=== PATIENT | male | born 1955 | race Caucasian/White ===

== ENCOUNTER 2016-09-24 09:58 | Outpatient (RCR) | payer MEDICARE ==
[~2016-09-24 09:58] MED LIST: ACTOS/MET; ALLP300T; ALLP300T PO; ASPI-84 PO; BNZT1T PO; BNZT2T; BSP5T; BYETTA; CEFD300C3 PO; CHOL2000 PO; CHOL500044 PO; CITA20TA7 PO; CLPD75T PO; CPR500T PO; CYAN100021 PO; DOCU-143 PO; FOLI1TAB7; GABA-488 PO; HYDR-3812 PO; INDO50CA; INSASP10V; INSU100C4; INSU100I14 SQ; INSU100I16 SQ; INSU100I29 SQ; INSU100V6; INVEGA; LANTUS; LIRA0.6P SQ; LORA2TAB PO; METF-380 PO; METO25TA2 PO; MGX400T PO; MIRT15TA6 PO; MULT-35 PO; NOVOLOG; OLAN15TA19 PO; OMEP20TA2 PO; OMG1KC PO; PANT40TA PO; PHEN200T27 PO; PIOG1TAB; POLY1DRO OU; PROVIGIL; PSYL1CAP3; RIVA20TA PO; RPN.25T; SMV20T PO; TERA5CAP10 PO; TRIH2TAB2 PO; VITAMIN B12; VITAMIN C; VNL75CCR; ZPR80C PO
== END 2016-09-24 16:00 | disposition home or self-care (01) ==
LOC: WOUNDCARE 09:58
PROVIDERS: ATTEND Surgery
DX: L97.212 Non-pressure chronic ulcer of right calf with fat layer exposed (principal); L97.222 Non-pressure chronic ulcer of left calf with fat layer exposed; I87.333 Chronic venous hypertension (idiopathic) with ulcer and inflammation of bilateral lower extremity; E11.622 Type 2 diabetes mellitus with other skin ulcer; I70.242 Atherosclerosis of native arteries of left leg with ulceration of calf; I89.0 Lymphedema, not elsewhere classified
CPT/HCPCS: 11042; 97597; 99213; 99214

== ENCOUNTER → 2016-10-23 | Outpatient (CLI) | payer MEDICARE ==
[2016-10-23 12:30] LABS: CREATININE SERUM 1.8 MG/DL (0.60-1.30)
--- NOTE | 2016-10-23 15:57 | Diagnostic Imaging Report ---
PROCEDURE: CT abdomen and pelvis without contrast. TECHNIQUE: Multiple contiguous axial images were obtained through the abdomen and pelvis without the use of intravenous contrast. INDICATION: Abdominal pain. Rectal bleeding. FINDINGS: The lung bases appear clear. There is thickening of the distal esophagus and suggestion of a hiatal hernia with dilatation of the proximal stomach proximal to the band. This raises question of a possible narrow passage through the band resulting in the proximal dilatation and hiatal hernia with reflux esophagitis. There is an IVC filter in place. The legs of the filter appear to project slightly outside the IVC into the adjacent fat without eroding into any of the adjacent structures. The kidneys demonstrate no hydronephrosis. No urinary tract stones. The abdominal aorta is normal in caliber. No para-aortic significantly enlarged lymph node is seen. The liver demonstrates a mild degree of diffuse fatty infiltration. The spleen, the pancreas, and the adrenals appear unremarkable. There is diastasis of the recti with laxity of the abdominal wall above the umbilicus, and there is also a tiny umbilical hernia. There is a colostomy in the left lower quadrant with a parastomal hernia containing nonobstructed loop of the colon. This appears to be a loop colostomy. There is thinning of the pelvic floor with a suggestion of descent of the pelvic structures, particularly the prostate and the rectum distally inferiorly in the pelvis. There is no fluid collection or abscess in the abdomen or pelvis. The osseous structures demonstrate prominent degenerative changes with bridging syndesmophytes in the thoracolumbar spine and fusion of the SI joints. IMPRESSION: 1. There is a moderate-sized hiatal hernia involving the dilated proximal aspect of the stomach proximal to the gastric band. There is also thickening of the mid to distal esophagus suggestive of esophagitis. Consider possibility of a tight gastric band, or possibly functional abnormality. 2. Abdominal wall laxity and diastasis of the recti with a tiny umbilical fat-containing hernia. 3. There is pelvic floor laxity with descended position of the lower aspect of the rectum and the prostate projecting into the perineum. Findings were discussed with Dr. Ponce at time of dictation. Dictated by: Dictated on workstation # [id number]
== END ==
LOC: RAD 11:57
PROVIDERS: ATTEND Surgery
DX: K44.9 Diaphragmatic hernia without obstruction or gangrene (principal)
CPT/HCPCS: 36415; 74176; 82565; 84520

== ENCOUNTER → 2016-11-19 | Outpatient (CLI) | payer MEDICARE, BC ==
[2016-11-19 14:58] LABS: BASOPHILS % (AUTO) 0 % (0-10); EOSINOPHILS # (AUTO) 0.6 10^3/uL (0.0-0.3); EOSINOPHILS % (AUTO) 8 % (0-10); LYMPHOCYTES # (AUTO) 2.9 X 10^3 (1.0-4.0); LYMPHOCYTES % (AUTO) 37 % (12-44); MEAN CORPUSCULAR HEMOGLOBIN 30 PG (25-34); MEAN CORPUSCULAR HGB CONC 32 G/DL (32-36); MEAN CORPUSCULAR VOLUME 94 FL (80-99); MEAN PLATELET VOLUME 10.9 FL (7.4-10.4); MONOCYTES # (AUTO) 0.7 X 10^3 (0.0-1.0); MONOCYTES % (AUTO) 10 % (0-12); NEUTROPHILS # (AUTO) 3.5 X 10^3 (1.8-7.8); NEUTROPHILS % (AUTO) 45 % (42-75); PLATELET COUNT 178 10^3/uL (130-400); RED BLOOD COUNT 3.96 10^6/uL (4.35-5.85); RED CELL DISTRIBUTION WIDTH 14.4 % (10.0-14.5); WHITE BLOOD COUNT 7.7 10^3/uL (4.3-11.0)
[2016-11-19 15:17] LABS: ALBUMIN 3.2 G/DL (3.2-4.5); BILIRUBIN,TOTAL 0.2 MG/DL (0.1-1.0); CALCIUM 9.4 MG/DL (8.5-10.1); CREATININE SERUM 1.67 MG/DL (0.60-1.30); POTASSIUM 3.9 MMOL/L (3.6-5.0); TOTAL PROTEIN 6.9 G/DL (6.4-8.2)
== END ==
LOC: RAD 14:34
PROVIDERS: ATTEND Surgery
DX: E11.621 Type 2 diabetes mellitus with foot ulcer (principal); L98.492 Non-pressure chronic ulcer of skin of other sites with fat layer exposed; L97.512 Non-pressure chronic ulcer of other part of right foot with fat layer exposed; G82.22 Paraplegia, incomplete
CPT/HCPCS: 36415; 80053; 83036; 85025

== ENCOUNTER → 2016-11-28 | Outpatient (CLI) | payer MEDICARE | LOC: CARD 10:39 | PROVIDERS: ATTEND Nurse Practitioner Community Health | DX: Z51.81 Encounter for therapeutic drug level monitoring (principal); Z79.899 Other long term (current) drug therapy | CPT/HCPCS: 93005 ==

== ENCOUNTER → 2016-11-29 | Outpatient (CLI) | payer BC, MEDICARE ==
[~2016-11-29] MED LIST changes: +CATHETER FLUSH 10 ML SYR IV PRN; +REGADENOSON 0.4 MG/5 ML SYR (LEXISCAN) IV ONE
[2016-11-29 09:12] VITALS: BP 126/56
[2016-11-29 09:25] VITALS: BP 148/71
== END ==
LOC: CARD 07:54
PROVIDERS: ATTEND Internal Medicine Cardiovascular Disease
DX: I25.10 Atherosclerotic heart disease of native coronary artery without angina pectoris (principal); I34.0 Nonrheumatic mitral (valve) insufficiency; E66.9 Obesity, unspecified; R06.02 Shortness of breath; I07.1 Rheumatic tricuspid insufficiency
CPT/HCPCS: 78452; 93017

== ENCOUNTER → 2016-12-06 | Outpatient (CLI) | payer BC, MEDICARE ==
[~2016-12-06] MED LIST changes: -CATHETER FLUSH 10 ML SYR IV PRN; -REGADENOSON 0.4 MG/5 ML SYR (LEXISCAN) IV ONE
== END ==
LOC: CARD 10:03
PROVIDERS: ATTEND Internal Medicine Cardiovascular Disease
DX: R06.02 Shortness of breath (principal); I25.10 Atherosclerotic heart disease of native coronary artery without angina pectoris; I34.0 Nonrheumatic mitral (valve) insufficiency; E66.9 Obesity, unspecified; I07.1 Rheumatic tricuspid insufficiency
CPT/HCPCS: 93306

== ENCOUNTER 2016-12-19 13:08 | Outpatient (RCR) | payer MEDICARE ==
[2016-12-24] MEDS ORDERED: SERT50TA2 PO ×2 (10:38)
[2016-12-24] MEDS ORDERED: BENZ0.5T3 PO ×2 (10:38)
[2016-12-24] MEDS ORDERED: CLON0.5T3 PO ×2 (10:38)
[2016-12-24] MEDS ORDERED: MIRT30TA3 PO ×2 (10:38)
[2016-12-24] MEDS ORDERED: ASPI-586 PO ×2 (10:38)
[2016-12-24] MEDS ORDERED: PANT20TA3 PO ×2 (10:38)
[2016-12-24] MEDS ORDERED: ZPR80C PO ×2 (10:38)
[2016-12-24] MEDS ORDERED: DIVA500T PO ×2 (10:38)
[2016-12-27] MEDS ORDERED: HYDR-3816 PO ×2 (14:54)
== END 2016-12-19 16:00 | disposition home or self-care (01) ==
LOC: WOUNDCARE 13:08
PROVIDERS: ATTEND Surgery
DX: L98.492 Non-pressure chronic ulcer of skin of other sites with fat layer exposed (principal); E11.621 Type 2 diabetes mellitus with foot ulcer; L97.512 Non-pressure chronic ulcer of other part of right foot with fat layer exposed; G82.22 Paraplegia, incomplete; E11.622 Type 2 diabetes mellitus with other skin ulcer; L89.153 Pressure ulcer of sacral region, stage 3
CPT/HCPCS: 11042; 99213; 99214; 99215

== ENCOUNTER 2016-12-24 10:01 | Outpatient (CLI) | payer MEDICAID, MEDICARE ==
[~2016-12-24] VITALS: Ht 185.4 cm; Wt 126.7 kg
[2016-12-24] MEDS ORDERED: MIRT30TA3 PO (10:38)
[2016-12-24] MEDS ORDERED: ASPI-586 PO (10:38)
[2016-12-24] MEDS ORDERED: DIVA500T PO (10:38)
[2016-12-24] MEDS ORDERED: BENZ0.5T3 PO (10:38)
[2016-12-24] MEDS ORDERED: CLON0.5T3 PO (10:38)
[2016-12-24] MEDS ORDERED: ZPR80C PO (10:38)
[2016-12-24] MEDS ORDERED: PANT20TA3 PO (10:38)
[2016-12-24] MEDS ORDERED: SERT50TA2 PO (10:38)
== END 2016-12-24 10:58 | disposition home or self-care (01) ==
LOC: PREOP 10:01
PROVIDERS: ATTEND Surgery Pediatric Surgery
DX: Z01.818 Encounter for other preprocedural examination (principal); Z11.2 Encounter for screening for other bacterial diseases; K60.3 Anal fistula
CPT/HCPCS: 87081

== ENCOUNTER 2016-12-27 09:43 | Day surgery (SDC) | payer MEDICARE ==
[~2016-12-27] VITALS: Ht 185.4 cm; Wt 126.7 kg
[~2016-12-27 09:43] MED LIST changes: +ASPI-586 PO; +BENZ0.5T3 PO; +CLON0.5T3 PO; +DIVA500T PO; +MIRT30TA3 PO; +PANT20TA3 PO; +SERT50TA2 PO
[2016-12-27] MEDS: LACTATED RINGERS 1,000 ML IV PRN ×2 (10:13→14:00)
[2016-12-27] MEDS ORDERED: CATHETER FLUSH 10 ML SYR IV PRN (10:15)
[2016-12-27] MEDS ORDERED: ceFAZolin 1 GM/NS 50 ML IVPB IV ONE ×2 (10:15)
[2016-12-27] MEDS ORDERED: FAMOTIDINE 20MG/2ML IV (PEPCID) IV ONE (10:15)
[2016-12-27 10:38] VITALS: BP 131/65
--- NOTE | 2016-12-27 10:43 | Progress Note-Pre Operative ---
Pre-Operative Progress Note H&P Reviewed The H&P was reviewed, patient examined and no changes noted. Date Seen by Provider: Dec 27, 2016 Time Seen by Provider: 10:40 Date H&P Reviewed: Dec 27, 2016 Time H&P Reviewed: 10:40 Pre-Operative Diagnosis: anal fistula, drainage LUZ RAHMAN MD Dec 27, 2016 10:43 am
[2016-12-27] MEDS ORDERED: ONDANSETRON 4 MG/2 ML (SDV) Z0FRAN IVP PRN (10:45)
[2016-12-27] MEDS ORDERED: HYDROcodone/APAP 5 MG/325 MG (LORTAB) TAB PO ONE (10:45)
[2016-12-27] MEDS ORDERED: morphine INJ 10 MG/ML 1ML (SYR OR VIAL) IVP PRN (10:45)
[2016-12-27] MEDS ORDERED: ACETAMINOPHEN 325 MG TABLET/CAPLET (TYLENOL) PO PRN (10:45)
[2016-12-27] MEDS ORDERED: proPOfol 200 MG/20 ML (DIPRIVAN) VIAL IV ONE (13:04)
[2016-12-27] MEDS ORDERED: fentaNYL INJECTION 100 MCG/2 ML AMP ONE ×2 (13:04→14:33)
[2016-12-27] MEDS ORDERED: BUP/EPI 0.25% 1:200,000 (MARCAINE) 10 ML VIAL IJ ONE (14:14)
[2016-12-27] MEDS ORDERED: ONDANSETRON 4 MG/2 ML (SDV) Z0FRAN ONE (14:40)
[2016-12-27] MEDS ORDERED: LACTATED RINGERS 2,000 ML IV ONE (14:40)
[2016-12-27] MEDS ORDERED: NEOSTIGMINE (BLOXIVERZ ) 1 MG/1ML 10 ML VIAL ONE (14:40)
[2016-12-27] MEDS ORDERED: SEVOFLURANE (ULTANE) 15 ML INHAL SOLN ONE (14:40)
[2016-12-27] MEDS ORDERED: GLYCOPYRROLATE 0.2 MG/ML (ROBINUL) 2 ML VIAL ONE (14:40)
--- NOTE | 2016-12-27 14:53 | Progress Note-Post Operative ---
Post-Operative Progess Note Surgeon (s)/Mattress Spring Encaser (s) Surgeon LUZ RAHMAN MD Mattress Spring Encaser: nishant arthur HEALTH CARE ADMINISTRATOR Pre-Operative Diagnosis anal fistula, drainage Post-Operative Diagnosis superficial posterior anal fistula, no communication with anus or rectum. Procedure & Operative Findings Date of Procedure 12/27/16 Procedure Performed/Findings anal exam under anesthesia, stool disimpaction, fistulotomy. Anesthesia Type GET Estimated Blood Loss Estimated blood loss (mL): minimal Specimens/Packing Specimens Removed none LUZ RAHMAN MD Dec 27, 2016 2:53 pm
[2016-12-27] MEDS ORDERED: HYDR-3816 PO ×2 (14:54)
--- NOTE | 2016-12-27 14:56 | Discharge Inst-Surgical ---
D/C Lap Instructions-KIDO New, Converted, or Re-Newed RX: RX on Chart Follow Up Appt in 2 weeks Activity as tolerated Incentive Spirometry use every 2 hours while awake wound care: remove packing in one day, then dry gauze BID and PRN until closes on own. High Fiber Diet 25g or more per day Avoid Alcohol, Caffeine, Spicy Powder Horn and Acid foods. Drink 64 fluid oz or more of fluids per day. Symptoms to Report: Fever over 101 degree F, Nausea/Vomiting If any problems/questions: Contact your physician or go to Emergency Room LUZ RAHMAN MD Dec 27, 2016 2:56 pm
[2016-12-27 15:45] VITALS: BP 134/96
[2016-12-27 16:15] VITALS: BP 152/80
[2016-12-27 16:25] VITALS: BP 152/80
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
== END 2016-12-27 16:25 | disposition home or self-care (01) ==
LOC: SDC 09:43
PROVIDERS: ATTEND Surgery
DX: K60.3 Anal fistula (principal); K56.41 Fecal impaction; E11.9 Type 2 diabetes mellitus without complications; I10 Essential (primary) hypertension; I25.10 Atherosclerotic heart disease of native coronary artery without angina pectoris; E78.00 Pure hypercholesterolemia, unspecified; G47.33 Obstructive sleep apnea (adult) (pediatric); Z95.5 Presence of coronary angioplasty implant and graft; Z98.84 Bariatric surgery status; Z79.4 Long term (current) use of insulin; Z79.899 Other long term (current) drug therapy
CPT/HCPCS: 82962; 93005

== ENCOUNTER 2017-02-28 09:37 | Outpatient (CLI) | payer MEDICARE ==
[~2017-02-28] VITALS: Ht 185.4 cm; Wt 118.0 kg
[~2017-02-28 09:37] MED LIST changes: +HYDR-3816 PO
== END 2017-02-28 12:54 ==
LOC: PREOP 09:37
PROVIDERS: ATTEND Surgery
DX: Z01.818 Encounter for other preprocedural examination (principal); R11.2 Nausea with vomiting, unspecified; R10.84 Generalized abdominal pain

== ENCOUNTER 2017-03-07 07:48 | Day surgery (SDC) | payer MEDICARE ==
[~2017-03-07] VITALS: Ht 185.4 cm; Wt 118.0 kg
[2017-03-07] MEDS ORDERED: ceFAZolin 1 GM/NS 50 ML IVPB IV ONE ×2 (08:30)
[2017-03-07] MEDS ORDERED: CATHETER FLUSH 10 ML SYR IV PRN (08:30)
[2017-03-07] MEDS ORDERED: FAMOTIDINE 20MG/2ML IV (PEPCID) IV ONE (08:45)
[2017-03-07] MEDS ORDERED: LIDOCAINE 1% 10 MG/ML 0.2 ML SYR (FOR IV START) ONE (08:50)
--- NOTE | 2017-03-07 09:53 | Progress Note-Pre Operative ---
Pre-Operative Progress Note H&P Reviewed The H&P was reviewed, patient examined and no changes noted. Date Seen by Provider: Mar 07, 2017 Time Seen by Provider: 09:45 Date H&P Reviewed: Mar 07, 2017 Time H&P Reviewed: 09:45 Pre-Operative Diagnosis: left upper abdominal quadrant pain LUZ RAHMAN MD Mar 07, 2017 9:53 am
[2017-03-07] MEDS ORDERED: HYDROcodone/APAP 5 MG/325 MG (LORTAB) TAB PO ONE (10:00)
[2017-03-07] MEDS ORDERED: ONDANSETRON 4 MG/2 ML (SDV) Z0FRAN IVP PRN ×2 (10:00→14:45)
[2017-03-07] MEDS ORDERED: morphine INJ 10 MG/ML 1ML (SYR OR VIAL) IVP PRN (10:00)
[2017-03-07] MEDS ORDERED: ACETAMINOPHEN 325 MG TABLET/CAPLET (TYLENOL) PO PRN (10:00)
[2017-03-07] MEDS: LACTATED RINGERS 1,000 ML IV PRN ×2 (10:36→13:15)
[2017-03-07] MEDS ORDERED: FAMOTIDINE 20MG/2ML IV (PEPCID) IVP ONE (10:45)
[2017-03-07] MEDS ORDERED: BUP/EPI 0.5% 1:200,000 (MARCAINE) 10ML VIAL IJ ONE (11:25)
[2017-03-07] MEDS ORDERED: LIDOCAINE PF 2% 5 ML (XYLOCAINE) VIAL ONE (11:51)
[2017-03-07] MEDS ORDERED: proPOfol 200 MG/20 ML (DIPRIVAN) VIAL IV ONE (11:51)
[2017-03-07] MEDS ORDERED: SUCCINYLCHOLINE INJ 100 MG/5 ML SYR ONE (11:51)
[2017-03-07] MEDS ORDERED: fentaNYL INJECTION 100 MCG/2 ML AMP ONE ×2 (11:52→13:09)
[2017-03-07] MEDS ORDERED: MIDAZOLAM 2 MG/2 ML (VERSED) VIAL ONE (11:52)
[2017-03-07] MEDS ORDERED: LACTATED RINGERS 1,000 ML IV ONE ×2 (11:56→13:37)
[2017-03-07] MEDS ORDERED: SEVOFLURANE (ULTANE) 15 ML INHAL SOLN ONE ×5 (11:56→14:21)
[2017-03-07] MEDS ORDERED: ONDANSETRON 4 MG/2 ML (SDV) Z0FRAN ONE ×2 (11:56→14:53)
[2017-03-07] MEDS ORDERED: GLYCOPYRROLATE 0.2 MG/ML (ROBINUL) 2 ML VIAL ONE (13:37)
[2017-03-07] MEDS ORDERED: ROCURONIUM 50 MG/5 ML (ZEMURON) VIAL IV ONE (13:38)
[2017-03-07] MEDS ORDERED: NEOSTIGMINE (BLOXIVERZ ) 1 MG/1ML 10 ML VIAL ONE (13:59)
--- NOTE | 2017-03-07 14:23 | Progress Note-Post Operative ---
Post-Operative Progess Note Surgeon (s)/Chief Psychology (s) Surgeon LUZ RAHMAN MD Chief Psychology: nishant arthur COUNCILLOR [employer] Pre-Operative Diagnosis left upper abdominal quadrant pain Post-Operative Diagnosis extensive adhesions Procedure & Operative Findings Date of Procedure 03/07/17 Procedure Performed/Findings diagnostic laparoscopy, TAWNY, removal laparoscopic adjustable gastric band. Anesthesia Type GET Estimated Blood Loss Estimated blood loss (mL): minimal Specimens/Packing Specimens Removed none LUZ RAHMAN MD Mar 07, 2017 2:23 pm
[2017-03-07] MEDS ORDERED: HYDR-3816 PO (14:27)
--- NOTE | 2017-03-07 14:30 | Discharge Inst-Surgical ---
D/C Lap Instructions-LACEY New, Converted, or Re-Newed RX: RX on Chart Follow Up Appt in 2 weeks Activity as tolerated No driving for 24 hours No driving while on pain medications Incentive Spirometry use every 2 hours while awake Regular Diet Symptoms to Report: Fever over 101 degree F, Nausea/Vomiting Infection Signs and Symptoms to report: Increased redness, Foul odor of wound, Increased drainage Bathing instructions: May shower Operative Area Clean/Dry; Keep incision clean/dry If any problems/questions: Contact your physician or go to Emergency Room LUZ RAHMAN MD Mar 07, 2017 2:30 pm
[2017-03-07] MEDS: morphine INJ 10 MG/ML 1ML (SYR OR VIAL) IVP PRN ×3 (14:41→14:55)
[2017-03-07] MEDS ORDERED: MEPERIDINE (DEMEROL) INJ 50 MG/ML IVP PRN (14:45)
[2017-03-07 15:30] VITALS: BP 156/65
[2017-03-07 16:00] VITALS: BP 157/82
[2017-03-07 16:30] VITALS: BP 128/77
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
== END 2017-03-07 16:30 | disposition home or self-care (01) ==
LOC: SDC 07:48
PROVIDERS: ATTEND Surgery
DX: R10.12 Left upper quadrant pain (principal); K21.9 Gastro-esophageal reflux disease without esophagitis; K66.0 Peritoneal adhesions (postprocedural) (postinfection); E11.22 Type 2 diabetes mellitus with diabetic chronic kidney disease; I12.9 Hypertensive chronic kidney disease with stage 1 through stage 4 chronic kidney disease, or unspecified chronic kidney disease; N18.9 Chronic kidney disease, unspecified; I25.10 Atherosclerotic heart disease of native coronary artery without angina pectoris; E78.00 Pure hypercholesterolemia, unspecified; G47.33 Obstructive sleep apnea (adult) (pediatric); M10.9 Gout, unspecified; F20.9 Schizophrenia, unspecified; F31.9 Bipolar disorder, unspecified; Z93.3 Colostomy status; Z87.820 Personal history of traumatic brain injury; Z95.5 Presence of coronary angioplasty implant and graft; Z79.01 Long term (current) use of anticoagulants; Z79.4 Long term (current) use of insulin; Z79.899 Other long term (current) drug therapy
CPT/HCPCS: 82962; 87081; 94664

== ENCOUNTER 2017-08-03 16:31 | Emergency (ER) | payer MEDICARE ==
[~2017-08-03] VITALS: Ht 185.4 cm; Wt 129.4 kg
[~2017-08-03 16:31] MED LIST changes: +ACHD5005 PO; -HYDR-3812 PO
--- NOTE | 2017-08-03 17:11 | ED General ---
General Chief Complaint: Psych/Social Disorder Stated Complaint: SUICIDAL IDEATIONS Source of Information: Patient Exam Limitations: No Limitations History of Present Illness Date Seen by Provider: Aug 03, 2017 Time Seen by Provider: 17:09 Initial Comments To ER per EMS from [facility] with reports of suicidal thoughts since yesterday when he was told that his prison Bill had not been paid in a few months and he was going to be kicked out he states. Timing/Duration: 1-2 Days Severity: Moderate Allergies and Home Medications Allergies Coded Allergies: No Known Drug Allergies (Verified , 09/08/09) Home Medications Aspirin 81 Mg Tablet.dr, 81 MG PO DAILY, (Reported) Benztropine Mesylate 0.5 Mg Tablet, 0.5 MG PO BID, (Reported) Cefuroxime Axetil 250 Mg Tablet, 250 MG PO BID, #10 Prescribed by: LA HAZEL on 08/03/17 1826 Cholecalciferol (Vitamin D3) 5,000 Unit Tablet, 5,000 UNIT PO DAILY, (Reported) Clonazepam 0.5 Mg Tablet, 0.5 MG PO Q6H PRN for ANXIETY, (Reported) Divalproex Sodium 500 Mg Tablet.dr, 500 MG PO BID, (Reported) Docusate Sodium 100 Mg Capsule, 100 MG PO BID, (Reported) Gabapentin 300 Mg Capsule, 300 MG PO TID, (Reported) Hydrocodone Bit/Acetaminophen 1 Each Tablet, 1 TAB PO Q6H PRN for PAIN, ( Reported) Hydrocodone/Acetaminophen 1 Each Tablet, 1-2 EACH PO Q4H, #35 Prescribed by: LUZ RAHMAN on 03/07/17 1427 Insulin Aspart 300 Units/3 Ml Solution, 18 UNITS SQ TID, (Reported) HOLD FOR BLOOD SUGAR OF GREATER THAN 400 OR LESS THAN 60 AND NOTIFY NURSE. Insulin Detemir 100 Unit/1 Ml Insuln.pen, 20 UNIT SQ BID, (Reported) Magnesium Oxide 400 Mg Tab, 400 MG PO DAILY, (Reported) Mirtazapine 30 Mg Tab.rapdis, 30 MG PO HS, (Reported) Multivitamin 1 Each Tablet, 1 TAB PO DAILY, (Reported) Pantoprazole Sodium 20 Mg Tablet.dr, 20 MG PO DAILY, (Reported) Polyvinyl Alcohol/Povidone/Pf 1 Each Droperette, 1 DROP OU BID, (Reported) Rivaroxaban 20 Mg Tablet, 20 MG PO HS, (Reported) Sertraline HCl 50 Mg Tablet, 50 MG PO DAILY, (Reported) Ziprasidone 80 Mg Cap, 80 MG PO HS, (Reported) Constitutional: see HPI EENTM: see HPI Respiratory: no symptoms reported Cardiovascular: no symptoms reported Genitourinary: no symptoms reported Musculoskeletal: no symptoms reported Skin: no symptoms reported Psychiatric/Neurological: See HPI, Depressed Hematologic/Lymphatic: No Symptoms Reported Past Ybpvyry-Mqoqkh-Vabrag Hx Patient Social History Recent Hopitalizations: No Immunizations Up To Date Tetanus Booster (TDap): Unknown Date of Pneumonia Vaccine: Jul 09, 2011 Date of Influenza Vaccine: Apr 16, 2016 Seasonal Allergies Seasonal Allergies: No Surgeries Surgeries: Abdominal, Cardiac, Coronary Stent, Tonsillectomy Respiratory Respiratory Disorders: Sleep Apnea Currently Using CPAP: No Cardiovascular Cardiac Disorders: Atrial Fibrillation, Chronic Edema/Swelling, Coronary Artery Disease, High Cholesterol, Hypertension Neurological Neurological Disorders: Neuropathy, Spinal Cord Injury, Traumatic Brain Injury Reproductive System Hx Reproductive Disorders: No Sexually Transmitted Disease: No HIV/AIDS: No Genitourinary Genitourinary Disorders: Renal Failure Gastrointestinal Gastrointestinal Disorders: Chronic Constipation Endocrine Endocrine Disorders: Diabetes, Insulin dep Psychosocial Behavioral Health Disorders: Bipolar, Schizophrenia, Depression Blood Transfusions Adverse Reaction to a Blood Tr: No Family Medical History Family Medial History: Patient reports no known family medical history. Physical Exam Vital Signs Vital Sign - Last 12Hours 08/03/17 16:36 Temp 97.1 Pulse 66 Resp 18 B/P (MAP) 131/56 (81) Pulse Ox 97 Capillary Refill : General Appearance: No Apparent Distress, WD/WN Eyes: Bilateral Eye Normal Inspection, Bilateral Eye PERRL, Bilateral Eye EOMI HEENT: PERRL/EOMI, TMs Normal Neck: Full Range of Motion, Normal Inspection Respiratory: No Accessory Muscle Use, No Respiratory Distress Cardiovascular: Regular Rate, Rhythm, No Edema, Normal Peripheral Pulses Gastrointestinal: Normal Bowel Sounds, Non Tender, Soft Extremity: Normal Capillary Refill, Normal Inspection Neurologic/Psychiatric: Alert, Oriented x3, No Motor/Sensory Deficits Skin: Normal Color, Warm/Dry Progress/Results/Core Measures Suspected Sepsis SIRS Temperature: Pulse: Respiratory Rate: Laboratory Tests 08/03/17 17:27: White Blood Count 6.3 Blood Pressure / Mean: Laboratory Tests 08/03/17 17:27: Creatinine 1.83H, Platelet Count 194, Total Bilirubin 0.2 Results/Orders Lab Results Laboratory Tests Test 08/03/17 17:00 08/03/17 17:27 Range/Units Urine Color YELLOW Urine Clarity SLIGHTLY CLOUDY Urine pH 6.5 5-9 Urine Specific [place] 1.010 L 1.016-1.022 Urine Protein NEGATIVE NEGATIVE Urine Glucose (UA) NEGATIVE NEGATIVE Urine Ketones NEGATIVE NEGATIVE Urine Nitrite NEGATIVE NEGATIVE Urine Bilirubin NEGATIVE NEGATIVE Urine Urobilinogen NORMAL NORMAL MG/DL Urine Leukocyte Esterase 2+ H NEGATIVE Urine RBC (Auto) 1+ H NEGATIVE Urine RBC 2-5 H /HPF Urine WBC 5-10 H /HPF Urine Crystals NONE /LPF Urine Bacteria LARGE H /HPF Urine Casts NONE /LPF Urine Mucus NEGATIVE /LPF Urine Culture Indicated YES White Blood Count 6.3 4.3-11.0 10^3/uL Red Blood Count 3.51 L 4.35-5.85 10^6/uL Hemoglobin 9.6 L 13.3-17.7 G/DL Hematocrit 31 L 40-54 % Mean Corpuscular Volume 88 80-99 FL Mean Corpuscular Hemoglobin 27 25-34 PG Mean Corpuscular Hemoglobin Concent 31 L 32-36 G/DL Red Cell Distribution Width 16.9 H 10.0-14.5 % Platelet Count 194 130-400 10^3/uL Mean Platelet Volume 10.8 H 7.4-10.4 FL Neutrophils (%) (Auto) 56 42-75 % Lymphocytes (%) (Auto) 32 12-44 % Monocytes (%) (Auto) 8 0-12 % Eosinophils (%) (Auto) 4 0-10 % Basophils (%) (Auto) 1 0-10 % Neutrophils # (Auto) 3.6 1.8-7.8 X 10^3 Lymphocytes # (Auto) 2.0 1.0-4.0 X 10^3 Monocytes # (Auto) 0.5 0.0-1.0 X 10^3 Eosinophils # (Auto) 0.2 0.0-0.3 10^3/uL Basophils # (Auto) 0.0 0.0-0.1 10^3/uL Sodium Level 140 135-145 MMOL/L Potassium Level 4.4 3.6-5.0 MMOL/L Chloride Level 104 98-107 MMOL/L Carbon Dioxide Level 26 21-32 MMOL/L Anion Gap 10 5-14 MMOL/L Blood Urea Nitrogen 29 H 7-18 MG/DL Creatinine 1.83 H 0.60-1.30 MG/DL Estimat Glomerular Filtration Rate 38 BUN/Creatinine Ratio 16 Glucose Level 158 H 70-105 MG/DL Calcium Level 8.8 8.5-10.1 MG/DL Total Bilirubin 0.2 0.1-1.0 MG/DL Aspartate Amino Transf (AST/SGOT) 16 5-34 U/L Alanine Aminotransferase (ALT/SGPT) 12 0-55 U/L Alkaline Phosphatase 59 40-136 U/L Total Protein 7.3 6.4-8.2 GM/DL Albumin 3.1 L 3.2-4.5 GM/DL Thyroid Stimulating Hormone (TSH) 1.45 0.35-4.94 UIU/ML My Orders Orders - LA HAZEL APRN Cbc With Automated Diff (08/03/17 16:50) Comprehensive Metabolic Panel (08/03/17 16:50) Ua Culture If Indicated (08/03/17 16:50) Thyroid Stimulating Hormone (08/03/17 16:50) Ekg Tracing (08/03/17 16:50) Urine Culture (08/03/17 17:00) Cefdinir Capsule (Omnicef Capsule) (08/03/17 18:15) Medications Given in ED Current Medications Medications Dose Ordered Sig/Matt Route Start Time Stop Time Status Last Admin Dose Admin Cefdinir 300 mg ONCE ONCE PO 08/03/17 18:15 08/03/17 18:16 DC 08/03/17 18:43 300 MG Vital Signs/I&O Vital Sign - Last 12Hours 08/03/17 16:36 Temp 97.1 Pulse 66 Resp 18 B/P (MAP) 131/56 (81) Pulse Ox 97 Capillary Refill : Departure Communication (Admissions) Progress Notes 1821-patient states that he would feel much less suicidal or feet. Quit worrying about his place of residence. He believes he is going to be kicked out of [facility] and rehabilitation and has nowhere to go. He is paraplegic and unable to care for himself at home. Discussed with him that this could not be resolved on the weekend (today is Saturday) but psychosocial rehabilitation counselor could discuss options with him on Saturday. Impression Impression: Primary Impression: Chronic renal insufficiency Additional Impressions: Depression with suicidal ideation UTI (urinary tract infection) Disposition: 03 XFER SNF Condition: Stable Departure-Patient Inst. Decision time for Depature: 18:24 Referrals: MIGUEL ANGEL MCCORMICK MD (PCP/Family) Primary Care Physician Patient Instructions: Depression, Adult (DC) Add. Discharge Instructions: Antibiotics as directed for the bladder infection 2. Return to ER for any concerns 3. Call his doctor on Saturday 4. Call the senior behavioral health unit at [facility] for any worsening behaviors so they can come screen him. Scripts Cefuroxime Axetil (Cefuroxime) 250 Mg Tablet 250 MG PO BID, #10 TAB Prov: LA HAZEL SUPERVISOR WINTER 08/03/17 LA HAZEL APRN Aug 03, 2017 17:11
[2017-08-03 17:42] LABS: BILIRUBIN,URINE NEGATIVE (NEGATIVE); CLARITY,URINE SLIGHTLY CLOUDY; COLOR,URINE YELLOW; GLUCOSE, URINE (UA) NEGATIVE (NEGATIVE); KETONES,URINE NEGATIVE (NEGATIVE); LEUKOCYTE ESTERASE ,URINE 2+ (NEGATIVE); NITRITE,URINE NEGATIVE (NEGATIVE); PH,URINE 6.5 (5-9); PROTEIN,URINE NEGATIVE (NEGATIVE); UROBILINOGEN,URINE NORMAL (NORMAL)
[2017-08-03 17:49] LABS: BASOPHILS % (AUTO) 1 % (0-10); EOSINOPHILS # (AUTO) 0.2 10^3/uL (0.0-0.3); EOSINOPHILS % (AUTO) 4 % (0-10); HEMATOCRIT 31 % (40-54); HEMOGLOBIN 9.6 G/DL (13.3-17.7); LYMPHOCYTES % (AUTO) 32 % (12-44); MEAN CORPUSCULAR HEMOGLOBIN 27 PG (25-34); MEAN CORPUSCULAR HGB CONC 31 G/DL (32-36); MEAN CORPUSCULAR VOLUME 88 FL (80-99); MEAN PLATELET VOLUME 10.8 FL (7.4-10.4); MONOCYTES # (AUTO) 0.5 X 10^3 (0.0-1.0); MONOCYTES % (AUTO) 8 % (0-12); NEUTROPHILS # (AUTO) 3.6 X 10^3 (1.8-7.8); NEUTROPHILS % (AUTO) 56 % (42-75); PLATELET COUNT 194 10^3/uL (130-400); RED BLOOD COUNT 3.51 10^6/uL (4.35-5.85); RED CELL DISTRIBUTION WIDTH 16.9 % (10.0-14.5); WHITE BLOOD COUNT 6.3 10^3/uL (4.3-11.0)
[2017-08-03 17:52] LABS: BACTERIA,URINE LARGE /HPF
[2017-08-03 18:06] LABS: ALBUMIN 3.1 GM/DL (3.2-4.5); BILIRUBIN,TOTAL 0.2 MG/DL (0.1-1.0); CALCIUM 8.8 MG/DL (8.5-10.1); CREATININE SERUM 1.83 MG/DL (0.60-1.30); POTASSIUM 4.4 MMOL/L (3.6-5.0); TOTAL PROTEIN 7.3 GM/DL (6.4-8.2)
[2017-08-03] MEDS ORDERED: CEFDINIR 300 MG (OMNICEF) CAP PO ONE (18:15)
[2017-08-03] MEDS ORDERED: CEFU250T80 PO (18:26)
[2017-08-03 18:47] VITALS: BP 131/56
== END 2017-08-03 18:55 ==
LOC: EDUNIT# 16:31 → ER 16:32
DX: I12.9 Hypertensive chronic kidney disease with stage 1 through stage 4 chronic kidney disease, or unspecified chronic kidney disease (principal); E11.22 Type 2 diabetes mellitus with diabetic chronic kidney disease; N18.9 Chronic kidney disease, unspecified; N39.0 Urinary tract infection, site not specified; F32.9 Major depressive disorder, single episode, unspecified; G47.30 Sleep apnea, unspecified; I48.91 Unspecified atrial fibrillation; I25.10 Atherosclerotic heart disease of native coronary artery without angina pectoris; E78.00 Pure hypercholesterolemia, unspecified; F20.9 Schizophrenia, unspecified; Z87.820 Personal history of traumatic brain injury; Z87.19 Personal history of other diseases of the digestive system; Z79.82 Long term (current) use of aspirin; Z79.4 Long term (current) use of insulin; Z79.01 Long term (current) use of anticoagulants; Z90.89 Acquired absence of other organs; Z95.5 Presence of coronary angioplasty implant and graft
CPT/HCPCS: 36415; 80053; 81000; 84443; 85025; 87088; 87186; 93005

== ENCOUNTER 2017-11-29 03:43 | Inpatient (IN) | payer MEDICARE ==
[~2017-11-29] VITALS: Ht 185.4 cm; Wt 130.0 kg
[~2017-11-29 03:43] MED LIST changes: -BENZ0.5T3 PO; +BENZ0.5T42 PO; +CEFU250T80 PO; -CITA20TA7 PO; +CITA20TA9 PO; +HYDR-34 PO; -HYDR-3816 PO
[2017-11-29] MEDS ORDERED: NS IV 1000 ML 1,000 ML IV SCH ×2 (03:53→05:18)
--- NOTE | 2017-11-29 04:04 | ED Fall/Injury ---
General Stated Complaint: FALL Source: patient, EMS, detention records Exam Limitations: no limitations History of Present Illness Date Seen by Provider: November 29, 2017 Time Seen by Provider: 03:40 Initial Comments The patient presents to the ER by EMS from [facility] with chief complaint that at 2:30 this morning he was trying to get up into his wheelchair and his knees buckled he went to the ground landing on his left hip. He says he did not lose consciousness nor strike his head. He is on Xarelto. He has a known area of cellulitis being treated with Bactrim and doxycycline on his left hip. He has plans to have an abscess on his left hip drained by Dr. Aleman but he does not know when this to happen. He says he's having pain in both hips and does not want to straighten his legs. He has a colostomy bag. He denies any dysuria, fevers, chills. He is not having any nausea or vomiting. Allergies and Home Medications Allergies Coded Allergies: No Known Drug Allergies (Verified , 09/08/09) Home Medications Aspirin 81 Mg Tablet.dr, 81 MG PO DAILY, (Reported) Benztropine Mesylate 0.5 Mg Tablet, 0.5 MG PO BID, (Reported) Cefuroxime Axetil 250 Mg Tablet, 250 MG PO BID Prescribed by: LA HAZEL on 08/03/171825 Cholecalciferol (Vitamin D3) 5,000 Unit Tablet, 5,000 UNIT PO DAILY, (Reported) Clonazepam 0.5 Mg Tablet, 0.5 MG PO Q6H PRN for ANXIETY, (Reported) Divalproex Sodium 500 Mg Tablet.dr, 500 MG PO BID, (Reported) Docusate Sodium 100 Mg Capsule, 100 MG PO BID, (Reported) Gabapentin 300 Mg Capsule, 300 MG PO TID, (Reported) Hydrocodone Bit/Acetaminophen 1 Each Tablet, 1 TAB PO Q6H PRN for PAIN, ( Reported) Hydrocodone Bit/Acetaminophen 1 Each Tablet, 1-2 EACH PO Q4H Prescribed by: LUZ PEOPLES on 03/07/17 1427 Insulin Aspart 300 Units/3 Ml Solution, 18 UNITS SQ TID, (Reported) HOLD FOR BLOOD SUGAR OF GREATER THAN 400 OR LESS THAN 60 AND NOTIFY NURSE. Insulin Detemir 100 Unit/1 Ml Insuln.pen, 20 UNIT SQ BID, (Reported) Magnesium Oxide 400 Mg Tab, 400 MG PO DAILY, (Reported) Mirtazapine 30 Mg Tab.rapdis, 30 MG PO HS, (Reported) Multivitamin 1 Each Tablet, 1 TAB PO DAILY, (Reported) Pantoprazole Sodium 20 Mg Tablet.dr, 20 MG PO DAILY, (Reported) Polyvinyl Alcohol/Povidone/Pf 1 Each Droperette, 1 DROP OU BID, (Reported) Rivaroxaban 20 Mg Tablet, 20 MG PO HS, (Reported) Sertraline HCl 50 Mg Tablet, 50 MG PO DAILY, (Reported) Ziprasidone 80 Mg Cap, 80 MG PO HS, (Reported) Patient Home Medication List Home Medication List Reviewed: Yes Review of Systems Constitutional: No chills, No diaphoresis, No fever Eyes: Denies Blindness, Denies Blurred Vision Ears, Nose, Mouth, Throat: denies ear pain, denies ear discharge, denies nose discharge, denies epistaxis Respiratory: No cough, No short of breath Cardiovascular: No chest pain, No palpitations Gastrointestinal: No abdominal pain, No constipation, No diarrhea, No nausea Genitourinary: No discharge, No dysuria Musculoskeletal: back pain (mid thoracic), joint pain (bilateral hips) Skin: see HPI Past Czsbtzh-Ivjuiq-Ksfrpg Hx Patient Social History Alcohol Use: Denies Use Recreational Drug Use: No Recent Foreign Travel: No Contact w/Someone Who Travel: No Recent Hopitalizations: No Immunizations Up To Date Tetanus Booster (TDap): Unknown Date of Pneumonia Vaccine: Jul 09, 2011 Date of Influenza Vaccine: Apr 16, 2016 Seasonal Allergies Seasonal Allergies: No Past Medical History Surgeries: Yes (COLOSTOMY, LAP BAND, rectal fistulotomy) Abdominal, Cardiac, Coronary Stent, Tonsillectomy Respiratory: Yes (CHRONIC DYSPNEA) Sleep Apnea Currently Using CPAP: No Cardiac: Yes (PSVT) Atrial Fibrillation, Chronic Edema/Swelling, Coronary Artery Disease, High Cholesterol, Hypertension Neurological: Yes Neuropathy, Spinal Cord Injury, Traumatic Brain Injury Reproductive Disorders: No Sexually Transmitted Disease: No HIV/AIDS: No Renal Failure Gastrointestinal: No (COLOSTOMY ) Chronic Constipation Musculoskeletal: Yes (DYSKINESIA; NON-AMBULATORY, WHEELCHAIR-BOUND) Endocrine: Yes Diabetes, Insulin dep Cancer: No Psychosocial: Yes Schizophrenia, Depression Integumentary: No Blood Disorders: No Adverse Reaction/Blood Tranf: No Family Medical History Patient reports no known family medical history. Physical Exam Vital Signs Vital Signs - First Documented Capillary Refill : General Appearance: mild distress, obese HEENT: PERRL/EOMI, pharynx normal Neck: non-tender, normal inspection Cardiovascular: normal peripheral pulses, regular rate, rhythm Respiratory: chest non-tender, lungs clear, normal breath sounds, no respiratory distress, no accessory muscle use Peripheral Pulses: 2+ Dorsalis Pedis (R), 2+ Left Dors-Pedis (L), 2+ Radial Pulses (R), 2+ Radial Pulses (L) Gastrointestinal: normal bowel sounds, non tender, soft, other (left-sided colostomy) Back: normal inspection, vertebral tenderness (lumbar and mid thoracic tenderness palpation midline) Extremities: normal capillary refill, swelling, other (left hip) Neurologic/Psychiatric: alert, oriented x 3 Skin: other (erythematous, firm, tender area over the left hip with palpable fluctuance.) [place] Coma Score Best Eye Response: (4) Open Spontaneously Best Verbal Response: (5) Oriented Best Motor Response: (6) Obeys Commands Usman Total: 15 Progress/Results/Core Measures Results/Orders Lab Results Laboratory Tests Test 11/29/17 04:00 Range/Units White Blood Count 15.4 H 4.3-11.0 10^3/uL Red Blood Count 2.93 L 4.35-5.85 10^6/uL Hemoglobin 7.3 L 13.3-17.7 G/DL Hematocrit 24 L 40-54 % Mean Corpuscular Volume 81 80-99 FL Mean Corpuscular Hemoglobin 25 25-34 PG Mean Corpuscular Hemoglobin Concent 31 L 32-36 G/DL Red Cell Distribution Width 17.8 H 10.0-14.5 % Platelet Count 603 H 130-400 10^3/uL Mean Platelet Volume 9.1 7.4-10.4 FL Neutrophils (%) (Auto) 79 H 42-75 % Lymphocytes (%) (Auto) 10 L 12-44 % Monocytes (%) (Auto) 8 0-12 % Eosinophils (%) (Auto) 3 0-10 % Basophils (%) (Auto) 0 0-10 % Neutrophils # (Auto) 12.1 H 1.8-7.8 X 10^3 Lymphocytes # (Auto) 1.5 1.0-4.0 X 10^3 Monocytes # (Auto) 1.3 H 0.0-1.0 X 10^3 Eosinophils # (Auto) 0.5 H 0.0-0.3 10^3/uL Basophils # (Auto) 0.0 0.0-0.1 10^3/uL Neutrophils % (Manual) 78 % Lymphocytes % (Manual) 5 % Monocytes % (Manual) 13 % Eosinophils % (Manual) 2 % Basophils % (Manual) 0 % Band Neutrophils 2 % Clumped Platelets SLIGHT Polychromasia SLIGHT Hypochromasia MODERATE Anisocytosis MODERATE Tear Drop Cells SLIGHT Elliptocytes SLIGHT Sodium Level 136 135-145 MMOL/L Potassium Level 5.2 H 3.6-5.0 MMOL/L Chloride Level 105 98-107 MMOL/L Carbon Dioxide Level 20 L 21-32 MMOL/L Anion Gap 11 5-14 MMOL/L Blood Urea Nitrogen 32 H 7-18 MG/DL Creatinine 1.97 H 0.60-1.30 MG/DL Estimat Glomerular Filtration Rate 35 BUN/Creatinine Ratio 16 Glucose Level 132 H 70-105 MG/DL Lactic Acid Level 2.31 *H 0.50-2.00 MMOL/L Calcium Level 9.5 8.5-10.1 MG/DL Total Bilirubin 0.3 0.1-1.0 MG/DL Aspartate Amino Transf (AST/SGOT) 29 5-34 U/L Alanine Aminotransferase (ALT/SGPT) 11 0-55 U/L Alkaline Phosphatase 105 40-136 U/L C-Reactive Protein High Sensitivity 23.71 H 0.00-0.50 MG/DL Total Protein 6.6 6.4-8.2 GM/DL Albumin 2.5 L 3.2-4.5 GM/DL My Orders Orders - ANKIT MENDOSA Cbc With Automated Diff (11/29/17 03:53) Comprehensive Metabolic Panel (11/29/17 03:53) Hs C Reactive Protein (11/29/17 03:53) Ua Culture If Indicated (11/29/17 03:53) Hip, Left, 2 Views (11/29/17 03:53) Hip, Right, 2 Views (11/29/17 03:53) Saline Lock/Iv-Start (11/29/17 03:53) Ns Iv 1000 Ml (Sodium Chloride 0.9%) (11/29/17 03:53) Lactic Acid Analyzer (11/29/17 03:58) Blood Culture (11/29/17 03:58) Fentanyl Injection (Sublimaze Injection (11/29/17 04:31) Fentanyl Injection (Sublimaze Injection (11/29/17 04:45) Manual Differential (11/29/17 04:00) Ns Iv 1000 Ml (Sodium Chloride 0.9%) (11/29/17 05:18) Piperacillin Sodium/Tazobactam (Zosyn Vi (11/29/17 05:45) Medications Given in ED Current Medications Medications Dose Ordered Sig/Matt Route Start Time Stop Time Status Last Admin Dose Admin Fentanyl Citrate 50 mcg ONCE ONCE IVP 11/29/17 04:45 11/29/17 04:46 DC 11/29/17 04:41 50 MCG Vital Signs/I&O 11/29/17 11/29/17 11/29/17 03:43 03:43 04:41 Temp 97.6 97.6 97.6 Pulse 81 81 Resp 20 20 B/P (MAP) 113/60 (77) 113/60 (77) Pulse Ox 95 95 O2 Delivery Room Air Room Air Progress Progress Note #1: Time: 04:03 Progress Note Probable caused by this abscess over his left hip. Concern for possible fracture. He is not wanting anything for pain right now. We'll get labs and x- ray and if he is decompensating he may benefit from faster follow up inpatient with surgery. Concern for an abscess that is this large and this close to the left hip but there may be joint involvement. Progress Note #2: Time: 05:02 Progress Note Normocytic anemia with hemoglobin has dropped about 2 points since it was last checked here at the ER 4 months ago. With his elevated white count of 15,000 and his large abscess he will likely need this addressed today and this was going to be best treated probably under general anesthesia. We will consult with our general surgeon. Diagnostic Imaging Diagonstic Imaging: Xray Plain Films/CT/US/NM/MRI: hip (bilateral) Comments Bilateral hips without acute osseous abnormality. No free air. Reviewed: Reviewed by Me Departure Communication (Admissions) Time/Spoke to Admitting Phy: 05:31 Discussed case lab imaging findings with Dr. Whitman and she agrees to take the patient in the hospital. Time/Spoke to Consulting Phy: 05:32 Dr. Aleman discussed case lab imaging findings and he agrees to see the patient. Patient is known to Dr. Peoples. He is okay to consult for now. Impression Primary Impression: Fall Qualified Codes: W19.XXXA - Unspecified fall, initial encounter Additional Impressions: Abscess Anemia Qualified Codes: D64.9 - Anemia, unspecified Sepsis Qualified Codes: A41.9 - Sepsis, unspecified organism Disposition: ADMITTED INPATIENT Condition: Stable Admissions Decision to Admit Reason: Admit from ER (General) Decision to Admit/Date: November 29, 2017 Time/Decision to Admit Time: 05:04 Departure-Patient Inst. Referrals: MIGUEL ANGEL MCCORMICK MD (PCP/Family) Primary Care Physician Copy Copies To 1: GEORGE GARCIA DO; GIULIANA ALEMAN MD, TITUS J November 29, 2017 04:04
[2017-11-29] MEDS ORDERED: fentaNYL INJECTION 100 MCG/2 ML AMP ONE (04:31)
[2017-11-29] MEDS ORDERED: fentaNYL INJECTION 100 MCG/2 ML AMP IVP ONE (04:45)
[2017-11-29 04:49] LABS: BASOPHILS % (AUTO) 0 % (0-10); EOSINOPHILS # (AUTO) 0.5 10^3/uL (0.0-0.3); EOSINOPHILS % (AUTO) 3 % (0-10); HEMATOCRIT 24 % (40-54); HEMOGLOBIN 7.3 G/DL (13.3-17.7); LYMPHOCYTES # (AUTO) 1.5 X 10^3 (1.0-4.0); LYMPHOCYTES % (AUTO) 10 % (12-44); MEAN CORPUSCULAR HEMOGLOBIN 25 PG (25-34); MEAN CORPUSCULAR HGB CONC 31 G/DL (32-36); MEAN CORPUSCULAR VOLUME 81 FL (80-99); MEAN PLATELET VOLUME 9.1 FL (7.4-10.4); MONOCYTES # (AUTO) 1.3 X 10^3 (0.0-1.0); MONOCYTES % (AUTO) 8 % (0-12); NEUTROPHILS # (AUTO) 12.1 X 10^3 (1.8-7.8); NEUTROPHILS % (AUTO) 79 % (42-75); PLATELET COUNT 603 10^3/uL (130-400); RED BLOOD COUNT 2.93 10^6/uL (4.35-5.85); RED CELL DISTRIBUTION WIDTH 17.8 % (10.0-14.5); WHITE BLOOD COUNT 15.4 10^3/uL (4.3-11.0)
[2017-11-29 05:07] LABS: ANISOCYTOSIS MODERATE; BAND NEUTROPHILS 2 %; BASOPHILS % (MANUAL) 0 %; ELLIPT/OVALOCYTES SLIGHT; EOSINOPHILS % (MANUAL) 2 %; HYPOCHROMASIA MODERATE; LYMPHOCYTES % (MANUAL) 5 %; MONOCYTES % (MANUAL) 13 %; NEUTROPHILS % (MANUAL) 78 %; PLATELET CLUMPS SLIGHT; POLYCHROMASIA SLIGHT; TEAR DROP CELLS SLIGHT
[2017-11-29 05:10] LABS: ALBUMIN 2.5 GM/DL (3.2-4.5); BILIRUBIN,TOTAL 0.3 MG/DL (0.1-1.0); CALCIUM 9.5 MG/DL (8.5-10.1); CREATININE SERUM 1.97 MG/DL (0.60-1.30); POTASSIUM 5.2 MMOL/L (3.6-5.0); TOTAL PROTEIN 6.6 GM/DL (6.4-8.2)
[2017-11-29] MEDS ORDERED: PIPERACILLIN SODIUM/TAZOBACTAM 4.5 GM in D5W 100 ML IVPB 100 ML IV ONE (05:45)
--- NOTE | 2017-11-29 06:01 | Diagnostic Imaging Report ---
INDICATION: Fall. Hip pain. COMPARISON: None FINDINGS: 2 radiographic views of the left hip were obtained. There is no fracture, dislocation, bone destruction, or radiopaque foreign body. The visualized pelvic osseous structures and the SI joints demonstrate no acute fracture or dislocation. There is no bone destruction or radiopaque foreign body. The surrounding soft tissue structures are unremarkable. IMPRESSION: 1. No acute fracture or dislocation in the left hip hip joint. Dictated by: Dictated on workstation # [id number]
--- NOTE | 2017-11-29 06:02 | Diagnostic Imaging Report ---
INDICATION: Fall. Hip pain. COMPARISON: None. FINDINGS: 2 radiographic views of the right hip were obtained. There is no fracture, dislocation, bone destruction, or radiopaque foreign body. The visualized pelvic osseous structures and the SI joints demonstrate no acute fracture or dislocation. There is no bone destruction or radiopaque foreign body. The surrounding soft tissue structures are unremarkable. IMPRESSION: 1. No acute fracture or dislocation in the right hip joint. Dictated by: Dictated on workstation # [id number]
[2017-11-29] MEDS ORDERED: VANCOMYCIN INJECTION 2,250 MG in NS IV 500 ML 500 ML IV NR (07:13)
[2017-11-29] MEDS ORDERED: fentaNYL INJECTION 100 MCG/2 ML AMP IV PRN (07:15)
[2017-11-29] MEDS ORDERED: ONDANSETRON 4 MG/2 ML (SDV) Z0FRAN IV PRN (07:15)
[2017-11-29 07:50] VITALS: BP 144/65
[2017-11-29 07:51] VITALS: BP 116/56
[2017-11-29] MEDS: 1/2 NS IV SOLUTION 1,000 ML IV SCH ×4 (08:04→22:02)
[2017-11-29] MEDS: inSUlin DETERMIR 1 UNIT/0.01 ML (LEVEMIR) CHARGE PER UNIT SQ SCH ×2 (08:04→21:00)
[2017-11-29] MEDS ORDERED: LIDOCAINE UROJET 2% GEL 10 ML PKG ONE (08:09)
[2017-11-29] MEDS ORDERED: LIDOCAINE UROJET 2% GEL 10 ML PKG TOP ONE (08:15)
[2017-11-29] MEDS ORDERED: DOXY100C2 PO (08:53)
[2017-11-29] MEDS ORDERED: NYST1POW24 TOP (08:53)
[2017-11-29] MEDS ORDERED: SULF1TAB35 PO (08:53)
[2017-11-29] MEDS ORDERED: ZPR40C PO (08:53)
[2017-11-29] MEDS ORDERED: MAGN400T6 PO (08:53)
[2017-11-29] MEDS ORDERED: MUPI22OI2 TP (08:53)
[2017-11-29] MEDS ORDERED: GABA-488 PO (08:53)
[2017-11-29] MEDS ORDERED: POLY17PO6 PO (08:53)
[2017-11-29] MEDS ORDERED: INSU100I32 SQ (08:53)
[2017-11-29] MEDS ORDERED: CARB15DR OU (08:53)
[2017-11-29] MEDS ORDERED: ZIPR20CA23 PO (08:53)
[2017-11-29] MEDS ORDERED: ACET325T38 PO (08:53)
[2017-11-29] MEDS ORDERED: PANT20TA3 PO (08:53)
[2017-11-29] MEDS ORDERED: FENT1PAT9 TD (08:53)
[2017-11-29] MEDS ORDERED: MIRT15TA6 PO (08:53)
[2017-11-29] MEDS: fentaNYL PATCH 50 MCG (DURAGESIC) TD SCH (10:44)
[2017-11-29] MEDS: inSUlin ASPART (NovoLOG) 1 UNIT/0.01 ML (CHARGE PER UNIT) SC SCH ×3 (11:12→22:07)
--- NOTE | 2017-11-29 11:16 | History & Physical-Hospitalist ---
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 Garcia has started him on an antibiotic to treat a skin infection located on his left hip but patient began experiencing drainage and pain and presented to the ER found to have abscess in need of general surgery evaluation and empiric broad-spectrum antibiotics. He was a prior [facility] patient and he had changed to Dr. Garcia clinic as of July 2017 so his transfer back to the service after [facility] physician reconciled and restarted all home meds and essentially initiated medical management prior to transferring his care. The plan will be to recheck the wound may not require procedure. Xarelto will be stopped just in case.. Source: patient, RN/MD Exam Limitations: no limitations Date Seen 11/29/17 Time Seen by Provider: 11:00 Attending Physician Valencia Cheema DO PCP Juan Garcia DO Referring Physician Date of Admission November 29, 2017 at 05:30 Home Medications & Allergies Home Medications Reviewed patient Home Medication Reconciliation performed by pharmacy medication reconciliations retail service technician and/or nursing. Patients Allergies have been reviewed. Allergies Allergies Coded Allergies No Known Drug Allergies (Verified09/08/09) Past Amdxvmi-Zvpzjg-Pkrbzc Hx Past Med/Social Hx: Reviewed Nursing Past Med/Soc Hx, Reviewed and Corrections made Patient Social History Marrital Status: single Employed/Student: unemployed Alcohol Use: Denies Use Recreational Drug Use: No Smoking Status: Unknown if Ever Smoked 2nd Hand Smoke Exposure: No Recent Foreign Travel: No Contact w/other who traveled: No Recent Hopitalizations: No Recent Infectious Disease Expo: No Immunizations Up To Date Tetanus Booster (TDap): Unknown Date of Pneumonia Vaccine: Jul 09, 2011 Date of Influenza Vaccine: Apr 16, 2016 Seasonal Allergies Seasonal Allergies: No Past Medical History Surgeries: Abdominal, Cardiac, Coronary Stent, Tonsillectomy Currently Using CPAP: No Cardiac: Atrial Fibrillation, Chronic Edema/Swelling, Coronary Artery Disease, High Cholesterol, Hypertension Neurological: Neuropathy, Spinal Cord Injury, Traumatic Brain Injury Reproductive: No Sexually Transmitted Disease: No HIV/AIDS: No Genitourinary: Renal Failure Gastrointestinal: Chronic Constipation Endocrine: Diabetes, Insulin dep Psychosocial: Schizophrenia, Depression History of Blood Disorders: No Adverse Reaction to Blood Jiménez: No Family History Patient reports no known family medical history. Review of Systems Constitutional: no symptoms reported EENTM: no symptoms reported Respiratory: no symptoms reported Cardiovascular: no symptoms reported Gastrointestinal: no symptoms reported Musculoskeletal: no symptoms reported Skin: see HPI Psychiatric/Neurological: No Symptoms Reported All Other Systems Reviewed Negative Unless Noted: Yes Physical Exam Physical Exam Vital Signs Vital Signs - First Documented Capillary Refill : Less Than 3 Seconds General Appearance: No Apparent Distress, WD/WN, Chronically ill Eyes: Bilateral Eye Normal Inspection, Bilateral Eye PERRL HEENT: PERRL/EOMI, Normal ENT Inspection, Pharynx Normal Neck: Full Range of Motion, Normal Inspection, Non Tender, Supple, Carotid Bruit Respiratory: Chest Non Tender, Lungs Clear, Normal Breath Sounds, No Accessory Muscle Use, No Respiratory Distress Cardiovascular: Regular Rate, Rhythm, No Edema, No Gallop, No JVD, No Murmur, Normal Peripheral Pulses Gastrointestinal: Normal Bowel Sounds, No Organomegaly, No Pulsatile Mass, Non Tender, Soft Back: Normal Inspection, No CVA Tenderness, No Vertebral Tenderness Extremity: Normal Capillary Refill, Normal Inspection, Normal Range of Motion, Non Tender, No Calf Tenderness, No Pedal Edema Neurologic/Psychiatric: Alert, Oriented x3, No Motor/Sensory Deficits, Depressed Affect Skin: Normal Color, Warm/Dry, Rash (right hip dressing intact) Lymphatic: No Adenopathy Results Results/Procedures Labs Laboratory Tests 11/29/17 04:00 Patient resulted labs reviewed. Assessment/Plan Admission Diagnosis Assessment: Left hip skin abscess may need incision and drainage per Dr. Ponce Diabetes mellitus Neuropathy Chronic pain Severe depression Plan: Zosyn and vancomycin empiric treatment Appreciate general surgery evaluation since it may need incision and drainage Home meds restarted Admission Status: Inpatient Order (span 2 midnights) Reason for Inpatient Admission: Severe skin abscess Diagnosis/Problems Diagnosis/Problems (1) Abscess Status: Acute (2) Sepsis Status: Resolved Qualifiers: Sepsis type: sepsis due to unspecified organism Qualified Codes: A41.9 - Sepsis, unspecified organism (3) Paraplegia Status: Chronic (4) Colostomy in place Status: Chronic (5) Diabetes mellitus, type 2 Status: Chronic Qualifiers: Diabetes mellitus accounting generalist insulin use: with accounting generalist use Diabetes mellitus complication status: with neurologic complications Diabetes mellitus complication detail: with unspecified neuropathy Qualified Codes: E11.40 - Type 2 diabetes mellitus with diabetic neuropathy, unspecified; Z79.4 - retirement (current) use of insulin (6) Hypertension Status: Chronic (7) Chronic renal insufficiency Status: Chronic (8) Anemia Status: Chronic Qualifiers: Anemia type: unspecified type Qualified Codes: D64.9 - Anemia, unspecified VALENCIA CHEEMA DO November 29, 2017 11:16
--- NOTE | 2017-11-29 11:25 | Progress Note-Standard ---
Standard Progress Note Progress Notes/Assess & Plan Date Seen by Provider: November 29, 2017 Time Seen by Provider: 10:15 Progress/Assessment & Plan 11/29/17: This gentleman, resident under local rehabilitation center, with multiple comorbidities, has been admitted with an abscess over the lateral aspect of the left proximal thigh with inadequate drainage. He is on xarelto to manage atrial fibrillation. This should be held today in preparation for incision and drainage under general anesthetic tomorrow. I will request the on- call surgeon to manage this. Final Diagnosis Abscess of the left thigh Focused Exam Lactate Level 11/29/17 04:00: Lactic Acid Level 2.31*H 11/29/17 05:58: Lactic Acid Level 1.94 GIULIANA ALEMAN MD November 29, 2017 11:25
[2017-11-29 12:00] VITALS: BP 118/67
[2017-11-29] MEDS ORDERED: inSUlin ASPART (NovoLOG) 1 UNIT/0.01 ML (CHARGE PER UNIT) SC SCH (12:00)
[2017-11-29] MEDS: GABAPENTIN 300 MG (NEURONTIN) CAP PO SCH ×2 (12:36→22:02)
[2017-11-29] MEDS: PIPERACILLIN/TAZO 4.5 GM/D5W 100 ML IVPB IV SCH ×4 (12:37→20:33)
--- NOTE | 2017-11-29 15:28 | Progress Note-Standard ---
Standard Progress Note Progress Notes/Assess & Plan Time Seen by Provider: 15:22 Final Diagnosis Ignore this progress note, entered wrong note. Focused Exam Lactate Level 11/29/17 04:00: Lactic Acid Level 2.31*H 11/29/17 05:58: Lactic Acid Level 1.94 POLY VEGA DO November 29, 2017 15:28
--- NOTE | 2017-11-29 15:34 | Progress Note ---
Subjective Time Seen by Provider: 15:22 Subjective/Events-last exam Pt seen and examined. He was admitted with Left hip/thigh abscess vs cellulitis. Pt has minimal pain, he is wheelchair bound. States it has been going on "2 weeks" and nurse thinks it looks better compared to when he came in. Review of Systems General: Chills, Malaise Pulmonary: No Dyspnea, No Cough Cardiovascular: No: Chest Pain, Palpitations Gastrointestinal: No: Nausea, Vomiting Focused Exam Lactate Level 11/29/17 04:00: Lactic Acid Level 2.31*H 11/29/17 05:58: Lactic Acid Level 1.94 Objective Exam Vital Signs Date Time Temp Pulse Resp B/P (MAP) Pulse Ox O2 Delivery O2 Flow Rate FiO2 11/29/17 12:00 98.4 85 18 118/67 (84) 96 Room Air 11/29/17 08:00 Room Air 11/29/17 07:51 97.5 81 20 116/56 (76) 99 Room Air 11/29/17 07:50 97.5 81 20 144/65 (91) 99 Room Air 11/29/17 06:31 97.6 81 20 119/67 97 Room Air 11/29/17 06:31 97.6 80 20 119/67 (77) 97 Room Air 11/29/17 04:41 97.6 11/29/17 03:43 97.6 81 20 113/60 (77) 95 Room Air 11/29/17 03:43 97.6 81 20 113/60 (77) 95 Room Air I & O 11/29/17 07:00 Intake Total 1000 ml Balance 1000 ml Capillary Refill : Less Than 3 Seconds General Appearance: No Apparent Distress, WD/WN, Chronically ill, Obese HEENT: PERRL/EOMI, Moist Mucous Membranes Neck: Full Range of Motion, Normal Inspection, Non Tender, Supple, Carotid Bruit Respiratory: Chest Non Tender, Lungs Clear, Normal Breath Sounds, No Accessory Muscle Use, No Respiratory Distress Cardiovascular: Regular Rate, Rhythm, No Edema, No Gallop, No JVD, No Murmur, Normal Peripheral Pulses Peripheral Pulses: 2+ Dorsalis Pedis (R), 2+ Left Dors-Pedis (L), 2+ Radial Pulses (R), 2+ Radial Pulses (L) Gastrointestinal: normal bowel sounds, non tender, soft, other (left-sided colostomy) Extremity: No Calf Tenderness, No Pedal Edema Neurologic/Psychiatric: Alert, Oriented x3, Depressed Affect Skin: Normal Color, Warm/Dry, Other (Pt has a large left hip cellulitis, probable abscess, fluctuant area. Purplish-red skin, with some sloughing of superficial skin.) Lymphatic: No Adenopathy Results Lab Laboratory Tests 11/29/17 04:00: White Blood Count 15.4H, Red Blood Count 2.93L, Hemoglobin 7.3L, Hematocrit 24L , Mean Corpuscular Volume 81, Mean Corpuscular Hemoglobin 25, Mean Corpuscular Hemoglobin Concent 31L, Red Cell Distribution Width 17.8H, Platelet Count 603H, Mean Platelet Volume 9.1, Neutrophils (%) (Auto) 79H, Lymphocytes (%) (Auto) 10L , Monocytes (%) (Auto) 8, Eosinophils (%) (Auto) 3, Basophils (%) (Auto) 0, Neutrophils # (Auto) 12.1H, Lymphocytes # (Auto) 1.5, Monocytes # (Auto) 1.3H, Eosinophils # (Auto) 0.5H, Basophils # (Auto) 0.0, Neutrophils % (Manual) 78, Lymphocytes % (Manual) 5, Monocytes % (Manual) 13, Eosinophils % (Manual) 2, Basophils % (Manual) 0, Band Neutrophils 2, Clumped Platelets SLIGHT, Polychromasia SLIGHT, Hypochromasia MODERATE, Anisocytosis MODERATE, Tear Drop Cells SLIGHT, Elliptocytes SLIGHT, Sodium Level 136, Potassium Level 5.2H, Chloride Level 105, Carbon Dioxide Level 20L, Anion Gap 11, Blood Urea Nitrogen 32H, Creatinine 1.97H, Estimat Glomerular Filtration Rate 35, BUN/Creatinine Ratio 16, Glucose Level 132H, Lactic Acid Level 2.31*H, Calcium Level 9.5, Total Bilirubin 0.3, Aspartate Amino Transf (AST/SGOT) 29, Alanine Aminotransferase (ALT/SGPT) 11, Alkaline Phosphatase 105, C-Reactive Protein High Sensitivity 23.71H, Total Protein 6.6, Albumin 2.5L 11/29/17 05:58: Lactic Acid Level 1.94 11/29/17 11:10: Glucometer 136H Assessment/Plan Assessment/Plan Assessment/Plan Left Hip/Thigh cellulitis vs abscess DM Chronic Renal Failure Anemia Wheelchair bound I examined the left thigh and hip area; skin is purplish red and more distally there is an area of dry necrotic skin. Pt will need an Incision and Drainage with possible debridment; probable packing and maybe even wound VAC down the road. Pt ate today and is on Xarelto. Holding this blood thinner now most likely won't help with bleeding tomorrow; pt will be at higher risk of bleeding. I discussed the procedure with pt; risks and complications not limited to pain, bleeding, infection and scar. It will most likely be a large incision, left open and may need re-excision. He will probably bleed a lot because of the Xarelto. I explained that if the suspected purulence is not removed, it will never be treated with just ABX. He understood and all questions answered to his satisfaction. My main concern would be a necrotizing fasciitis, but this is less likely since he says it has been there 2 weeks and is improving compared to when he came in. Clinical Quality Measures DVT/VTE Risk/Contraindication: Risk Factor Score Per Nursin RFS Level Per Nursing on Admit: 4+=Very High POLY VEGA DO November 29, 2017 15:34
[2017-11-29 15:50] VITALS: BP 128/61
[2017-11-29] MEDS: HYDROcodone/APAP 5 MG/325 MG (LORTAB) TAB PO PRN (16:03)
[2017-11-29] MEDS ORDERED: LACTATED RINGERS 1,000 ML IV PRN (16:21)
[2017-11-29 19:53] VITALS: BP 108/52
[2017-11-29] MEDS: MIRTAZAPINE 15 MG (REMERON) TAB PO SCH (22:02)
[2017-11-29] MEDS: DOCUSATE SODIUM 100 MG (COLACE) CAP PO SCH (22:02)
[2017-11-29] MEDS: POLYETHYLENE GLYCOL 17 GM (MIRALAX) PACK PO SCH (22:03)
[2017-11-29] MEDS: PANTOPRAZOLE 20 MG TABLET (PROTONIX) PO SCH (22:03)
[2017-11-29] MEDS: ZIPRASIDONE 40 MG (GEODON) CAP PO SCH (22:03)
[2017-11-30 00:59] VITALS: BP 127/59
[2017-11-30] MEDS: 1/2 NS IV SOLUTION 1,000 ML IV SCH ×4 (03:51→21:34)
[2017-11-30 04:15] VITALS: BP 121/57
[2017-11-30] MEDS: MULTIVIT W/MINERALS TAB (THERAGRAN M) PO SCH (04:15)
[2017-11-30] MEDS: PIPERACILLIN/TAZO 4.5 GM/D5W 100 ML IVPB IV SCH ×6 (04:15→21:35)
[2017-11-30] MEDS: inSUlin ASPART (NovoLOG) 1 UNIT/0.01 ML (CHARGE PER UNIT) SC SCH ×4 (06:22→21:38)
[2017-11-30 06:39] LABS: MEAN PLATELET VOLUME 9.1 FL (7.4-10.4); RED BLOOD COUNT 2.74 10^6/uL (4.35-5.85); RED CELL DISTRIBUTION WIDTH 18.2 % (10.0-14.5); WHITE BLOOD COUNT 11.1 10^3/uL (4.3-11.0)
[2017-11-30 07:04] LABS: CREATININE SERUM 1.65 MG/DL (0.60-1.30); POTASSIUM 5.1 MMOL/L (3.6-5.0)
[2017-11-30 08:00] VITALS: BP 120/56
[2017-11-30] MEDS: MAGNESIUM OXIDE (MAG-OX)400 MG TAB PO SCH (08:05)
[2017-11-30] MEDS: ASPIRIN 81 MG CHEW (CHILDREN'S ASA) PO SCH (08:05)
[2017-11-30] MEDS: ZIPRASIDONE 20 MG (GEODON) CAP PO SCH (08:05)
[2017-11-30] MEDS: POLYETHYLENE GLYCOL 17 GM (MIRALAX) PACK PO SCH ×2 (08:05→21:37)
[2017-11-30] MEDS: DOCUSATE SODIUM 100 MG (COLACE) CAP PO SCH ×2 (08:05→21:34)
[2017-11-30] MEDS: inSUlin DETERMIR 1 UNIT/0.01 ML (LEVEMIR) CHARGE PER UNIT SQ SCH ×2 (08:06→21:38)
[2017-11-30] MEDS: PANTOPRAZOLE 20 MG TABLET (PROTONIX) PO SCH ×2 (08:06→21:34)
[2017-11-30] MEDS: GABAPENTIN 300 MG (NEURONTIN) CAP PO SCH ×3 (08:06→21:34)
[2017-11-30] MEDS: SERTRALINE 50 MG (ZOLOFT) TABLET PO SCH (08:06)
[2017-11-30] MEDS: VANCOMYCIN 1,750 MG/NS 500 ML IVPB IV SCH ×2 (08:11)
[2017-11-30] MEDS ORDERED: fentaNYL INJECTION 100 MCG/2 ML AMP ONE ×2 (08:21→09:37)
[2017-11-30] MEDS ORDERED: LIDOCAINE PF 2% 5 ML (XYLOCAINE) VIAL ONE (08:21)
[2017-11-30] MEDS ORDERED: proPOfol 200 MG/20 ML (DIPRIVAN) VIAL IV ONE ×2 (08:21→11:07)
[2017-11-30] MEDS ORDERED: SEVOFLURANE (ULTANE) 15 ML INHAL SOLN ONE ×4 (08:21→11:07)
[2017-11-30] MEDS ORDERED: ONDANSETRON 4 MG/2 ML (SDV) Z0FRAN ONE ×2 (08:21→09:28)
[2017-11-30] MEDS ORDERED: morphine INJ 10 MG/ML 1ML (SYR OR VIAL) ONE (09:28)
[2017-11-30] MEDS ORDERED: HYDROmorphone 1 MG/ML (DILAUDID) 1 ML SYRINGE ONE (09:29)
[2017-11-30] MEDS ORDERED: THROMBIN SPRAY KIT 5,000 UNIT VIAL ONE (09:44)
[2017-11-30 10:09] LABS: HEMOGLOBIN 7.1 G/DL (13.3-17.7)
--- NOTE | 2017-11-30 10:09 | Progress Note-Post Operative ---
Post-Operative Progess Note Surgeon (s)/Client Support Consultant (s) Surgeon POLY VEGA DO Client Support Consultant: none Pre-Operative Diagnosis Left hip/thigh Abscess Post-Operative Diagnosis Same plus necrotic tissue Procedure & Operative Findings Date of Procedure 11/30/17 Procedure Performed/Findings Incision and Drainage of Left hip/thigh Abscess Debridement of tissue; including fat, muscle and fascia measuring 13x5x4.5 cm Control of bleeding Packed with Iodophor Anesthesia Type GET Estimated Blood Loss Estimated blood loss (mL): 150ml Specimens/Packing Specimens Removed Appx 350ml of necrotic tissue and purulent fluid Necrotic tissue and skin POLY VEGA DO November 30, 2017 10:09
[2017-11-30] MEDS: morphine INJ 10 MG/ML 1ML (SYR OR VIAL) IVP PRN ×3 (10:36→10:50)
[2017-11-30] MEDS ORDERED: ONDANSETRON 4 MG/2 ML (SDV) Z0FRAN IVP PRN (11:00)
[2017-11-30] MEDS ORDERED: HYDROmorphone 1 MG/ML (DILAUDID) 1 ML SYRINGE IV PRN (11:00)
[2017-11-30 11:52] VITALS: BP 140/60
--- NOTE | 2017-11-30 12:31 | Anesthesia-General Post-Op ---
General Patient Condition Mental Status/LOC: Same as Preop Cardiovascular: Satisfactory Nausea/Vomiting: Absent Respiratory: Satisfactory Pain: Controlled Complications: Absent Post Op Complications Complications None Follow Up Care/Instructions Patient Instructions None needed. Anesthesia/Patient Condition Patient Condition Patient is doing well, no complaints, stable vital signs, no apparent adverse anesthesia problems. No complications reported per nursing. ALEJANDRA BARRIGA CRNA November 30, 2017 12:31
--- NOTE | 2017-11-30 13:04 | Progress Note-Hospitalist ---
Progress Note Progress Notes/Assess & Plan Date Seen 11/30/17 Time Seen by Provider: 13:00 Assessment & Plan The patient was sleeping rather soundly when I entered the room. Vital signs are stable. He had an extensive debridement of his left hip abscess yesterday. Cultures are pending. He has no complaints at this time. Physical exam: He offers no complaints. Lungs reveal distant breath sounds CV is regular without murmur. Abdomen is obese. Extremities show no pedal edema Impression: Status post debridement of abscess left hip/thigh. 2.diabetes Plan: Continue Zosyn/vancomycin at this time. Await culture reports Focused Exam Lactate Level 11/29/17 04:00: Lactic Acid Level 2.31*H 11/29/17 05:58: Lactic Acid Level 1.94 ESTRELLITA PRINCE MD November 30, 2017 13:04
[2017-11-30 15:40] VITALS: BP 114/57
--- NOTE | 2017-11-30 17:46 | OPERATIVE REPORT ---
DATE OF SERVICE: 11/30/2017 PREOPERATIVE DIAGNOSES: 1. Left hip and thigh cellulitis. 2. History of diabetes. POSTOPERATIVE DIAGNOSES: Necrotic infected abscess of left hip and thigh area and history of diabetes. PROCEDURES: 1. Incision and drainage of left thigh abscess. 2. Debridement of left hip and thigh tissue. Skin fat, muscle and fascia. 3. Control of bleeding with packing of wound with aorta for dressing. SURGEON: Tang Thomas DO. RESOURCE ECONOMIST: None. ANESTHESIA: General endotracheal tube. BLOOD LOSS: Approximately 150 mL. SPECIMEN: 1. Fluid culture. 2. Necrotic tissue. INDICATION FOR PROCEDURE: The patient is a 62-year old male who presented with increasing erythema and cellulitis and pain in the left hip and thigh area diagnosed with a cellulitis. He is also on Xarelto, so as some abnormal coagulation, because this it seemed to be at least not expanding and needed to get incised and drained. FINDINGS: The patient had a 13 x 6 at least 4.5 cm deep pocket of purulent fluid and necrotic tissue as well as some necrotic skin and he had some excessive bleeding because of the Xarelto. PROCEDURE NOTE: After informed consent was obtained, the patient was brought to the operating room, placed on the table in the right lateral decubitus position with the left hip up. He was then sterilely prepped and draped in normal fashion and an elliptical incision was made with 15 blade to cut out 2 pieces of necrotic tissue. Immediately upon making the incision and got a score of purulent fluid out foul smelling, there was also a lot of blood, pus and necrotic tissue. Cut out this portion of skin and then carefully suctioned out all the necrotic tissue, fluid culture obtained. The skin and some necrotic tissue from inside the wound was removed and sent to pathology. There was a lot of bleeding from the skin edges, looked around did not see any more obvious necrotic tissue had to cut it all out, but this did go down through fat and into the muscle and fascia. I removed a little bit of all these of necrotic tissue. Copiously irrigated with normal saline and then tried to hold pressure, tried using Bovie electrocautery. Had a very hard time controlling the bleeding and so at this point got some spray thrombin and Gelfoam placed these in there and then held pressure removed the pressure after 5 minutes, the bleeding had decreased, I placed two gelfoams in their placed another Gelfoam and sprayed more thrombin and then held pressure for five more minutes and then at this point looked there did not appear of any active bleeding. Placed two 2 x 14 Surgicels in the wound and then placed a whole bottle of one inch iodoform packing and then the skin was surrounding this was cleaned and dried and ABDs placed. The patient tolerated this procedure and transferred to recovery room in stable condition. Sponge and needle count correct at the end of the case. Job ID: [id number] DocumentID: [id number] Dictated Date: 11/30/2017 15:31:33 Commercial Escrow Assistant Date: 11/30/2017 17:46:21 Dictated By: TANG THOMAS DO
[2017-11-30 18:24] LABS: HEMOGLOBIN 7.2 G/DL (13.3-17.7)
[2017-11-30 19:59] VITALS: BP 132/61
[2017-11-30] MEDS: ZIPRASIDONE 40 MG (GEODON) CAP PO SCH (21:34)
[2017-11-30] MEDS: MIRTAZAPINE 15 MG (REMERON) TAB PO SCH (21:34)
[2017-12-01 00:48] VITALS: BP 119/56
[2017-12-01 03:53] VITALS: BP 119/56
[2017-12-01] MEDS: PIPERACILLIN/TAZO 4.5 GM/D5W 100 ML IVPB IV SCH ×6 (05:03→20:33)
[2017-12-01] MEDS: inSUlin ASPART (NovoLOG) 1 UNIT/0.01 ML (CHARGE PER UNIT) SC SCH ×4 (06:06→21:11)
[2017-12-01] MEDS: HYDROcodone/APAP 5 MG/325 MG (LORTAB) TAB PO PRN ×2 (06:26→13:19)
[2017-12-01] MEDS: MULTIVIT W/MINERALS TAB (THERAGRAN M) PO SCH (06:26)
[2017-12-01] MEDS ORDERED: TROUGH ORDER-PHARMACY XX NR (07:00)
[2017-12-01 07:47] VITALS: BP 120/57
[2017-12-01] MEDS: VANCOMYCIN 1,750 MG/NS 500 ML IVPB IV SCH ×2 (08:55)
[2017-12-01] MEDS: GABAPENTIN 300 MG (NEURONTIN) CAP PO SCH ×3 (09:12→21:11)
[2017-12-01] MEDS: ZIPRASIDONE 20 MG (GEODON) CAP PO SCH (09:12)
[2017-12-01] MEDS: ASPIRIN 81 MG CHEW (CHILDREN'S ASA) PO SCH (09:13)
[2017-12-01] MEDS: SERTRALINE 50 MG (ZOLOFT) TABLET PO SCH (09:13)
[2017-12-01] MEDS: PANTOPRAZOLE 20 MG TABLET (PROTONIX) PO SCH ×2 (09:13→21:10)
[2017-12-01] MEDS: inSUlin DETERMIR 1 UNIT/0.01 ML (LEVEMIR) CHARGE PER UNIT SQ SCH ×2 (09:14→21:11)
[2017-12-01] MEDS: POLYETHYLENE GLYCOL 17 GM (MIRALAX) PACK PO SCH ×2 (09:14→21:11)
[2017-12-01] MEDS: MAGNESIUM OXIDE (MAG-OX)400 MG TAB PO SCH (09:14)
[2017-12-01] MEDS: DOCUSATE SODIUM 100 MG (COLACE) CAP PO SCH ×2 (09:14→21:11)
[2017-12-01 11:47] VITALS: BP 119/69
--- NOTE | 2017-12-01 13:12 | Progress Note-Hospitalist ---
Progress Note Progress Notes/Assess & Plan Date Seen 12/01/17 Time Seen by Provider: 13:10 Assessment & Plan The patient has no complaints at this time. While I was in the room Dr. Thomas was examining his left hip wound. He pronounced it clean and quite satisfactory. The wound will need to be dressed daily as it heals by secondary intent. This can be done at the [facility]. These arrangements will be pursued. Physical exam: He is alert without complaints. Lungs clear to auscultation. CV is regular without murmur. Impression: Large abscess and necrotic tissue left hip and upper thigh lateral aspect Plan: Focused Exam Lactate Level 11/29/17 04:00: Lactic Acid Level 2.31*H 11/29/17 05:58: Lactic Acid Level 1.94 ESTRELLITA PRINCE MD December 01, 2017 13:12
--- NOTE | 2017-12-01 13:13 | Progress Note ---
Subjective Time Seen by Provider: 13:01 Subjective/Events-last exam Pt seen and examined, complains of left hip pain; otherwise tolerating diet. Nurse states no bleeding from incision. Review of Systems General: No Chills, No Night Sweats Pulmonary: No Dyspnea, No Cough Cardiovascular: No: Chest Pain Focused Exam Lactate Level 11/29/17 04:00: Lactic Acid Level 2.31*H 11/29/17 05:58: Lactic Acid Level 1.94 Objective Exam Vital Signs Date Time Temp Pulse Resp B/P (MAP) Pulse Ox O2 Delivery O2 Flow Rate FiO2 12/01/17 11:47 96.2 79 18 119/69 (86) 97 Room Air 12/01/17 07:47 96.6 71 16 120/57 (78) 97 Room Air 12/01/17 06:50 97 Room Air 12/01/17 03:53 97.8 83 15 119/56 (77) 99 Room Air 12/01/17 02:39 98 Room Air 12/01/17 00:48 98.4 77 15 119/56 (77) 97 Room Air 11/30/17 19:59 98.0 81 9 132/61 (84) 96 Room Air 11/30/17 18:55 97 Room Air 11/30/17 16:17 97 Room Air 11/30/17 15:40 97.4 73 11 114/57 (76) 97 Room Air I & O 12/01/17 07:00 Intake Total 340 ml Output Total 3950 ml Balance -3610 ml Capillary Refill : Less Than 3 Seconds General Appearance: No Apparent Distress, Chronically ill, Obese HEENT: PERRL/EOMI, Moist Mucous Membranes Neck: Carotid Bruit Respiratory: Chest Non Tender, Lungs Clear, Normal Breath Sounds, No Accessory Muscle Use, No Respiratory Distress Cardiovascular: Regular Rate, Rhythm, No Edema, No Murmur, Normal Peripheral Pulses Peripheral Pulses: 2+ Dorsalis Pedis (R), 2+ Left Dors-Pedis (L), 2+ Radial Pulses (R), 2+ Radial Pulses (L) Gastrointestinal: normal bowel sounds, non tender, soft, other (left-sided colostomy) Extremity: No Calf Tenderness, No Pedal Edema Neurologic/Psychiatric: Depressed Affect Skin: Other (no bleeding from incision, no necrotic tissue seen in wound) Results Lab Laboratory Tests 11/30/17 16:00: Glucometer 140H 11/30/17 18:01: Hemoglobin 7.2L, Hematocrit 24L 11/30/17 20:55: Glucometer 179H 12/01/17 05:29: Glucometer 140H 12/01/17 07:50: Vancomycin Level Trough 22.2H 12/01/17 10:39: Glucometer 214H 12/01/17 12:43: Glucometer 202H Microbiology 11/29/17 Blood Culture - Preliminary, Resulted No growth 11/29/17 MRSA Screen - Final, Complete MRSA not isolated 11/30/17 Gram Stain - Final, Resulted 11/30/17 Anaerobic Culture, Resulted Pending 11/30/17 Surgical Culture - Preliminary, Resulted Strep agalactiae Group B See Comments Assessment/Plan Assessment/Plan Assessment/Plan Left Hip/Thigh abscess S/P I&D with debridement and packing DM Chronic Renal Failure Anemia Wheelchair bound Left hip incision packing removed and repacked without difficulty. Pt will need good wound care and may be able to place wound VAC in next day or so. [place] [facility]. Clinical Quality Measures DVT/VTE Risk/Contraindication: Risk Factor Score Per Nursin RFS Level Per Nursing on Admit: 4+=Very High POLY VEGA DO December 01, 2017 13:13
[2017-12-01] MEDS: 1/2 NS IV SOLUTION 1,000 ML IV SCH ×2 (14:36→20:40)
[2017-12-01 16:02] VITALS: BP 118/56
[2017-12-01] MEDS: MIRTAZAPINE 15 MG (REMERON) TAB PO SCH (21:10)
[2017-12-01] MEDS: ZIPRASIDONE 40 MG (GEODON) CAP PO SCH (21:11)
[2017-12-02 00:23] VITALS: BP 140/63
[2017-12-02] MEDS: PIPERACILLIN/TAZO 4.5 GM/D5W 100 ML IVPB IV SCH ×2 (03:41)
[2017-12-02] MEDS: MULTIVIT W/MINERALS TAB (THERAGRAN M) PO SCH (06:53)
[2017-12-02] MEDS: inSUlin ASPART (NovoLOG) 1 UNIT/0.01 ML (CHARGE PER UNIT) SC SCH ×4 (06:53→21:19)
[2017-12-02 08:00] VITALS: BP 122/58
[2017-12-02] MEDS ORDERED: VANCOMYCIN 1250 MG/NS 250 ML IVPB IV SCH ×2 (08:00)
[2017-12-02] MEDS: ZIPRASIDONE 20 MG (GEODON) CAP PO SCH (08:26)
[2017-12-02] MEDS: PANTOPRAZOLE 20 MG TABLET (PROTONIX) PO SCH ×2 (08:26→21:18)
[2017-12-02] MEDS: MAGNESIUM OXIDE (MAG-OX)400 MG TAB PO SCH (08:26)
[2017-12-02] MEDS: GABAPENTIN 300 MG (NEURONTIN) CAP PO SCH ×3 (08:26→21:16)
[2017-12-02] MEDS: DOCUSATE SODIUM 100 MG (COLACE) CAP PO SCH ×2 (08:26→21:16)
[2017-12-02] MEDS: ASPIRIN 81 MG CHEW (CHILDREN'S ASA) PO SCH (08:26)
[2017-12-02] MEDS: SERTRALINE 50 MG (ZOLOFT) TABLET PO SCH (08:26)
[2017-12-02] MEDS: 1/2 NS IV SOLUTION 1,000 ML IV SCH (08:27)
[2017-12-02] MEDS: POLYETHYLENE GLYCOL 17 GM (MIRALAX) PACK PO SCH ×2 (08:27→21:15)
[2017-12-02] MEDS: inSUlin DETERMIR 1 UNIT/0.01 ML (LEVEMIR) CHARGE PER UNIT SQ SCH ×2 (08:27→21:19)
[2017-12-02] MEDS: fentaNYL PATCH 50 MCG (DURAGESIC) TD SCH (10:46)
--- NOTE | 2017-12-02 11:07 | Progress Note-Hospitalist ---
Progress Note Progress Notes/Assess & Plan Date Seen 12/02/17 Time Seen by Provider: 11:02 Assessment & Plan The wound cultures are growing strep agalactiae. This would be widely sensitive to penicillin or cephalosporins and vancomycin. Therefore the patient 's Zosyn and Vanco have been discontinued and Rocephin started. When social organization professor returns tomorrow we will explore return to detention versus skilled at this facility. Physical exam: Lungs are clear to auscultation. CV is regular without murmur. Abdomen is obese. The dressing over the left hip is dry. Impression: Abscess left hip and upper thigh, post incision and debridement. Plan as above. ESTRELLITA PRINCE MD December 02, 2017 11:07
--- NOTE | 2017-12-02 11:37 | Progress Note-Hospitalist ---
Progress Note Progress Notes/Assess & Plan Date Seen 12/02/17 Time Seen by Provider: 11:36 Assessment & Plan The patient has no new complaints. Vital signs are stable. He is afebrile. Lungs are clear to auscultation. CV is regular without murmur. The dressing on the left hip wound is clean. Impression abscess ESTRELLITA PRINCE MD December 02, 2017 11:37
--- NOTE | 2017-12-02 13:58 | Progress Note ---
Subjective Time Seen by Provider: 13:43 Subjective/Events-last exam Pt seen and examined, no complaints. Nurse states dressing was changed this am with no difficulty and no bleeding. Review of Systems Pulmonary: No Cough Cardiovascular: No: Chest Pain Gastrointestinal: No: Nausea, Vomiting Objective Exam Vital Signs Date Time Temp Pulse Resp B/P (MAP) Pulse Ox O2 Delivery O2 Flow Rate FiO2 12/02/17 09:58 Room Air 12/02/17 08:00 98.4 79 16 122/58 (79) 90 Room Air 12/02/17 00:23 97.5 72 16 140/63 (88) 97 Room Air 12/01/17 21:00 Room Air 12/01/17 16:02 97.4 72 11 118/56 (76) 97 Room Air I & O 12/02/17 07:00 Intake Total 850 ml Output Total 2970 ml Balance -2120 ml Capillary Refill : Less Than 3 Seconds General Appearance: No Apparent Distress, Chronically ill, Obese HEENT: Moist Mucous Membranes Neck: Carotid Bruit Respiratory: Chest Non Tender, Lungs Clear, Normal Breath Sounds, No Accessory Muscle Use, No Respiratory Distress Cardiovascular: Regular Rate, Rhythm, No Edema, No Murmur Peripheral Pulses: 2+ Dorsalis Pedis (R), 2+ Left Dors-Pedis (L), 2+ Radial Pulses (R), 2+ Radial Pulses (L) Gastrointestinal: normal bowel sounds, non tender, soft, other (left-sided colostomy) Extremity: No Calf Tenderness, No Pedal Edema Neurologic/Psychiatric: Depressed Affect Skin: Other (no bleeding from incision, no necrotic tissue seen in wound) Results Lab Laboratory Tests 12/01/17 16:05: Glucometer 129H 12/01/17 21:00: Glucometer 180H 12/02/17 05:10: Glucometer 196H 12/02/17 11:26: Glucometer 160H Microbiology 11/29/17 Blood Culture - Preliminary, Resulted No growth 11/29/17 MRSA Screen - Final, Complete MRSA not isolated 11/30/17 Gram Stain - Final, Resulted 11/30/17 Anaerobic Culture - Preliminary, Resulted No anaerobes isolated 11/30/17 Surgical Culture - Preliminary, Resulted Strep agalactiae Group B See Comments Assessment/Plan Assessment/Plan Assessment/Plan Left Hip/Thigh abscess S/P I&D with debridement and packing DM Chronic Renal Failure Anemia Wheelchair bound Left hip incision will do dressing changes Q24 hours and hopefully be able to place wound VAC in next day or so. [facility]. Clinical Quality Measures DVT/VTE Risk/Contraindication: Risk Factor Score Per Nursin RFS Level Per Nursing on Admit: 4+=Very High POLY VEGA DO December 02, 2017 13:58
[2017-12-02 16:25] VITALS: BP 122/58
[2017-12-02] MEDS: MIRTAZAPINE 15 MG (REMERON) TAB PO SCH (21:16)
[2017-12-02] MEDS: ZIPRASIDONE 40 MG (GEODON) CAP PO SCH (21:16)
[2017-12-03] VITALS: BP 143/76
[2017-12-03] MEDS: HYDROcodone/APAP 5 MG/325 MG (LORTAB) TAB PO PRN ×2 (01:53→11:39)
[2017-12-03] MEDS: inSUlin ASPART (NovoLOG) 1 UNIT/0.01 ML (CHARGE PER UNIT) SC SCH ×3 (06:42→16:29)
[2017-12-03] MEDS: MULTIVIT W/MINERALS TAB (THERAGRAN M) PO SCH (06:42)
[2017-12-03 08:00] VITALS: BP 148/59
--- NOTE | 2017-12-03 08:59 | Progress Note ---
Subjective Time Seen by Provider: 08:52 Subjective/Events-last exam Pt seen and examined, resting comfortably in bed. No complaints Review of Systems General: No Chills Pulmonary: No Dyspnea Objective Exam Vital Signs Date Time Temp Pulse Resp B/P (MAP) Pulse Ox O2 Delivery O2 Flow Rate FiO2 12/03/17 00:00 97.5 74 17 143/76 (98) 99 Room Air 12/02/17 19:59 Room Air 12/02/17 16:25 97.9 75 12 122/58 (79) 98 Room Air 12/02/17 09:58 Room Air I & O 12/03/17 07:00 Intake Total 2442.5 ml Output Total 2750 ml Balance -307.5 ml Capillary Refill : Less Than 3 Seconds General Appearance: No Apparent Distress, Chronically ill, Obese HEENT: Moist Mucous Membranes Neck: Carotid Bruit Respiratory: Chest Non Tender, Lungs Clear, Normal Breath Sounds, No Accessory Muscle Use, No Respiratory Distress Cardiovascular: Regular Rate, Rhythm, No Edema, No Murmur Peripheral Pulses: 2+ Dorsalis Pedis (R), 2+ Left Dors-Pedis (L), 2+ Radial Pulses (R), 2+ Radial Pulses (L) Gastrointestinal: normal bowel sounds, non tender, soft, other (left-sided colostomy) Extremity: No Calf Tenderness, No Pedal Edema Neurologic/Psychiatric: Depressed Affect Skin: Other (no bleeding from incision, no necrotic tissue seen in wound) Results Lab Laboratory Tests 12/02/17 11:26: Glucometer 160H 12/02/17 16:06: Glucometer 148H 12/02/17 21:01: Glucometer 195H 12/03/17 05:49: Glucometer 127H Microbiology 11/29/17 Blood Culture - Preliminary, Resulted No growth 11/29/17 MRSA Screen - Final, Complete MRSA not isolated 11/30/17 Gram Stain - Final, Resulted 11/30/17 Anaerobic Culture - Preliminary, Resulted No anaerobes isolated 11/30/17 Surgical Culture - Preliminary, Resulted Strep agalactiae Group B See Comments Assessment/Plan Assessment/Plan Assessment/Plan Left Hip/Thigh abscess S/P I&D with debridement and packing DM Chronic Renal Failure Anemia Wheelchair bound Continue dressing changes Q24 hours and hopefully be able to place wound VAC in next day or so (wound care consult ordered). [facility]. Clinical Quality Measures DVT/VTE Risk/Contraindication: Risk Factor Score Per Nursin RFS Level Per Nursing on Admit: 4+=Very High POLY VEGA DO December 03, 2017 08:59
[2017-12-03] MEDS ORDERED: cefTRIAXone INJECTION 1,000 MG in NS (IVPB) 50 ML IV SCH (09:00)
[2017-12-03] MEDS ORDERED: CEPH-507 PO (09:46)
[2017-12-03] MEDS: DOCUSATE SODIUM 100 MG (COLACE) CAP PO SCH (10:20)
[2017-12-03] MEDS: PANTOPRAZOLE 20 MG TABLET (PROTONIX) PO SCH (10:20)
[2017-12-03] MEDS: MAGNESIUM OXIDE (MAG-OX)400 MG TAB PO SCH (10:20)
[2017-12-03] MEDS: POLYETHYLENE GLYCOL 17 GM (MIRALAX) PACK PO SCH (10:21)
[2017-12-03] MEDS: GABAPENTIN 300 MG (NEURONTIN) CAP PO SCH ×2 (10:21→15:14)
[2017-12-03] MEDS: ZIPRASIDONE 20 MG (GEODON) CAP PO SCH (10:21)
[2017-12-03] MEDS: SERTRALINE 50 MG (ZOLOFT) TABLET PO SCH (10:21)
[2017-12-03] MEDS: ASPIRIN 81 MG CHEW (CHILDREN'S ASA) PO SCH (10:21)
[2017-12-03] MEDS: inSUlin DETERMIR 1 UNIT/0.01 ML (LEVEMIR) CHARGE PER UNIT SQ SCH (10:22)
--- NOTE | 2017-12-03 14:23 | Discharge Summary-Hospitalist ---
Diagnosis/Chief Complaint Date of Admission November 29, 2017 at 5:30 am Date of Discharge Discharge Date: December 03, 2017 Admission Diagnosis Assessment: Left hip skin abscess may need incision and drainage per Dr. Ponce Diabetes mellitus Neuropathy Chronic pain Severe depression Plan: Zosyn and vancomycin empiric treatment Appreciate general surgery evaluation since it may need incision and drainage Home meds restarted Discharge Diagnosis (1) Abscess Status: Acute (2) Sepsis Status: Resolved (3) Paraplegia Status: Chronic (4) Colostomy in place Status: Chronic (5) Diabetes mellitus, type 2 Status: Chronic (6) Hypertension Status: Chronic (7) Chronic renal insufficiency Status: Chronic (8) Anemia Status: Chronic Discharge Summary Procedures/Consulations Dr Thomas- Surgery Discharge Physical Exam Allergies: Coded Allergies: No Known Drug Allergies (Verified , 09/08/09) Vitals & I&Os Vital Signs Date Time Temp Pulse Resp B/P (MAP) Pulse Ox O2 Delivery O2 Flow Rate FiO2 12/03/17 08:00 96.8 76 18 148/59 (88) 93 Room Air General Appearance: Alert, Oriented X3 Respiratory: Clear to Auscultation Cardiovascular: Regular Rate Abdominal: Normal Bowel Sounds Hospital Course Pt was admitted after failing outpatient antibiotics for left hip abscess and underwent I&D and debridement in the OR with Dr Thomas. He was treated with IV abx and the wound was left open to heal by secnodary intention. He will require a wound vac upon arrival to his nursing facility per Dr Thomas's ordered. Labs (last 24 hrs) Laboratory Tests 12/02/17 16:06: Glucometer 148H 12/02/17 21:01: Glucometer 195H 12/03/17 05:49: Glucometer 127H 12/03/17 10:57: Glucometer 140H Microbiology 11/29/17 Blood Culture - Preliminary, Resulted No growth 11/29/17 MRSA Screen - Final, Complete MRSA not isolated 11/30/17 Gram Stain - Final, Resulted 11/30/17 Anaerobic Culture - Preliminary, Resulted No anaerobes isolated 11/30/17 Surgical Culture - Preliminary, Resulted Strep agalactiae Group B See Comments Patient resulted labs reviewed. Pending Labs Laboratory Tests 12/03/17 10:57: Glucometer 140 Discussion & Recommendations Discharge Planning: >30 minutes discharge planning Discharge Home Medications: Active Scripts Active Keflex (Cephalexin) 500 Mg Capsule 500 Mg PO BID Reported Tresiba Flextouch U-100 (Insulin Degludec) 100 Unit/1 Ml Insuln.pen 75 Unit SQ 1200 Refresh Tears (Carboxymethylcellulose Sodium) 15 Ml Drops 1 Drop OU Q12H PRN Pantoprazole Sodium 20 Mg Tablet.dr 20 Mg PO BID Nystatin 1 Each Powder.ea. TOP BID Miralax (Polyethylene Glycol 3350) 17 Gm Powd.pack 17 Gm PO BID Geodon (Ziprasidone) 40 Mg Cap 40 Mg PO HS Geodon (Ziprasidone HCl) 20 Mg Capsule 20 Mg PO DAILY Gabapentin 300 Mg Capsule 600 Mg PO HS TAKES 2 (300MG) CAPSULES Fentanyl Patch 50 MCG (Fentanyl) 1 Each Patch.td72 50 Mcg TD Q72H Mupirocin 22 Gm Oint...g. TP BID APPLY TO L HIP Tylenol (Acetaminophen) 325 Mg Tablet 650 Mg PO Q4H PRN TAKES 2 (325MG) TABLETS Mirtazapine 15 Mg Tablet 15 Mg PO HS Magnesium Oxide 400 Mg Tablet 400 Mg PO DAILY Zoloft (Sertraline HCl) 50 Mg Tablet 75 Mg PO DAILY TAKES 1 & 1/2 (50MG) TABLET Aspir 81 (Aspirin) 81 Mg Tablet. 81 Mg PO DAILY Hydrocodone/Acetaminophen 5/325mg Tablet (Acetaminophen/Hydrocodone Bitart) 1 Each Tablet 2 Tab PO Q6H PRN Gabapentin 300 Mg Capsule 300 Mg PO 0900,1400 Xarelto (Rivaroxaban) 20 Mg Tablet 20 Mg PO HS Daily Multiple Vitamin (Multivitamin) 1 Each Tablet 1 Tab PO DAILY Colace (Docusate Sodium) 100 Mg Capsule 100 Mg PO BID Novolog Flexpen (Insulin Aspart) 300 Units/3 Ml Solution SQ AC 0-200 = 0 UNITS 201-250 = 3 UNITS 251-300 = 6 UNITS 301-350 = 9 UNITS 351-400 = 12 UNITS >400 CALL PCP Vitamin D3 (Cholecalciferol (Vitamin D3)) 5,000 Unit Tablet 5,000 Unit PO DAILY Instructions to patient/family Please see electronic discharge instructions given to patient. Clinical Quality Measures DVT/VTE Risk/Contraindication: Risk Factor Score Per Nursin RFS Level Per Nursing on Admit: 4+=Very High Copy Copies To 1: MARCUS CORREIA DO Problem Qualifiers (1) Sepsis: Sepsis type: sepsis due to unspecified organism Qualified Codes: A41.9 - Sepsis, unspecified organism (2) Diabetes mellitus, type 2: Diabetes mellitus hand edger insulin use: with nursing home use Diabetes mellitus complication status: with neurologic complications Diabetes mellitus complication detail: with unspecified neuropathy Qualified Codes: E11.40 - Type 2 diabetes mellitus with diabetic neuropathy, unspecified; Z79.4 - custodial (current) use of insulin (3) Anemia: Anemia type: unspecified type Qualified Codes: D64.9 - Anemia, unspecified AREN BRAUN MD December 03, 2017 2:23 pm
[2017-12-03 16:00] VITALS: BP 132/60
[2017-12-03 17:35] VITALS: BP 132/60
[2017-12-04] MEDS ORDERED: TROUGH ORDER-PHARMACY XX NR (07:00)
== END 2017-12-03 17:35 | DRG 854 ==
LOC: EDUNIT# 03:43 → ER 03:44 → 4TH 05:30
PROVIDERS: ADMIT Family Medicine; ATTEND Internal Medicine
PROC: 0KBR0ZX Excision of Left Upper Leg Muscle, Open Approach, Diagnostic (ICD-10-PCS; 2017-11-30)
PROC: 0KBP0ZX Excision of Left Hip Muscle, Open Approach, Diagnostic (ICD-10-PCS; principal; 2017-11-30 09:12)
DX: A41.9 Sepsis, unspecified organism (principal); L02.416 Cutaneous abscess of left lower limb; L03.116 Cellulitis of left lower limb; E11.40 Type 2 diabetes mellitus with diabetic neuropathy, unspecified; G82.20 Paraplegia, unspecified; I47.1 Supraventricular tachycardia; F32.2 Major depressive disorder, single episode, severe without psychotic features; I25.10 Atherosclerotic heart disease of native coronary artery without angina pectoris; Z66 Do not resuscitate; I12.9 Hypertensive chronic kidney disease with stage 1 through stage 4 chronic kidney disease, or unspecified chronic kidney disease; N18.9 Chronic kidney disease, unspecified; I48.91 Unspecified atrial fibrillation; D64.9 Anemia, unspecified; E66.9 Obesity, unspecified; G47.30 Sleep apnea, unspecified; K59.09 Other constipation; E78.00 Pure hypercholesterolemia, unspecified; G24.9 Dystonia, unspecified; F20.9 Schizophrenia, unspecified; W19.XXXA Unspecified fall, initial encounter; Z93.3 Colostomy status; Z68.37 Body mass index [BMI] 37.0-37.9, adult; Z79.4 Long term (current) use of insulin; Z95.5 Presence of coronary angioplasty implant and graft; Z79.01 Long term (current) use of anticoagulants; Z87.820 Personal history of traumatic brain injury; Z87.828 Personal history of other (healed) physical injury and trauma; Z98.84 Bariatric surgery status; Z99.3 Dependence on wheelchair
CPT/HCPCS: 36415; 73502; 80048; 80053; 80202; 82962; 83605; 85007; 85014; 85018; 85027; 86141; 87040; 87070; 87075; 87081; 87205; 88304; 94760; 96361; 96365; 96375

== ENCOUNTER 2017-12-07 02:04 | Emergency (ER) | payer MEDICARE ==
[~2017-12-07] VITALS: Ht 185.4 cm; Wt 99.8 kg
[~2017-12-07 02:04] MED LIST changes: +ACET325T38 PO; +CARB15DR OU; +CEPH-507 PO; +DOXY100C2 PO; +FENT1PAT9 TD; +INSU100I32 SQ; +MAGN400T6 PO; +MUPI22OI2 TP; +NYST1POW24 TOP; +POLY17PO6 PO; +SULF1TAB35 PO; +ZIPR20CA23 PO; +ZPR40C PO
[2017-12-07] MEDS ORDERED: NS IV 1000 ML 1,000 ML IV ONE (02:17)
[2017-12-07 02:27] LABS: BASOPHILS # (AUTO) 0.1 10^3/uL (0.0-0.1); BASOPHILS % (AUTO) 1 % (0-10); EOSINOPHILS # (AUTO) 0.5 10^3/uL (0.0-0.3); EOSINOPHILS % (AUTO) 7 % (0-10); HEMATOCRIT 28 % (40-54); HEMOGLOBIN 8.3 G/DL (13.3-17.7); LYMPHOCYTES # (AUTO) 2.7 X 10^3 (1.0-4.0); LYMPHOCYTES % (AUTO) 42 % (12-44); MEAN CORPUSCULAR HEMOGLOBIN 25 PG (25-34); MEAN CORPUSCULAR HGB CONC 30 G/DL (32-36); MEAN CORPUSCULAR VOLUME 85 FL (80-99); MEAN PLATELET VOLUME 9.2 FL (7.4-10.4); MONOCYTES # (AUTO) 0.7 X 10^3 (0.0-1.0); MONOCYTES % (AUTO) 11 % (0-12); NEUTROPHILS # (AUTO) 2.5 X 10^3 (1.8-7.8); NEUTROPHILS % (AUTO) 39 % (42-75); PLATELET COUNT 413 10^3/uL (130-400); RED BLOOD COUNT 3.28 10^6/uL (4.35-5.85); RED CELL DISTRIBUTION WIDTH 19.1 % (10.0-14.5); WHITE BLOOD COUNT 6.4 10^3/uL (4.3-11.0)
--- NOTE | 2017-12-07 02:28 | ED General ---
General Chief Complaint: General Problems/Pain Stated Complaint: AMS Nursing Triage Note: pt brought in by ems from [facility] with complaint of not voiding, pale, clamminess, and being aphaisic. pt was recently d/c from hospital with sepsis. Nursing Sepsis Screen: No Definite Risk Source of Information: Patient, EMS Exam Limitations: No Limitations History of Present Illness Date Seen by Provider: Dec 07, 2017 Time Seen by Provider: 02:06 Initial Comments Here by EMS from skilled nursing with report of aphasia and decreased urine output. Patient was recently in the hospital for sepsis and large left hip abscess. This was subsequently drained and had wound VAC placed. Patient was DC'd a few days ago in very similar condition. Patient does talk and is responding to me and nursing questions. He answers questions appropriately. Patient has normal blood pressure and O2 saturation per EMS. Currently is on antibiotics. Patient denies new complaints. Patient has wound VAC to the left hip. [facility] nurse reports patient isn't talking like normal and has fluctuating oxygen saturations. Timing/Duration: 1-3 Hours Severity: Mild Associated Systoms: Other (patient reports back pain but states it's chronic) Allergies and Home Medications Allergies Coded Allergies: No Known Drug Allergies (Verified , 09/08/09) Home Medications Acetaminophen 325 Mg Tablet, 650 MG PO Q4H PRN for PAIN-MILD OR TEMPATURE, ( Reported) TAKES 2 (325MG) TABLETS Aspirin 81 Mg Tablet.dr, 81 MG PO DAILY, (Reported) Carboxymethylcellulose Sodium 15 Ml Drops, 1 DROP OU Q12H PRN for DRY EYES, ( Reported) Cephalexin 500 Mg Capsule, 500 MG PO BID Prescribed by: AREN BRAUN on 12/03/17 0946 Cholecalciferol (Vitamin D3) 5,000 Unit Tablet, 5,000 UNIT PO DAILY, (Reported) Docusate Sodium 100 Mg Capsule, 100 MG PO BID, (Reported) Fentanyl 1 Each Patch.td72, 50 MCG TD Q72H, (Reported) Gabapentin 300 Mg Capsule, 300 MG PO 0900,1400, (Reported) Gabapentin 300 Mg Capsule, 600 MG PO HS, (Reported) TAKES 2 (300MG) CAPSULES Hydrocodone Bit/Acetaminophen 1 Each Tablet, 2 TAB PO Q6H PRN for PAIN-MODERATE, (Reported) Insulin Aspart 300 Units/3 Ml Solution, SQ AC, (Reported) 0-200 = 0 UNITS 201-250 = 3 UNITS 251-300 = 6 UNITS 301-350 = 9 UNITS 351- 400 = 12 UNITS >400 CALL PCP Insulin Degludec 100 Unit/1 Ml Insuln.pen, 75 UNIT SQ 1200, (Reported) Magnesium Oxide 400 Mg Tablet, 400 MG PO DAILY, (Reported) Mirtazapine 15 Mg Tablet, 15 MG PO HS, (Reported) Multivitamin 1 Each Tablet, 1 TAB PO DAILY, (Reported) Mupirocin 22 Gm Oint...g., TP BID, (Reported) APPLY TO L HIP Nystatin 1 Each Powder.ea., TOP BID, (Reported) Pantoprazole Sodium 20 Mg Tablet.dr, 20 MG PO BID, (Reported) Polyethylene Glycol 3350 17 Gm Powd.pack, 17 GM PO BID, (Reported) Rivaroxaban 20 Mg Tablet, 20 MG PO HS, (Reported) Sertraline HCl 50 Mg Tablet, 75 MG PO DAILY, (Reported) TAKES 1 & 1/2 (50MG) TABLET Ziprasidone 40 Mg Cap, 40 MG PO HS, (Reported) Ziprasidone HCl 20 Mg Capsule, 20 MG PO DAILY, (Reported) Patient Home Medication List Home Medication List Reviewed: Yes Review of Systems Constitutional: see HPI; No chills, No fever Respiratory: no symptoms reported Cardiovascular: no symptoms reported Gastrointestinal: no symptoms reported Musculoskeletal: see HPI, back pain, muscle weakness (chronic) Skin: see HPI All Other Systems Reviewed Negative Unless Noted: Yes Past Hnnitng-Mmmaaw-Ykevbx Hx Past Med/Social Hx: Reviewed Nursing Past Med/Soc Hx Patient Social History Alcohol Use: Denies Use Recreational Drug Use: No 2nd Hand Smoke Exposure: No Recent Foreign Travel: No Contact w/Someone Who Travel: No Recent Infectious Disease Expo: No Recent Hopitalizations: No Immunizations Up To Date Tetanus Booster (TDap): Unknown Date of Pneumonia Vaccine: Jul 09, 2011 Date of Influenza Vaccine: Apr 16, 2016 Seasonal Allergies Seasonal Allergies: No Past Medical History Surgeries: Yes (COLOSTOMY, LAP BAND, rectal fistulotomy) Abdominal, Cardiac, Coronary Stent, Tonsillectomy Respiratory: Yes (CHRONIC DYSPNEA) Sleep Apnea Currently Using CPAP: No Cardiac: Yes (PSVT) Atrial Fibrillation, Chronic Edema/Swelling, Coronary Artery Disease, High Cholesterol, Hypertension Neurological: Yes Neuropathy, Spinal Cord Injury, Traumatic Brain Injury Reproductive Disorders: No Sexually Transmitted Disease: No HIV/AIDS: No Genitourinary: Yes Renal Failure Gastrointestinal: No (COLOSTOMY ) Chronic Constipation Musculoskeletal: Yes (DYSKINESIA; NON-AMBULATORY, WHEELCHAIR-BOUND) Endocrine: Yes Diabetes, Insulin dep HEENT: No Cancer: No Psychosocial: Yes Schizophrenia, Depression Integumentary: No Blood Disorders: No Adverse Reaction/Blood Tranf: No Family Medical History Reviewed Nursing Family Hx Patient reports no known family medical history. No Pertinent Family Hx Physical Exam Vital Signs Vital Signs - First Documented 12/07/17 02:05 Temp 95.6 Pulse 67 Resp 20 B/P (MAP) 140/66 (90) Pulse Ox 97 O2 Delivery Room Air Capillary Refill : Less Than 3 Seconds General Appearance: No Apparent Distress, Chronically ill HEENT: PERRL/EOMI, Pharynx Normal Neck: Non Tender, Supple Respiratory: Lungs Clear, Normal Breath Sounds Cardiovascular: Regular Rate, Rhythm, No Murmur Gastrointestinal: Non Tender, Soft Back: Normal Inspection, No CVA Tenderness, No Vertebral Tenderness Extremity: Normal Range of Motion, Non Tender Neurologic/Psychiatric: Depressed Affect, Motor Weakness (chronic global) Skin: Normal Color, Warm/Dry Progress/Results/Core Measures Suspected Sepsis Recent Fever Within 48 Hours: No Infection Criteria Present: None New/Unexplained Altered Menta: No Sepsis Screen: No Definite Risk SIRS Temperature:95.6 Pulse: 67 Respiratory Rate: 20 Laboratory Tests 12/07/17 02:15: White Blood Count 6.4 Blood Pressure 140 /66 Mean: 90 Laboratory Tests 12/07/17 02:15: Creatinine 1.67H, Platelet Count 413H, Total Bilirubin 0.3 Results/Orders Lab Results Laboratory Tests Test 12/07/17 02:15 Range/Units White Blood Count 6.4 4.3-11.0 10^3/uL Red Blood Count 3.28 L 4.35-5.85 10^6/uL Hemoglobin 8.3 L 13.3-17.7 G/DL Hematocrit 28 L 40-54 % Mean Corpuscular Volume 85 80-99 FL Mean Corpuscular Hemoglobin 25 25-34 PG Mean Corpuscular Hemoglobin Concent 30 L 32-36 G/DL Red Cell Distribution Width 19.1 H 10.0-14.5 % Platelet Count 413 H 130-400 10^3/uL Mean Platelet Volume 9.2 7.4-10.4 FL Neutrophils (%) (Auto) 39 L 42-75 % Lymphocytes (%) (Auto) 42 12-44 % Monocytes (%) (Auto) 11 0-12 % Eosinophils (%) (Auto) 7 0-10 % Basophils (%) (Auto) 1 0-10 % Neutrophils # (Auto) 2.5 1.8-7.8 X 10^3 Lymphocytes # (Auto) 2.7 1.0-4.0 X 10^3 Monocytes # (Auto) 0.7 0.0-1.0 X 10^3 Eosinophils # (Auto) 0.5 H 0.0-0.3 10^3/uL Basophils # (Auto) 0.1 0.0-0.1 10^3/uL Sodium Level 141 135-145 MMOL/L Potassium Level 4.2 3.6-5.0 MMOL/L Chloride Level 109 H 98-107 MMOL/L Carbon Dioxide Level 22 21-32 MMOL/L Anion Gap 10 5-14 MMOL/L Blood Urea Nitrogen 17 7-18 MG/DL Creatinine 1.67 H 0.60-1.30 MG/DL Estimat Glomerular Filtration Rate 42 BUN/Creatinine Ratio 10 Glucose Level 118 H 70-105 MG/DL Calcium Level 10.1 8.5-10.1 MG/DL Total Bilirubin 0.3 0.1-1.0 MG/DL Aspartate Amino Transf (AST/SGOT) 29 5-34 U/L Alanine Aminotransferase (ALT/SGPT) 18 0-55 U/L Alkaline Phosphatase 84 40-136 U/L C-Reactive Protein High Sensitivity 2.13 H 0.00-0.50 MG/DL Total Protein 7.2 6.4-8.2 GM/DL Albumin 2.9 L 3.2-4.5 GM/DL My Orders Orders - JOSEFINA SANTANA MD Cbc With Automated Diff (12/07/17 02:17) Comprehensive Metabolic Panel (12/07/17 02:17) Hs C Reactive Protein (12/07/17 02:17) Saline Lock/Iv-Start (12/07/17 02:17) Ns Iv 1000 Ml (Sodium Chloride 0.9%) (12/07/17 02:17) Medications Given in ED Current Medications Medications Dose Ordered Sig/Matt Route Start Time Stop Time Status Last Admin Dose Admin Sodium Chloride 1,000 ml @ 0 mls/hr Q0M ONCE IV 12/07/17 02:17 12/07/17 02:22 DC 12/07/17 02:28 1,000 MLS/HR Vital Signs/I&O 12/07/17 02:05 Temp 95.6 Pulse 67 Resp 20 B/P (MAP) 140/66 (90) Pulse Ox 97 O2 Delivery Room Air Capillary Refill : Less Than 3 Seconds Blood Pressure Mean: 90 Progress Note : Progress Note Seen and evaluated on arrival by EMS. EMS for reports that this is exactly how he was when they transported him back to the skilled nursing 2 days ago. Patient denies new complaints and is answering questions. Vital signs normal on arrival. We will check basic labs and give 1 L of fluid. 0300: Patient has had urine void and blood pressure is remained 120s to 130s systolic over 50s systolic. Heart rate has been in the 50s. O2 saturations have been 93-97 percent on room air. I did review the labs and they are similar or improved from previous. Patient is still on antibiotics. He did have a urine void. No indication for admission or further evaluation at this point. We will send patient back to skilled nursing for continued outpatient care as previously prescribed. Patient will require transport by EMS due to chronic disease, abscess wound to the left hip with wound VAC and inability to sit up without severe pain. Departure Impression Primary Impression: Abscess Additional Impression: Chronic renal insufficiency Qualified Codes: N18.9 - Chronic kidney disease, unspecified Disposition: 01 HOME, SELF-CARE Condition: Stable Departure-Patient Inst. Decision time for Depature: 03:09 Referrals: MARCUS CORREIA DO (PCP) Primary Care Physician MIGUEL ANGEL MCCORMICK MD (Family) Primary Care Physician Patient Instructions: Chronic Kidney Disease (DC) Add. Discharge Instructions: All discharge instructions reviewed with patient and/or family. Voiced understanding. Continue previously prescribed medications. Encourage fluids. Follow-up with his doctor in a few days for recheck. Return for other concerns as needed. JOSEFINA SANTANA MD Dec 07, 2017 02:28
[2017-12-07 02:44] LABS: ALBUMIN 2.9 GM/DL (3.2-4.5); BILIRUBIN,TOTAL 0.3 MG/DL (0.1-1.0); CALCIUM 10.1 MG/DL (8.5-10.1); CREATININE SERUM 1.67 MG/DL (0.60-1.30); POTASSIUM 4.2 MMOL/L (3.6-5.0); TOTAL PROTEIN 7.2 GM/DL (6.4-8.2)
[2017-12-07 03:29] VITALS: BP 114/57
== END 2017-12-07 03:29 | disposition home or self-care (01) ==
LOC: EDUNIT# 02:04 → ER 02:06
DX: L02.416 Cutaneous abscess of left lower limb (principal); E11.40 Type 2 diabetes mellitus with diabetic neuropathy, unspecified; E11.22 Type 2 diabetes mellitus with diabetic chronic kidney disease; I12.9 Hypertensive chronic kidney disease with stage 1 through stage 4 chronic kidney disease, or unspecified chronic kidney disease; N18.9 Chronic kidney disease, unspecified; I48.91 Unspecified atrial fibrillation; I25.10 Atherosclerotic heart disease of native coronary artery without angina pectoris; E78.00 Pure hypercholesterolemia, unspecified; F20.9 Schizophrenia, unspecified; F32.9 Major depressive disorder, single episode, unspecified; Z87.820 Personal history of traumatic brain injury; Z90.89 Acquired absence of other organs; Z95.5 Presence of coronary angioplasty implant and graft; Z79.4 Long term (current) use of insulin; Z79.82 Long term (current) use of aspirin; Z98.84 Bariatric surgery status
CPT/HCPCS: 36415; 80053; 85025; 86141; 96360

== ENCOUNTER → 2018-02-14 | Outpatient (CLI) | payer MEDICARE ==
[~2018-02-14] MED LIST changes: +CLON0.5T13 PO; -CLON0.5T3 PO
[2018-02-14 21:36] LABS: BILIRUBIN,URINE NEGATIVE (NEGATIVE); CLARITY,URINE CLEAR; COLOR,URINE YELLOW; GLUCOSE, URINE (UA) NEGATIVE (NEGATIVE); KETONES,URINE NEGATIVE (NEGATIVE); LEUKOCYTE ESTERASE ,URINE 1+ (NEGATIVE); NITRITE,URINE NEGATIVE (NEGATIVE); PH,URINE 6.5 (5-9); PROTEIN,URINE 1+ (NEGATIVE); UROBILINOGEN,URINE NORMAL (NORMAL)
[2018-02-14 21:45] LABS: BACTERIA,URINE NEGATIVE /HPF
== END ==
PROVIDERS: ATTEND Internal Medicine
DX: R50.9 Fever, unspecified (principal); R35.0 Frequency of micturition; R82.99 Other abnormal findings in urine
CPT/HCPCS: 81000

== ENCOUNTER → 2018-02-14 | Outpatient (CLI) | payer MEDICARE | LOC: MERGE 17:19 → LABNPT 17:19 | PROVIDERS: ATTEND Internal Medicine | DX: R50.9 Fever, unspecified (principal); R35.0 Frequency of micturition; R82.99 Other abnormal findings in urine; D64.9 Anemia, unspecified; Z79.2 Long term (current) use of antibiotics | CPT/HCPCS: 82274; 87324; 87449 ==

== ENCOUNTER 2018-03-07 19:37 | Emergency (ER) | payer MEDICARE | END 2018-03-07 19:53 | disposition left against medical advice (07) | LOC: EDUNIT# 19:37 → ER 19:38 | DX: Z45.2 Encounter for adjustment and management of vascular access device (principal) ==

== ENCOUNTER 2018-03-31 09:42 | Emergency (ER) | payer MEDICARE ==
[~2018-03-31] VITALS: Ht 185.4 cm; Wt 129.3 kg
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
[2018-03-31 10:55] VITALS: BP 155/80
== END 2018-03-31 11:22 | disposition home or self-care (01) ==
LOC: EDUNIT# 09:42 → ER 09:43
DX: R45.851 Suicidal ideations (principal); F32.9 Major depressive disorder, single episode, unspecified; G82.20 Paraplegia, unspecified; G47.30 Sleep apnea, unspecified; I48.91 Unspecified atrial fibrillation; I25.10 Atherosclerotic heart disease of native coronary artery without angina pectoris; E78.00 Pure hypercholesterolemia, unspecified; I10 Essential (primary) hypertension; E11.9 Type 2 diabetes mellitus without complications; F20.9 Schizophrenia, unspecified; Z87.19 Personal history of other diseases of the digestive system; Z87.820 Personal history of traumatic brain injury; Z93.3 Colostomy status; Z79.82 Long term (current) use of aspirin; Z95.5 Presence of coronary angioplasty implant and graft; Z79.4 Long term (current) use of insulin; Z79.52 Long term (current) use of systemic steroids; Z87.891 Personal history of nicotine dependence; Z98.84 Bariatric surgery status; Z90.89 Acquired absence of other organs
CPT/HCPCS: 99285

== ENCOUNTER → 2018-04-15 | Outpatient (CLI) | payer MEDICARE | LOC: CARD 12:00 | PROVIDERS: ATTEND Nurse Practitioner Family | DX: R42 Dizziness and giddiness (principal); R55 Syncope and collapse; I25.10 Atherosclerotic heart disease of native coronary artery without angina pectoris; R06.02 Shortness of breath | CPT/HCPCS: 93225; 93226 ==

== ENCOUNTER → 2018-06-04 | Outpatient (CLI) | payer MEDICARE ==
--- NOTE | 2018-06-04 10:28 | Diagnostic Imaging Report ---
INDICATION: Fall and tailbone pain. TIME OF EXAM: 10:18 AM FINDINGS: AP and lateral views of the sacrum and coccyx were obtained. The sacral arcuate lines appear to be intact. Sacrococcygeal alignment appears normal. No definite fracture is seen. IMPRESSION: No acute bony abnormality is identified. Dictated by: Dictated on workstation # [id number]
--- NOTE | 2018-06-04 10:28 | Diagnostic Imaging Report ---
INDICATION: Fall with low back pain and tailbone pain. Time of exam: 10:17 AM 3 views of the lumbar spine were obtained. Curvature and alignment is normal. Vertebral body heights are maintained. No compression fracture is identified. There is mild generalized lumbar spondylosis and marginal spurring. An IVC filter is noted at the level of L2. IMPRESSION: Mild lumbar spondylosis. No acute bony abnormality is identified. Dictated by: Dictated on workstation # [id number]
--- NOTE | 2018-06-04 11:31 | Diagnostic Imaging Report ---
PROCEDURE: CT abdomen and pelvis without contrast. TECHNIQUE: Multiple contiguous axial images were obtained through the abdomen and pelvis without the use of intravenous contrast. INDICATION: Parastomal hernia. COMPARISON: Comparison is made with prior CT from 10/23/2016. FINDINGS: Imaging through the lung bases does show multiple ill-defined nodular opacities, largest in the posterior and medial left lower lobe measuring 15 mm. Patient's previously noted LAP-BAND has been removed. Abnormal appearance of the liver has developed since prior CT. There are now numerous ill-defined regions of low density suspicious for hepatic masses. No biliary ductal dilatation is seen. The gallbladder is unremarkable. The pancreas and spleen are unremarkable. No adrenal mass is detected. The kidneys are unremarkable. There is a filter within the inferior vena cava. The aorta is non-aneurysmal. Small and large bowel loops are normal in caliber, without evidence of obstruction. There is an ostomy in the left lower quadrant. There are multiple parastomal bowel loops consistent with parastomal hernia. Bladder is unremarkable. No definite abdominal or pelvic lymphadenopathy is seen. Bony structures are nonacute. IMPRESSION: 1. Marked hepatic heterogeneity with regions of low density suspicious for developing hepatic masses. Dedicated CT with contrast would be useful for better characterization. There has also been development of multiple small nodules in the bilateral lower lobes. The nodules may be on an infectious/inflammatory basis but metastatic disease cannot be entirely excluded. 2. Removal of LAP-BAND. 3. Large left lower quadrant parastomal hernia. No bowel obstruction is identified. Dictated by: Dictated on workstation # [id number]
== END ==
LOC: RAD 09:25
PROVIDERS: ATTEND Internal Medicine
DX: K43.5 Parastomal hernia without obstruction or gangrene (principal); R91.8 Other nonspecific abnormal finding of lung field; M47.816 Spondylosis without myelopathy or radiculopathy, lumbar region; M53.3 Sacrococcygeal disorders, not elsewhere classified; W19.XXXA Unspecified fall, initial encounter
CPT/HCPCS: 72100; 72220; 74176

== ENCOUNTER → 2018-06-09 | Outpatient (CLI) | payer MEDICARE ==
--- NOTE | 2018-06-09 14:54 | Diagnostic Imaging Report ---
PROCEDURE: CT abdomen and pelvis without contrast. TECHNIQUE: Multiple contiguous axial images were obtained through the abdomen and pelvis without the use of intravenous contrast. INDICATION: Left-sided hernia. Comparison is made with recent CT from 06/04/2018. Once again the study was performed without contrast. A postcontrast study is actually needed, per a recent CT report from 06/04/2018. Again noted is marked heterogeneity throughout the liver which may contain numerous low density masses. Areas of pulmonary parenchymal nodularity of the lower lobes persist and are similar to few days earlier. Gallbladder is unremarkable. Pancreas and spleen are unremarkable. No adrenal mass is seen. Kidneys are unremarkable. There is a filter in IVC. Aorta is non-aneurysmal. The small and large bowel loops are normal caliber. Large abdominal wall hernia in the left lower quadrant is seen in the area of the patient's ostomy consistent with large parastomal hernia. Multiple bowel loops which appears to be colon are noted in the subcutaneous tissues. Bladder is unremarkable. Impression: Noncontrast CT abdomen and pelvis is similar to the examination from 6 days earlier. Again noted is a bilateral lower lobe pulmonary nodularity similar to prior. There appear to be numerous masses throughout the liver and postcontrast study was recommended and continues to be recommended for further characterization. Large left lower quadrant parastomal hernia is stable. Dictated by: Dictated on workstation # [id number]
== END ==
LOC: RAD 13:17
PROVIDERS: ATTEND Internal Medicine
DX: K43.5 Parastomal hernia without obstruction or gangrene (principal); R91.8 Other nonspecific abnormal finding of lung field; Z98.890 Other specified postprocedural states
CPT/HCPCS: 74176

== ENCOUNTER 2018-06-25 15:53 | Emergency (ER) | payer MEDICARE ==
[~2018-06-25] VITALS: Ht 185.4 cm; Wt 129.5 kg
--- NOTE | 2018-06-25 16:09 | ED Abdominal Pain ---
General Stated Complaint: ABD DISTENSION Source of Information: Patient Exam Limitations: No Limitations History of Present Illness Date Seen by Provider: Jun 25, 2018 Time Seen by Provider: 16:00 Initial Comments Patient is a 63-year-old male who is brought into the emergency room by [facility] with complaints of stomach distention around his colostomy. 4 weeks ago he had a CT of his abdomen for stomal distention and he was found to have a stomal hernia. halfway staff reports that the distention has gotten worse over the past 4 weeks. Patient denies pain in the abdomen. Is also found to have liver nodules on previous exam. He is a patient of Dr. Garcia's. Allergies and Home Medications Allergies Coded Allergies: No Known Drug Allergies (Verified , 09/08/09) Home Medications Acetaminophen 325 Mg Tablet, 650 MG PO Q4H PRN for PAIN-MILD OR TEMPATURE, ( Reported) TAKES 2 (325MG) TABLETS Aspirin 81 Mg Tablet.dr, 81 MG PO DAILY, (Reported) Carboxymethylcellulose Sodium 15 Ml Drops, 1 DROP OU Q12H PRN for DRY EYES, ( Reported) Cephalexin 500 Mg Capsule, 500 MG PO BID Prescribed by: AREN BRAUN on 12/03/17 0946 Cholecalciferol (Vitamin D3) 5,000 Unit Tablet, 5,000 UNIT PO DAILY, (Reported) Docusate Sodium 100 Mg Capsule, 100 MG PO BID, (Reported) Fentanyl 1 Each Patch.td72, 50 MCG TD Q72H, (Reported) Gabapentin 300 Mg Capsule, 300 MG PO 0900,1400, (Reported) Gabapentin 300 Mg Capsule, 600 MG PO HS, (Reported) TAKES 2 (300MG) CAPSULES Hydrocodone Bit/Acetaminophen 1 Each Tablet, 2 TAB PO Q6H PRN for PAIN-MODERATE, (Reported) Insulin Aspart 300 Units/3 Ml Solution, SQ AC, (Reported) 0-200 = 0 UNITS 201-250 = 3 UNITS 251-300 = 6 UNITS 301-350 = 9 UNITS 351- 400 = 12 UNITS >400 CALL PCP Insulin Degludec 100 Unit/1 Ml Insuln.pen, 75 UNIT SQ 1200, (Reported) Magnesium Oxide 400 Mg Tablet, 400 MG PO DAILY, (Reported) Mirtazapine 15 Mg Tablet, 15 MG PO HS, (Reported) Multivitamin 1 Each Tablet, 1 TAB PO DAILY, (Reported) Mupirocin 22 Gm Oint...g., TP BID, (Reported) APPLY TO L HIP Nystatin 1 Each Powder.ea., TOP BID, (Reported) Pantoprazole Sodium 20 Mg Tablet.dr, 20 MG PO BID, (Reported) Polyethylene Glycol 3350 17 Gm Powd.pack, 17 GM PO BID, (Reported) Rivaroxaban 20 Mg Tablet, 20 MG PO HS, (Reported) Sertraline HCl 50 Mg Tablet, 75 MG PO DAILY, (Reported) TAKES 1 & 1/2 (50MG) TABLET Ziprasidone 40 Mg Cap, 40 MG PO HS, (Reported) Ziprasidone HCl 20 Mg Capsule, 20 MG PO DAILY, (Reported) Past Rekmblr-Armywr-Vodkiy Hx Patient Social History 2nd Hand Smoke Exposure: No Recent Hopitalizations: No Immunizations Up To Date Tetanus Booster (TDap): Unknown Date of Pneumonia Vaccine: Jul 09, 2011 Date of Influenza Vaccine: Apr 16, 2016 Seasonal Allergies Seasonal Allergies: No Past Medical History Surgeries: Yes (COLOSTOMY, LAP BAND, rectal fistulotomy) Abdominal, Cardiac, Coronary Stent, Tonsillectomy Respiratory: Yes (CHRONIC DYSPNEA) Sleep Apnea Currently Using CPAP: No Cardiac: Yes (PSVT) Atrial Fibrillation, Chronic Edema/Swelling, Coronary Artery Disease, High Cholesterol, Hypertension Neurological: Yes Neuropathy, Spinal Cord Injury, Traumatic Brain Injury Reproductive Disorders: No Sexually Transmitted Disease: No HIV/AIDS: No Genitourinary: Yes Renal Failure Gastrointestinal: No (COLOSTOMY ) Chronic Constipation Musculoskeletal: Yes (DYSKINESIA; NON-AMBULATORY, WHEELCHAIR-BOUND) Endocrine: Yes Diabetes, Insulin dep HEENT: No Cancer: No Psychosocial: Yes Schizophrenia, Depression Integumentary: No Blood Disorders: No Adverse Reaction/Blood Tranf: No Family Medical History Patient reports no known family medical history. No Pertinent Family Hx Physical Exam Vital Signs Vital Signs - First Documented 06/25/18 15:53 Temp 98.7 Pulse 75 Resp 18 B/P (MAP) 140/87 (104) Pulse Ox 98 O2 Delivery Room Air Capillary Refill : Height/Weight/BMI Height: 6'1.00" Weight: 285lbs. 9.6oz. 129.657468df; 37.8 BMI Method:Stated Progress/Results/Core Measures Results/Orders Lab Results Laboratory Tests Test 06/25/18 16:06 Range/Units White Blood Count 6.8 4.3-11.0 10^3/uL Red Blood Count 4.19 L 4.35-5.85 10^6/uL Hemoglobin 12.2 L 13.3-17.7 G/DL Hematocrit 38 L 40-54 % Mean Corpuscular Volume 91 80-99 FL Mean Corpuscular Hemoglobin 29 25-34 PG Mean Corpuscular Hemoglobin Concent 32 32-36 G/DL Red Cell Distribution Width 15.9 H 10.0-14.5 % Platelet Count 158 130-400 10^3/uL Mean Platelet Volume 10.9 H 7.4-10.4 FL Neutrophils (%) (Auto) 60 42-75 % Lymphocytes (%) (Auto) 28 12-44 % Monocytes (%) (Auto) 7 0-12 % Eosinophils (%) (Auto) 5 0-10 % Basophils (%) (Auto) 0 0-10 % Neutrophils # (Auto) 4.1 1.8-7.8 X 10^3 Lymphocytes # (Auto) 1.9 1.0-4.0 X 10^3 Monocytes # (Auto) 0.5 0.0-1.0 X 10^3 Eosinophils # (Auto) 0.3 0.0-0.3 10^3/uL Basophils # (Auto) 0.0 0.0-0.1 10^3/uL Sodium Level 135 135-145 MMOL/L Potassium Level 4.8 3.6-5.0 MMOL/L Chloride Level 100 98-107 MMOL/L Carbon Dioxide Level 26 21-32 MMOL/L Anion Gap 9 5-14 MMOL/L Blood Urea Nitrogen 27 H 7-18 MG/DL Creatinine 1.84 H 0.60-1.30 MG/DL Estimat Glomerular Filtration Rate 37 BUN/Creatinine Ratio 15 Glucose Level 380 H 70-105 MG/DL Calcium Level 9.2 8.5-10.1 MG/DL Corrected Calcium 9.7 8.5-10.1 MG/DL Total Bilirubin 0.2 0.1-1.0 MG/DL Aspartate Amino Transf (AST/SGOT) 36 H 5-34 U/L Alanine Aminotransferase (ALT/SGPT) 38 0-55 U/L Alkaline Phosphatase 117 40-136 U/L Total Protein 7.1 6.4-8.2 GM/DL Albumin 3.4 3.2-4.5 GM/DL My Orders Orders - YURI LONGO Comprehensive Metabolic Panel (06/25/18 16:02) Saline Lock/Iv-Start (06/25/18 16:02) Cbc With Automated Diff (06/25/18 16:02) Ct Abdomen/Pelvis Wo (06/25/18 16:59) Fentanyl Injection (Sublimaze Injection (06/25/18 17:30) Medications Given in ED Current Medications Medications Dose Ordered Sig/Matt Route Start Time Stop Time Status Last Admin Dose Admin Fentanyl Citrate 50 mcg ONCE ONCE IVP 06/25/18 17:30 06/25/18 17:31 DC 06/25/18 17:28 50 MCG Vital Signs/I&O 06/25/18 15:53 Temp 98.7 Pulse 75 Resp 18 B/P (MAP) 140/87 (104) Pulse Ox 98 O2 Delivery Room Air Diagnostic Imaging Diagonstic Imaging: CT Plain Films/CT/US/NM/MRI: abdomen, pelvis Comments NAME: SABRINA BLACKWOOD [facility] REC#: [id number] PT STATUS: REG ER : 1955 PHYSICIAN: YURI LONGO ADMIT DATE: 06/25/18/ER Draft Date of Exam:06/25/18 CT ABDOMEN/PELVIS WO PROCEDURE: CT abdomen and pelvis without contrast. TECHNIQUE: Multiple contiguous axial images were obtained through the abdomen and pelvis without the use of intravenous contrast. DATE: June 25, 2018. COMPARISON: CT abdomen and pelvis, June 09, 2018. INDICATION: 63-year-old male, abdominal pain with distention and nausea for three days. FINDINGS: There are limitations for evaluation of the abdominal organs, neoplastic processes, abscess and limited evaluation of the vasculature relating to the lack of intravenous contrast. There is a 6 mm calcified left lower lobe granuloma. There are areas of reticulonodular and somewhat tree-in-bud type opacity within the right lower lobe and left lower lobe with appearance unchanged since recent comparison exam of June 09, 2018. These findings are new since October 23, 2016. This most likely relates to a process spreading via endobronchial means which is most typically an infectious bronchiolitis or aspiration. The heart is not enlarged. There is no pericardial effusion. There are coronary artery calcifications. There is multifocal very low and patchy abnormal signal within the right and left lobes of the liver. This is a change in appearance since October 23, 2016 although fairly similar in appearance to the recent comparison CT exam of June 09, 2018. The outer liver contours are not grossly nodular. The gallbladder is unremarkable. There is no intrahepatic or extrahepatic bile duct dilation. The main pancreatic duct is not abnormally dilated. Unremarkable noncontrast appearance of the pancreatic parenchyma. The spleen is normal in size. There is an accessory splenule on axial image 32. The adrenal glands are unremarkable. There is bilateral perinephric stranding. The urinary collecting systems are not distended. There is no identified renal or ureteral stone. The urinary bladder is unremarkable. There is a left lower quadrant hernia containing large segments of the sigmoid colon. This is fairly similar in appearance to the recent comparison exam. There is no associated bowel obstruction. The appendix is normal. There is no free intraperineal air. There is no drainable fluid collection. There is no free pelvic fluid. There is a very small hiatal hernia. There are atherosclerotic calcifications. There is an inferior vena cava filter. There is no identified abnormally enlarged lymph node within the abdomen or pelvis which meets CT size criteria for adenopathy. There are degenerative changes of the bilateral hips and sacroiliac joints. There are multilevel degenerative changes of the spine. There is no identified acute bony abnormality. IMPRESSION: CT abdomen and pelvis: 1. Multifocal patchy areas of significantly decreased attenuation within the liver with similar appearance compared to June 09, 2018. This is a changed appearance since October 23, 2017. But is difficult to discern whether or not that these relate to multiple masses versus areas of differential fat content. MRI abdomen with liver mass protocol with and without contrast is recommended for further assessment. 2. Large left lower quadrant hernia containing segments of sigmoid colon without associated obstruction. 3. Reticulonodular and tree-in-bud type opacities in the lung bases most likely relating to an infectious bronchiolitis or aspiration. This is unchanged since recent comparison exam. Dictated on workstation # [id number] Dict: 06/25/181718 Trans: 06/25/181801 [facility] [id number] Interpreted by: BELEN VIERA MD Electronically signed by: Reviewed: Reviewed by Me Departure Impression Primary Impression: Hernia due to colostomy Additional Impression: Liver nodule Disposition: 01 HOME, SELF-CARE Condition: Stable/Unchanged Departure-Patient Inst. Decision time for Depature: 18:11 Referrals: MARCUS GARCIA DO (PCP/Family) Primary Care Physician Patient Instructions: Abdominal Hernia (DC) Add. Discharge Instructions: Follow-up with Dr. Garcia in regards to the CT findings and the need for further evaluation of the liver nodules. They are suggesting a MRI of the liver with and without contrast. This needs to be set up on an outpatient basis. Call first thing tomorrow morning to get an appointment time with Dr. Garcia in regards to these findings. Return back to the emergency room for any worsening symptoms or concerns as needed. YURI LONGO Jun 25, 2018 16:09
[2018-06-25 16:15] LABS: BASOPHILS % (AUTO) 0 % (0-10); EOSINOPHILS # (AUTO) 0.3 10^3/uL (0.0-0.3); EOSINOPHILS % (AUTO) 5 % (0-10); HEMATOCRIT 38 % (40-54); HEMOGLOBIN 12.2 G/DL (13.3-17.7); LYMPHOCYTES # (AUTO) 1.9 X 10^3 (1.0-4.0); LYMPHOCYTES % (AUTO) 28 % (12-44); MEAN CORPUSCULAR HEMOGLOBIN 29 PG (25-34); MEAN CORPUSCULAR HGB CONC 32 G/DL (32-36); MEAN CORPUSCULAR VOLUME 91 FL (80-99); MEAN PLATELET VOLUME 10.9 FL (7.4-10.4); MONOCYTES # (AUTO) 0.5 X 10^3 (0.0-1.0); MONOCYTES % (AUTO) 7 % (0-12); NEUTROPHILS # (AUTO) 4.1 X 10^3 (1.8-7.8); NEUTROPHILS % (AUTO) 60 % (42-75); PLATELET COUNT 158 10^3/uL (130-400); RED BLOOD COUNT 4.19 10^6/uL (4.35-5.85); RED CELL DISTRIBUTION WIDTH 15.9 % (10.0-14.5); WHITE BLOOD COUNT 6.8 10^3/uL (4.3-11.0)
[2018-06-25 16:39] LABS: ALBUMIN 3.4 GM/DL (3.2-4.5); BILIRUBIN,TOTAL 0.2 MG/DL (0.1-1.0); CALCIUM 9.2 MG/DL (8.5-10.1); CREATININE SERUM 1.84 MG/DL (0.60-1.30); POTASSIUM 4.8 MMOL/L (3.6-5.0); TOTAL PROTEIN 7.1 GM/DL (6.4-8.2)
[2018-06-25] MEDS ORDERED: fentaNYL INJECTION 100 MCG/2 ML AMP IVP ONE (17:30)
--- NOTE | 2018-06-25 18:03 | Diagnostic Imaging Report ---
PROCEDURE: CT abdomen and pelvis without contrast. TECHNIQUE: Multiple contiguous axial images were obtained through the abdomen and pelvis without the use of intravenous contrast. DATE: June 25, 2018. COMPARISON: CT abdomen and pelvis, June 09, 2018. INDICATION: 63-year-old male, abdominal pain with distention and nausea for three days. FINDINGS: There are limitations for evaluation of the abdominal organs, neoplastic processes, abscess and limited evaluation of the vasculature relating to the lack of intravenous contrast. There is a 6 mm calcified left lower lobe granuloma. There are areas of reticulonodular and somewhat tree-in-bud type opacity within the right lower lobe and left lower lobe with appearance unchanged since recent comparison exam of June 09, 2018. These findings are new since October 23, 2016. This most likely relates to a process spreading via endobronchial means which is most typically an infectious bronchiolitis or aspiration. The heart is not enlarged. There is no pericardial effusion. There are coronary artery calcifications. There is multifocal very low and patchy abnormal signal within the right and left lobes of the liver. This is a change in appearance since October 23, 2016 although fairly similar in appearance to the recent comparison CT exam of June 09, 2018. The outer liver contours are not grossly nodular. The gallbladder is unremarkable. There is no intrahepatic or extrahepatic bile duct dilation. The main pancreatic duct is not abnormally dilated. Unremarkable noncontrast appearance of the pancreatic parenchyma. The spleen is normal in size. There is an accessory splenule on axial image 32. The adrenal glands are unremarkable. There is bilateral perinephric stranding. The urinary collecting systems are not distended. There is no identified renal or ureteral stone. The urinary bladder is unremarkable. There is a left lower quadrant hernia containing large segments of the sigmoid colon. This is fairly similar in appearance to the recent comparison exam. There is no associated bowel obstruction. The appendix is normal. There is no free intraperineal air. There is no drainable fluid collection. There is no free pelvic fluid. There is a very small hiatal hernia. There are atherosclerotic calcifications. There is an inferior vena cava filter. There is no identified abnormally enlarged lymph node within the abdomen or pelvis which meets CT size criteria for adenopathy. There are degenerative changes of the bilateral hips and sacroiliac joints. There are multilevel degenerative changes of the spine. There is no identified acute bony abnormality. IMPRESSION: CT abdomen and pelvis: 1. Multifocal patchy areas of significantly decreased attenuation within the liver with similar appearance compared to June 09, 2018. This is a changed appearance since October 23, 2017. It is difficult to discern whether or not that these relate to multiple masses versus areas of differential fat content. MRI abdomen with liver mass protocol with and without contrast is recommended for further assessment. 2. Large left lower quadrant hernia containing segments of sigmoid colon without associated obstruction. 3. Reticulonodular and tree-in-bud type opacities in the lung bases most likely relating to an infectious bronchiolitis or aspiration. This is unchanged since recent comparison exam. Dictated by: Dictated on workstation # [id number]
[2018-06-25 18:34] VITALS: BP 149/74
== END 2018-06-25 18:55 | disposition home or self-care (01) ==
LOC: EDUNIT# 15:53 → ER 15:54
DX: K43.2 Incisional hernia without obstruction or gangrene (principal); Z93.3 Colostomy status; K76.89 Other specified diseases of liver; I48.91 Unspecified atrial fibrillation; I25.10 Atherosclerotic heart disease of native coronary artery without angina pectoris; E78.00 Pure hypercholesterolemia, unspecified; I10 Essential (primary) hypertension; E11.40 Type 2 diabetes mellitus with diabetic neuropathy, unspecified; F32.9 Major depressive disorder, single episode, unspecified; F20.9 Schizophrenia, unspecified; Z95.5 Presence of coronary angioplasty implant and graft; Z90.89 Acquired absence of other organs; Z79.52 Long term (current) use of systemic steroids; Z79.4 Long term (current) use of insulin
CPT/HCPCS: 36415; 74176; 80053; 85025; 96374

== ENCOUNTER 2018-07-01 00:13 | Emergency (ER) | payer MEDICARE ==
[~2018-07-01] VITALS: Ht 182.9 cm; Wt 131.5 kg
[2018-07-01] MEDS ORDERED: NS IV 1000 ML 1,000 ML IV ONE ×3 (00:19→02:54)
[2018-07-01 00:37] LABS: BASOPHILS % (AUTO) 0 % (0-10); EOSINOPHILS # (AUTO) 0.3 10^3/uL (0.0-0.3); EOSINOPHILS % (AUTO) 4 % (0-10); HEMATOCRIT 40 % (40-54); HEMOGLOBIN 13.2 G/DL (13.3-17.7); LYMPHOCYTES # (AUTO) 2.2 X 10^3 (1.0-4.0); LYMPHOCYTES % (AUTO) 30 % (12-44); MEAN CORPUSCULAR HEMOGLOBIN 30 PG (25-34); MEAN CORPUSCULAR HGB CONC 33 G/DL (32-36); MEAN CORPUSCULAR VOLUME 91 FL (80-99); MEAN PLATELET VOLUME 10.6 FL (7.4-10.4); MONOCYTES # (AUTO) 0.6 X 10^3 (0.0-1.0); MONOCYTES % (AUTO) 8 % (0-12); NEUTROPHILS # (AUTO) 4.3 X 10^3 (1.8-7.8); NEUTROPHILS % (AUTO) 58 % (42-75); PLATELET COUNT 168 10^3/uL (130-400); RED BLOOD COUNT 4.46 10^6/uL (4.35-5.85); RED CELL DISTRIBUTION WIDTH 16.1 % (10.0-14.5); WHITE BLOOD COUNT 7.4 10^3/uL (4.3-11.0)
[2018-07-01 00:56] LABS: ALBUMIN 3.5 GM/DL (3.2-4.5); BILIRUBIN,TOTAL 0.3 MG/DL (0.1-1.0); CALCIUM 9.7 MG/DL (8.5-10.1); CREATININE SERUM 1.9 MG/DL (0.60-1.30); MAGNESIUM 1.8 MG/DL (1.8-2.4); POTASSIUM 4.5 MMOL/L (3.6-5.0); TOTAL PROTEIN 7.4 GM/DL (6.4-8.2)
[2018-07-01] MEDS ORDERED: inSUlin (REGULAR) HUMAN 1 UNIT/0.01 ML (CHARGE PER UNIT) IV ONE (01:15)
[2018-07-01 01:39] LABS: BILIRUBIN,URINE NEGATIVE (NEGATIVE); COLOR,URINE YELLOW; GLUCOSE, URINE (UA) 4+ (NEGATIVE); KETONES,URINE NEGATIVE (NEGATIVE); LEUKOCYTE ESTERASE ,URINE 1+ (NEGATIVE); NITRITE,URINE NEGATIVE (NEGATIVE); PH,URINE 7 (5-9); PROTEIN,URINE NEGATIVE (NEGATIVE); UROBILINOGEN,URINE NORMAL (NORMAL)
[2018-07-01 01:46] LABS: BACTERIA,URINE NEGATIVE /HPF; CLARITY,URINE CLEAR; SQUAMOUS EPITHELIAL CELL,UR 0-2 /HPF
[2018-07-01] MEDS ORDERED: ACETAMINOPHEN 500 MG TAB (TYLENOL) PO STA (02:13)
[2018-07-01] MEDS ORDERED: inSUlin (REGULAR) HUMAN 1 UNIT/0.01 ML (CHARGE PER UNIT) SC ONE (03:00)
--- NOTE | 2018-07-01 03:49 | ED General ---
General Chief Complaint: Glucose Problems Stated Complaint: ELEVATED BLOOD SUGAR Nursing Triage Note: PT PRESENTS VIA EMS, [facility] STAFF STATED TO EMS THAT THE PT'S BLOOD SUGAR WAS FOUND TO BE 460 MG/DL, CONTACTED EMS FOR PT TRANSPORT. EMS REPORTS A BLOOD SUGAR OF 475, ALSO STATES PT RECIEVED 12 UNITS OF NOVALOG BY [facility] STAFF PROFESSOR OF GRAPHIC DESIGN. Nursing Sepsis Screen: No Definite Risk Allergies and Home Medications Allergies Coded Allergies: No Known Drug Allergies (Verified , 09/08/09) Home Medications Acetaminophen 325 Mg Tablet, 650 MG PO Q4H PRN for PAIN-MILD OR TEMPATURE, ( Reported) TAKES 2 (325MG) TABLETS Aspirin 81 Mg Tablet.dr, 81 MG PO DAILY, (Reported) Carboxymethylcellulose Sodium 15 Ml Drops, 1 DROP OU Q12H PRN for DRY EYES, ( Reported) Cephalexin 500 Mg Capsule, 500 MG PO BID Prescribed by: AREN BRAUN on 12/03/17 0946 Cholecalciferol (Vitamin D3) 5,000 Unit Tablet, 5,000 UNIT PO DAILY, (Reported) Docusate Sodium 100 Mg Capsule, 100 MG PO BID, (Reported) Fentanyl 1 Each Patch.td72, 50 MCG TD Q72H, (Reported) Gabapentin 300 Mg Capsule, 300 MG PO 0900,1400, (Reported) Gabapentin 300 Mg Capsule, 600 MG PO HS, (Reported) TAKES 2 (300MG) CAPSULES Hydrocodone Bit/Acetaminophen 1 Each Tablet, 2 TAB PO Q6H PRN for PAIN-MODERATE, (Reported) Insulin Aspart 300 Units/3 Ml Solution, SQ AC, (Reported) 0-200 = 0 UNITS 201-250 = 3 UNITS 251-300 = 6 UNITS 301-350 = 9 UNITS 351- 400 = 12 UNITS >400 CALL PCP Insulin Degludec 100 Unit/1 Ml Insuln.pen, 75 UNIT SQ 1200, (Reported) Magnesium Oxide 400 Mg Tablet, 400 MG PO DAILY, (Reported) Mirtazapine 15 Mg Tablet, 15 MG PO HS, (Reported) Multivitamin 1 Each Tablet, 1 TAB PO DAILY, (Reported) Mupirocin 22 Gm Oint...g., TP BID, (Reported) APPLY TO L HIP Nystatin 1 Each Powder.ea., TOP BID, (Reported) Pantoprazole Sodium 20 Mg Tablet.dr, 20 MG PO BID, (Reported) Polyethylene Glycol 3350 17 Gm Powd.pack, 17 GM PO BID, (Reported) Rivaroxaban 20 Mg Tablet, 20 MG PO HS, (Reported) Sertraline HCl 50 Mg Tablet, 75 MG PO DAILY, (Reported) TAKES 1 & 1/2 (50MG) TABLET Ziprasidone 40 Mg Cap, 40 MG PO HS, (Reported) Ziprasidone HCl 20 Mg Capsule, 20 MG PO DAILY, (Reported) Past Otjyyfr-Nustla-Mpfjqz Hx Patient Social History 2nd Hand Smoke Exposure: No Recent Foreign Travel: No Contact w/Someone Who Travel: No Recent Infectious Disease Expo: No Recent Hopitalizations: No Immunizations Up To Date Tetanus Booster (TDap): Unknown Date of Pneumonia Vaccine: Jul 09, 2011 Date of Influenza Vaccine: Apr 16, 2016 Seasonal Allergies Seasonal Allergies: No Past Medical History Surgeries: Yes (COLOSTOMY, LAP BAND, rectal fistulotomy) Abdominal, Cardiac, Coronary Stent, Tonsillectomy Respiratory: Yes (CHRONIC DYSPNEA) Sleep Apnea Currently Using CPAP: No Cardiac: Yes (PSVT) Atrial Fibrillation, Chronic Edema/Swelling, Coronary Artery Disease, High Cholesterol, Hypertension Neurological: Yes Neuropathy, Spinal Cord Injury, Traumatic Brain Injury Reproductive Disorders: No Sexually Transmitted Disease: No HIV/AIDS: No Genitourinary: Yes Renal Failure Gastrointestinal: No (COLOSTOMY ) Chronic Constipation Musculoskeletal: Yes (DYSKINESIA; NON-AMBULATORY, WHEELCHAIR-BOUND) Endocrine: Yes Diabetes, Insulin dep HEENT: No Cancer: No Psychosocial: Yes Schizophrenia, Depression Integumentary: No Blood Disorders: No Adverse Reaction/Blood Tranf: No Family Medical History Patient reports no known family medical history. No Pertinent Family Hx Physical Exam Vital Signs Vital Signs - First Documented 07/01/18 00:17 Temp 96.6 Pulse 73 Resp 20 B/P (MAP) 143/69 (93) Pulse Ox 96 O2 Delivery Room Air Capillary Refill : Less Than 3 Seconds Height, Weight, BMI Height: 6'0" Weight: 290lbs. 9.6oz. 131.197992ta; 37.8 BMI Method:Stated Progress/Results/Core Measures Suspected Sepsis Recent Fever Within 48 Hours: No Infection Criteria Present: Suspected New Infection New/Unexplained Altered Menta: Yes Sepsis Screen: No Definite Risk SIRS Temperature:96.6 Pulse: 73 Respiratory Rate: 20 Laboratory Tests 07/01/18 00:27: White Blood Count 7.4 Blood Pressure 143 /69 Mean: 93 Laboratory Tests 07/01/18 00:27: Creatinine 1.90H, Platelet Count 168, Total Bilirubin 0.3 Results/Orders Lab Results Laboratory Tests Test 07/01/18 00:27 07/01/18 00:29 07/01/18 01:30 07/01/18 02:11 Range/Units White Blood Count 7.4 4.3-11.0 10^3/uL Red Blood Count 4.46 4.35-5.85 10^6/uL Hemoglobin 13.2 L 13.3-17.7 G/DL Hematocrit 40 40-54 % Mean Corpuscular Volume 91 80-99 FL Mean Corpuscular Hemoglobin 30 25-34 PG Mean Corpuscular Hemoglobin Concent 33 32-36 G/DL Red Cell Distribution Width 16.1 H 10.0-14.5 % Platelet Count 168 130-400 10^3/uL Mean Platelet Volume 10.6 H 7.4-10.4 FL Neutrophils (%) (Auto) 58 42-75 % Lymphocytes (%) (Auto) 30 12-44 % Monocytes (%) (Auto) 8 0-12 % Eosinophils (%) (Auto) 4 0-10 % Basophils (%) (Auto) 0 0-10 % Neutrophils # (Auto) 4.3 1.8-7.8 X 10^3 Lymphocytes # (Auto) 2.2 1.0-4.0 X 10^3 Monocytes # (Auto) 0.6 0.0-1.0 X 10^3 Eosinophils # (Auto) 0.3 0.0-0.3 10^3/uL Basophils # (Auto) 0.0 0.0-0.1 10^3/uL Sodium Level 135 135-145 MMOL/L Potassium Level 4.5 3.6-5.0 MMOL/L Chloride Level 99 98-107 MMOL/L Carbon Dioxide Level 23 21-32 MMOL/L Anion Gap 13 5-14 MMOL/L Blood Urea Nitrogen 24 H 7-18 MG/DL Creatinine 1.90 H 0.60-1.30 MG/DL Estimat Glomerular Filtration Rate 36 BUN/Creatinine Ratio 13 Glucose Level 408 *H 70-105 MG/DL Calcium Level 9.7 8.5-10.1 MG/DL Corrected Calcium 10.1 8.5-10.1 MG/DL Magnesium Level 1.8 1.8-2.4 MG/DL Total Bilirubin 0.3 0.1-1.0 MG/DL Aspartate Amino Transf (AST/SGOT) 36 H 5-34 U/L Alanine Aminotransferase (ALT/SGPT) 31 0-55 U/L Alkaline Phosphatase 121 40-136 U/L Total Protein 7.4 6.4-8.2 GM/DL Albumin 3.5 3.2-4.5 GM/DL Amylase Level 54 25-125 U/L Lipase 56 8-78 U/L Valproic Acid (Depakene) Level < 2.0 L 50.0-100.0 UG/ML Glucometer 375 H 324 H 70-110 MG/DL Urine Color YELLOW Urine Clarity CLEAR Urine pH 7 5-9 Urine Specific [place] 1.010 L 1.016-1.022 Urine Protein NEGATIVE NEGATIVE Urine Glucose (UA) 4+ H NEGATIVE Urine Ketones NEGATIVE NEGATIVE Urine Nitrite NEGATIVE NEGATIVE Urine Bilirubin NEGATIVE NEGATIVE Urine Urobilinogen NORMAL NORMAL MG/DL Urine Leukocyte Esterase 1+ H NEGATIVE Urine RBC (Auto) NEGATIVE NEGATIVE Urine RBC NONE /HPF Urine WBC 2-5 /HPF Urine Squamous Epithelial Cells 0-2 /HPF Urine Crystals NONE /LPF Urine Bacteria NEGATIVE /HPF Urine Casts NONE /LPF Urine Mucus NEGATIVE /LPF Urine Culture Indicated NO Test 07/01/18 03:33 Range/Units Glucometer 232 H 70-110 MG/DL My Orders Orders - LONDON CHERY DO Accucheck Stat ONCE (07/01/18 00:19) Saline Lock/Iv-Start (07/01/18 00:19) Monitor-Rhythm Ecg Trace Only (07/01/18 00:19) Amylase (07/01/18 00:19) Cbc With Automated Diff (07/01/18 00:19) Comprehensive Metabolic Panel (07/01/18 00:19) Lipase (07/01/18 00:19) Magnesium (07/01/18 00:19) Ua Culture If Indicated (07/01/18 00:19) Saline Lock/Iv-Start (07/01/18 00:19) Saline Lock/Iv-Start (07/01/18 00:19) Ns Iv 1000 Ml (Sodium Chloride 0.9%) (07/01/18 00:19) Valproic Acid (07/01/18 01:02) Insulin (Regular) Human (Humulin R (Per (07/01/18 01:15) Saline Lock/Iv-Start (07/01/18 01:02) Ns Iv 1000 Ml (Sodium Chloride 0.9%) (07/01/18 01:02) Accucheck Stat ONCE (07/01/18 01:39) Accucheck Stat ONCE (07/01/18 02:13) Acetaminophen Tablet (Tylenol Tablet) (07/01/18 02:13) Insulin (Regular) Human (Humulin R (Per (07/01/18 03:00) Saline Lock/Iv-Start (07/01/18 02:54) Ns Iv 1000 Ml (Sodium Chloride 0.9%) (07/01/18 02:54) Medications Given in ED Current Medications Medications Dose Ordered Sig/Matt Route Start Time Stop Time Status Last Admin Dose Admin Insulin Human Regular 20 unit ONCE ONCE IV 07/01/18 01:15 07/01/18 01:16 DC 07/01/18 01:25 20 UNIT Vital Signs/I&O 07/01/18 00:17 Temp 96.6 Pulse 73 Resp 20 B/P (MAP) 143/69 (93) Pulse Ox 96 O2 Delivery Room Air Capillary Refill : Less Than 3 Seconds Blood Pressure Mean: 93 Point of Care Testing Finger Stick Blood Glucose: 232 Blood Glucose Action Taken: PROVIDER NOTIFIED Departure Impression Primary Impression: Diabetes mellitus, type 2 Additional Impression: Hyperglycemia due to type 2 diabetes mellitus Disposition: 03 XFER SNF Condition: Improved Departure-Patient Inst. Referrals: MARCUS CORREIA DO (PCP/Family) Primary Care Physician Patient Instructions: Diabetes Type 2 (DC) Add. Discharge Instructions: CONTINUE CURRENT MEDICATIONS DR. CORREIA OR CHLOROBUTADIENE SCRUBBER OPERATOR FOR FURTHER ORDERS All discharge instructions reviewed with patient and/or family. Voiced understanding. LONDON CHERY DO Jul 01, 2018 03:48
[2018-07-01] MEDS ORDERED: inSUlin (REGULAR) HUMAN 1 UNIT/0.01 ML (CHARGE PER UNIT) ONE (03:53)
[2018-07-01 05:47] VITALS: BP 130/56
[2018-07-02] MEDS ORDERED: NS (IVPB) 250 ML ONE (05:07)
[2018-07-02] MEDS ORDERED: VANCOMYCIN 1000 MG/VIAL ONE (05:07)
[2018-07-02] MEDS ORDERED: MAGN500T PO (11:35)
[2018-07-02] MEDS ORDERED: ZIPR60CA20 PO (11:35)
[2018-07-02] MEDS ORDERED: GLUC1KIT IJ (11:35)
[2018-07-02] MEDS ORDERED: FERR325T18 PO (11:35)
[2018-07-02] MEDS ORDERED: FEN12TD TD (11:35)
[2018-07-02] MEDS ORDERED: DULO60CA6 PO (11:35)
[2018-07-02] MEDS ORDERED: DEXT37.54 PO (11:35)
[2018-07-02] MEDS ORDERED: ONDA4TAB11 PO (11:35)
[2018-07-02] MEDS ORDERED: INSU100I14 SQ (11:35)
[2018-07-02] MEDS ORDERED: ASCO-262 PO (11:35)
[2018-07-04] MEDS ORDERED: SULF1TAB35 PO (10:35)
== END 2018-07-01 05:47 ==
LOC: EDUNIT# 00:13 → ER 00:15
DX: E11.65 Type 2 diabetes mellitus with hyperglycemia (principal); I48.91 Unspecified atrial fibrillation; I25.10 Atherosclerotic heart disease of native coronary artery without angina pectoris; E78.00 Pure hypercholesterolemia, unspecified; I10 Essential (primary) hypertension; E11.40 Type 2 diabetes mellitus with diabetic neuropathy, unspecified; F32.9 Major depressive disorder, single episode, unspecified; F20.9 Schizophrenia, unspecified; Z79.82 Long term (current) use of aspirin; Z79.4 Long term (current) use of insulin; Z93.3 Colostomy status; Z90.89 Acquired absence of other organs; Z95.5 Presence of coronary angioplasty implant and graft
CPT/HCPCS: 36415; 80053; 80164; 81000; 82150; 82962; 83690; 83735; 85025; 93041

== ENCOUNTER 2018-07-02 00:20 | Inpatient (IN) | payer MEDICARE ==
[~2018-07-02] VITALS: Ht 185.4 cm; Wt 135.2 kg
[2018-07-02] MEDS ORDERED: NS IV 1000 ML 1,000 ML IV ONE ×2 (00:28→03:46)
--- NOTE | 2018-07-02 01:25 | NUR ---
RT notified of need for ABG
--- NOTE | 2018-07-02 01:39 | NUR ---
RT at bedside for ABG and lab at bedside for second set blood culture draw
[2018-07-02 01:48] LABS: BASOPHILS % (AUTO) 0 % (0-10); EOSINOPHILS # (AUTO) 0.3 10^3/uL (0.0-0.3); EOSINOPHILS % (AUTO) 5 % (0-10); HEMATOCRIT 39 % (40-54); HEMOGLOBIN 12.6 G/DL (13.3-17.7); LYMPHOCYTES # (AUTO) 1.7 X 10^3 (1.0-4.0); LYMPHOCYTES % (AUTO) 27 % (12-44); MEAN CORPUSCULAR HEMOGLOBIN 29 PG (25-34); MEAN CORPUSCULAR HGB CONC 32 G/DL (32-36); MEAN CORPUSCULAR VOLUME 92 FL (80-99); MEAN PLATELET VOLUME 10.7 FL (7.4-10.4); MONOCYTES # (AUTO) 0.6 X 10^3 (0.0-1.0); MONOCYTES % (AUTO) 9 % (0-12); NEUTROPHILS # (AUTO) 3.9 X 10^3 (1.8-7.8); NEUTROPHILS % (AUTO) 60 % (42-75); PLATELET COUNT 157 10^3/uL (130-400); RED CELL DISTRIBUTION WIDTH 16.1 % (10.0-14.5); WHITE BLOOD COUNT 6.5 10^3/uL (4.3-11.0)
[2018-07-02 02:00] LABS: POTASSIUM 5.5 MMOL/L (3.6-5.0)
[2018-07-02 02:02] LABS: INR 1.9 (0.8-1.4); PROTHROMBIN TIME PATIENT 21.9 SEC (12.2-14.7)
[2018-07-02 02:08] LABS: BILIRUBIN,URINE NEGATIVE (NEGATIVE); CLARITY,URINE CLEAR; COLOR,URINE YELLOW; GLUCOSE, URINE (UA) 4+ (NEGATIVE); KETONES,URINE NEGATIVE (NEGATIVE); LEUKOCYTE ESTERASE ,URINE 2+ (NEGATIVE); NITRITE,URINE NEGATIVE (NEGATIVE); PH,URINE 7 (5-9); PROTEIN,URINE NEGATIVE (NEGATIVE); UROBILINOGEN,URINE NORMAL (NORMAL)
[2018-07-02 02:09] LABS: CARBON DIOXIDE 23 MMOL/L (21-32); CHLORIDE 103 MMOL/L (98-107); SODIUM 137 MMOL/L (135-145)
[2018-07-02 02:10] LABS: ALANINE AMINOTRANSFERASE 33 U/L (0-55); ALBUMIN 3.3 GM/DL (3.2-4.5); ALKALINE PHOSPHATASE 107 U/L (40-136); AMMONIA 29 UMOL/L (11-32); AMYLASE 50 U/L (25-125); BILIRUBIN,TOTAL 0.3 MG/DL (0.1-1.0); BUN/CREATININE RATIO 12; CALCIUM 9.3 MG/DL (8.5-10.1); CREATINE KINASE 112 U/L (30-200); CREATININE SERUM 1.81 MG/DL (0.60-1.30); GFR ESTIMATED 38; LIPASE 54 U/L (8-78); MAGNESIUM 2.9 MG/DL (1.8-2.4); TOTAL PROTEIN 7.8 GM/DL (6.4-8.2)
[2018-07-02 02:12] LABS: ACETAMINOPHEN < 10 UG/ML (10-30); GLUCOSE 401 MG/DL (70-105)
[2018-07-02 02:17] LABS: ABG BASE EXCESS 1.1 MMOL/L (-2.5-2.5); ABG OXYGEN SATURATION 95 % (94-100); ABG PCO2 44 MMHG (35-45); ABG PH 7.38 (7.37-7.43); ABG PO2 74 MMHG (79-93); ABG TCO2 27.1 MMOL/L (21.0-31.0)
[2018-07-02 02:18] LABS: ALLENS TEST POSITIVE; PATIENT TEMP 97.9; VENTILATOR NO
[2018-07-02 02:18] LABS: BACTERIA,URINE TRACE /HPF
[2018-07-02 02:30] LABS: CREATINE KINASE MB 2.3 NG/ML (<6.6); TSH (THYROID ANALYZER) 1.37 UIU/ML (0.35-4.94)
[2018-07-02 02:30] LABS: AMPHETAMINE SCREEN, URINE NEGATIVE (NEGATIVE); BARBITURATE SCREEN URINE NEGATIVE (NEGATIVE); BENZODIAZEPINES SCREEN URINE NEGATIVE (NEGATIVE); CANNABINOID SCREEN, URINE NEGATIVE (NEGATIVE); COCAINE SCREEN URINE NEGATIVE (NEGATIVE); METHADONE STAT NEGATIVE (NEGATIVE); METHAMPHETAMINE SCREEN URINE S NEGATIVE (NEGATIVE); OPIATE SCREEN URINE NEGATIVE (NEGATIVE); OXYCODONE STAT NEGATIVE (NEGATIVE); PROPOXYPHENE STAT NEGATIVE (NEGATIVE); TRICYCLIC ANTIDEPRESSANTS SCRE NEGATIVE (NEGATIVE)
[2018-07-02] MEDS ORDERED: VANCOMYCIN INJECTION 1,000 MG in NS (IVPB) 250 ML IV ONE (04:00)
[2018-07-02] MEDS ORDERED: inSUlin (REGULAR) HUMAN 1 UNIT/0.01 ML (CHARGE PER UNIT) IV ONE (04:00)
--- NOTE | 2018-07-02 05:03 | NUR ---
Blood Sugar 244 at this time.
[2018-07-02] MEDS ORDERED: NS IV 1000 ML 1,000 ML IV SCH (07:00)
--- NOTE | 2018-07-02 07:35 | NUR ---
PTD VANCOMYCIN LABS: SCR 1.8 PLAN: VANCOMYCIN 1 GRAM WAS GIVEN THIS AM AT 0400, WE WILL START VANCOMYCIN 2,000MG IV DAILY TODAY @ 1300, WE WILL CHECK A TROUGH LEVEL ON 07/04 @ 1200, MONITOR CLOSELY DUE TO ELEVATED SCR AND WEIGHT (135KG)
--- NOTE | 2018-07-02 07:47 | Diagnostic Imaging Report ---
Indication: Elevated blood sugar. Comparison: 02/02/2016. Findings: Portable chest show the lungs to be well aerated and clear. Heart not enlarged. No pulmonary edema. No pneumothorax or pleural effusion. No bony abnormality. Impression: Normal portable chest. Dictated by: Dictated on workstation # [id number]
[2018-07-02 08:57] VITALS: BP 156/70
--- NOTE | 2018-07-02 10:09 | History & Physical-Hospitalist ---
History of Present Illness HPI/Chief Complaint CC: Severe hyperglycemia with lower extremity cellulitis and lactic acidosis HPI: This is a 63-year-old white male known to me from prior senior behavioral unit admissions due to chronic mental illness and acute [facility] admissions for a variety of issues who presents to the ER with severe hyperglycemia found to have blood sugar of over 500 and evidence of lactic acidosis due to dehydration and lower extremity cellulitis. Patient was placed on IV fluids and IV insulin and blood sugars became more reasonable but patient is requiring empiric coverage of vancomycin and Zosyn for lower extremity cellulitis due to out-of- control diabetes and chronic ulcerations of the legs that have become actively infected. Coccyx revealed wound which not a pressure sore but instead a moisture wound and wound care has evaluated him. Source: patient, RN/MD, old records Exam Limitations: no limitations Date Seen 07/02/18 Time Seen by a Provider: 09:30 Attending Physician Valencia Fox DO PCP Juan Garcia DO Referring Physician Date of Admission Jul 02, 2018 at 03:55 Home Medications & Allergies Home Medications Reviewed patient Home Medication Reconciliation performed by pharmacy medication reconciliations industrial maintenance technician and/or nursing. Patients Allergies have been reviewed. Allergies Allergies Coded Allergies No Known Drug Allergies (Verified09/08/09) Past Qgktrnt-Guycfe-[place] Hx Past Med/Social Hx: Reviewed Nursing Past Med/Soc Hx, Reviewed and Corrections made Patient Social History Marrital Status: single Employed/Student: unemployed Alcohol Use: Denies Use Recreational Drug Use: No Smoking Status: Never a Smoker 2nd Hand Smoke Exposure: No Physical Abuse Screen: No Sexual Abuse: No Recent Foreign Travel: No Contact w/other who traveled: No Recent Hopitalizations: No Recent Infectious Disease Expo: No Immunizations Up To Date Tetanus Booster (TDap): Unknown Date of Pneumonia Vaccine: Jul 09, 2011 Date of Influenza Vaccine: Apr 16, 2016 Seasonal Allergies Seasonal Allergies: No Past Medical History Surgeries: Abdominal, Cardiac, Coronary Stent, Tonsillectomy Currently Using CPAP: No Cardiac: Atrial Fibrillation, Chronic Edema/Swelling, Coronary Artery Disease, High Cholesterol, Hypertension Neurological: Neuropathy, Spinal Cord Injury, Traumatic Brain Injury Reproductive: No Sexually Transmitted Disease: No HIV/AIDS: No Genitourinary: Renal Failure Gastrointestinal: Chronic Constipation Endocrine: Diabetes, Insulin dep Psychosocial: Schizophrenia, Depression History of Blood Disorders: No Adverse Reaction to Blood [place]: No Family History Patient reports no known family medical history. No Pertinent Family Hx Review of Systems Constitutional: see HPI, dizziness, fever, malaise, weakness EENTM: no symptoms reported Respiratory: no symptoms reported Cardiovascular: no symptoms reported Gastrointestinal: loss of appetite Genitourinary: no symptoms reported Musculoskeletal: joint pain, muscle cramps Skin: see HPI, rash Psychiatric/Neurological: Depressed All Other Systems Reviewed Negative Unless Noted: Yes Physical Exam Physical Exam Vital Signs Vital Signs - First Documented 07/02/18 07/02/18 00:20 05:03 Temp 97.9 Pulse 79 Resp 18 B/P (MAP) 150/75 (100) Pulse Ox 95 O2 Delivery Room Air O2 Flow Rate 99.00 Capillary Refill : Less Than 3 Seconds Height, Weight, BMI Height: 6'1.00" Weight: 298lbs. 0.0oz. 135.337699mh; 39.3 BMI Method:Stated General Appearance: No Apparent Distress, WD/WN, Chronically ill Eyes: Bilateral Eye Normal Inspection, Bilateral Eye PERRL HEENT: PERRL/EOMI, TMs Normal, Normal ENT Inspection, Pharynx Normal Neck: Full Range of Motion, Normal Inspection, Non Tender, Supple, Carotid Bruit Respiratory: Chest Non Tender, Lungs Clear, Normal Breath Sounds, No Accessory Muscle Use, No Respiratory Distress Cardiovascular: Regular Rate, Rhythm, No Edema, No Gallop, No JVD, No Murmur, Normal Peripheral Pulses Gastrointestinal: Normal Bowel Sounds, No Organomegaly, No Pulsatile Mass, Non Tender, Soft Back: Normal Inspection, No CVA Tenderness, No Vertebral Tenderness Extremity: Normal Capillary Refill, Normal Inspection, Normal Range of Motion, Non Tender, No Calf Tenderness, No Pedal Edema Neurologic/Psychiatric: Alert, Oriented x3, No Motor/Sensory Deficits, Depressed Affect Skin: Normal Color, Warm/Dry, Rash (bilateral wounds on lower legs with ulcerations and erythema) Lymphatic: No Adenopathy Results Results/Procedures Labs Laboratory Tests 07/02/18 01:23 Patient resulted labs reviewed. Assessment/Plan Admission Diagnosis Assessment: Sepsis Lower extremity cellulitis Diabetes mellitus out of control with severe hyperglycemia requiring IV insulin Paralysis Long-standing mental illness Long-standing disability Depression Chronic renal failure Anemia Hypertension CAD Plan: IV antibiotics IV fluids Monitor labs closely including creatinine Home meds Initiate long-acting insulin along with sliding scale C for additional coverage Admission Status: Inpatient Order (span 2 midnights) Reason for Inpatient Admission: Sepsis with hyperglycemia will require IV antibiotics for cellulitis and 3 days of hospital stay Diagnosis/Problems Diagnosis/Problems (1) Sepsis Status: Resolved Resolution Date/Time: 11/29/17 @ 11:16 (2) Lactic acidosis Status: Acute (3) Uncontrolled diabetes mellitus Status: Acute Qualifiers: Diabetes mellitus type: type 2 Glycemic state: with hyperglycemia Qualified Codes: E11.65 - Type 2 diabetes mellitus with hyperglycemia (4) Chronic renal insufficiency Status: Chronic Qualifiers: Chronic kidney disease stage: stage 3 (moderate) Qualified Codes: N18.3 - Chronic kidney disease, stage 3 (moderate) (5) Paraplegia Status: Chronic (6) Diabetes mellitus, type 2 Status: Chronic Qualifiers: Diabetes mellitus snf insulin use: with exterminator helper termite use Diabetes mellitus complication status: with unspecified complications Qualified Codes: E11.8 - Type 2 diabetes mellitus with unspecified complications; Z79.4 - computer terminal operator (current) use of insulin (7) Hypertension Status: Chronic Qualifiers: Hypertension type: essential hypertension Qualified Codes: I10 - Essential (primary) hypertension (8) Colostomy in place Status: Chronic (9) Cellulitis of both lower extremities Status: Acute (10) Decubitus ulcer of coccyx Status: Chronic Qualifiers: Pressure injury stage: unspecified pressure injury stage Qualified Codes: L89.159 - Pressure ulcer of sacral region, unspecified stage Clinical Quality Measures DVT/VTE Risk/Contraindication: Risk Factor Score Per Nursin RFS Level Per Nursing on Admit: 4+=Very High VALENCIA FOX DO Jul 02, 2018 10:08
[2018-07-02] MEDS ORDERED: inSUlin DETERMIR 1 UNIT/0.01 ML (LEVEMIR) CHARGE PER UNIT SQ NR (10:15)
[2018-07-02] MEDS ORDERED: LACTOBACILLUS Acidoph/Bulgar 1 GM (LACTINEX) PACKET PO NR (10:15)
[2018-07-02] MEDS ORDERED: PIPERACILLIN/TAZO 4.5 GM/NS 100 ML IV NR ×2 (10:30)
[2018-07-02] MEDS ORDERED: inSUlin ASPART (NovoLOG) 1 UNIT/0.01 ML (CHARGE PER UNIT) SC SCH (11:00)
[2018-07-02] MEDS ORDERED: FEN12TD TD (11:35)
[2018-07-02] MEDS ORDERED: INSU100I14 SQ (11:35)
[2018-07-02] MEDS ORDERED: GLUC1KIT IJ (11:35)
[2018-07-02] MEDS ORDERED: ZIPR60CA20 PO (11:35)
[2018-07-02] MEDS ORDERED: ONDA4TAB11 PO (11:35)
[2018-07-02] MEDS ORDERED: ASCO-262 PO (11:35)
[2018-07-02] MEDS ORDERED: DEXT37.54 PO (11:35)
[2018-07-02] MEDS ORDERED: FERR325T18 PO (11:35)
[2018-07-02] MEDS ORDERED: MAGN500T PO (11:35)
[2018-07-02] MEDS ORDERED: DULO60CA6 PO (11:35)
[2018-07-02] MEDS: inSUlin ASPART (NovoLOG) 1 UNIT/0.01 ML (CHARGE PER UNIT) SC SCH ×3 (11:41→21:58)
--- NOTE | 2018-07-02 11:41 | NUR ---
UPDATED MED REC WITH ORDER SUMMARY REPORT FROM [facility]
[2018-07-02] MEDS: LACTOBACILLUS Acidoph/Bulgar 1 GM (LACTINEX) PACKET PO SCH ×3 (11:57→21:54)
[2018-07-02 12:42] VITALS: BP 146/69
[2018-07-02] MEDS: VANCOMYCIN 2000 MG/NS 500 ML IVPB IV SCH ×2 (13:17)
[2018-07-02 16:30] VITALS: BP 139/73
[2018-07-02] MEDS: PIPERACILLIN SODIUM/TAZOBACTAM 4.5 GM in NS (IVPB) 100 ML IV SCH (16:33)
[2018-07-02] MEDS ORDERED: fentaNYL PATCH 12 MCG (DURAGESIC) TD SCH ×2 (18:00→19:00)
[2018-07-02] MEDS ORDERED: HYDROcodone/APAP 5 MG/325 MG (LORTAB) TAB PO PRN (18:00)
[2018-07-02] MEDS ORDERED: ONDANSETRON 4 MG (ZOFRAN) ORAL DISSOLVE TAB PO PRN (18:15)
[2018-07-02] MEDS ORDERED: ACETAMINOPHEN 325 MG TABLET PO PRN (18:15)
[2018-07-02] MEDS ORDERED: GLUCAGON EMERGENCY 1 MG/KIT IJ PRN (18:15)
[2018-07-02] MEDS ORDERED: ARTIFICAL TEARS 0.4 ML UNIT DOSE (REFRESH PLUS) OU PRN (19:00)
[2018-07-02 20:00] VITALS: BP 148/64
--- NOTE | 2018-07-02 20:30 | NUR ---
pt c/o IV site in rt hand hurting. pt states has asked for it to be removed several times and told no. IV site flushed and has good blood return but is in acquired site. pt states hurt if uses hand, ieft wrist site working well, hand site removed after explaining that would have to restart another one if wrist site goes bad, pt verbalized understanding
[2018-07-02] MEDS ORDERED: inSUlin DETERMIR 1 UNIT/0.01 ML (LEVEMIR) CHARGE PER UNIT SQ SCH (21:00)
[2018-07-02] MEDS: DOCUSATE SODIUM 100 MG (COLACE) CAP PO SCH (21:53)
[2018-07-02] MEDS: HYDROcodone/APAP 5 MG/325 MG (LORTAB) TAB PO PRN (21:54)
[2018-07-02] MEDS: ZIPRASIDONE 20 MG (GEODON) CAP PO SCH (21:54)
[2018-07-02] MEDS: ZIPRASIDONE 40 MG (GEODON) CAP PO SCH (21:54)
[2018-07-02] MEDS: GABAPENTIN 300 MG (NEURONTIN) CAP PO SCH (21:55)
[2018-07-02] MEDS: MIRTAZAPINE 15 MG (REMERON) TAB PO SCH (21:55)
[2018-07-02] MEDS: FERROUS SULF 325 MG (IRON) TAB PO SCH (21:55)
[2018-07-02] MEDS: PANTOPRAZOLE 20 MG TABLET (PROTONIX) PO SCH (21:55)
[2018-07-02] MEDS: POLYETHYLENE GLYCOL 17 GM (MIRALAX) PACK PO SCH (21:56)
[2018-07-02] MEDS: RIVAROXABAN 20 MG TABLET (XARELTO) PO SCH (21:59)
[2018-07-03 00:09] VITALS: BP 159/67
[2018-07-03] MEDS: PIPERACILLIN SODIUM/TAZOBACTAM 4.5 GM in NS (IVPB) 100 ML IV SCH ×3 (00:15→16:15)
--- NOTE | 2018-07-03 02:15 | NUR ---
Assumed care of pt at this time; report rec'd from Maurisio Murphy RN. Pt in bed with HOB in semi-Vides's; resting with eyes closed; no s/s of distress/discomfort noted. Will continue to monitor.
[2018-07-03 04:00] VITALS: BP 160/75
[2018-07-03] MEDS: LACTOBACILLUS Acidoph/Bulgar 1 GM (LACTINEX) PACKET PO SCH ×4 (06:25→22:03)
[2018-07-03] MEDS: MULTIVIT W/MINERALS TAB (THERAGRAN M) PO SCH (06:25)
[2018-07-03] MEDS: inSUlin ASPART (NovoLOG) 1 UNIT/0.01 ML (CHARGE PER UNIT) SQ SCH ×3 (07:09→17:31)
[2018-07-03] MEDS: inSUlin ASPART (NovoLOG) 1 UNIT/0.01 ML (CHARGE PER UNIT) SC SCH ×4 (07:09→22:04)
[2018-07-03 07:38] LABS: BASOPHILS % (AUTO) 0 % (0-10); EOSINOPHILS # (AUTO) 0.4 10^3/uL (0.0-0.3); EOSINOPHILS % (AUTO) 5 % (0-10); HEMATOCRIT 38 % (40-54); HEMOGLOBIN 12.2 G/DL (13.3-17.7); LYMPHOCYTES % (AUTO) 12 % (12-44); MEAN CORPUSCULAR HEMOGLOBIN 30 PG (25-34); MEAN CORPUSCULAR HGB CONC 32 G/DL (32-36); MEAN CORPUSCULAR VOLUME 92 FL (80-99); MEAN PLATELET VOLUME 10.8 FL (7.4-10.4); MONOCYTES # (AUTO) 0.5 X 10^3 (0.0-1.0); MONOCYTES % (AUTO) 6 % (0-12); NEUTROPHILS # (AUTO) 5.9 X 10^3 (1.8-7.8); NEUTROPHILS % (AUTO) 76 % (42-75); PLATELET COUNT 158 10^3/uL (130-400); RED CELL DISTRIBUTION WIDTH 16.2 % (10.0-14.5); WHITE BLOOD COUNT 7.8 10^3/uL (4.3-11.0)
[2018-07-03 07:57] LABS: BILIRUBIN,TOTAL 0.5 MG/DL (0.1-1.0); CALCIUM 8.8 MG/DL (8.5-10.1); CREATININE SERUM 1.54 MG/DL (0.60-1.30); POTASSIUM 4.1 MMOL/L (3.6-5.0); TOTAL PROTEIN 6.5 GM/DL (6.4-8.2)
[2018-07-03 08:00] VITALS: BP 172/72
[2018-07-03] MEDS: ASPIRIN 81 MG CHEW (CHILDREN'S ASA) PO SCH (08:32)
[2018-07-03] MEDS: FERROUS SULF 325 MG (IRON) TAB PO SCH ×2 (08:32→22:03)
[2018-07-03] MEDS: DULoxetine 30 MG (CYMBALTA) CAP PO SCH (08:32)
[2018-07-03] MEDS: VITAMIN D3 5,000 UNITS (CHOLECALCIFEROL ) CAPSULE PO SCH (08:32)
[2018-07-03] MEDS: DOCUSATE SODIUM 100 MG (COLACE) CAP PO SCH ×2 (08:32→22:03)
[2018-07-03] MEDS: POLYETHYLENE GLYCOL 17 GM (MIRALAX) PACK PO SCH ×2 (08:32→22:04)
[2018-07-03] MEDS: PANTOPRAZOLE 20 MG TABLET (PROTONIX) PO SCH ×2 (08:33→22:03)
[2018-07-03] MEDS: ZIPRASIDONE 20 MG (GEODON) CAP PO SCH ×2 (08:33→22:02)
[2018-07-03] MEDS: ASCORBIC ACID (VIT C) 500 MG TABLET PO SCH (08:33)
[2018-07-03] MEDS: ZIPRASIDONE 40 MG (GEODON) CAP PO SCH ×2 (08:33→22:03)
[2018-07-03] MEDS: HYDROcodone/APAP 5 MG/325 MG (LORTAB) TAB PO PRN (08:33)
[2018-07-03] MEDS: GABAPENTIN 300 MG (NEURONTIN) CAP PO SCH ×3 (08:34→22:03)
--- NOTE | 2018-07-03 08:41 | Progress Note-Hospitalist ---
Subjective HPI/CC On Admission Date Seen by Provider: Jul 03, 2018 Time Seen by Provider: 09:00 CC: Severe hyperglycemia with lower extremity cellulitis and lactic acidosis HPI: This is a 63-year-old white male known to me from prior senior behavioral unit admissions due to chronic mental illness and acute MedSurg admissions for a variety of issues who presents to the ER with severe hyperglycemia found to have blood sugar of over 500 and evidence of lactic acidosis due to dehydration and lower extremity cellulitis. Patient was placed on IV fluids and IV insulin and blood sugars became more reasonable but patient is requiring empiric coverage of vancomycin and Zosyn for lower extremity cellulitis due to out-of- control diabetes and chronic ulcerations of the legs that have become actively infected. Coccyx revealed wound which not a pressure sore but instead a moisture wound and wound care has evaluated him. Subjective/Events-last exam Patient doing well Vague symptoms Pain meds given Chronically angry and dissatisfied Reviewed meds and labs Review of Systems General: Fatigue Focused Exam Lactate Level 07/02/18 01:23: Lactic Acid Level 2.14*H 07/02/18 11:10: Lactic Acid Level 1.99 Objective Exam Vital Signs Vital Signs Date Time Temp Pulse Resp B/P (MAP) Pulse Ox O2 Delivery O2 Flow Rate FiO2 07/03/18 08:00 99.0 93 18 172/72 (105) 94 Room Air 07/02/18 05:03 99.00 Capillary Refill : Less Than 3 Seconds General Appearance: No Apparent Distress, WD/WN, Chronically ill Respiratory: Chest Non Tender, Lungs Clear, Normal Breath Sounds, No Accessory Muscle Use, No Respiratory Distress Cardiovascular: Regular Rate, Rhythm, No Edema, No Gallop, No JVD, No Murmur, Normal Peripheral Pulses Neurologic/Psychiatric: Alert, Oriented x3, No Motor/Sensory Deficits, Disoriented Skin: Normal Color, Warm/Dry, Rash (improved cellulitis of lower legs) Results/Procedures Lab Laboratory Tests 07/03/18 07:27 Patient resulted labs reviewed. Assessment/Plan Assessment and Plan Assess & Plan/Chief Complaint Assessment: Sepsis Lower extremity cellulitis Diabetes mellitus out of control with severe hyperglycemia requiring IV insulin Paralysis Long-standing mental illness Long-standing disability Depression Chronic renal failure Anemia Hypertension CAD Plan: IV abx Improved cellulitis of legs Very difficult to manage patient when very negative attitude Diagnosis/Problems Diagnosis/Problems (1) Sepsis Status: Resolved Resolution Date/Time: 11/29/17 @ 11:16 (2) Lactic acidosis Status: Acute (3) Uncontrolled diabetes mellitus Status: Acute Qualifiers: Diabetes mellitus type: type 2 Glycemic state: with hyperglycemia Qualified Codes: E11.65 - Type 2 diabetes mellitus with hyperglycemia (4) Chronic renal insufficiency Status: Chronic Qualifiers: Chronic kidney disease stage: stage 3 (moderate) Qualified Codes: N18.3 - Chronic kidney disease, stage 3 (moderate) (5) Paraplegia Status: Chronic (6) Diabetes mellitus, type 2 Status: Chronic Qualifiers: Diabetes mellitus group home insulin use: with group home use Diabetes mellitus complication status: with unspecified complications Qualified Codes: E11.8 - Type 2 diabetes mellitus with unspecified complications; 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 insulin (7) Hypertension Status: Chronic Qualifiers: Hypertension type: essential hypertension Qualified Codes: I10 - Essential (primary) hypertension (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
[2018-07-03] MEDS: MAGNESIUM OXIDE (MAG-OX)400 MG TAB PO SCH (11:59)
[2018-07-03] MEDS: inSUlin DETERMIR 1 UNIT/0.01 ML (LEVEMIR) CHARGE PER UNIT SQ SCH (11:59)
[2018-07-03 12:00] VITALS: BP 134/58
[2018-07-03] MEDS: VANCOMYCIN 2000 MG/NS 500 ML IVPB IV SCH ×2 (12:44)
[2018-07-03] MEDS ORDERED: FLU QUADRIvalent (5+ YOA) 2018-2019 (AFLURIA) 0.5 ML IM ONE (15:15)
[2018-07-03 16:41] VITALS: BP 92/59
--- NOTE | 2018-07-03 17:31 | NUR ---
PT BLOOD SUGAR READING 84. PT IS NOT EATING AND IS SLEEPING MOSTLY. WILL HOLD AT THIS TIME. NOTIFIED DR. CHEEMA.
[2018-07-03 19:18] VITALS: BP 162/83
[2018-07-03] MEDS: MIRTAZAPINE 15 MG (REMERON) TAB PO SCH (22:02)
[2018-07-03] MEDS: RIVAROXABAN 20 MG TABLET (XARELTO) PO SCH (22:03)
[2018-07-04] VITALS: BP 140/63
[2018-07-04] MEDS: PIPERACILLIN SODIUM/TAZOBACTAM 4.5 GM in NS (IVPB) 100 ML IV SCH ×2 (00:39→08:17)
[2018-07-04 04:01] VITALS: BP 130/70
[2018-07-04 06:16] LABS: BASOPHILS % (AUTO) 0 % (0-10); EOSINOPHILS # (AUTO) 0.5 10^3/uL (0.0-0.3); EOSINOPHILS % (AUTO) 6 % (0-10); HEMATOCRIT 38 % (40-54); HEMOGLOBIN 11.9 G/DL (13.3-17.7); LYMPHOCYTES # (AUTO) 1.1 X 10^3 (1.0-4.0); LYMPHOCYTES % (AUTO) 12 % (12-44); MEAN CORPUSCULAR HEMOGLOBIN 29 PG (25-34); MEAN CORPUSCULAR HGB CONC 31 G/DL (32-36); MEAN CORPUSCULAR VOLUME 93 FL (80-99); MEAN PLATELET VOLUME 11.2 FL (7.4-10.4); MONOCYTES # (AUTO) 0.5 X 10^3 (0.0-1.0); MONOCYTES % (AUTO) 6 % (0-12); NEUTROPHILS # (AUTO) 6.7 X 10^3 (1.8-7.8); NEUTROPHILS % (AUTO) 76 % (42-75); PLATELET COUNT 139 10^3/uL (130-400); RED BLOOD COUNT 4.08 10^6/uL (4.35-5.85); RED CELL DISTRIBUTION WIDTH 16.4 % (10.0-14.5); WHITE BLOOD COUNT 8.8 10^3/uL (4.3-11.0)
--- NOTE | 2018-07-04 06:33 | NUR ---
Pt resting comfortably in bed. This RN to administer SSI per protocol but dayshift RN to administer scheduled Novolog as pt is not ready to eat breakfast at this time.
[2018-07-04 06:36] LABS: BILIRUBIN,TOTAL 0.5 MG/DL (0.1-1.0); CALCIUM 8.6 MG/DL (8.5-10.1); CREATININE SERUM 1.81 MG/DL (0.60-1.30); POTASSIUM 4.4 MMOL/L (3.6-5.0); TOTAL PROTEIN 6.4 GM/DL (6.4-8.2)
[2018-07-04] MEDS: MULTIVIT W/MINERALS TAB (THERAGRAN M) PO SCH (07:31)
[2018-07-04] MEDS: inSUlin ASPART (NovoLOG) 1 UNIT/0.01 ML (CHARGE PER UNIT) SC SCH ×2 (07:31→11:33)
[2018-07-04] MEDS: LACTOBACILLUS Acidoph/Bulgar 1 GM (LACTINEX) PACKET PO SCH ×2 (07:31→11:33)
[2018-07-04 08:00] VITALS: BP 109/87
[2018-07-04] MEDS: inSUlin ASPART (NovoLOG) 1 UNIT/0.01 ML (CHARGE PER UNIT) SQ SCH ×2 (08:13→11:34)
[2018-07-04] MEDS: VITAMIN D3 5,000 UNITS (CHOLECALCIFEROL ) CAPSULE PO SCH (08:14)
[2018-07-04] MEDS: GABAPENTIN 300 MG (NEURONTIN) CAP PO SCH (08:14)
[2018-07-04] MEDS: ZIPRASIDONE 20 MG (GEODON) CAP PO SCH (08:14)
[2018-07-04] MEDS: DOCUSATE SODIUM 100 MG (COLACE) CAP PO SCH (08:16)
[2018-07-04] MEDS: ZIPRASIDONE 40 MG (GEODON) CAP PO SCH (08:16)
[2018-07-04] MEDS: FERROUS SULF 325 MG (IRON) TAB PO SCH (08:16)
[2018-07-04] MEDS: MAGNESIUM OXIDE (MAG-OX)400 MG TAB PO SCH (08:16)
[2018-07-04] MEDS: ASCORBIC ACID (VIT C) 500 MG TABLET PO SCH (08:16)
[2018-07-04] MEDS: ASPIRIN 81 MG CHEW (CHILDREN'S ASA) PO SCH (08:17)
[2018-07-04] MEDS: PANTOPRAZOLE 20 MG TABLET (PROTONIX) PO SCH (08:17)
[2018-07-04] MEDS: POLYETHYLENE GLYCOL 17 GM (MIRALAX) PACK PO SCH (08:17)
[2018-07-04] MEDS: DULoxetine 30 MG (CYMBALTA) CAP PO SCH (08:17)
[2018-07-04] MEDS ORDERED: SULF1TAB35 PO (10:35)
--- NOTE | 2018-07-04 10:37 | Discharge Summary-Hospitalist ---
Diagnosis/Chief Complaint Date of Admission Jul 02, 2018 at 03:55 Date of Discharge Discharge Date: Jul 04, 2018 Admission Diagnosis Assessment: Sepsis Lower extremity cellulitis Diabetes mellitus out of control with severe hyperglycemia requiring IV insulin Paralysis Long-standing mental illness Long-standing disability Depression Chronic renal failure Anemia Hypertension CAD Plan: IV antibiotics IV fluids Monitor labs closely including creatinine Home meds Initiate long-acting insulin along with sliding scale C for additional coverage Discharge Diagnosis (1) Sepsis Status: Resolved (2) Lactic acidosis Status: Resolved (3) Uncontrolled diabetes mellitus Status: Acute (4) Chronic renal insufficiency Status: Chronic (5) Paraplegia Status: Chronic (6) Diabetes mellitus, type 2 Status: Chronic (7) Hypertension Status: Chronic (8) Colostomy in place Status: Chronic (9) Cellulitis of both lower extremities Status: Acute (10) Decubitus ulcer of coccyx Status: Chronic Discharge Summary Discharge Physical Exam Allergies: Coded Allergies: No Known Drug Allergies (Verified , 09/08/09) Vitals & I&Os Vital Signs Date Time Temp Pulse Resp B/P (MAP) Pulse Ox O2 Delivery O2 Flow Rate FiO2 07/04/18 13:29 92 16 109/87 92 Room Air 99.00 07/04/18 12:00 98.5 General Appearance: No Apparent Distress, WD/WN, Chronically ill Respiratory: Chest Non Tender, Lungs Clear, Normal Breath Sounds, No Accessory Muscle Use, No Respiratory Distress Cardiovascular: Regular Rate, Rhythm, No Edema, No Gallop, No JVD, No Murmur, Normal Peripheral Pulses Neurologic/Psychiatric: Alert, Oriented x3, No Motor/Sensory Deficits, Normal Mood/Affect Hospital Course Hospital course: Patient had an uneventful hospital course he was placed on IV fluid for sepsis and empiric antibiotics for cellulitis of the lower extremities. Home medication was restarted. Patient tolerated medication treatment and renal insufficiency returned back to baseline. Overall poor prognosis considering the comorbidities and fci status with chronic debility and poor recovery potential. Patient was ready for discharge on renal dosed Bactrim once daily. Labs (last 24 hrs) Microbiology 07/02/18 Blood Culture - Preliminary, Resulted No growth Patient resulted labs reviewed. Pending Labs Discussion & Recommendations Discharge Planning: <30 minutes discharge planning Discharge Home Medications: Active Scripts Active Bactrim Ds Tablet (Sulfamethoxazole/Trimethoprim) 1 Each Tablet 1 Each PO DAILY Reported Ondansetron Odt (Ondansetron) 4 Mg Tab.rapdis 4 Mg PO Q6H PRN Vitamin C (Ascorbate Calcium) 500 Mg Tablet 500 Mg PO DAILY Novolog Flexpen (Insulin Aspart) 300 Units/3 Ml Solution 34 Units SQ AC Ferrous Sulfate 325 Mg Tablet 325 Mg PO BID Gluco Burst (Dextrose) 37.5 Gm Gel..gram. 1 Packet PO UD PRN GIVE 1 PACKET EVERY 15 MINUTES NEEDED Glucagon Emergency Kit (Glucagon,Human Recombinant) 1 Mg/Kit Soln 1 Mg IJ UD PRN Duragesic Patch 12MCG (Fentanyl) 12 Mcg Patch 12 Mcg TD Q72H Cymbalta (Duloxetine HCl) 60 Mg Capsule.dr 60 Mg PO DAILY Ziprasidone HCl 60 Mg Capsule 60 Mg PO BID Magnesium Oxide 500 Mg Tablet 500 Mg PO DAILY Tresiba Flextouch U-100 (Insulin Degludec) 100 Unit/1 Ml Insuln.pen 75 Unit SQ 1200 Refresh Tears (Carboxymethylcellulose Sodium) 15 Ml Drops 1 Drop OU Q12H PRN Pantoprazole Sodium 20 Mg Tablet.dr 20 Mg PO BID Miralax (Polyethylene Glycol 3350) 17 Gm Powd.pack 17 Gm PO BID Gabapentin 300 Mg Capsule 600 Mg PO HS TAKES 2 (300MG) CAPSULES Tylenol (Acetaminophen) 325 Mg Tablet 650 Mg PO Q4H PRN TAKES 2 (325MG) TABLETS Mirtazapine 15 Mg Tablet 15 Mg PO HS Aspir 81 (Aspirin) 81 Mg Tablet.dr 81 Mg PO DAILY Hydrocodone/Acetaminophen 5/325mg Tablet (Acetaminophen/Hydrocodone Bitart) 1 Each Tablet 2 Tab PO Q6H PRN Gabapentin 300 Mg Capsule 300 Mg PO 0900,1400 Xarelto (Rivaroxaban) 20 Mg Tablet 20 Mg PO HS Daily Multiple Vitamin (Multivitamin) 1 Each Tablet 1 Tab PO DAILY Colace (Docusate Sodium) 100 Mg Capsule 100 Mg PO BID Novolog Flexpen (Insulin Aspart) 300 Units/3 Ml Solution SQ ACHS 0-200 = 0 UNITS 201-250 = 3 UNITS 251-300 = 6 UNITS 301-350 = 9 UNITS 351-400 = 12 UNITS >400 OR <60 CALL PCP Vitamin D3 (Cholecalciferol (Vitamin D3)) 5,000 Unit Tablet 5,000 Unit PO DAILY Instructions to patient/family Please see electronic discharge instructions given to patient. Clinical Quality Measures DVT/VTE Risk/Contraindication: Risk Factor Score Per Nursin RFS Level Per Nursing on Admit: 4+=Very High Problem Qualifiers (1) Uncontrolled diabetes mellitus: Diabetes mellitus type: type 2 Glycemic state: with hyperglycemia Qualified Codes: E11.65 - Type 2 diabetes mellitus with hyperglycemia (2) Chronic renal insufficiency: Chronic kidney disease stage: stage 3 (moderate) Qualified Codes: N18.3 - Chronic kidney disease, stage 3 (moderate) (3) Diabetes mellitus, type 2: Diabetes mellitus assisted insulin use: with intermodal truck driver use Diabetes mellitus complication status: with unspecified complications Qualified Codes: E11.8 - Type 2 diabetes mellitus with unspecified complications; Z79.4 - [facility] ( current) use of insulin (4) Hypertension: Hypertension type: essential hypertension Qualified Codes: I10 - Essential ( primary) hypertension (5) Decubitus ulcer of coccyx: Pressure injury stage: unspecified pressure injury stage Qualified Codes: L89.159 - Pressure ulcer of sacral region, unspecified stage SANJEEV CHEEMA DO Jul 04, 2018 10:36
--- NOTE | 2018-07-04 10:38 | NUR ---
CM/SS patient is discharging this day and returning to [facility]. [facility] is supposed to call this justowriter operator back with a transport time.
--- NOTE | 2018-07-04 11:44 | NUR ---
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
[2018-07-04 12:00] VITALS: BP 143/77
[2018-07-04] MEDS ORDERED: TROUGH ORDER-PHARMACY XX ONE (12:00)
[2018-07-04] MEDS: inSUlin DETERMIR 1 UNIT/0.01 ML (LEVEMIR) CHARGE PER UNIT SQ SCH (12:22)
--- NOTE | 2018-07-04 13:07 | NUR ---
This RN called report to ATTILA Hernandez at [facility] at this time.
[2018-07-04] MEDS: VANCOMYCIN 2000 MG/NS 500 ML IVPB IV SCH ×2 (13:12)
[2018-07-04 13:29] VITALS: BP 109/87
== END 2018-07-04 13:30 | DRG 872 ==
LOC: ER 00:20 → EDUNIT# 00:25 → 4TH 03:55
PROVIDERS: ADMIT Internal Medicine; ATTEND Internal Medicine
DX: A41.9 Sepsis, unspecified organism (principal); L03.115 Cellulitis of right lower limb; L03.116 Cellulitis of left lower limb; E87.2 Acidosis; L97.929 Non-pressure chronic ulcer of unspecified part of left lower leg with unspecified severity; L97.919 Non-pressure chronic ulcer of unspecified part of right lower leg with unspecified severity; G82.20 Paraplegia, unspecified; E86.0 Dehydration; E11.65 Type 2 diabetes mellitus with hyperglycemia; E11.40 Type 2 diabetes mellitus with diabetic neuropathy, unspecified; E11.622 Type 2 diabetes mellitus with other skin ulcer; L98.499 Non-pressure chronic ulcer of skin of other sites with unspecified severity; I12.9 Hypertensive chronic kidney disease with stage 1 through stage 4 chronic kidney disease, or unspecified chronic kidney disease; N18.3 Chronic kidney disease, stage 3 (moderate); I48.91 Unspecified atrial fibrillation; I25.10 Atherosclerotic heart disease of native coronary artery without angina pectoris; E78.00 Pure hypercholesterolemia, unspecified; D64.9 Anemia, unspecified; R60.9 Edema, unspecified; K59.09 Other constipation; Z93.3 Colostomy status; F20.9 Schizophrenia, unspecified; F32.9 Major depressive disorder, single episode, unspecified; L89.159 Pressure ulcer of sacral region, unspecified stage; Z95.5 Presence of coronary angioplasty implant and graft; Z87.820 Personal history of traumatic brain injury; Z87.828 Personal history of other (healed) physical injury and trauma
CPT/HCPCS: 36415; 36600; 71045; 80053; 80202; 80306; 80320; 80329; 81000; 82140; 82150; 82550; 82553; 82805; 82962; 83605; 83690; 83735; 83880; 84443; 84484; 85025; 85610; 85730; 87040; 90471; 90686; 93005; 93041; 96365; 96375

== ENCOUNTER 2018-07-08 00:13 | Observation (INO) | payer MEDICARE ==
[~2018-07-08] VITALS: Ht 185.4 cm; Wt 131.2 kg
[~2018-07-08 00:13] MED LIST changes: +ASCO-262 PO; +DEXT37.54 PO; +DULO60CA6 PO; +FEN12TD TD; +FERR325T18 PO; +GLUC1KIT IJ; +MAGN500T PO; +ONDA4TAB11 PO; +ZIPR60CA20 PO
--- NOTE | 2018-07-08 00:28 | ED Abdominal Pain ---
General Stated Complaint: ABD PAIN Source of Information: Patient, EMS, Old Records History of Present Illness Date Seen by Provider: Jul 08, 2018 Time Seen by Provider: 00:15 Initial Comments PT ARRIVES VIA EMS FROM HALFWAY PT C/O ABDOMINAL PAIN STATES HE HAS HAD THIS PAIN FOR 4 MONTHS STATES HE WOKE UP THIS MORNING AND PAIN WAS IN RIGHT LOWER ABDOMEN THEN IT MOVED ALL UP HIS RIGHT SIDE TO RUQ, THEN MOVED ALL ACROSS HIS UPPER ABDOMEN TO HIS LUQ, AND THEN STARTED MOVING DOWN HIS LEFT SIDE TO HIS LLQ TO HIS COLOSTOMY. CLAIMS PAIN IS / THIS IS NO DIFFERENT THAN HIS ONGOING PAIN THAT HE HAS BEEN HAVING PT HAS HAD A MULTITUDE OF VISITS SEEN HERE 06/25 FOR PAIN FROM COLOSTOMY / HERNIA IN RLQ SEEN HERE 07/01 FOR UNCONTROLLED DIABETES SEEN AGAIN 07/02 FOR UNCONTROLLED DIABETES AND WAS ADMITTED AND THEN DISMISSED 07/03/18 PCP: DR. CORREIA. Allergies and Home Medications Allergies Coded Allergies: No Known Drug Allergies (Verified , 09/08/09) Home Medications Acetaminophen 325 Mg Tablet, 650 MG PO Q4H PRN for PAIN-MILD OR TEMPATURE, ( Reported) TAKES 2 (325MG) TABLETS Ascorbate Calcium 500 Mg Tablet, 500 MG PO DAILY, (Reported) Aspirin 81 Mg Tablet.dr, 81 MG PO DAILY, (Reported) Carboxymethylcellulose Sodium 15 Ml Drops, 1 DROP OU Q12H PRN for DRY EYES, ( Reported) Cholecalciferol (Vitamin D3) 5,000 Unit Tablet, 5,000 UNIT PO DAILY, (Reported) Dextrose 37.5 Gm Gel..gram., 1 PACKET PO UD PRN for HYPOGLYCEMIA, (Reported) GIVE 1 PACKET EVERY 15 MINUTES NEEDED Docusate Sodium 100 Mg Capsule, 100 MG PO BID, (Reported) Duloxetine HCl 60 Mg Capsule.dr, 60 MG PO DAILY, (Reported) Fentanyl 12 Mcg Patch, 12 MCG TD Q72H, (Reported) Ferrous Sulfate 325 Mg Tablet, 325 MG PO BID, (Reported) Gabapentin 300 Mg Capsule, 300 MG PO 0900,1400, (Reported) Gabapentin 300 Mg Capsule, 600 MG PO HS, (Reported) TAKES 2 (300MG) CAPSULES Glucagon,Human Recombinant 1 Mg/Kit Soln, 1 MG IJ UD PRN for BS<60, (Reported) Hydrocodone Bit/Acetaminophen 1 Each Tablet, 2 TAB PO Q6H PRN for PAIN-MODERATE, (Reported) Insulin Aspart 300 Units/3 Ml Solution, SQ ACHS, (Reported) 0-200 = 0 UNITS 201-250 = 3 UNITS 251-300 = 6 UNITS 301-350 = 9 UNITS 351- 400 = 12 UNITS >400 OR <60 CALL PCP Insulin Aspart 300 Units/3 Ml Solution, 34 UNITS SQ AC, (Reported) Insulin Degludec 100 Unit/1 Ml Insuln.pen, 75 UNIT SQ 1200, (Reported) Magnesium Oxide 500 Mg Tablet, 500 MG PO DAILY, (Reported) Mirtazapine 15 Mg Tablet, 15 MG PO HS, (Reported) Multivitamin 1 Each Tablet, 1 TAB PO DAILY, (Reported) Ondansetron 4 Mg Tab.rapdis, 4 MG PO Q6H PRN for NAUSEA/VOMITING-1ST LINE, ( Reported) Pantoprazole Sodium 20 Mg Tablet.dr, 20 MG PO BID, (Reported) Polyethylene Glycol 3350 17 Gm Powd.pack, 17 GM PO BID, (Reported) Rivaroxaban 20 Mg Tablet, 20 MG PO HS, (Reported) Sulfamethoxazole/Trimethoprim 1 Each Tablet, 1 EACH PO DAILY Prescribed by: SANJEEV CHEEMA on 07/04/18 1035 Ziprasidone HCl 60 Mg Capsule, 60 MG PO BID, (Reported) Review of Systems Review of Systems Constitutional: no symptoms reported; No fever Respiratory: Other ("THINK MY LUNGS ARE FILLING UP WITH FLUID" ) Cardiovascular: No Symptoms Reported Gastrointestinal: See HPI, Abdominal Pain; Denies Nausea, Denies Vomiting Genitourinary: No Symptoms Reported Musculoskeletal: no symptoms reported Psychiatric/Neurological: No Symptoms Reported, Pre-Existing Deficit Endocrine: See HPI Past Ofvjhtc-Vgzjax-Pgbufx Hx Patient Social History 2nd Hand Smoke Exposure: No Recent Hopitalizations: No Immunizations Up To Date Tetanus Booster (TDap): Unknown Date of Pneumonia Vaccine: Jul 09, 2011 Date of Influenza Vaccine: Apr 16, 2016 Seasonal Allergies Seasonal Allergies: No Past Medical History Surgeries: Yes (COLOSTOMY, LAP BAND, rectal fistulotomy) Abdominal, Cardiac, Coronary Stent, Tonsillectomy Respiratory: Yes (CHRONIC DYSPNEA) Sleep Apnea Currently Using CPAP: No Cardiac: Yes (PSVT) Atrial Fibrillation, Chronic Edema/Swelling, Coronary Artery Disease, High Cholesterol, Hypertension Neurological: Yes Neuropathy, Spinal Cord Injury, Traumatic Brain Injury Reproductive Disorders: No Sexually Transmitted Disease: No HIV/AIDS: No Genitourinary: Yes Renal Failure Gastrointestinal: No (COLOSTOMY ) Chronic Constipation Musculoskeletal: Yes (DYSKINESIA; NON-AMBULATORY, WHEELCHAIR-BOUND) Endocrine: Yes Diabetes, Insulin dep HEENT: No Cancer: No Psychosocial: Yes Schizophrenia, Depression Integumentary: No Blood Disorders: No Adverse Reaction/Blood Tranf: No Family Medical History Patient reports no known family medical history. No Pertinent Family Hx Physical Exam Vital Signs Vital Signs - First Documented 07/08/18 00:19 Temp 97.7 Pulse 71 Resp 12 B/P (MAP) 182/93 (122) Pulse Ox 96 O2 Delivery Room Air Capillary Refill : Height/Weight/BMI Height: 6'1.00" Weight: 298lbs. 0.0oz. 135.116053kn; 39.3 BMI Method:Stated General Appearance: no apparent distress, obese, other (FLAT AFFECT--DOES NOT APPEAR TO BE IN ANY DISCOMFORT OR DISTRESS WHAT SO EVERY) Respiratory: normal breath sounds, no respiratory distress, no accessory muscle use Cardiovascular: regular rate, rhythm, no murmur Gastrointestinal: soft, other (COLOSTOMY IN LLQ) Neurologic/Psychiatric: automobile locator II-XII nml as tested, alert, oriented x 3, other ( FLAT AFFECT) Skin: warm/dry Progress/Results/Core Measures Results/Orders Lab Results Laboratory Tests Test 07/08/18 01:08 Range/Units White Blood Count 6.7 4.3-11.0 10^3/uL Red Blood Count 4.29 L 4.35-5.85 10^6/uL Hemoglobin 12.6 L 13.3-17.7 G/DL Hematocrit 40 40-54 % Mean Corpuscular Volume 93 80-99 FL Mean Corpuscular Hemoglobin 29 25-34 PG Mean Corpuscular Hemoglobin Concent 32 32-36 G/DL Red Cell Distribution Width 15.9 H 10.0-14.5 % Platelet Count 149 130-400 10^3/uL Mean Platelet Volume 10.8 H 7.4-10.4 FL Neutrophils (%) (Auto) 59 42-75 % Lymphocytes (%) (Auto) 26 12-44 % Monocytes (%) (Auto) 7 0-12 % Eosinophils (%) (Auto) 7 0-10 % Basophils (%) (Auto) 1 0-10 % Neutrophils # (Auto) 4.0 1.8-7.8 X 10^3 Lymphocytes # (Auto) 1.7 1.0-4.0 X 10^3 Monocytes # (Auto) 0.5 0.0-1.0 X 10^3 Eosinophils # (Auto) 0.5 H 0.0-0.3 10^3/uL Basophils # (Auto) 0.0 0.0-0.1 10^3/uL Sodium Level 135 135-145 MMOL/L Potassium Level 4.8 3.6-5.0 MMOL/L Chloride Level 100 98-107 MMOL/L Carbon Dioxide Level 21 21-32 MMOL/L Anion Gap 14 5-14 MMOL/L Blood Urea Nitrogen 20 H 7-18 MG/DL Creatinine 2.30 H 0.60-1.30 MG/DL Estimat Glomerular Filtration Rate 29 BUN/Creatinine Ratio 9 Glucose Level 466 *H 70-105 MG/DL Calcium Level 9.6 8.5-10.1 MG/DL Corrected Calcium 10.0 8.5-10.1 MG/DL Total Bilirubin 0.3 0.1-1.0 MG/DL Aspartate Amino Transf (AST/SGOT) 40 H 5-34 U/L Alanine Aminotransferase (ALT/SGPT) 33 0-55 U/L Alkaline Phosphatase 112 40-136 U/L Total Protein 7.5 6.4-8.2 GM/DL Albumin 3.5 3.2-4.5 GM/DL Amylase Level 46 25-125 U/L Lipase 42 8-78 U/L My Orders Orders - VIK,LONDON K DO Saline Lock/Iv-Start (07/08/18 00:17) Monitor-Rhythm Ecg Trace Only (07/08/18 00:17) Amylase (07/08/18 00:17) Cbc With Automated Diff (07/08/18 00:17) Comprehensive Metabolic Panel (07/08/18 00:17) Lipase (07/08/18 00:17) Ua Culture If Indicated (07/08/18 00:17) Ct Abdomen/Pelvis Wo (07/08/18 00:17) Saline Lock/Iv-Start (07/08/18 01:45) Ns Iv 1000 Ml (Sodium Chloride 0.9%) (07/08/18 01:45) Insulin (Regular) Human (Humulin R (Per (07/08/18 01:45) Insulin (Regular) Human (Humulin R (Per (07/08/18 02:00) Medications Given in ED Current Medications Medications Dose Ordered Sig/Matt Route Start Time Stop Time Status Last Admin Dose Admin Insulin Human Regular 20 unit ONCE ONCE SC 07/08/18 01:45 07/08/18 01:47 DC 07/08/18 01:58 20 UNIT Sodium Chloride 1,000 ml @ 0 mls/hr Q0M ONCE IV 07/08/18 01:45 07/08/18 01:47 DC 07/08/18 01:58 1,000 MLS/HR Vital Signs/I&O 07/08/18 00:19 Temp 97.7 Pulse 71 Resp 12 B/P (MAP) 182/93 (122) Pulse Ox 96 O2 Delivery Room Air Progress Progress Note : Progress Note ON GIVING PT TEST RESULTS OF BLOOD GLUCOSE AND QUESTIONING IF HE HAD INSULIN TODAY, HE STATES HE DID NOT HAVE ANY INSULIN TODAY. HE STATES " I WAS ASLEEP ALL DAY AND I WOKE UP AND THE AMBULANCE WAS THERE TO BRING ME HERE" Departure Impression Primary Impression: Uncontrolled diabetes mellitus Additional Impressions: LARGE ABDOMINAL WALL HEMATOMA ANTICOAGULATION THERAPY Acute on chronic renal failure Colostomy in place Departure-Patient Inst. Referrals: MARCUS CORREIA DO (PCP/Family) Primary Care Physician LONDON CHERY DO Jul 08, 2018 00:28
[2018-07-08 01:17] LABS: BASOPHILS % (AUTO) 1 % (0-10); EOSINOPHILS # (AUTO) 0.5 10^3/uL (0.0-0.3); EOSINOPHILS % (AUTO) 7 % (0-10); HEMATOCRIT 40 % (40-54); HEMOGLOBIN 12.6 G/DL (13.3-17.7); LYMPHOCYTES # (AUTO) 1.7 X 10^3 (1.0-4.0); LYMPHOCYTES % (AUTO) 26 % (12-44); MEAN CORPUSCULAR HEMOGLOBIN 29 PG (25-34); MEAN CORPUSCULAR HGB CONC 32 G/DL (32-36); MEAN CORPUSCULAR VOLUME 93 FL (80-99); MEAN PLATELET VOLUME 10.8 FL (7.4-10.4); MONOCYTES # (AUTO) 0.5 X 10^3 (0.0-1.0); MONOCYTES % (AUTO) 7 % (0-12); NEUTROPHILS % (AUTO) 59 % (42-75); PLATELET COUNT 149 10^3/uL (130-400); RED BLOOD COUNT 4.29 10^6/uL (4.35-5.85); RED CELL DISTRIBUTION WIDTH 15.9 % (10.0-14.5); WHITE BLOOD COUNT 6.7 10^3/uL (4.3-11.0)
[2018-07-08 01:36] LABS: ALBUMIN 3.5 GM/DL (3.2-4.5); BILIRUBIN,TOTAL 0.3 MG/DL (0.1-1.0); CALCIUM 9.6 MG/DL (8.5-10.1); CREATININE SERUM 2.3 MG/DL (0.60-1.30); POTASSIUM 4.8 MMOL/L (3.6-5.0); TOTAL PROTEIN 7.5 GM/DL (6.4-8.2)
[2018-07-08] MEDS ORDERED: NS IV 1000 ML 1,000 ML IV ONE (01:45)
[2018-07-08] MEDS ORDERED: inSUlin (REGULAR) HUMAN 1 UNIT/0.01 ML (CHARGE PER UNIT) SC ONE (01:45)
[2018-07-08] MEDS ORDERED: inSUlin (REGULAR) HUMAN 1 UNIT/0.01 ML (CHARGE PER UNIT) IV ONE (02:00)
--- NOTE | 2018-07-08 02:28 | NUR ---
request to put insulin in bag. 20 units of insulin in Liter bag being infused now. Order for 20 units sc not given.
[2018-07-08] MEDS ORDERED: fentaNYL INJECTION 100 MCG/2 ML AMP IVP STA (02:30)
[2018-07-08 02:37] LABS: BILIRUBIN,URINE NEGATIVE (NEGATIVE); CLARITY,URINE CLEAR; COLOR,URINE YELLOW; GLUCOSE, URINE (UA) 4+ (NEGATIVE); KETONES,URINE NEGATIVE (NEGATIVE); LEUKOCYTE ESTERASE ,URINE 1+ (NEGATIVE); NITRITE,URINE NEGATIVE (NEGATIVE); PH,URINE 7 (5-9); PROTEIN,URINE NEGATIVE (NEGATIVE); UROBILINOGEN,URINE NORMAL (NORMAL)
[2018-07-08 02:45] LABS: BACTERIA,URINE FEW /HPF; SQUAMOUS EPITHELIAL CELL,UR 0-2 /HPF; WBC,URINE RARE /HPF
[2018-07-08 03:14] LABS: PROTHROMBIN TIME PATIENT 23.1 SEC (12.2-14.7)
--- NOTE | 2018-07-08 03:18 | NUR ---
Fluids continued during transfer to 4th floor.
[2018-07-08 03:45] VITALS: BP 151/77
--- NOTE | 2018-07-08 03:45 | NUR ---
SABRINA BLACKWOOD admitted to room 415-1, with an admitting diagnosis of UNCONTROLLED DIABETES, ABDOMINAL PAIN, ABDOMINAL MUSCLE HEMATOMA, ANTICOAGULATION THERAPY, ACUTE ON CHRONIC RENAL FAILURE, PARALYSIS, on 07/08/18 from ED via STRETCHER, accompanied by HOSPITAL STAFF. SABRINA BLACKWOOD JR introduced to surroundings, call light, bed controls, phone, TV, temperature control, lights, meal times, smoking policy, visitor policy, side rail policy, bathrooms and showers. Patient Rights given to patient in the handbook.SABRINA BLACKWOOD JR verbalizes understanding that [facility] is not responsible for the loss or damage to any personal effects or valuables that are kept in the patients posession during their hospitalization. SABRINA BLACKWOOD JR verbalizes understanding of Interdisciplinary Patient Education. Patient and/or family were informed about the Rapid Response Team and its purpose.
[2018-07-08] MEDS: NS IV 1000 ML 1,000 ML IV SCH ×4 (05:27→18:23)
[2018-07-08] MEDS: inSUlin ASPART (NovoLOG) 1 UNIT/0.01 ML (CHARGE PER UNIT) SC SCH ×4 (06:00→21:40)
[2018-07-08 06:22] LABS: BASOPHILS % (AUTO) 0 % (0-10); EOSINOPHILS # (AUTO) 0.5 10^3/uL (0.0-0.3); EOSINOPHILS % (AUTO) 5 % (0-10); HEMATOCRIT 38 % (40-54); HEMOGLOBIN 12.2 G/DL (13.3-17.7); LYMPHOCYTES % (AUTO) 22 % (12-44); MEAN CORPUSCULAR HEMOGLOBIN 30 PG (25-34); MEAN CORPUSCULAR HGB CONC 32 G/DL (32-36); MEAN CORPUSCULAR VOLUME 93 FL (80-99); MEAN PLATELET VOLUME 10.5 FL (7.4-10.4); MONOCYTES # (AUTO) 0.7 X 10^3 (0.0-1.0); MONOCYTES % (AUTO) 8 % (0-12); NEUTROPHILS # (AUTO) 5.9 X 10^3 (1.8-7.8); NEUTROPHILS % (AUTO) 65 % (42-75); PLATELET COUNT 165 10^3/uL (130-400); RED BLOOD COUNT 4.12 10^6/uL (4.35-5.85); RED CELL DISTRIBUTION WIDTH 16.1 % (10.0-14.5); WHITE BLOOD COUNT 9.2 10^3/uL (4.3-11.0)
[2018-07-08 06:41] LABS: ALBUMIN 3.3 GM/DL (3.2-4.5); BILIRUBIN,TOTAL 0.4 MG/DL (0.1-1.0); CALCIUM 9.2 MG/DL (8.5-10.1); POTASSIUM 4.6 MMOL/L (3.6-5.0); TOTAL PROTEIN 7.2 GM/DL (6.4-8.2)
--- NOTE | 2018-07-08 07:29 | NUR ---
DR. RAHMAN NOTIFIED OF CONSULT.
[2018-07-08 07:52] LABS: BILIRUBIN,URINE NEGATIVE (NEGATIVE); CLARITY,URINE CLEAR; COLOR,URINE YELLOW; GLUCOSE, URINE (UA) 4+ (NEGATIVE); KETONES,URINE NEGATIVE (NEGATIVE); LEUKOCYTE ESTERASE ,URINE 3+ (NEGATIVE); NITRITE,URINE NEGATIVE (NEGATIVE); PH,URINE 6.5 (5-9); PROTEIN,URINE NEGATIVE (NEGATIVE); UROBILINOGEN,URINE NORMAL (NORMAL)
--- NOTE | 2018-07-08 08:08 | Diagnostic Imaging Report ---
PROCEDURE: CT abdomen and pelvis without contrast. TECHNIQUE: Multiple contiguous axial images were obtained through the abdomen and pelvis without the use of intravenous contrast. INDICATION: Abdominal pain. COMPARISON: 06/25/2018 FINDINGS: There is scarring/atelectasis in the lung bases, which appear similar to the prior exam. The heart is normal in size. There is no pericardial effusion. The liver appears markedly heterogeneous with irregular areas of significant hypodensity with Hounsfield units measuring up to -12. Densities suggestive of areas of fatty infiltration. The spleen appears normal. There is a small hiatal hernia. The adrenal glands are normal. The pancreas appears normal. The kidneys demonstrate no hydronephrosis or renal calculi. The bowel loops are nondistended without obstruction seen. There is a large parastomal hernia at the left lower quadrant containing multiple loops of bowel without evidence of strangulation or obstruction. The appendix is normal. No free fluid or free air seen in the abdomen. There is new thickening of the bilateral rectus abdominis sheaths, left greater than right, measuring up to 2.9 cm in thickness in the left. Findings are concerning for rectus sheath hematomas. No acute osseous abnormality is seen. IMPRESSION: 1. New thickening of the rectus abdominis musculature bilaterally, left greater than right, concerning for small to moderate-sized intramuscular hematomas. 2. Left parastomal hernia containing bowel, with no evidence of strangulation or obstruction. 3. Markedly heterogeneous liver density, thought to be due to fatty infiltration given the density. Dictated by: Dictated on workstation # [id number]
[2018-07-08 08:25] LABS: BACTERIA,URINE TRACE /HPF; SQUAMOUS EPITHELIAL CELL,UR 0-2 /HPF; YEAST,URINE MODERATE /HPF
[2018-07-08 08:59] VITALS: BP 118/78
[2018-07-08] MEDS ORDERED: HYDROcodone/APAP 5 MG/325 MG (LORTAB) TAB PO PRN (09:30)
[2018-07-08] MEDS ORDERED: fentaNYL INJECTION 100 MCG/2 ML AMP IVP PRN ×2 (09:30→11:00)
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
--- NOTE | 2018-07-08 10:42 | Consultation-Cardiology ---
HPI-Cardiology Cardiology Consultation Date of Consultation 07/08/18 Date of Admission Time Seen by Provider: 10:36 Indication: abdominal pain, coronary artery disease HPI 63 years old gentleman with history of coronary artery disease, diabetes mellitus, history of colostomy, has been to the emergency room for multiple visits for abdominal pain. The pain became worse yesterday and he was sent to the emergency room, he was having severe pain and noted to have hyperglycemia. Currently feeling somewhat better, still having mild abdominal pain. No chest pain. No palpitation. Has history of syncope but no syncopal episode at this time. Home Medications & Allergies Allergies: Coded Allergies: No Known Drug Allergies (Verified , 09/08/09) Home Medication List Reviewed: Yes FHJ-Dpvyzc-Lacezw Hx Patient Social History Marital Status: single Employed/Student: unemployed Alcohol Use: Denies Use Recreational Drug Use: No Smoking Status: Never a Smoker 2nd Hand Smoke Exposure: No Recent Foreign Travel: No Recent Infectious Disease Expo: No Recent Hopitalizations: No Physical Abuse Screen: No Sexual Abuse: No Immunizations Up To Date Tetanus Booster (TDap): Unknown Date of Pneumonia Vaccine: Jul 09, 2011 Date of Influenza Vaccine: Apr 07, 2018 Past Medical History past medical history discussed below Family Medical History Significant Family History: No Pertinent Family Hx Family History: Patient reports no known family medical history. Review of Systems Constitutional: see HPI, malaise EENTM: see HPI, no symptoms reported Respiratory: see HPI; No cough, No dyspnea on exertion, No hemoptysis, No orthopnea, No phlegm, No short of breath, No stridor, No wheezing, No other Cardiovascular: see HPI; No chest pain, No edema, No Hx of Intervention, No palpitations, No syncope, No vascular heart diseas, No other Gastrointestinal: RLQ, LLQ, see HPI Genitourinary: see HPI Musculoskeletal: see HPI Skin: see HPI Psychiatric/Neurological: No Symptoms Reported, See HPI Reviewed Test Results Reviewed Test Results Lab Laboratory Tests Test 07/08/18 01:08 07/08/18 02:32 07/08/18 02:55 07/08/18 02:56 Range/Units White Blood Count 6.7 4.3-11.0 10^3/uL Red Blood Count 4.29 L 4.35-5.85 10^6/uL Hemoglobin 12.6 L 13.3-17.7 G/DL Hematocrit 40 40-54 % Mean Corpuscular Volume 93 80-99 FL Mean Corpuscular Hemoglobin 29 25-34 PG Mean Corpuscular Hemoglobin Concent 32 32-36 G/DL Red Cell Distribution Width 15.9 H 10.0-14.5 % Platelet Count 149 130-400 10^3/uL Mean Platelet Volume 10.8 H 7.4-10.4 FL Neutrophils (%) (Auto) 59 42-75 % Lymphocytes (%) (Auto) 26 12-44 % Monocytes (%) (Auto) 7 0-12 % Eosinophils (%) (Auto) 7 0-10 % Basophils (%) (Auto) 1 0-10 % Neutrophils # (Auto) 4.0 1.8-7.8 X 10^3 Lymphocytes # (Auto) 1.7 1.0-4.0 X 10^3 Monocytes # (Auto) 0.5 0.0-1.0 X 10^3 Eosinophils # (Auto) 0.5 H 0.0-0.3 10^3/uL Basophils # (Auto) 0.0 0.0-0.1 10^3/uL Sodium Level 135 135-145 MMOL/L Potassium Level 4.8 3.6-5.0 MMOL/L Chloride Level 100 98-107 MMOL/L Carbon Dioxide Level 21 21-32 MMOL/L Anion Gap 14 5-14 MMOL/L Blood Urea Nitrogen 20 H 7-18 MG/DL Creatinine 2.30 H 0.60-1.30 MG/DL Estimat Glomerular Filtration Rate 29 BUN/Creatinine Ratio 9 Glucose Level 466 *H 70-105 MG/DL Calcium Level 9.6 8.5-10.1 MG/DL Corrected Calcium 10.0 8.5-10.1 MG/DL Total Bilirubin 0.3 0.1-1.0 MG/DL Aspartate Amino Transf (AST/SGOT) 40 H 5-34 U/L Alanine Aminotransferase (ALT/SGPT) 33 0-55 U/L Alkaline Phosphatase 112 40-136 U/L Total Protein 7.5 6.4-8.2 GM/DL Albumin 3.5 3.2-4.5 GM/DL Amylase Level 46 25-125 U/L Lipase 42 8-78 U/L Urine Color YELLOW Urine Clarity CLEAR Urine pH 7 5-9 Urine Specific [place] 1.010 L 1.016-1.022 Urine Protein NEGATIVE NEGATIVE Urine Glucose (UA) 4+ H NEGATIVE Urine Ketones NEGATIVE NEGATIVE Urine Nitrite NEGATIVE NEGATIVE Urine Bilirubin NEGATIVE NEGATIVE Urine Urobilinogen NORMAL NORMAL MG/DL Urine Leukocyte Esterase 1+ H NEGATIVE Urine RBC (Auto) 2+ H NEGATIVE Urine RBC 2-5 H /HPF Urine WBC RARE /HPF Urine Squamous Epithelial Cells 0-2 /HPF Urine Crystals NONE /LPF Urine Bacteria FEW H /HPF Urine Casts NONE /LPF Urine Mucus NEGATIVE /LPF Urine Culture Indicated NO Glucometer 347 H 70-110 MG/DL Prothrombin Time 23.1 H 12.2-14.7 SEC INR Comment 2.0 H 0.8-1.4 Activated Partial Thromboplast Time 50 H 24-35 SEC Test 07/08/18 05:53 07/08/18 06:15 07/08/18 06:20 Range/Units Glucometer 326 H 70-110 MG/DL White Blood Count 9.2 4.3-11.0 10^3/uL Red Blood Count 4.12 L 4.35-5.85 10^6/uL Hemoglobin 12.2 L 13.3-17.7 G/DL Hematocrit 38 L 40-54 % Mean Corpuscular Volume 93 80-99 FL Mean Corpuscular Hemoglobin 30 25-34 PG Mean Corpuscular Hemoglobin Concent 32 32-36 G/DL Red Cell Distribution Width 16.1 H 10.0-14.5 % Platelet Count 165 130-400 10^3/uL Mean Platelet Volume 10.5 H 7.4-10.4 FL Neutrophils (%) (Auto) 65 42-75 % Lymphocytes (%) (Auto) 22 12-44 % Monocytes (%) (Auto) 8 0-12 % Eosinophils (%) (Auto) 5 0-10 % Basophils (%) (Auto) 0 0-10 % Neutrophils # (Auto) 5.9 1.8-7.8 X 10^3 Lymphocytes # (Auto) 2.0 1.0-4.0 X 10^3 Monocytes # (Auto) 0.7 0.0-1.0 X 10^3 Eosinophils # (Auto) 0.5 H 0.0-0.3 10^3/uL Basophils # (Auto) 0.0 0.0-0.1 10^3/uL Sodium Level 138 135-145 MMOL/L Potassium Level 4.6 3.6-5.0 MMOL/L Chloride Level 105 98-107 MMOL/L Carbon Dioxide Level 22 21-32 MMOL/L Anion Gap 11 5-14 MMOL/L Blood Urea Nitrogen 20 H 7-18 MG/DL Creatinine 2.00 H 0.60-1.30 MG/DL Estimat Glomerular Filtration Rate 34 BUN/Creatinine Ratio 10 Glucose Level 285 H 70-105 MG/DL Calcium Level 9.2 8.5-10.1 MG/DL Corrected Calcium 9.8 8.5-10.1 MG/DL Total Bilirubin 0.4 0.1-1.0 MG/DL Aspartate Amino Transf (AST/SGOT) 37 H 5-34 U/L Alanine Aminotransferase (ALT/SGPT) 30 0-55 U/L Alkaline Phosphatase 106 40-136 U/L Total Protein 7.2 6.4-8.2 GM/DL Albumin 3.3 3.2-4.5 GM/DL Urine Color YELLOW Urine Clarity CLEAR Urine pH 6.5 5-9 Urine Specific [place] 1.010 L 1.016-1.022 Urine Protein NEGATIVE NEGATIVE Urine Glucose (UA) 4+ H NEGATIVE Urine Ketones NEGATIVE NEGATIVE Urine Nitrite NEGATIVE NEGATIVE Urine Bilirubin NEGATIVE NEGATIVE Urine Urobilinogen NORMAL NORMAL MG/DL Urine Leukocyte Esterase 3+ H NEGATIVE Urine RBC (Auto) 1+ H NEGATIVE Urine RBC 2-5 H /HPF Urine WBC 5-10 H /HPF Urine Squamous Epithelial Cells 0-2 /HPF Urine Crystals NONE /LPF Urine Bacteria TRACE /HPF Urine Casts NONE /LPF Urine Mucus NEGATIVE /LPF Urine Yeast MODERATE H /HPF Urine Culture Indicated YES Physical Exam Vital Signs Vital Signs - First Documented 07/08/18 00:19 Temp 97.7 Pulse 71 Resp 12 B/P (MAP) 182/93 (122) Pulse Ox 96 O2 Delivery Room Air Capillary Refill : Less Than 3 Seconds Height, Weight, BMI Height: 6'1.00" Weight: 286lbs. 1.0oz. 129.884536fl; 37.7 BMI Method:Stated General Appearance: No Apparent Distress, WD/WN Eyes: Bilateral Eye Normal Inspection, Bilateral Eye PERRL, Bilateral Eye EOMI HEENT: PERRL/EOMI, TMs Normal, Normal ENT Inspection, Pharynx Normal Neck: Full Range of Motion, Normal Inspection, Non Tender, Supple, Carotid Bruit Respiratory: Chest Non Tender, Lungs Clear, Normal Breath Sounds, No Accessory Muscle Use, No Respiratory Distress Cardiovascular: Regular Rate, Rhythm, No Edema, No Gallop, No JVD, No Murmur, Normal Peripheral Pulses Gastrointestinal: Normal Bowel Sounds, Soft, Other (colostomy tube) Back: Normal Inspection, No CVA Tenderness, No Vertebral Tenderness Extremity: Normal Capillary Refill, Normal Inspection, Normal Range of Motion, Non Tender, No Calf Tenderness, No Pedal Edema Neurologic/Psychiatric: Alert, Oriented x3, No Motor/Sensory Deficits, Normal Mood/Affect Skin: Normal Color, Warm/Dry Lymphatic: No Adenopathy A/P-Cardiology Admission Diagnosis Abdominal pain Acute renal failure Coronary artery disease Diabetes mellitus Assessment/Plan Abdominal pain, history of colostomy, history of lap band reversal done by Dr. Peoples in 2017. Has abdominal hernia. Surgical consult was called. Acute renal failure. Some improvement with hydration. Continue on IV fluid and monitor Diabetes mellitus, poorly controlled, hyperglycemia, better control at this time. Managed by primary care physician. Near syncope/dizziness, chronic. 24 H Holter of 04/15/18 showed NSR with avg HR 79 bpm, infrequent, isolated PVCs and PACs, one 6-beat run of SVT at 130 bpm, continue to monitor on telemetry Coronary artery disease, multiple interventions in the past, in 2007 patient had a bare metal stent to the obtuse marginal branch and drug-eluting stent to the proximal and midright coronary artery, in 2011 had Ion stent 2.512 mm to the right coronary artery. MPI of 11/29/16 showed no ischemia or infarction, LVEF 62%, has been followed by Dr Rocha Liver mass, fatty infiltrates in the liver. Surgical consult was called. History of traumatic brain injury, patient was in coma for 8 months. History of schizophrenia. Clinical Quality Measures DVT/VTE Risk/Contraindication: Risk Factor Score Per Nursin RFS Level Per Nursing on Admit: 4+=Very High PENELOPE VALDES MD Jul 08, 2018 10:42
[2018-07-08] MEDS ORDERED: HYDR-3812 PO (10:44)
[2018-07-08] MEDS ORDERED: DEXT37.54 PO (10:44)
[2018-07-08] MEDS ORDERED: MIRT15TA PO (10:47)
[2018-07-08] MEDS ORDERED: INSU100I32 SQ ×2 (10:48)
--- NOTE | 2018-07-08 10:51 | NUR ---
RECEIVED MEDICATION LIST FROM [facility]. BACTRIM DE 800/160MG STARTED 07/04/18 THRU 07/10/18
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
[2018-07-08] MEDS: BENZONATATE 100 MG (TESSALON) CAPSULE PO SCH ×2 (11:49→21:40)
[2018-07-08] MEDS: fentaNYL PATCH 25 MCG (DURAGESIC) TD SCH (11:50)
[2018-07-08 12:01] VITALS: BP 126/63
[2018-07-08 15:27] VITALS: BP 136/88
[2018-07-08] MEDS: GABAPENTIN 300 MG (NEURONTIN) CAP PO SCH ×2 (15:27→21:41)
[2018-07-08 19:26] VITALS: BP 130/62
[2018-07-08] MEDS: DOCUSATE SODIUM 100 MG (COLACE) CAP PO SCH (21:40)
[2018-07-08] MEDS: ZIPRASIDONE 20 MG (GEODON) CAP PO SCH (21:40)
[2018-07-08] MEDS: ZIPRASIDONE 40 MG (GEODON) CAP PO SCH (21:41)
[2018-07-08] MEDS: MIRTAZAPINE 15 MG (REMERON) TAB PO SCH (21:41)
[2018-07-08] MEDS: PANTOPRAZOLE 20 MG TABLET (PROTONIX) PO SCH (21:41)
[2018-07-09 00:58] VITALS: BP 141/73
[2018-07-09] MEDS: NS IV 1000 ML 1,000 ML IV SCH ×4 (01:05→21:22)
[2018-07-09 04:00] VITALS: BP 150/81
[2018-07-09 06:03] LABS: BASOPHILS % (AUTO) 0 % (0-10); EOSINOPHILS # (AUTO) 0.3 10^3/uL (0.0-0.3); EOSINOPHILS % (AUTO) 3 % (0-10); HEMATOCRIT 29 % (40-54); HEMOGLOBIN 9.3 G/DL (13.3-17.7); LYMPHOCYTES # (AUTO) 1.6 X 10^3 (1.0-4.0); LYMPHOCYTES % (AUTO) 20 % (12-44); MEAN CORPUSCULAR HEMOGLOBIN 30 PG (25-34); MEAN CORPUSCULAR HGB CONC 32 G/DL (32-36); MEAN CORPUSCULAR VOLUME 93 FL (80-99); MEAN PLATELET VOLUME 10.7 FL (7.4-10.4); MONOCYTES # (AUTO) 0.7 X 10^3 (0.0-1.0); MONOCYTES % (AUTO) 9 % (0-12); NEUTROPHILS # (AUTO) 5.3 X 10^3 (1.8-7.8); NEUTROPHILS % (AUTO) 67 % (42-75); PLATELET COUNT 144 10^3/uL (130-400); RED BLOOD COUNT 3.13 10^6/uL (4.35-5.85); RED CELL DISTRIBUTION WIDTH 16.4 % (10.0-14.5); WHITE BLOOD COUNT 7.9 10^3/uL (4.3-11.0)
[2018-07-09] MEDS: inSUlin ASPART (NovoLOG) 1 UNIT/0.01 ML (CHARGE PER UNIT) SC SCH ×4 (06:18→21:23)
[2018-07-09 06:21] LABS: CALCIUM 8.1 MG/DL (8.5-10.1); CREATININE SERUM 1.75 MG/DL (0.60-1.30); POTASSIUM 5.4 MMOL/L (3.6-5.0)
[2018-07-09 08:00] VITALS: BP 131/60
[2018-07-09] MEDS: BENZONATATE 100 MG (TESSALON) CAPSULE PO SCH ×3 (08:10→21:23)
[2018-07-09] MEDS: DULoxetine 30 MG (CYMBALTA) CAP PO SCH (08:10)
[2018-07-09] MEDS: ZIPRASIDONE 20 MG (GEODON) CAP PO SCH ×2 (08:10→21:22)
[2018-07-09] MEDS: DOCUSATE SODIUM 100 MG (COLACE) CAP PO SCH ×2 (08:11→21:22)
[2018-07-09] MEDS: PANTOPRAZOLE 20 MG TABLET (PROTONIX) PO SCH ×2 (08:11→21:23)
[2018-07-09] MEDS: GABAPENTIN 300 MG (NEURONTIN) CAP PO SCH ×3 (08:11→21:23)
[2018-07-09] MEDS: ZIPRASIDONE 40 MG (GEODON) CAP PO SCH ×2 (08:11→21:22)
[2018-07-09] MEDS ORDERED: TRIM/SULFAMETH 160/800 (SEPTRA DS) TAB PO SCH (09:00)
[2018-07-09] MEDS ORDERED: ASPIRIN E.C. 81 MG (ECOTRIN) TAB PO SCH (09:00)
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
--- NOTE | 2018-07-09 09:38 | Cardiology Progress Note ---
Subjective Date Seen by Provider: Jul 09, 2018 Time Seen by Provider: 09:36 Subjective/Events-last exam Patient sitting up in bed, complaining of abdominal pain. Denies any chest pain. Objective-Cardiology Exam Last Set of Vital Signs Vital Signs 07/09/18 07/09/18 04:00 08:00 Temp 97.2 Pulse 84 Resp 20 B/P (MAP) 150/81 (104) Pulse Ox 98 O2 Delivery Room Air Capillary Refill : Less Than 3 Seconds I&O Intake and Output 07/09/18 00:00 Intake Total 4920 ml Output Total 800 ml Balance 4120 ml Intake Oral 1920 ml IV Total 3000 ml Output Urine Total 800 ml # Voids 2 # Bowel Movements 2 Daily Weight Change No General: Alert, Oriented X3, Cooperative, Mild Distress HEENT: PERRLA Lungs: Clear to Auscultation, Normal Air Movement Heart: Regular Rate, Normal S1, Normal S2 Abdomen: Other (diffusely ttp in all quadrants. ) Results Lab Laboratory Tests 07/09/18 05:56 A/P-Cardiology Admission Diagnosis Abdominal pain Acute renal failure Coronary artery disease Diabetes mellitus Assessment/Plan Abdominal pain, history of colostomy, history of lap band reversal done by Dr. Peoples in 2017. Has abdominal hernia. Dr. Peoples following. Underwent CT abd/ pelvis revealing intramuscular hematomas. Complaining of increased abdominal pain today. Acute renal failure. Some improvement with hydration. Continue on IV fluid and monitor Hyperkalemia, continue to monitor. Diabetes mellitus, poorly controlled, hyperglycemia, better control at this time. Managed by primary care physician. Near syncope/dizziness, chronic. 24 H Holter of 04/15/18 showed NSR with avg HR 79 bpm, infrequent, isolated PVCs and PACs, one 6-beat run of SVT at 130 bpm, continue to monitor on telemetry Coronary artery disease, multiple interventions in the past, in 2007 patient had a bare metal stent to the obtuse marginal branch and drug-eluting stent to the proximal and midright coronary artery, in 2011 had Ion stent 2.512 mm to the right coronary artery. MPI of 11/29/16 showed no ischemia or infarction, LVEF 62%, has been followed by Dr Rocha Liver mass, fatty infiltrates in the liver. Surgical consult was called. History of traumatic brain injury, patient was in coma for 8 months. History of schizophrenia. Clinical Quality Measures DVT/VTE Risk/Contraindication: Risk Factor Score Per Nursin RFS Level Per Nursing on Admit: 4+=Very High AMANDA LOPEZ Jul 09, 2018 09:38
--- NOTE | 2018-07-09 10:01 | Cardiology Progress Note ---
Subjective Date Seen by Provider: Jul 09, 2018 Time Seen by Provider: 09:59 Subjective/Events-last exam patient is laying down in bed, complaining of abdominal pain. Tender to palpation on his abdomen Review of Systems General: No Chills, No Night Sweats, No Fatigue, No Malaise, No Appetite, No Other HEENT: No Head Aches, No Visual Changes, No Eye Pain, No Ear Pain, No Dysphasia , No Sinus Congestion, No Post Nasal Drip, No Sore Throat, No Other Pulmonary: Dyspnea; No Cough, No Pleuritic Chest Pain, No Other Cardiovascular: No: Chest Pain, Palpitations, Orthopnea, Paroxysmal Noc. Dyspnea, Edema, Lt Headedness, Other Objective-Cardiology Exam Last Set of Vital Signs Vital Signs Capillary Refill : Less Than 3 Seconds I&O Intake and Output 07/09/18 00:00 Intake Total 4920 ml Output Total 800 ml Balance 4120 ml Intake Oral 1920 ml IV Total 3000 ml Output Urine Total 800 ml # Voids 2 # Bowel Movements 2 Daily Weight Change No General: Alert, Oriented X3, Cooperative, Mild Distress HEENT: PERRLA Neck: Supple, No JVD Lungs: Clear to Auscultation, Normal Air Movement Heart: Regular Rate, Normal S1, Normal S2 Abdomen: Other (diffusely ttp in all quadrants. ) Extremities: No Clubbing Neuro: Normal Speech Results Lab Laboratory Tests 07/09/18 05:56 A/P-Cardiology Admission Diagnosis Abdominal pain Acute renal failure Coronary artery disease Diabetes mellitus Assessment/Plan Abdominal pain, history of colostomy, history of lap band reversal done by Dr. Peoples in 2017. Has abdominal hernia. Dr. Peoples following. Underwent CT abd/ pelvis revealing intramuscular hematomas. Complaining of increased abdominal pain today. Acute renal failure. Some improvement with hydration. Continue on IV fluid and monitor Hyperkalemia, continue on IV fluid and monitor electrolytes Diabetes mellitus, poorly controlled, hyperglycemia, better control at this time. Managed by primary care physician. Near syncope/dizziness, chronic. 24 H Holter of 04/15/18 showed NSR with avg HR 79 bpm, infrequent, isolated PVCs and PACs, one 6-beat run of SVT at 130 bpm, continue to monitor on telemetry Coronary artery disease, multiple interventions in the past, in 2007 patient had a bare metal stent to the obtuse marginal branch and drug-eluting stent to the proximal and midright coronary artery, in 2011 had Ion stent 2.512 mm to the right coronary artery. MPI of 11/29/16 showed no ischemia or infarction, LVEF 62%, has been followed by Dr Rocha, continue to monitor Liver mass, fatty infiltrates in the liver. Surgical consult was called. History of traumatic brain injury, patient was in coma for 8 months. History of schizophrenia. Clinical Quality Measures DVT/VTE Risk/Contraindication: Risk Factor Score Per Nursin RFS Level Per Nursing on Admit: 4+=Very High PENELOPE VALDES MD Jul 09, 2018 10:01
[2018-07-09] MEDS ORDERED: HYDROmorphone 2 MG/ML VIAL (DILAUDID) IV NR (10:15)
--- NOTE | 2018-07-09 10:32 | Pulmonary Consultation ---
History of Present Illness History of Present Illness Date of Consultation 07/09/18 10:27 Time Seen by Provider: 10:27 Date of Admission Reason for Visit: abdominal pain, coronary artery disease History of Present Illness 63yo with hx of CKD, IDDM, CAD, HTN, paranoid schizophrenia presented to ED secondary to worsening abdominal pain. He has had 4 CT scans of the abdomen and pelvis over the past month. In the ED he was found to have hyperglycemia, and intractable abdominal pain. CT of abdomen shows liver mass probable fatty infiltration. A previous CT of abdomen shows lung nodules with possible mets. I am consulted for pulmonary management. Pt is currently lethargic from pain meds. Unable to obtain complete ROS. Allergies and Home Medications Allergies Coded Allergies: No Known Drug Allergies (Verified , 09/08/09) Home Medications Acetaminophen 325 Mg Tablet, 650 MG PO Q4H PRN for PAIN-MILD OR TEMPATURE, ( Reported) TAKES 2 (325MG) TABLETS Ascorbate Calcium 500 Mg Tablet, 500 MG PO DAILY, (Reported) Aspirin 81 Mg Tablet.dr, 81 MG PO DAILY, (Reported) Carboxymethylcellulose Sodium 15 Ml Drops, 1 DROP OU Q12H PRN for DRY EYES, ( Reported) Cholecalciferol (Vitamin D3) 5,000 Unit Tablet, 5,000 UNIT PO DAILY, (Reported) Dextrose 37.5 Gm Gel..gram., 1 PACKET PO UD PRN for HYPOGLYCEMIA, (Reported) GIVE 1 PACKET EVERY 15 MINUTES NEEDED Docusate Sodium 100 Mg Capsule, 100 MG PO BID, (Reported) Duloxetine HCl 60 Mg Capsule.dr, 60 MG PO DAILY, (Reported) Fentanyl 12 Mcg Patch, 12 MCG TD Q72H, (Reported) Ferrous Sulfate 325 Mg Tablet, 325 MG PO BID, (Reported) Gabapentin 300 Mg Capsule, 300 MG PO 0900,1400, (Reported) Gabapentin 300 Mg Capsule, 600 MG PO HS, (Reported) TAKES 2 (300MG) CAPSULES Glucagon,Human Recombinant 1 Mg/Kit Soln, 1 MG IJ UD PRN for BS<60, (Reported) Hydrocodone/Acetaminophen 1 Each Tablet, 1 EACH PO Q6H PRN for PAIN-MODERATE, ( Reported) Insulin Aspart 300 Units/3 Ml Solution, SQ ACHS, (Reported) 0-200 = 0 UNITS 201-250 = 3 UNITS 251-300 = 6 UNITS 301-350 = 9 UNITS 351- 400 = 12 UNITS >400 OR <60 CALL PCP Insulin Aspart 300 Units/3 Ml Solution, 34 UNITS SQ AC, (Reported) Insulin Degludec 100 Unit/1 Ml Insuln.pen, 80 UNIT SQ 1200, (Reported) Magnesium Oxide 500 Mg Tablet, 500 MG PO DAILY, (Reported) Mirtazapine 15 Mg Tablet, 15 MG PO HS, (Reported) Multivitamin 1 Each Tablet, 1 TAB PO DAILY, (Reported) Ondansetron 4 Mg Tab.rapdis, 4 MG PO Q6H PRN for NAUSEA/VOMITING-1ST LINE, ( Reported) Pantoprazole Sodium 20 Mg Tablet.dr, 20 MG PO BID, (Reported) Polyethylene Glycol 3350 17 Gm Powd.pack, 17 GM PO BID, (Reported) Rivaroxaban 20 Mg Tablet, 20 MG PO HS, (Reported) Sulfamethoxazole/Trimethoprim 1 Each Tablet, 1 EACH PO DAILY Prescribed by: SANJEEV CHEEMA on 07/04/18 1035 Ziprasidone HCl 60 Mg Capsule, 60 MG PO BID, (Reported) Past Bjrsnnw-Wupkuf-Fjfifu Hx Past Med/Social Hx: Reviewed Nursing Past Med/Soc Hx Patient Social History Alcohol Use: Denies Use Recreational Drug Use: No Smoking Status: Never a Smoker 2nd Hand Smoke Exposure: No Recent Foreign Travel: No Contact w/Someone Who Travel: No Recent Infectious Disease Expo: No Recent Hopitalizations: No Physical Abuse: No Sexual Abuse: No Mistreated: No Fear: No Immunizations Up To Date Tetanus Booster (TDap): Unknown Date of Pneumonia Vaccine: Jul 09, 2011 Date of Influenza Vaccine: Apr 07, 2018 Seasonal Allergies Seasonal Allergies: No Past Medical History Surgeries: Yes (COLOSTOMY, LAP BAND, rectal fistulotomy) Abdominal (colostomy, lab band with subsequent removal), Cardiac, Coronary Stent , Tonsillectomy Respiratory: Yes (CHRONIC DYSPNEA) Sleep Apnea Currently Using CPAP: No Cardiac: Yes (PSVT) Atrial Fibrillation, Chronic Edema/Swelling, Coronary Artery Disease, High Cholesterol, Hypertension Neurological: Yes Neuropathy, Spinal Cord Injury, Traumatic Brain Injury Reproductive Disorders: No Sexually Transmitted Disease: No HIV/AIDS: No Genitourinary: Yes Renal Failure Gastrointestinal: No (COLOSTOMY ) Chronic Constipation Musculoskeletal: Yes (DYSKINESIA; NON-AMBULATORY, WHEELCHAIR-BOUND) Endocrine: Yes Diabetes, Insulin dep HEENT: No Cancer: No Psychosocial: Yes Schizophrenia, Depression Integumentary: No Blood Disorders: No Adverse Reaction/Blood Tranf: No Family Medical History Reviewed Nursing Family Hx Patient reports no known family medical history. No Pertinent Family Hx Review of Systems Time Seen by Provider: 10:40 Sepsis Event Evaluation Height, Weight, BMI Height: 6'1.00" Weight: 284lbs. 1.0oz. 128.499728id; 37.7 BMI Method:Stated Exam Exam Vital Signs Date Time Temp Pulse Resp B/P (MAP) Pulse Ox O2 Delivery O2 Flow Rate FiO2 07/09/18 08:00 98.5 85 16 131/60 (83) 96 Room Air 07/09/18 08:00 98 Room Air 07/09/18 07:00 75 07/09/18 04:00 97.2 84 20 150/81 (104) 95 Room Air 07/09/18 01:00 89 07/09/18 00:58 98.8 89 20 141/73 (95) 96 Room Air 07/08/18 20:00 98 Room Air 07/08/18 19:26 98.0 94 20 130/62 (84) 94 Room Air 07/08/18 19:00 91 07/08/18 15:27 98.3 99 20 136/88 (104) 94 Room Air 07/08/18 12:43 84 07/08/18 12:01 98.6 87 18 126/63 (84) 93 Room Air I & O 07/09/18 07:00 Intake Total 4220 ml Output Total 1300 ml Balance 2920 ml Height & Weight Height: 6'1.00" Weight: 284lbs. 1.0oz. 128.749568yj; 37.7 BMI Method:Stated General Appearance: No Apparent Distress, Chronically ill, Other HEENT: PERRL/EOMI, TMs Normal, Normal ENT Inspection, Pharynx Normal Neck: Full Range of Motion, Normal Inspection, Non Tender, Supple, Carotid Bruit Respiratory: Lungs Clear, No Respiratory Distress Cardiovascular: Regular Rate, Rhythm, No Murmur Capillary Refill: Less Than 3 Seconds Gastrointestinal: soft, other (COLOSTOMY IN LLQ) Extremity: Normal Capillary Refill, Normal Inspection, Normal Range of Motion, Non Tender, No Calf Tenderness, No Pedal Edema Neurologic/Psychiatric: Alert, Oriented x3 Skin: Normal Color, Warm/Dry Lymphatic: No Adenopathy Results Lab Laboratory Tests 07/08/18 01:08 07/08/18 06:15 07/09/18 05:56 Assessment/Plan Assessment/Plan Lung nodules -check CT of chest CKD -Monitor Abdominal pain Abdominal wall hernia -surgery consulted Liver Mass -MRI pending Hx of traumatic brain injury CAD Colostomy in place Abdominal muscle hematoma -Anticoagulation on hold CONCEPCION SADLER DO Jul 09, 2018 10:32
[2018-07-09] MEDS ORDERED: HYDROmorphone 2 MG/ML VIAL (DILAUDID) IV PRN (11:15)
--- NOTE | 2018-07-09 11:15 | NUR ---
Dr. Peoples at bedside assessing patient. 1mg Dilaudid administered per Dr. Peoples's directions. Orders to resume previous diet received.
[2018-07-09] MEDS: inSUlin DETERMIR 1 UNIT/0.01 ML (LEVEMIR) CHARGE PER UNIT SQ SCH (11:47)
--- NOTE | 2018-07-09 11:54 | Progress Note (SOAP) ---
Subjective Date Seen by a Provider: Jul 09, 2018 Time Seen by a Provider: 10:00 Subjective/Events-last exam persistent pain left anterior abd wall, more superior. slight decrease in Hb, WBC normal. normal functional end colostomy. cough improved. Objective Exam Vital Signs Date Time Temp Pulse Resp B/P (MAP) Pulse Ox O2 Delivery O2 Flow Rate FiO2 07/09/18 08:00 98.5 85 16 131/60 (83) 96 Room Air 07/09/18 08:00 98 Room Air 07/09/18 07:00 75 07/09/18 04:00 97.2 84 20 150/81 (104) 95 Room Air 07/09/18 01:00 89 07/09/18 00:58 98.8 89 20 141/73 (95) 96 Room Air 07/08/18 20:00 98 Room Air 07/08/18 19:26 98.0 94 20 130/62 (84) 94 Room Air 07/08/18 19:00 91 07/08/18 15:27 98.3 99 20 136/88 (104) 94 Room Air 07/08/18 12:43 84 07/08/18 12:01 98.6 87 18 126/63 (84) 93 Room Air I & O 07/09/18 07:00 Intake Total 4220 ml Output Total 1300 ml Balance 2920 ml Capillary Refill : Less Than 3 Seconds General Appearance: No Apparent Distress HEENT: PERRL/EOMI Neck: Full Range of Motion Respiratory: Chest Non Tender, Lungs Clear Cardiovascular: Regular Rate, Rhythm Gastrointestinal: tenderness, other (pain hardness left upper anterior abd wall , no peritoneal signs) Extremity: Normal Capillary Refill Neurologic/Psychiatric: Alert, Oriented x3 Skin: Normal Color Lymphatic: No Adenopathy Results Lab Laboratory Tests 07/08/18 16:24: Glucometer 378H 07/08/18 20:46: Glucometer 374H 07/09/18 05:56: White Blood Count 7.9, Red Blood Count 3.13L, Hemoglobin 9.3#L, Hematocrit 29L, Mean Corpuscular Volume 93, Mean Corpuscular Hemoglobin 30, Mean Corpuscular Hemoglobin Concent 32, Red Cell Distribution Width 16.4H, Platelet Count 144, Mean Platelet Volume 10.7H, Neutrophils (%) (Auto) 67, Lymphocytes (%) (Auto) 20 , Monocytes (%) (Auto) 9, Eosinophils (%) (Auto) 3, Basophils (%) (Auto) 0, Neutrophils # (Auto) 5.3, Lymphocytes # (Auto) 1.6, Monocytes # (Auto) 0.7, Eosinophils # (Auto) 0.3, Basophils # (Auto) 0.0, Sodium Level 134L, Potassium Level 5.4H, Chloride Level 106, Carbon Dioxide Level 18L, Anion Gap 10, Blood Urea Nitrogen 21H, Creatinine 1.75H, Estimat Glomerular Filtration Rate 40, BUN/ Creatinine Ratio 12, Glucose Level 288H, Calcium Level 8.1L 07/09/18 06:04: Glucometer 281H 07/09/18 10:54: Glucometer 255H Assessment/Plan Assessment/Plan Assess & Plan/Chief Complaint left anterior rectus sheath hematoma secondary forceful coughing and anticoagulation. slight decrease in Hb with firmness left upper abdominal wall. end colostomy functional and parastomal hernia reducible. will repeat CT scan. continue to monitor Hb. continue pain control and hold anticoagulation. majority resolve on own. Clinical Quality Measures DVT/VTE Risk/Contraindication: Risk Factor Score Per Nursin RFS Level Per Nursing on Admit: 4+=Very High LUZ RAHMAN MD Jul 09, 2018 11:54
[2018-07-09 12:00] VITALS: BP 134/58
[2018-07-09] MEDS: HYDROcodone/APAP 7.5 MG/325 MG (LORTAB, LORCET PLUS) TABLET PO PRN (15:20)
--- NOTE | 2018-07-09 15:22 | Diagnostic Imaging Report ---
PROCEDURE: CT chest, abdomen, and pelvis without contrast. TECHNIQUE: Multiple contiguous axial images were obtained through the chest, abdomen, and pelvis without the use of intravenous contrast. INDICATION: Abdominal pain. FINDINGS: The CT abdomen/pelvis exam performed on 07/08/2018 noted a rectus sheath hematoma. The hematoma measured approximately 3.1 cm in maximum thickness. On this exam, the hematoma has increased in size and now measures 4.8 cm in maximum thickness. Reportedly, the patient was anticoagulated. It is my understanding that anticoagulation therapy has been stopped. The prior exam also noted diffuse areas of diminished density throughout the liver. These areas of diminished density do seem somewhat more conspicuous than on the prior exam of 06/09/2018. This change is even more pronounced when compared to the prior CT abdomen/pelvis exam of 06/04/2018. The abnormal density within the liver is of uncertain etiology but could be related to an infiltrative neoplastic process. A systemic abnormality such as amyloidosis could also present in this manner. If further imaging is desired, then MRI would be recommended. The overall appearance of the abdomen and pelvis has not changed significantly otherwise. The large parastomal hernia on the left seen previously is again evident and no different. There is still no evidence for obstruction of the bowel. The images through the thorax again show mild compressive atelectasis in the right lung base due to the elevated right hemidiaphragm. There is also a small amount of atelectasis/infiltrate in the left lung base. The upper lungs are generally clear. There is no parenchymal lung mass identified. The heart size is within normal limits. Coronary artery calcifications are evident. The aorta is not abnormally dilated. There is no obvious mediastinal or hilar adenopathy. The thyroid gland is generally unremarkable. The bone windows show no sign of a fracture or of a destructive lesion. IMPRESSION: 1. The rectus hematoma on the left seen on the prior study has increased in size. 2. The large parastomal hernia on the left seen previously is essentially no different. There is still no obstruction of the bowel by the hernia. There is no acute abnormality of the abdomen or pelvis noted. 3. The low-density infiltrate through the liver is of uncertain etiology. Considerations and recommendations as above. 4. There is compressive atelectasis in the right mid lung due to the elevated right hemidiaphragm, and there is a small amount of atelectasis/infiltrate in the left lower lobe. There is no acute cardiopulmonary abnormality noted otherwise. 5. These results were discussed with Dr. Kaylen Alcantar and with Dr. Bimal Shields. Dictated by: Dictated on workstation # [id number]
--- NOTE | 2018-07-09 15:37 | NUR ---
Pastoral Care Visit.
[2018-07-09 16:00] VITALS: BP 112/57
--- NOTE | 2018-07-09 16:41 | Wound Care Assessment ---
Wound Care Assessment Chief Complaint Ulcer L buttock HPI ^3 year old male invalid with incontinence of urine and recurrent breakdown of the perineal skin. the recent ulceration of the L buttock appears to have resolved with the current dressing. I see no reason to change dressings. the patient is urged to let the nursing staff know early of any episodes of incontinence, to decrease the exposure of the perineum to moisture. I will see again if needed. Smoking Status: Never a Smoker Recreational Drug Use: No Alcohol Use: Denies Use Review of Systems Genitourinary: Incontinence Exam Vital Signs Date Time Temp Pulse Resp B/P (MAP) Pulse Ox O2 Delivery O2 Flow Rate FiO2 07/09/18 13:00 91 07/09/18 12:00 97.4 16 134/58 (83) 92 Room Air Capillary Refill : Less Than 3 Seconds General Appearance: no apparent distress Respiratory: no respiratory distress Skin: other (L buttock demonstrates a healled appearance.) Results Laboratory Tests 07/08/18 20:46: Glucometer 374H 07/09/18 05:56: White Blood Count 7.9, Red Blood Count 3.13L, Hemoglobin 9.3#L, Hematocrit 29L, Mean Corpuscular Volume 93, Mean Corpuscular Hemoglobin 30, Mean Corpuscular Hemoglobin Concent 32, Red Cell Distribution Width 16.4H, Platelet Count 144, Mean Platelet Volume 10.7H, Neutrophils (%) (Auto) 67, Lymphocytes (%) (Auto) 20 , Monocytes (%) (Auto) 9, Eosinophils (%) (Auto) 3, Basophils (%) (Auto) 0, Neutrophils # (Auto) 5.3, Lymphocytes # (Auto) 1.6, Monocytes # (Auto) 0.7, Eosinophils # (Auto) 0.3, Basophils # (Auto) 0.0, Sodium Level 134L, Potassium Level 5.4H, Chloride Level 106, Carbon Dioxide Level 18L, Anion Gap 10, Blood Urea Nitrogen 21H, Creatinine 1.75H, Estimat Glomerular Filtration Rate 40, BUN/ Creatinine Ratio 12, Glucose Level 288H, Calcium Level 8.1L 07/09/18 06:04: Glucometer 281H 07/09/18 10:54: Glucometer 255H 07/09/18 15:57: Glucometer 252H Microbiology 07/08/18 Urine Culture - Final, Complete ----- Microbiology 07/08/18 Urine Culture - Final, Complete ----- Assessment/Plan/Dx 1. Moisture associated skin damage of l buttock, now resolved. 2. Urinary incontinence. 3. Immobility. Plan: continue present dressing orders. Will see again if needed. RANDY DUDLEY MD Jul 09, 2018 16:41
[2018-07-09 20:00] VITALS: BP 123/58
[2018-07-09] MEDS: MIRTAZAPINE 15 MG (REMERON) TAB PO SCH (21:23)
[2018-07-09 22:37] LABS: HEMOGLOBIN 9.5 G/DL (13.3-17.7)
[2018-07-10] VITALS (7 sets, daily range): BP systolic 120–168; BP diastolic 59–69
[2018-07-10] MEDS: NS IV 1000 ML 1,000 ML IV SCH (03:59)
[2018-07-10 05:01] LABS: BASOPHILS % (AUTO) 0 % (0-10); EOSINOPHILS # (AUTO) 0.4 10^3/uL (0.0-0.3); EOSINOPHILS % (AUTO) 4 % (0-10); HEMATOCRIT 29 % (40-54); HEMOGLOBIN 8.9 G/DL (13.3-17.7); LYMPHOCYTES # (AUTO) 1.8 X 10^3 (1.0-4.0); LYMPHOCYTES % (AUTO) 19 % (12-44); MEAN CORPUSCULAR HEMOGLOBIN 30 PG (25-34); MEAN CORPUSCULAR HGB CONC 31 G/DL (32-36); MEAN CORPUSCULAR VOLUME 95 FL (80-99); MEAN PLATELET VOLUME 10.7 FL (7.4-10.4); MONOCYTES # (AUTO) 0.7 X 10^3 (0.0-1.0); MONOCYTES % (AUTO) 8 % (0-12); NEUTROPHILS # (AUTO) 6.3 X 10^3 (1.8-7.8); NEUTROPHILS % (AUTO) 69 % (42-75); PLATELET COUNT 177 10^3/uL (130-400); RED BLOOD COUNT 2.99 10^6/uL (4.35-5.85); RED CELL DISTRIBUTION WIDTH 16.5 % (10.0-14.5); WHITE BLOOD COUNT 9.2 10^3/uL (4.3-11.0)
[2018-07-10 05:27] LABS: CALCIUM 8.1 MG/DL (8.5-10.1); CREATININE SERUM 1.69 MG/DL (0.60-1.30)
[2018-07-10] MEDS: HYDROcodone/APAP 7.5 MG/325 MG (LORTAB, LORCET PLUS) TABLET PO PRN ×2 (05:46→12:17)
[2018-07-10] MEDS: inSUlin ASPART (NovoLOG) 1 UNIT/0.01 ML (CHARGE PER UNIT) SC SCH ×4 (06:36→21:46)
--- NOTE | 2018-07-10 08:24 | Pulmonary Progress Note ---
Subjective Time Seen by a Provider: 08:23 Subjective/Events-last exam Pt is doing well pulmonary thapa. On RA with Sp02 96% Sepsis Event Evaluation Height, Weight, BMI Height: 6'1.00" Weight: 287lbs. 1.0oz. 130.292316wf; 37.7 BMI Method:Stated Exam Exam Vital Signs Date Time Temp Pulse Resp B/P (MAP) Pulse Ox O2 Delivery O2 Flow Rate FiO2 07/10/18 04:48 97.3 93 18 152/66 (94) 96 Room Air 07/10/18 01:00 89 07/10/18 00:43 97.7 86 18 120/59 (79) 91 Room Air 07/09/18 20:00 97.0 98 18 123/58 (79) 95 Room Air 07/09/18 20:00 98 Room Air 07/09/18 19:00 93 07/09/18 16:00 97.4 89 18 112/57 (75) 92 Room Air 07/09/18 13:00 91 07/09/18 12:00 97.4 90 16 134/58 (83) 92 Room Air I & O 07/10/18 07:00 Intake Total 1240 ml Output Total 975 ml Balance 265 ml Height & Weight Height: 6'1.00" Weight: 287lbs. 1.0oz. 130.718782si; 37.7 BMI Method:Stated General Appearance: No Apparent Distress HEENT: PERRL/EOMI Neck: Full Range of Motion Respiratory: Chest Non Tender, Lungs Clear Cardiovascular: Regular Rate, Rhythm Capillary Refill: Less Than 3 Seconds Gastrointestinal: tenderness, other (pain hardness left upper anterior abd wall , no peritoneal signs) Extremity: Normal Capillary Refill Neurologic/Psychiatric: Alert, Oriented x3 Skin: Normal Color Lymphatic: No Adenopathy Results Lab Laboratory Tests 07/09/18 05:56 07/09/18 22:15 07/10/18 04:15 Assessment/Plan Assessment/Plan Lung nodules -check CT of chest -reviewed - No lung nodules noted. Atelectasis -Monitor CKD -Monitor Abdominal pain Abdominal wall hernia -surgery consulted Liver Mass -Work up pending. Hx of traumatic brain injury CAD Colostomy in place Abdominal muscle hematoma -Anticoagulation on hold CONCEPCION SADLER DO Jul 10, 2018 08:24
[2018-07-10] MEDS: DOCUSATE SODIUM 100 MG (COLACE) CAP PO SCH ×2 (08:47→21:46)
[2018-07-10] MEDS: ZIPRASIDONE 20 MG (GEODON) CAP PO SCH ×2 (08:47→21:45)
[2018-07-10] MEDS: BENZONATATE 100 MG (TESSALON) CAPSULE PO SCH ×3 (08:47→21:46)
[2018-07-10] MEDS: DULoxetine 30 MG (CYMBALTA) CAP PO SCH (08:47)
[2018-07-10] MEDS: PANTOPRAZOLE 20 MG TABLET (PROTONIX) PO SCH ×2 (08:47→21:46)
[2018-07-10] MEDS: GABAPENTIN 300 MG (NEURONTIN) CAP PO SCH ×3 (08:47→21:46)
[2018-07-10] MEDS: ZIPRASIDONE 40 MG (GEODON) CAP PO SCH ×2 (08:48→21:46)
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
--- NOTE | 2018-07-10 10:59 | NUR ---
0945 DUE TO CHANGES IN STAFFING CARE OF PT TO THIS RN REPORT RECEIVED FROM Elva CAMPUZANO RN. PT SITTING UP IN CHAIR WATCHING TELEVISION AND EATING BREAKFAST, VOICES NO C/O OR NEEDS AT THIS TIME, CALL LIGHT AND OTHER PERSONAL ITEMS WITHIN REACH WILL CONTINUE TO MONITOR.
[2018-07-10] MEDS: inSUlin DETERMIR 1 UNIT/0.01 ML (LEVEMIR) CHARGE PER UNIT SQ SCH (12:18)
--- NOTE | 2018-07-10 13:27 | Cardiology Progress Note ---
Subjective Date Seen by Provider: Jul 10, 2018 Time Seen by Provider: 13:25 Subjective/Events-last exam Patient is in bed, complains of fatigue, reports abdominal pain is less today. Review of Systems General: No Night Sweats, No Fatigue, No Malaise HEENT: No Visual Changes, No Dysphasia, No Sore Throat Pulmonary: No Dyspnea, No Cough Cardiovascular: No: Chest Pain, Palpitations Gastrointestinal: No: Nausea, Vomiting Genitourinary: No Dysuria, No Frequency Musculoskeletal: No: neck pain, back pain Neurological: Confusion; No: Weakness, Numbness, Change in speech Objective-Cardiology Exam Last Set of Vital Signs Vital Signs 07/10/18 08:30 Temp 98.6 Pulse 104 Resp 20 B/P (MAP) 140/62 (88) Pulse Ox 92 O2 Delivery Room Air Capillary Refill : Less Than 3 Seconds I&O Intake and Output 07/10/18 00:00 Intake Total 1440 ml Output Total 1425 ml Balance 15 ml Intake Oral 1440 ml Output Urine Total 1325 ml Stool Total 100 ml General: Alert, Oriented X3, Cooperative, Mild Distress HEENT: PERRLA Neck: Supple, No JVD Lungs: Clear to Auscultation, Normal Air Movement Heart: Regular Rate, Normal S1, Normal S2 Abdomen: Soft, Other (mildly ttp) Extremities: No Clubbing Neuro: Normal Speech Results Lab Laboratory Tests 07/09/18 22:15 07/10/18 04:15 A/P-Cardiology Admission Diagnosis Abdominal pain Acute renal failure Coronary artery disease Diabetes mellitus Assessment/Plan Abdominal pain, history of colostomy, history of lap band reversal done by Dr. Peoples in 2017. Has abdominal hernia. Dr. Peoples following. Underwent CT abd/ pelvis revealing intramuscular hematomas. Reports abdominal pain is less today. Acute renal failure. Some improvement with hydration. Continue on IV fluid and monitor Hyperkalemia, improved, continue to monitor. Diabetes mellitus, poorly controlled, hyperglycemia, better control at this time. Managed by primary care physician. Near syncope/dizziness, chronic. 24 H Holter of 04/15/18 showed NSR with avg HR 79 bpm, infrequent, isolated PVCs and PACs, one 6-beat run of SVT at 130 bpm, continue to monitor on telemetry Coronary artery disease, multiple interventions in the past, in 2007 patient had a bare metal stent to the obtuse marginal branch and drug-eluting stent to the proximal and midright coronary artery, in 2012 had Ion stent 2.512 mm to the right coronary artery. MPI of 11/29/16 showed no ischemia or infarction, LVEF 62%, has been followed by Dr Rocha, continue to monitor Liver mass, fatty infiltrates in the liver. Surgical consult was called. History of traumatic brain injury, patient was in coma for 8 months. History of schizophrenia. Clinical Quality Measures DVT/VTE Risk/Contraindication: Risk Factor Score Per Nursin RFS Level Per Nursing on Admit: 4+=Very High AMANDA LOPEZ Jul 10, 2018 13:27
--- NOTE | 2018-07-10 13:46 | Cardiology Progress Note ---
Subjective Date Seen by Provider: Jul 10, 2018 Time Seen by Provider: 07:50 Subjective/Events-last exam patient was laying down in bed, still having some abdominal pain, reporting improvement. No new complaint Review of Systems General: No Chills, No Night Sweats, No Fatigue, No Malaise, No Appetite, No Other HEENT: No Head Aches, No Visual Changes, No Eye Pain, No Ear Pain, No Dysphasia , No Sinus Congestion, No Post Nasal Drip, No Sore Throat, No Other Pulmonary: Dyspnea; No Cough, No Pleuritic Chest Pain, No Other Cardiovascular: No: Chest Pain, Palpitations, Orthopnea, Paroxysmal Noc. Dyspnea, Edema, Lt Headedness, Other Objective-Cardiology Exam Last Set of Vital Signs Vital Signs 07/10/18 08:30 Temp 98.6 Pulse 104 Resp 20 B/P (MAP) 140/62 (88) Pulse Ox 92 O2 Delivery Room Air Capillary Refill : Less Than 3 Seconds I&O Intake and Output 07/10/18 00:00 Intake Total 1440 ml Output Total 1425 ml Balance 15 ml Intake Oral 1440 ml Output Urine Total 1325 ml Stool Total 100 ml General: Alert, Oriented X3, Cooperative, Mild Distress HEENT: PERRLA Neck: Supple, No JVD Lungs: Clear to Auscultation, Normal Air Movement Heart: Regular Rate, Normal S1, Normal S2 Abdomen: Soft, Other (mildly ttp) Extremities: No Clubbing Neuro: Normal Speech Results Lab Laboratory Tests 07/09/18 22:15 07/10/18 04:15 A/P-Cardiology Admission Diagnosis Abdominal pain Acute renal failure Coronary artery disease Diabetes mellitus Assessment/Plan Abdominal pain, history of colostomy, history of lap band reversal done by Dr. Peoples in 2017. Has abdominal hernia. Dr. Peoples following. Underwent CT abd/ pelvis revealing intramuscular hematomas. Reports abdominal pain is less today. Acute renal failure. Some improvement with hydration. Continue on IV fluid and monitor Hyperkalemia, improved, continue to monitor. Diabetes mellitus, poorly controlled, hyperglycemia, better control at this time. Managed by primary care physician. Near syncope/dizziness, chronic. 24 H Holter of 04/15/18 showed NSR with avg HR 79 bpm, infrequent, isolated PVCs and PACs, one 6-beat run of SVT at 130 bpm, continue to monitor on telemetry Coronary artery disease, multiple interventions in the past, in 2007 patient had a bare metal stent to the obtuse marginal branch and drug-eluting stent to the proximal and midright coronary artery, in 2011 had Ion stent 2.512 mm to the right coronary artery. MPI of 11/29/16 showed no ischemia or infarction, LVEF 62%, has been followed by Dr Rocha, continue to monitor Liver mass, fatty infiltrates in the liver. Surgical consult was called. History of traumatic brain injury, patient was in coma for 8 months. History of schizophrenia. Clinical Quality Measures DVT/VTE Risk/Contraindication: Risk Factor Score Per Nursin RFS Level Per Nursing on Admit: 4+=Very High PENELOPE VALDES MD Jul 10, 2018 13:46
[2018-07-10 14:30] LABS: HEMOGLOBIN 8.4 G/DL (13.3-17.7)
--- NOTE | 2018-07-10 16:12 | Progress Note (SOAP) ---
Subjective Date Seen by a Provider: Jul 10, 2018 Time Seen by a Provider: 15:00 Subjective/Events-last exam doing better today. pain and cough better controlled. no increased abd distension/tightness, tolerating diet with functional ostomy. Objective Exam Vital Signs Date Time Temp Pulse Resp B/P (MAP) Pulse Ox O2 Delivery O2 Flow Rate FiO2 07/10/18 13:00 97 07/10/18 12:00 98.7 111 21 168/69 (102) 94 Room Air 07/10/18 08:30 98.6 104 20 140/62 (88) 92 Room Air 07/10/18 08:00 Room Air 07/10/18 07:00 83 07/10/18 04:48 97.3 93 18 152/66 (94) 96 Room Air 07/10/18 01:00 89 07/10/18 00:43 97.7 86 18 120/59 (79) 91 Room Air 07/09/18 20:00 97.0 98 18 123/58 (79) 95 Room Air 07/09/18 20:00 98 Room Air 07/09/18 19:00 93 I & O 07/10/18 07:00 Intake Total 1240 ml Output Total 975 ml Balance 265 ml Capillary Refill : Less Than 3 Seconds General Appearance: No Apparent Distress HEENT: PERRL/EOMI Neck: Full Range of Motion Respiratory: Chest Non Tender, Decreased Breath Sounds Cardiovascular: Regular Rate, Rhythm Gastrointestinal: normal bowel sounds, soft, tenderness Extremity: Normal Capillary Refill Neurologic/Psychiatric: Alert, Oriented x3 Skin: Normal Color Lymphatic: No Adenopathy Results Lab Laboratory Tests 07/09/18 21:22: Glucometer 158H 07/09/18 22:15: Hemoglobin 9.5L, Hematocrit 30L 07/10/18 04:15: Hemoglobin 8.9L, Hematocrit 29L, White Blood Count 9.2, Red Blood Count 2.99L, Mean Corpuscular Volume 95, Mean Corpuscular Hemoglobin 30, Mean Corpuscular Hemoglobin Concent 31L, Red Cell Distribution Width 16.5H, Platelet Count 177, Mean Platelet Volume 10.7H, Neutrophils (%) (Auto) 69, Lymphocytes (%) (Auto) 19 , Monocytes (%) (Auto) 8, Eosinophils (%) (Auto) 4, Basophils (%) (Auto) 0, Neutrophils # (Auto) 6.3, Lymphocytes # (Auto) 1.8, Monocytes # (Auto) 0.7, Eosinophils # (Auto) 0.4H, Basophils # (Auto) 0.0, Sodium Level 138, Potassium Level 5.0, Chloride Level 110H, Carbon Dioxide Level 19L, Anion Gap 9, Blood Urea Nitrogen 18, Creatinine 1.69H, Estimat Glomerular Filtration Rate 41, BUN/ Creatinine Ratio 11, Glucose Level 151H, Calcium Level 8.1L 07/10/18 05:06: Glucometer 128H 07/10/18 08:14: Glucometer 142H 07/10/18 11:15: Glucometer 236H 07/10/18 14:15: Hemoglobin 8.4L, Hematocrit 28L Microbiology 07/08/18 Urine Culture - Final, Complete ----- Assessment/Plan Assessment/Plan Assess & Plan/Chief Complaint left anterior superior rectus sheath hematoma secondary forceful coughing and anticoagulation. slight decrease in Hb with firmness left upper abdominal wall. end colostomy functional and parastomal hernia reducible. continue to monitor Hb. continue pain control and hold anticoagulation. majority resolve on own. Clinical Quality Measures DVT/VTE Risk/Contraindication: Risk Factor Score Per Nursin RFS Level Per Nursing on Admit: 4+=Very High LUZ RAHMAN MD Jul 10, 2018 16:12
--- NOTE | 2018-07-10 16:41 | NUR ---
1600 DR RAHMAN IN TO SEE PATIENT, NEW VERBAL ORDERS RECEIVED SEE ORDER HX
[2018-07-10] MEDS ORDERED: guaiFENesin/CODEINE (ROBITUSSIN AC) 10ML UDC PO PRN ×2 (18:00)
[2018-07-10 18:22] LABS: HEMOGLOBIN 8.2 G/DL (13.3-17.7)
[2018-07-10] MEDS: MIRTAZAPINE 15 MG (REMERON) TAB PO SCH (21:46)
[2018-07-10 22:19] LABS: HEMOGLOBIN 8.1 G/DL (13.3-17.7)
[2018-07-11 04:32] VITALS: BP 139/62
[2018-07-11 06:05] LABS: BASOPHILS % (AUTO) 0 % (0-10); EOSINOPHILS # (AUTO) 0.4 10^3/uL (0.0-0.3); EOSINOPHILS % (AUTO) 6 % (0-10); HEMATOCRIT 26 % (40-54); LYMPHOCYTES # (AUTO) 1.5 X 10^3 (1.0-4.0); LYMPHOCYTES % (AUTO) 23 % (12-44); MEAN CORPUSCULAR HEMOGLOBIN 30 PG (25-34); MEAN CORPUSCULAR HGB CONC 31 G/DL (32-36); MEAN CORPUSCULAR VOLUME 96 FL (80-99); MEAN PLATELET VOLUME 10.2 FL (7.4-10.4); MONOCYTES # (AUTO) 0.6 X 10^3 (0.0-1.0); MONOCYTES % (AUTO) 9 % (0-12); NEUTROPHILS # (AUTO) 4.2 X 10^3 (1.8-7.8); NEUTROPHILS % (AUTO) 63 % (42-75); PLATELET COUNT 152 10^3/uL (130-400); RED BLOOD COUNT 2.71 10^6/uL (4.35-5.85); RED CELL DISTRIBUTION WIDTH 16.5 % (10.0-14.5); WHITE BLOOD COUNT 6.7 10^3/uL (4.3-11.0)
[2018-07-11] MEDS: inSUlin ASPART (NovoLOG) 1 UNIT/0.01 ML (CHARGE PER UNIT) SC SCH ×2 (06:19→12:29)
[2018-07-11 06:33] LABS: CALCIUM 8.7 MG/DL (8.5-10.1); CREATININE SERUM 1.79 MG/DL (0.60-1.30); POTASSIUM 4.4 MMOL/L (3.6-5.0)
--- NOTE | 2018-07-11 06:46 | NUR ---
WENT IN TO GIVE PT MORNING INSULIN. PT REFUSED HIS INSULIN AND KEPT SAYING OVER AND OVER AGAIN, " YOU GUYS JUST KEEP JACKING UP MY INSULIN AND THEN LOWERING IT AGAIN, YOU KEEP JACKING IT UP, JACKING IT UP." I EDUCATED PT ON THE FACT THAT INSULIN LOWERS HIS BLOOD SUGAR AND HE JUST COULDNT SEEM TO COMPREHEND WHAT I WAS TELLING HIM. BLOOD SUGAR WAS 204 THIS AM. ORAL ROBITUSSIN GIVEN FOR 1ST TIME LAST NIGHT AT 0000. WILL CONTINUE TO MONITOR PT.
--- NOTE | 2018-07-11 07:30 | Pulmonary Progress Note ---
Subjective Time Seen by a Provider: 07:29 Subjective/Events-last exam SOB is stable no productive cough Sepsis Event Evaluation Height, Weight, BMI Height: 6'1.00" Weight: 289lbs. 3.2oz. 131.181153io; 37.7 BMI Method:Stated Exam Exam Vital Signs Date Time Temp Pulse Resp B/P (MAP) Pulse Ox O2 Delivery O2 Flow Rate FiO2 07/11/18 04:32 98.6 85 18 139/62 (87) 94 Room Air 07/11/18 01:00 77 07/10/18 23:14 98.8 96 18 136/63 (87) 93 Room Air 07/10/18 20:00 98 Room Air 07/10/18 19:29 98.3 90 16 144/63 (90) 91 Room Air 07/10/18 19:00 77 07/10/18 16:16 97.7 86 18 124/59 (80) 93 Room Air 07/10/18 13:00 97 07/10/18 12:00 98.7 111 21 168/69 (102) 94 Room Air 07/10/18 08:30 98.6 104 20 140/62 (88) 92 Room Air 07/10/18 08:00 Room Air I & O 07/11/18 07:00 Intake Total 1910 ml Output Total 700 ml Balance 1210 ml Height & Weight Height: 6'1.00" Weight: 289lbs. 3.2oz. 131.481723gm; 37.7 BMI Method:Stated General Appearance: No Apparent Distress HEENT: PERRL/EOMI Neck: Full Range of Motion Respiratory: Chest Non Tender, Decreased Breath Sounds Cardiovascular: Regular Rate, Rhythm Capillary Refill: Less Than 3 Seconds Gastrointestinal: normal bowel sounds, soft, tenderness Extremity: Normal Capillary Refill Neurologic/Psychiatric: Alert, Oriented x3 Skin: Normal Color Lymphatic: No Adenopathy Results Lab Laboratory Tests 07/09/18 22:15 07/10/18 04:15 07/10/18 14:15 07/10/18 18:10 07/10/18 22:10 07/11/18 05:30 Assessment/Plan Assessment/Plan Lung nodules -No lung nodules noted per CT Chest -Will do out patient PFT Atelectasis -Monitor left anterior superior rectus sheath hematoma -Surgery following CKD -Monitor Abdominal pain Abdominal wall hernia -surgery consulted Liver Mass -Work up pending. Hx of traumatic brain injury CAD Colostomy in place Abdominal muscle hematoma -Anticoagulation on hold CONCEPCION SADLER DO Jul 11, 2018 07:30
[2018-07-11 08:00] VITALS: BP 148/65
[2018-07-11] MEDS: BENZONATATE 100 MG (TESSALON) CAPSULE PO SCH ×2 (08:48→12:29)
[2018-07-11] MEDS: DOCUSATE SODIUM 100 MG (COLACE) CAP PO SCH (08:48)
[2018-07-11] MEDS: DULoxetine 30 MG (CYMBALTA) CAP PO SCH (08:48)
[2018-07-11] MEDS: ZIPRASIDONE 20 MG (GEODON) CAP PO SCH (08:49)
[2018-07-11] MEDS: ZIPRASIDONE 40 MG (GEODON) CAP PO SCH (08:49)
[2018-07-11] MEDS: GABAPENTIN 300 MG (NEURONTIN) CAP PO SCH (08:49)
[2018-07-11] MEDS: PANTOPRAZOLE 20 MG TABLET (PROTONIX) PO SCH (08:49)
[2018-07-11] MEDS ORDERED: BENZ100C18 PO (09:25)
[2018-07-11] MEDS ORDERED: FENT1PAT8 TD (09:25)
--- NOTE | 2018-07-11 09:31 | Discharge Inst-Simple/Standard ---
Discharge Inst-Standard Discharge Medications New, Converted or Re-Newed RX: RX on Chart Patient Instructions/Follow Up Plan of Care/Instructions/FU: Please continue to take your medications as written. Please hold the aspirin and Xarelto until 07/14/18 and then that can be restarted. Please follow up with your PCP Dr Garcia in the next week. Activity as Tolerated: Yes Discharge Diet: Cardiac Diet Return to The Hospital For: Worsening pain, fever, if you feel you are getting worse. Planned Outpatient Orders/Ref. Pneu Vac Indicated: Yes AREN BRAUN MD Jul 11, 2018 09:31
--- NOTE | 2018-07-11 09:38 | Discharge Summary-Hospitalist ---
Diagnosis/Chief Complaint Date of Admission Jul 08, 2018 at 02:10 Date of Discharge Discharge Date: Jul 11, 2018 Admission Diagnosis [facility], Abdominal Pain, severe hyperglycemia Discharge Diagnosis (1) abdominal muscle hematoma Assessment & Plan: Hold anticoagulation until 07/14 Surgery consulted, appreciate recs Discussed with Dr Peoples who recommends observation at this time Pain improved and currently only on oral medications outside of fentanyl patch (2) Hernia of abdominal wall Assessment & Plan: Surgery consulted, appreciate recs Continue current pain management Pain improved today (3) Acute on chronic renal failure Status: Resolved Assessment & Plan: Acute aspect resolved, now at baseline (4) Liver mass Assessment & Plan: Likely fatty infiltrate though imaging has recommended MRI for follow up Discussed with Dr Arellano and he brought up concern for possible amyloidosis Will need outpatient MRI for further evaluation (5) TBI (traumatic brain injury) Assessment & Plan: At baseline mentation (6) CAD (coronary artery disease) Status: Chronic Assessment & Plan: No chest pain Dr Lora consulted, appreciate recs (7) Colostomy in place Status: Chronic Assessment & Plan: Parastomal hernia Surgery consulted, appreciate recs Continue ostomy care (8) Uncontrolled diabetes mellitus Status: Acute Assessment & Plan: Continue home insulin SSI (9) Hypertension Status: Chronic Assessment & Plan: Well controlled, trend Discharge Summary Procedures/Consulations Dr Geno Peoples Discharge Physical Exam Allergies: Coded Allergies: No Known Drug Allergies (Verified , 09/08/09) Vitals & I&Os Vital Signs Date Time Temp Pulse Resp B/P (MAP) Pulse Ox O2 Delivery O2 Flow Rate FiO2 07/11/18 08:00 97.8 94 1 148/65 (92) 97 Room Air General Appearance: No Apparent Distress, Chronically ill, Obese Respiratory: Lungs Clear, No Respiratory Distress Cardiovascular: Regular Rate, Rhythm, No Murmur Gastrointestinal: Normal Bowel Sounds, Non Tender, Soft, Other (parstomal hernia) Neurologic/Psychiatric: Alert, Oriented x3, Other (flat affect) Hospital Course Pt is a 63yoCM who was admitted for intractable abdominal pain and found to have a rectus sheath hematoma. His anticoagulation was held and his pain was treated with IV pain medications. He was eventually titrated off and controlled with oral medications only for breakthrough pain in addition to his fentanyl patch. Hemoglobin was monitored and remained stable near 8. He was discharged to his custodial in stable condition. I did call and update Dr Garcia his PCP about this admission and the findings on CT abdomen regarding his liver and potential need for MRI as an outpatient. Labs (last 24 hrs) Laboratory Tests 07/10/18 14:15: Hemoglobin 8.4L, Hematocrit 28L 07/10/18 16:19: Glucometer 246H 07/10/18 18:10: Hemoglobin 8.2L, Hematocrit 27L 07/10/18 20:18: Glucometer 225H 07/10/18 22:10: Hemoglobin 8.1L, Hematocrit 26L 07/11/18 05:30: Hemoglobin 8.0L, Hematocrit 26L, White Blood Count 6.7, Red Blood Count 2.71L, Mean Corpuscular Volume 96, Mean Corpuscular Hemoglobin 30, Mean Corpuscular Hemoglobin Concent 31L, Red Cell Distribution Width 16.5H, Platelet Count 152, Mean Platelet Volume 10.2, Neutrophils (%) (Auto) 63, Lymphocytes (%) (Auto) 23 , Monocytes (%) (Auto) 9, Eosinophils (%) (Auto) 6, Basophils (%) (Auto) 0, Neutrophils # (Auto) 4.2, Lymphocytes # (Auto) 1.5, Monocytes # (Auto) 0.6, Eosinophils # (Auto) 0.4H, Basophils # (Auto) 0.0, Sodium Level 137, Potassium Level 4.4, Chloride Level 110H, Carbon Dioxide Level 18L, Anion Gap 9, Blood Urea Nitrogen 16, Creatinine 1.79H, Estimat Glomerular Filtration Rate 39, BUN/ Creatinine Ratio 9, Glucose Level 195H, Calcium Level 8.7 07/11/18 05:43: Glucometer 204H 07/11/18 11:14: Glucometer 308H Microbiology 07/08/18 Urine Culture - Final, Complete ----- Patient resulted labs reviewed. Pending Labs Laboratory Tests 07/11/18 05:30: White Blood Count 6.7, Red Blood Count 2.71, Hemoglobin 8.0, Hematocrit 26, Mean Corpuscular Volume 96, Mean Corpuscular Hemoglobin 30, Mean Corpuscular Hemoglobin Concent 31, Red Cell Distribution Width 16.5, Platelet Count 152, Mean Platelet Volume 10.2, Neutrophils (%) (Auto) 63, Lymphocytes (%) (Auto) 23 , Monocytes (%) (Auto) 9, Eosinophils (%) (Auto) 6, Basophils (%) (Auto) 0, Neutrophils # (Auto) 4.2, Lymphocytes # (Auto) 1.5, Monocytes # (Auto) 0.6, Eosinophils # (Auto) 0.4, Basophils # (Auto) 0.0, Sodium Level 137, Potassium Level 4.4, Chloride Level 110, Carbon Dioxide Level 18, Anion Gap 9, Blood Urea Nitrogen 16, Creatinine 1.79, Estimat Glomerular Filtration Rate 39, BUN/ Creatinine Ratio 9, Glucose Level 195, Calcium Level 8.7 07/11/18 05:43: Glucometer 204 07/11/18 11:14: Glucometer 308 Imaging: Reviewed Imaging Report Discussion & Recommendations Discharge Planning: >30 minutes discharge planning Discharge Home Medications: Active Scripts Active Tessalon Perles (Benzonatate) 100 Mg Capsule 100 Mg PO TID Fentanyl Patch 25 MCG (Fentanyl) 1 Each Patch.td72 25 Mcg TD Q72H Bactrim Ds Tablet (Sulfamethoxazole/Trimethoprim) 1 Each Tablet 1 Each PO DAILY Reported Tresiba Flextouch U-100 (Insulin Degludec) 100 Unit/1 Ml Insuln.pen 80 Unit SQ 1200 Remeron (Mirtazapine) 15 Mg Tablet 15 Mg PO HS Hydrocodone-Acetamin 5-325 mg (Hydrocodone/Acetaminophen) 1 Each Tablet 1 Each PO Q6H PRN Gluco Burst (Dextrose) 37.5 Gm Gel..gram. 37.5 Gm PO Ondansetron Odt (Ondansetron) 4 Mg Tab.rapdis 4 Mg PO Q6H PRN Vitamin C (Ascorbate Calcium) 500 Mg Tablet 500 Mg PO DAILY Novolog Flexpen (Insulin Aspart) 300 Units/3 Ml Solution 34 Units SQ AC Ferrous Sulfate 325 Mg Tablet 325 Mg PO BID Gluco Burst (Dextrose) 37.5 Gm Gel..gram. 1 Packet PO UD PRN GIVE 1 PACKET EVERY 15 MINUTES NEEDED Glucagon Emergency Kit (Glucagon,Human Recombinant) 1 Mg/Kit Soln 1 Mg IJ UD PRN Duragesic Patch 12MCG (Fentanyl) 12 Mcg Patch 12 Mcg TD Q72H Cymbalta (Duloxetine HCl) 60 Mg Capsule.dr 60 Mg PO DAILY Ziprasidone HCl 60 Mg Capsule 60 Mg PO BID Magnesium Oxide 500 Mg Tablet 500 Mg PO DAILY Refresh Tears (Carboxymethylcellulose Sodium) 15 Ml Drops 1 Drop OU Q12H PRN Pantoprazole Sodium 20 Mg Tablet.dr 20 Mg PO BID Miralax (Polyethylene Glycol 3350) 17 Gm Powd.pack 17 Gm PO BID Gabapentin 300 Mg Capsule 600 Mg PO HS TAKES 2 (300MG) CAPSULES Tylenol (Acetaminophen) 325 Mg Tablet 650 Mg PO Q4H PRN TAKES 2 (325MG) TABLETS Aspir 81 (Aspirin) 81 Mg Tablet. 81 Mg PO DAILY Gabapentin 300 Mg Capsule 300 Mg PO 0900,1400 Xarelto (Rivaroxaban) 20 Mg Tablet 20 Mg PO HS Daily Multiple Vitamin (Multivitamin) 1 Each Tablet 1 Tab PO DAILY Colace (Docusate Sodium) 100 Mg Capsule 100 Mg PO BID Novolog Flexpen (Insulin Aspart) 300 Units/3 Ml Solution SQ ACHS 0-200 = 0 UNITS 201-250 = 3 UNITS 251-300 = 6 UNITS 301-350 = 9 UNITS 351-400 = 12 UNITS >400 OR <60 CALL PCP Vitamin D3 (Cholecalciferol (Vitamin D3)) 5,000 Unit Tablet 5,000 Unit PO DAILY Instructions to patient/family Please see electronic discharge instructions given to patient. Clinical Quality Measures DVT/VTE Risk/Contraindication: Risk Factor Score Per Nursin RFS Level Per Nursing on Admit: 4+=Very High Copy Copies To 1: MARCUS GARCIA DO Problem Qualifiers (1) Acute on chronic renal failure: Acute renal failure type: unspecified Chronic kidney disease stage: stage 3 ( moderate) Qualified Codes: N17.9 - Acute kidney failure, unspecified; N18.3 - Chronic kidney disease, stage 3 (moderate) (2) TBI (traumatic brain injury): Encounter type: sequela Loss of consciousness presence/duration: with LOC of unspecified duration Qualified Codes: S06.9X9S - Unspecified intracranial injury with loss of consciousness of unspecified duration, sequela (3) CAD (coronary artery disease): Coronary Disease-Associated Artery/Lesion type: [place] artery [place] vs. transplanted heart: [place] heart Associated angina: without angina Qualified Codes: I25.10 - Atherosclerotic heart disease of [place] coronary artery without angina pectoris (4) Uncontrolled diabetes mellitus: Diabetes mellitus type: type 2 Glycemic state: with hyperglycemia Qualified Codes: E11.65 - Type 2 diabetes mellitus with hyperglycemia (5) Hypertension: Hypertension type: essential hypertension Qualified Codes: I10 - Essential ( primary) hypertension AREN BRAUN MD Jul 11, 2018 09:38
[2018-07-11] MEDS ORDERED: PATCH REMOVAL TP SCH (10:30)
--- NOTE | 2018-07-11 10:38 | Cardiology Progress Note ---
Subjective Date Seen by Provider: Jul 11, 2018 Time Seen by Provider: 10:36 Subjective/Events-last exam patient is laying down in bed, feeling better, still having pain at the buttock area. Abdominal pain. Review of Systems General: No Chills, No Night Sweats, No Fatigue, No Malaise, No Appetite, No Other HEENT: No Head Aches, No Visual Changes, No Eye Pain, No Ear Pain, No Dysphasia , No Sinus Congestion, No Post Nasal Drip, No Sore Throat, No Other Pulmonary: Dyspnea; No Cough, No Pleuritic Chest Pain, No Other Cardiovascular: No: Chest Pain, Palpitations, Orthopnea, Paroxysmal Noc. Dyspnea, Edema, Lt Headedness, Other Objective-Cardiology Exam Last Set of Vital Signs Vital Signs Capillary Refill : Less Than 3 Seconds I&O Intake and Output 07/11/18 00:00 Intake Total 2010 ml Output Total 750 ml Balance 1260 ml Intake Oral 1010 ml IV Total 1000 ml Output Urine Total 700 ml Stool Total 50 ml # Voids 6 # Bowel Movements 1 General: Alert, Oriented X3, Cooperative, Mild Distress HEENT: PERRLA Neck: Supple, No JVD Lungs: Clear to Auscultation, Normal Air Movement Heart: Regular Rate, Normal S1, Normal S2 Abdomen: Soft, Other (mildly ttp) Extremities: No Clubbing Skin: No Rashes Neuro: Normal Speech Results Lab Laboratory Tests 07/10/18 14:15 07/10/18 18:10 07/10/18 22:10 07/11/18 05:30 A/P-Cardiology Admission Diagnosis Abdominal pain Acute renal failure Coronary artery disease Diabetes mellitus Assessment/Plan Abdominal pain, history of colostomy, history of lap band reversal done by Dr. Peoples in 2017. Has abdominal hernia. Underwent CT abd/pelvis revealing intramuscular hematomas. followed by Dr. Peoples. Acute renal failure. Some improvement with hydration. followed and managed by primary care physician Hyperkalemia, improved, continue to monitor. Diabetes mellitus, poorly controlled, hyperglycemia, better control at this time. Managed by primary care physician. Near syncope/dizziness, chronic. 24 H Holter of 04/15/18 showed NSR with avg HR 79 bpm, infrequent, isolated PVCs and PACs, one 6-beat run of SVT at 130 bpm, continue to monitor on telemetry Coronary artery disease, multiple interventions in the past, in 2007 patient had a bare metal stent to the obtuse marginal branch and drug-eluting stent to the proximal and midright coronary artery, in 2011 had Ion stent 2.512 mm to the right coronary artery. MPI of 11/29/16 showed no ischemia or infarction, LVEF 62%, has been followed by Dr Rocha, continue to monitor Liver mass, fatty infiltrates in the liver. Surgical consult was called. History of traumatic brain injury, patient was in coma for 8 months. History of schizophrenia. Clinical Quality Measures DVT/VTE Risk/Contraindication: Risk Factor Score Per Nursin RFS Level Per Nursing on Admit: 4+=Very High PENELOPE VALDES MD Jul 11, 2018 10:37
[2018-07-11 12:00] VITALS: BP 161/70
[2018-07-11] MEDS: fentaNYL PATCH 25 MCG (DURAGESIC) TD SCH (12:08)
[2018-07-11] MEDS: inSUlin DETERMIR 1 UNIT/0.01 ML (LEVEMIR) CHARGE PER UNIT SQ SCH (12:29)
--- NOTE | 2018-07-11 13:12 | NUR ---
CM DISCHARGE PLANNING: Patient is discharging today back to [facility]. They will transport the patient by their vehicle and will bring the patient's slide board for the transfer and the patient's wheel chair.
[2018-07-11 13:29] VITALS: BP 148/65
== END 2018-07-11 13:20 ==
LOC: EDUNIT# 00:13 → ER 00:14 → 4TH 02:10 → UNDOADMIN 02:10 → 4TH 13:45 → UNDODISIN 07-11 13:20 → 4TH 07-11 13:32
PROVIDERS: ADMIT Internal Medicine; ATTEND Internal Medicine
DX: N17.9 Acute kidney failure, unspecified (principal); M79.81 Nontraumatic hematoma of soft tissue; K43.5 Parastomal hernia without obstruction or gangrene; I12.9 Hypertensive chronic kidney disease with stage 1 through stage 4 chronic kidney disease, or unspecified chronic kidney disease; N18.3 Chronic kidney disease, stage 3 (moderate); F20.0 Paranoid schizophrenia; R16.0 Hepatomegaly, not elsewhere classified; K76.0 Fatty (change of) liver, not elsewhere classified; Z66 Do not resuscitate; I25.10 Atherosclerotic heart disease of native coronary artery without angina pectoris; E11.65 Type 2 diabetes mellitus with hyperglycemia; E11.40 Type 2 diabetes mellitus with diabetic neuropathy, unspecified; I48.91 Unspecified atrial fibrillation; G47.33 Obstructive sleep apnea (adult) (pediatric); E78.00 Pure hypercholesterolemia, unspecified; M10.9 Gout, unspecified; K59.09 Other constipation; G24.9 Dystonia, unspecified; L98.411 Non-pressure chronic ulcer of buttock limited to breakdown of skin; F32.9 Major depressive disorder, single episode, unspecified; R32 Unspecified urinary incontinence; E66.9 Obesity, unspecified; Z95.5 Presence of coronary angioplasty implant and graft; Z93.3 Colostomy status; Z79.4 Long term (current) use of insulin; Z99.3 Dependence on wheelchair; Z79.01 Long term (current) use of anticoagulants; Z87.820 Personal history of traumatic brain injury; Z87.828 Personal history of other (healed) physical injury and trauma; Z68.37 Body mass index [BMI] 37.0-37.9, adult
CPT/HCPCS: 36415; 71250; 74176; 80048; 80053; 81000; 82150; 82962; 83690; 85014; 85018; 85025; 85610; 85730; 87088; 93005; 93041; 96372; 96374; G0378

== ENCOUNTER 2018-07-13 05:30 | Emergency (ER) | payer MEDICARE ==
[~2018-07-13] VITALS: Ht 185.4 cm; Wt 131.2 kg
[~2018-07-13 05:30] MED LIST changes: +BENZ100C18 PO; +FENT1PAT8 TD; +HYDR-3812 PO; +MIRT15TA PO
[2018-07-13] MEDS ORDERED: DULO60CA6 PO (05:44)
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
--- NOTE | 2018-07-13 07:14 | NUR ---
TO ROOM NO NEW C/O ANOTHER WARM BLANKET OFFERED PATIENT DECLINED
--- NOTE | 2018-07-13 07:27 | NUR ---
CALLED [facility] REQUEST EMS TO COME GET PATIENT.
--- NOTE | 2018-07-13 07:29 | NUR ---
EMS CALLED TO TRANSFER BACK TO [facility].
[2018-07-13 07:56] VITALS: BP 125/71
--- NOTE | 2018-07-13 08:40 | Diagnostic Imaging Report ---
EXAMINATION: CT cervical, thoracic, and lumbar spine without contrast. INDICATION: Patient fell out of bed and complains of pain involving the entire back. COMPARISON: Multiple prior CT scans, most recent is a CT scan of the chest, abdomen and pelvis performed on 07/09/2018. FINDINGS: No fracture or acute osseous abnormality is demonstrated. Vertebral body heights are maintained in all levels of the spine. Spinal alignment is normal and intervertebral disc spaces are generally preserved. There is no evidence of traumatic subluxation. In the cervical spine, there are diffuse bridging anterior osteophytes involving almost the entire cervical region. Bulky anterior osteophyte formation is demonstrated at the C2-3 and C6-7 levels. In the thoracic spine, multilevel anterior osteophyte formation is demonstrated, with bulky bridging anterior osteophytes noted at the T9-10 level. In the lumbar spine, multilevel anterior osteophyte formation is demonstrated. No abnormality noted in the paravertebral and neck soft tissues. The visualized lungs are clear with the exception of mild dependent atelectasis. Scattered calcified pulmonary nodules are also noted. There is coronary artery calcification also demonstrated. An inferior vena cava filter is again demonstrated. There is calcification of the abdominal aorta, without aneurysmal dilatation. There is marked heterogeneous attenuation of the liver, which is similar in appearance to prior abdominal CT. The visualized abdominal viscera are otherwise unremarkable. IMPRESSION: No evidence of acute fracture or traumatic subluxation involving the cervical, thoracic, or lumbar spine. Unchanged marked heterogeneous appearance of the liver, with diffuse ill-defined hypodensity. Findings are nonspecific and indeterminate based on the current exam. Malignancy/metastatic disease is not excluded. This can be further evaluated with hepatic MRI, if clinically indicated. Findings are in agreement with initial teleradiology report. Dictated by: Dictated on workstation # [id number]
--- NOTE | 2018-07-13 09:05 | Diagnostic Imaging Report ---
INDICATION: Found on floor at senior living. Pain. TECHNIQUE: AP pelvis 7:05 AM CORRELATION STUDY: None FINDINGS: The pelvis demonstrates no evidence for acute fracture. The pectineal lines and obturator rings are maintained. Pubic symphysis and SI joints are unremarkable. Hips unremarkable. Vascular calcification is present. IMPRESSION: Negative examination of the pelvis. Dictated by: Dictated on workstation # [id number]
== END 2018-07-13 07:55 ==
LOC: EDUNIT# 05:30 → ER 05:31
DX: M54.2 Cervicalgia (principal); G83.9 Paralytic syndrome, unspecified; G47.30 Sleep apnea, unspecified; I48.91 Unspecified atrial fibrillation; I25.10 Atherosclerotic heart disease of native coronary artery without angina pectoris; E78.00 Pure hypercholesterolemia, unspecified; I10 Essential (primary) hypertension; E11.40 Type 2 diabetes mellitus with diabetic neuropathy, unspecified; F32.9 Major depressive disorder, single episode, unspecified; F20.9 Schizophrenia, unspecified; E66.01 Morbid (severe) obesity due to excess calories; Z91.5 Personal history of self-harm; Z85.118 Personal history of other malignant neoplasm of bronchus and lung; Z68.37 Body mass index [BMI] 37.0-37.9, adult; Z87.19 Personal history of other diseases of the digestive system; Z98.84 Bariatric surgery status; Z87.448 Personal history of other diseases of urinary system; Z87.820 Personal history of traumatic brain injury; Z95.5 Presence of coronary angioplasty implant and graft; Z98.61 Coronary angioplasty status; Z90.89 Acquired absence of other organs; Z98.890 Other specified postprocedural states
CPT/HCPCS: 72125; 72128; 72131; 72170

== ENCOUNTER → 2018-10-17 | Outpatient (CLI) | payer MEDICARE, MEDICAID ==
[~2018-10-17] MED LIST changes: -RIVA20TA PO; +RIVA20TA2 PO; +RT-ALBUTEROL SULF 2.5 MG/3 ML PRE-MIX VIAL INH ONE
[2018-10-17 12:21] LABS: CREATININE SERUM 1.98 MG/DL (0.60-1.30)
--- NOTE | 2018-10-17 14:36 | Diagnostic Imaging Report ---
PROCEDURE: CT chest without contrast. TECHNIQUE: Multiple contiguous axial images were obtained through the chest without the use of intravenous contrast. Auto Exposure Controls were utilized during the CT exam to meet ALARA standards for radiation dose reduction. INDICATION: Shortness of air and pulmonary nodule. COMPARISON: CT chest of 07/09/2018. FINDINGS: Lungs and airway: No endoluminal nodule within the trachea. No pulmonary mass or consolidation. Previously noted right lower lobe subsegmental atelectasis has resolved. There are scattered calcified and noncalcified pulmonary nodules within the bilateral lungs that are stable. The largest noncalcified nodules in the posterior right upper lobe measuring 0.4 cm. No new pulmonary nodule. Pleura: No pleural effusion or pneumothorax. Heart and mediastinum: Thyroid is normal. No supraclavicular or axillary lymphadenopathy. No mediastinal, hilar or juxtaphrenic lymphadenopathy. The heart is normal in size. Coronary artery calcifications and/or stents are unchanged. Upper abdomen: Unchanged heterogeneous hypointensity throughout both hepatic lobes, but greater on the right. No acute abnormality in the upper abdomen. Musculoskeletal: No concerning focal osseous lesions. IMPRESSION: 1. No acute cardiopulmonary process. 2. Scattered bilateral pulmonary nodules are stable and likely due to sequelae of old granulomatous infection. 3. Heterogeneous appearance of liver is unchanged and remains indeterminate etiology. Dictated by: Dictated on workstation # [id number]
== END ==
LOC: RAD 11:45
PROVIDERS: ATTEND Nurse Practitioner Family
DX: J98.4 Other disorders of lung (principal); R91.8 Other nonspecific abnormal finding of lung field
CPT/HCPCS: 36415; 71250; 82565; 84520; 94060; 94729

== ENCOUNTER → 2018-11-18 | Day surgery (SDC) | payer MEDICARE, MEDICAID ==
[~2018-11-18] VITALS: Ht 185.4 cm; Wt 136.1 kg
[~2018-11-18] MED LIST changes: +LIDOCAINE 1% INJ 20 ML 20 ML VIAL INJ ONE; -RT-ALBUTEROL SULF 2.5 MG/3 ML PRE-MIX VIAL INH ONE
[2018-11-18 08:18] VITALS: BP 154/73
--- NOTE | 2018-11-18 09:12 | Cardiac Procedure Note-CS/ASA ---
Pre-Procedure Note Pre-Op Procedure Note H&P Reviewed The H&P was reviewed, patient examined and no changes noted. Date H&P Reviewed: November 18, 2018 Time H&P Reviewed: 08:55 Conscious Sedation Pre-Proced Time 08:55 ASA Score 3 For ASA 3 and 4: Consider anesthesia and medical clearance. Also, for patients with a history of failed moderate sedation consider anesthesia. Airway Lungs Heart ASA score ASA 1: a normal healthy patient ASA 2: a patient with a mild systemic disease (mid diabetes, controlled hypertension, obesity ASA 3: a patient with a severe systemic disease that limits activity (angina , COPD, prior Myocardial infarction) ASA 4: a patient with an incapacitating disease that is a constant threat to life (CHF, renal failure) ASA 5: a moribund patient not expected to survive 24 hrs. (ruptured aneurysm) ASA 6: a declared brain- patient whose organs are being harvested. For emergent operations, add the letter E after the classification Mallampati Classification Grade 2 Sedation Plan Analgesia, Amnesia, Plan communicated to team members, Discussed options with patient/fam, Discussed risks with patient/fam The patient is an appropriate candidate to undergo the planned procedure, sedation, and anesthesia. The patient immediately re-assessed prior to indication. AKSHAT SEYMOUR MD FACP FAC CCDS November 18, 2018 09:12
--- NOTE | 2018-11-18 09:53 | NUR ---
PT WAS DROPPED OFF FROM FACILITY BY TRANSPORT PERSON. CONSENT OBTAINED FROM POA. PROCEDURE COMPLETED WITHOUT DIFF. PT TOLERATED WELL. WENT OVER INSTRUCTIONS WITH PT REGARDING WOUND CARE AND MONITOR. ALSO, LEFT NUMBER ON PAPERWORK FOR FACILITY RN TO CONTACT THIS RN FOR INSTRUCTIONS WELL.
--- NOTE | 2018-11-18 14:17 | OPERATIVE REPORT ---
DATE OF SERVICE: 11/18/2018 PREOPERATIVE DIAGNOSIS: Palpitations. POSTOPERATIVE DIAGNOSIS: Palpitations. PROCEDURE: Implantable loop recorder implantation. INDICATIONS: The patient is a 63-year-old man who has palpitations that are persistent after empiric beta-alessandra therapy, albeit less frequent. He continues to be quite symptomatic with these palpitations that are currently infrequent. Implantable loop recorder implantation was carried out today after having obtained an informed consent. [facility] The left prepectoral area was prepared and draped in the usual sterile fashion. Lidocaine 1% was used for local anesthesia. The tools provided with the implantable loop recorder were used to make a subcutaneous pocket anterior to the left fourth intercostal space into which the device was placed and the incision closed with Dermabond and Steri-Strips. The device used is Skill-Life Reveal LINQ with serial #[id number]. He tolerated the procedure well. Job ID: [id number] DocumentID: [id number] Dictated Date: 11/18/2018 09:10:42 Envelope Addresser Date: 11/18/2018 14:17:04 Dictated By: AKSHAT SEYMOUR MD, MA, FACP, FACC,
== END | disposition home or self-care (01) ==
LOC: CATH 08:02
PROVIDERS: ATTEND Internal Medicine Cardiovascular Disease
DX: R00.2 Palpitations (principal); I25.10 Atherosclerotic heart disease of native coronary artery without angina pectoris; I12.9 Hypertensive chronic kidney disease with stage 1 through stage 4 chronic kidney disease, or unspecified chronic kidney disease; N18.9 Chronic kidney disease, unspecified; E11.21 Type 2 diabetes mellitus with diabetic nephropathy; E78.49 Other hyperlipidemia; I49.5 Sick sinus syndrome; I08.1 Rheumatic disorders of both mitral and tricuspid valves; I83.891 Varicose veins of right lower extremity with other complications; I83.019 Varicose veins of right lower extremity with ulcer of unspecified site; L97.919 Non-pressure chronic ulcer of unspecified part of right lower leg with unspecified severity; E66.9 Obesity, unspecified; Z68.39 Body mass index [BMI] 39.0-39.9, adult; Z79.01 Long term (current) use of anticoagulants; Z79.82 Long term (current) use of aspirin; Z79.4 Long term (current) use of insulin; Z79.899 Other long term (current) drug therapy; Z23 Encounter for immunization
CPT/HCPCS: 33285; 90471

== ENCOUNTER → 2018-12-02 | Outpatient (CLI) | payer MEDICARE, MEDICAID ==
[~2018-12-02] MED LIST changes: +CATHETER FLUSH 10 ML SYR IV PRN; -LIDOCAINE 1% INJ 20 ML 20 ML VIAL INJ ONE; +REGADENOSON 0.4 MG/5 ML SYR (LEXISCAN) IV ONE
[2018-12-02 09:24] VITALS: BP 137/68
--- NOTE | 2018-12-02 19:04 | STRESS TEST ---
DATE OF SERVICE: 12/02/2018 RESTING AND POST REGADENOSON TECHNETIUM-99M TETROFOSMIN SPECT CT IMAGING ORDERING PHYSICIAN: Dr. Rocha. PRIMARY CARE PHYSICIAN: Dr. Garcia. CLINICAL DIAGNOSES: Palpitation, shortness of breath, coronary artery disease, hypertension. Baseline images were carried out after injection of 10.28 mCi of technetium-99m Tetrofosmin. This was followed by 0.4 mg of regadenoson and 30.4 mCi of technetium-99m Tetrofosmin. The electrocardiogram showed sinus rhythm during the study. The electrocardiogram did not change significantly with the regadenoson infusion. The patient tolerated the procedure well. Review of images at rest and following stress does not indicate any significant perfusion defects consistent with significant myocardial ischemia or infarction. Gated images show normal global left ventricular systolic function and normal regional wall motion. Left ventricular ejection fraction is calculated to be 59%. Left ventricular end diastolic volume is 60 mL. TID is absent (0.96). CONCLUSIONS: 1. No evidence of any significant myocardial ischemia or infarction on this study. 2. Normal regional wall motion. 3. Normal global left ventricular systolic function with a calculated ejection fraction of 59%. Job ID: [id number] DocumentID: [id number] Dictated Date: 12/02/2018 17:24:41 Cloud Administrator Date: 12/02/2018 19:03:48 Dictated By: AKSHAT ROCHA MD, MA, FACP, FACC,
== END ==
LOC: CARD 06:34
PROVIDERS: ATTEND Internal Medicine Cardiovascular Disease
DX: R00.2 Palpitations (principal); R06.02 Shortness of breath; I25.10 Atherosclerotic heart disease of native coronary artery without angina pectoris; I77.89 Other specified disorders of arteries and arterioles; I10 Essential (primary) hypertension; I34.0 Nonrheumatic mitral (valve) insufficiency
CPT/HCPCS: 78452; 93017

== ENCOUNTER → 2019-01-01 | Outpatient (CLI) | payer MEDICARE, MEDICAID ==
[~2019-01-01] MED LIST changes: -CATHETER FLUSH 10 ML SYR IV PRN; -REGADENOSON 0.4 MG/5 ML SYR (LEXISCAN) IV ONE
== END ==
LOC: CARD 12:52
PROVIDERS: ATTEND Nurse Practitioner Family
DX: I25.10 Atherosclerotic heart disease of native coronary artery without angina pectoris (principal); I10 Essential (primary) hypertension; I34.0 Nonrheumatic mitral (valve) insufficiency; R00.2 Palpitations
CPT/HCPCS: 93306

== ENCOUNTER → 2019-02-11 | Outpatient (CLI) | payer MEDICARE, MEDICAID | LOC: WOUNDCARE 12:05 | PROVIDERS: ATTEND Surgery | DX: I87.323 Chronic venous hypertension (idiopathic) with inflammation of bilateral lower extremity (principal); I70.203 Unspecified atherosclerosis of native arteries of extremities, bilateral legs; M62.3 Immobility syndrome (paraplegic); R41.83 Borderline intellectual functioning | CPT/HCPCS: 99214 ==

== ENCOUNTER → 2019-02-13 | Outpatient (CLI) | payer MEDICARE, MEDICAID ==
--- NOTE | 2019-02-13 14:00 | Diagnostic Imaging Report ---
Ultrasound, noninvasive extremities. Indication: Leg pain. Routine images of the lower extremities were obtained. The ankle brachial index on the right is 0.99 and on the left 1.01 (normal 1.00 or greater). Impression: The ankle-brachial indices are essentially within normal limits. Dictated by: Dictated on workstation # [id number]
== END ==
LOC: RAD 10:37
PROVIDERS: ATTEND Surgery
DX: I87.323 Chronic venous hypertension (idiopathic) with inflammation of bilateral lower extremity (principal); M62.3 Immobility syndrome (paraplegic); I70.203 Unspecified atherosclerosis of native arteries of extremities, bilateral legs
CPT/HCPCS: 93923

== ENCOUNTER → 2019-02-23 | Outpatient (CLI) | payer MEDICARE, MEDICAID ==
[~2019-02-23] MED LIST changes: +CATHETER FLUSH 10 ML SYR IV PRN; +REGADENOSON 0.4 MG/5 ML SYR (LEXISCAN) IV ONE
[2019-02-23 10:38] VITALS: BP 146/78
--- NOTE | 2019-02-23 10:38 | Cardiology Stress Test Report ---
Stress Test Report Type of NM Stress Test: Test Type: LEXISCAN 0.4MG/5ML Date of Procedure/Referring: Date of Procedure: Feb 23, 2019 PCP Marcus Garcia DO Admitting Physician Marcus Garcia DO Indications: Preoperative risk assessment. Baseline Heart Rate: 67 Baseline Blood Pressure: Blood Pressure Systolic: 146 Blood Pressure Diastolic: 78 Baseline EKG: Baseline EKG: sinus rhythm Summary & Conclusion: Summary: The patient was brought to the stress lab after informed consent was taken. Stress test was performed according to the Lexiscan protocol. 0.4 mg of IV Lexiscan was given. Baseline EKG showed sinus rhythm at 67 BPM. Initial blood pressure was 146/78 mmHg. Maximum heart rate was 80 bpm and blood pressure 1 50/78 mmHg. Patient did not have any chest pain, arrhythmias or ST segment changes during the stress test. 10.21 mCi of Myoview were given for rest imaging and 29.8 mCi of Myoview given for stress imaging. Transient ischemic dilatation score 1.0, EF 52 percent. Normal wall motion. No Attenuation correction done. Moderate sized, severe intensity inferior reversible defect. Conclusion: Pharmacological stress test was negative for ischemia. Normal LV function with no wall motion abnormalities. No attenuation correction. Evidence of inferior ischemia. Coronary angiography is recommended. Copy Copies To 1: MARCUS GARCIA M RIZWAN MD Feb 23, 2019 10:38
== END ==
LOC: CARD 06:41
PROVIDERS: ATTEND Internal Medicine
DX: Z01.810 Encounter for preprocedural cardiovascular examination (principal)
CPT/HCPCS: 78452; 93017

== ENCOUNTER 2019-03-03 06:59 | Day surgery (SDC) | payer MEDICARE, MEDICAID ==
[2019-03-03] VITALS (14 sets, daily range): BP systolic 105–164; BP diastolic 47–100
[~2019-03-03] VITALS: Ht 185.4 cm; Wt 139.7 kg
[~2019-03-03 06:59] MED LIST changes: -CATHETER FLUSH 10 ML SYR IV PRN; +HEParin (CATH LAB) 2,000 ML IV ONE; +LIDOCAINE 1% INJ 20 ML 20 ML VIAL ONE; +NS IV 1000 ML 1,000 ML ONE; -REGADENOSON 0.4 MG/5 ML SYR (LEXISCAN) IV ONE
[2019-03-03] MEDS ORDERED: NS IV 1000 ML 1,000 ML IV SCH (07:15)
[2019-03-03 07:35] LABS: HEMOGLOBIN 13.5 G/DL (13.3-17.7); MEAN PLATELET VOLUME 10.9 FL (7.4-10.4); RED CELL DISTRIBUTION WIDTH 14.5 % (10.0-14.5); WHITE BLOOD COUNT 8.9 10^3/uL (4.3-11.0)
[2019-03-03 07:47] LABS: PROTHROMBIN TIME PATIENT 13.7 SEC (12.2-14.7)
[2019-03-03 07:54] LABS: ALBUMIN 3.5 GM/DL (3.2-4.5); BILIRUBIN,TOTAL 0.5 MG/DL (0.1-1.0); CALCIUM 9.3 MG/DL (8.5-10.1); CREATININE SERUM 1.85 MG/DL (0.60-1.30); POTASSIUM 5.2 MMOL/L (3.6-5.0); TOTAL PROTEIN 7.3 GM/DL (6.4-8.2)
[2019-03-03] MEDS ORDERED: fentaNYL INJECTION 100 MCG/2 ML AMP ONE (08:02)
[2019-03-03] MEDS ORDERED: MIDAZOLAM 5 MG/5 ML (VERSED) VIAL ONE (08:02)
[2019-03-03] MEDS ORDERED: MULT1TAB69 PO (08:22)
[2019-03-03] MEDS ORDERED: ONDA4TAB11 PO (08:22)
[2019-03-03] MEDS ORDERED: MAGN400T7 PO (08:22)
[2019-03-03] MEDS ORDERED: ATOR10TA PO (08:22)
[2019-03-03] MEDS ORDERED: INSU100V16 SQ ×2 (08:22)
[2019-03-03] MEDS ORDERED: MIRA50TA PO (08:22)
[2019-03-03] MEDS ORDERED: ASPI-586 PO (08:22)
[2019-03-03] MEDS ORDERED: ZIPR80CA23 PO (08:22)
[2019-03-03] MEDS ORDERED: METO-352 PO (08:22)
[2019-03-03] MEDS ORDERED: MELA5TAB21 PO (08:22)
[2019-03-03] MEDS ORDERED: FENT1PAT57 TD (08:22)
[2019-03-03] MEDS ORDERED: LIRA0.6P3 SQ (08:22)
[2019-03-03] MEDS ORDERED: DOXA2TAB PO (08:22)
[2019-03-03] MEDS ORDERED: DIPH25CA79 PO (08:22)
[2019-03-03] MEDS ORDERED: LAMO25TA75 PO (08:22)
--- NOTE | 2019-03-03 08:25 | NUR ---
SPOKE WITH PT, HE WAS UNSURE OF HIS MEDS SO I CALLED [facility] TO FAX OVER HIS /SEP. I ENTERED THE MED FROM THE [facility] ORDER SUMMARY REPORT. I WILL ALSO GIVE A COPY OF THIS TO [employer] INCASE THEY WANT TO INCLUDE THIS IN HIS CHART.
[2019-03-03] MEDS ORDERED: HEParin 1000 UNIT/ML (10ML VIAL) FOR BOLUS ONE (08:52)
[2019-03-03] MEDS ORDERED: NITRO DRIP 25000 MCG/D5W 0 ML IV ONE (08:52)
[2019-03-03] MEDS ORDERED: EPTIFIBATIDE BOLUS 20 ML IV ONE (08:52)
[2019-03-03] MEDS ORDERED: EPTIFIBATIDE BOLUS 10 ML IV ONE (09:00)
[2019-03-03] MEDS ORDERED: CLOPIDOGREL 300 MG (PLAVIX) TABLET PO ONE (09:21)
[2019-03-03] MEDS ORDERED: ASPIRIN 81 MG CHEW (CHILDREN'S ASA) ONE (09:21)
--- NOTE | 2019-03-03 09:38 | Cardiac Procedure Note-CS/ASA ---
Pre-Procedure Note Pre-Op Procedure Note H&P Reviewed The H&P was reviewed, patient examined and no changes noted. Date H&P Reviewed: Mar 03, 2019 Time H&P Reviewed: 08:30 Conscious Sedation Pre-Proced Time 08:30 ASA Score 3 For ASA 3 and 4: Consider anesthesia and medical clearance. Also, for patients with a history of failed moderate sedation consider anesthesia. Airway Lungs Heart ASA score ASA 1: a normal healthy patient ASA 2: a patient with a mild systemic disease (mid diabetes, controlled hypertension, obesity ASA 3: a patient with a severe systemic disease that limits activity (angina, COPD, prior Myocardial infarction) ASA 4: a patient with an incapacitating disease that is a constant threat to life (CHF, renal failure) ASA 5: a moribund patient not expected to survive 24 hrs. (ruptured aneurysm) ASA 6: a declared brain- patient whose organs are being harvested. For emergent operations, add the letter E after the classification Mallampati Classification Grade 3 Sedation Plan Analgesia, Amnesia, Plan communicated to team members, Discussed options with patient/fam, Discussed risks with patient/fam The patient is an appropriate candidate to undergo the planned procedure, sedation, and anesthesia. The patient immediately re-assessed prior to indication. AKSHAT SEYMOUR MD FACP FAC CCDS Mar 03, 2019 09:37
[2019-03-03] MEDS ORDERED: PATIENT MAY USE OWN MEDS, ALL PO SCH (09:45)
[2019-03-03] MEDS ORDERED: DEXTROSE 40% ORAL GEL 37.5 ML TUBE PO PRN (09:45)
[2019-03-03] MEDS ORDERED: ACETAMINOPHEN 325 MG TABLET PO PRN (09:45)
[2019-03-03] MEDS ORDERED: ONDANSETRON 4 MG (ZOFRAN) ORAL DISSOLVE TAB PO PRN (09:45)
[2019-03-03] MEDS ORDERED: GLUCAGON EMERGENCY 1 MG/KIT IJ PRN (09:45)
--- NOTE | 2019-03-03 09:54 | CARDIAC CATHETERIZATION ---
DATE OF SERVICE: 03/03/2019 CARDIAC CATHETERIZATION AND CORONARY INTERVENTION REPORT The patient is a 63-year-old man, who has known coronary artery disease and has previously had coronary interventions to an obtuse marginal and to the proximal and mid right coronary artery. A myocardial perfusion imaging recently indicated considerable ischemia and cardiac catheterization was carried out after having obtained an informed consent. DESCRIPTION OF PROCEDURE: He was brought to the cardiac catheterization laboratory in a fasting state. Right groin was prepared and draped in usual sterile fashion. Lidocaine 1% was used for local anesthesia. Modified Seldinger technique was used to advance a 5-Burkinan sheath in right femoral artery. A 5-Burkinan JL3.5 catheter was used for left coronary angiography, a 5-Burkinan JR4 catheter was used for right coronary angiography, a 5-Burkinan pigtail catheter was used for left heart catheterization. Left ventricular angiography was not performed. This was due to save contrast because of the patient's chronic kidney disease. Vigorous perioperative hydration was carried out prior to the procedure and continued during the procedure and afterwards. Following completion of the diagnostic procedure, intervention was carried out to the ostial and proximal left anterior descending artery that is described below. PERCUTANEOUS INTERVENTION OF THE LEFT ANTERIOR DESCENDING ARTERY: The left anterior descending artery was exhibiting 80% ostial and proximal stenosis. We exchanged the sheath over a wire for a 6-Burkinan sheath. We gave 8000 units of intravenous heparin and double bolus of Integrilin. We used a 6-Burkinan JL3.5 guide catheter to engage the left coronary artery. We advanced a BMW wire across the lesion and the tip was placed in the distal vessel. We advanced Alpine Xience 2.75 x 15 mm stent to cover the lesion. This was carefully positioned to cover the ostial and proximal left anterior descending artery lesion without projecting the stent into the left main. The stent was deployed at 20 atmospheres. Subsequent angiography revealed 0% residual stenosis and flow throughout the vessel is normal. The patient tolerated the procedure well. The angioplasty equipment was removed. Angiography of the right femoral artery was carried out through the sheath. Mynx was used to achieve hemostasis. Overall, he tolerated the procedure well. HEMODYNAMICS: Left ventricular end-diastolic pressure following coronary angiography was 11 mmHg. There did not appear to be significant pressure gradient on pullback across the aortic valve. Ascending aortic pressure was 156/62 with a mean of 96 mmHg. LEFT VENTRICULAR ANGIOGRAPHY: Left ventricular angiography was not performed to save contrast because of the patient's chronic kidney disease. CORONARY ANGIOGRAPHY: Diffuse coronary calcification is present. Left main coronary artery did not exhibit significant obstructive disease. Left anterior descending artery had 80% ostial and proximal stenosis to which successful stenting was carried out as described above. Left circumflex artery had a bifurcation lesion that consisted of 50% stenosis within the mid left circumflex and 70 to 80% ostial stenosis of an obtuse marginal. The obtuse marginal had a patent proximal stent. The distal portion of this obtuse marginal had 60 to 70% stenosis. The right coronary artery is dominant and has a long stented segment in its proximal and mid portions that is patent, up to 40% multiple stenoses are seen in the right coronary artery. CONCLUSIONS: 1. Coronary artery disease is primarily consisting of 80% ostial and proximal stenosis of the left anterior descending artery, which was successfully stented with Alpine Xience 2.75 x 15 mm stent that was deployed at 20 atmospheres. The left circumflex has 50% mid vessel stenosis and a bifurcation lesion in which the first obtuse marginal has 70 to 80% ostial stenosis. The obtuse marginal has a patent stent in its proximal portion and the distal obtuse marginal has 60 to 70% stenosis. The right coronary artery has a long patent stented segment. There are multiple up to 40% stenosis in the right coronary. 2. Normal left ventricular end-diastolic pressure. DISCUSSION AND RECOMMENDATIONS: Dual antiplatelet therapy is being continued. Statin therapy, as tolerated, will be continued. The mid left circumflex artery lesion is relatively moderate and appears best treated medically, at this time. He is being hospitalized for observation after today's procedure. Job ID: [id number] DocumentID: [id number] Dictated Date: 03/03/2019 09:34:48 Electric Fan Assembler Date: 03/03/2019 09:53:50 Dictated By: AKSHAT SEYMOUR MD, MA, FACP, FACC,
[2019-03-03] MEDS ORDERED: ONDANSETRON 4 MG/2 ML (SDV) Z0FRAN ONE (10:13)
[2019-03-03] MEDS ORDERED: ONDANSETRON 4 MG/2 ML (SDV) Z0FRAN IVP PRN (10:15)
[2019-03-03] MEDS ORDERED: diphenhydrAMINE 25 MG TAB (BENADRYL) PO PRN (10:30)
[2019-03-03] MEDS ORDERED: HYDROcodone/APAP 5 MG/325 MG (LORTAB) TAB PO PRN (10:30)
[2019-03-03] MEDS ORDERED: ARTIFICAL TEARS 0.4 ML UNIT DOSE (REFRESH PLUS) OU PRN (10:30)
[2019-03-03] MEDS: NS IV 1000 ML 1,000 ML IV SCH (11:23)
[2019-03-03] MEDS ORDERED: inSUlin ASPART (NovoLOG) 1 UNIT/0.01 ML (CHARGE PER UNIT) SC SCH (12:00)
[2019-03-03] MEDS: GABAPENTIN 300 MG (NEURONTIN) CAP PO SCH (14:09)
[2019-03-03] MEDS: ZIPRASIDONE 40 MG (GEODON) CAP PO SCH (17:18)
[2019-03-03] MEDS: inSUlin ASPART (NovoLOG) 1 UNIT/0.01 ML (CHARGE PER UNIT) SC SCH ×2 (17:19→21:14)
[2019-03-03] MEDS ORDERED: ATORVASTATIN 10 MG (LIPITOR) TABLET PO SCH (21:00)
[2019-03-03] MEDS ORDERED: GABAPENTIN 300 MG (NEURONTIN) CAP PO SCH (21:00)
[2019-03-03] MEDS ORDERED: lamoTRIgine 25 MG (LaMICtal) TAB PO SCH (21:00)
[2019-03-03] MEDS ORDERED: doxAzosin 2 MG (CARDURA) TAB PO SCH (21:00)
[2019-03-03] MEDS ORDERED: ZIPRASIDONE 80 MG (GEODON) CAP PO SCH (21:00)
[2019-03-03] MEDS ORDERED: MELATONIN 3 MG TABLET PO SCH (21:00)
[2019-03-03] MEDS: FERROUS SULF 325 MG (IRON) TAB PO SCH (21:14)
[2019-03-03] MEDS: PANTOPRAZOLE 20 MG TABLET (PROTONIX) PO SCH (21:17)
[2019-03-03] MEDS: DOCUSATE SODIUM 100 MG (COLACE) CAP PO SCH (21:17)
[2019-03-03] MEDS: POLYETHYLENE GLYCOL 17 GM (MIRALAX) PACK PO SCH (21:17)
[2019-03-04] VITALS: BP 91/59
[2019-03-04 02:22] VITALS: BP 118/62
[2019-03-04] MEDS: NS IV 1000 ML 1,000 ML IV SCH (02:24)
[2019-03-04 03:19] LABS: HEMOGLOBIN 11.5 G/DL (13.3-17.7); RED CELL DISTRIBUTION WIDTH 14.5 % (10.0-14.5); WHITE BLOOD COUNT 7.6 10^3/uL (4.3-11.0)
[2019-03-04 03:36] LABS: CALCIUM 9.2 MG/DL (8.5-10.1); CREATININE SERUM 1.82 MG/DL (0.60-1.30); POTASSIUM 4.8 MMOL/L (3.6-5.0)
[2019-03-04 04:00] VITALS: BP 109/63
[2019-03-04 08:00] VITALS: BP 138/71
--- NOTE | 2019-03-04 08:04 | Progress Note - Cardiology ---
Cardiology SOAP Progress Note Objective: I&O/Vital Signs Weight (Pounds): 308 Weight (Ounces): 0.0 Weight (Calculated Kilograms): 139.834708 Results/Procedures: Labs Microbiology 03/03/19 MRSA Screen - Final, Complete MRSA not isolated A/P: Assessment: Coronary artery disease is primarily consisting of 80% ostial and proximal stenosis of the left anterior descending artery, which was successfully stented with Alpine Xience 2.75 x 15 mm stent that was deployed at 20 atmospheres. The left circumflex has 50% mid vessel stenosis and a bifurcation lesion in which the first obtuse marginal has 70 to 80% ostial stenosis. The obtuse marginal has a patent stent in its proximal portion and the distal obtuse marginal has 60 to 70% stenosis. The right coronary artery has a long patent stented segment. There are multiple up to 40% stenosis in the right coronary. Normal left ventricular end-diastolic pressure. Per cardiac cath of 03-03-19 MPI of 02/23/19 (Dr Serrano) showed inferior ischemia and LV function and normal wall motion Palpitations - h/o brief PSVT/PAF in the past - refuses OAC - s/p ILR implant on 11-18-18 - no arrhythmia seen thus far (patient-reported symptoms have shown sinus tach) Near syncope/dizziness, chronic. 24 H Holter of 04/15/18 showed NSR with avg HR 7 9 bpm, infrequent, isolated PVCs and PACs, one 6-beat run of SVT at 130 bpm H/O lap band removal in late February 2017 (Dr. Peoples) Carotid u/s of February 2017: minimal bilat carotid dz Hypertension, controlled History of head trauma resulted in unsteady gait and weakness, now wheel-chair bound History of intolerance to ROSARIO inhibitor secondary to postural hypotension Hyperlipidemia Diabetes mellitus, followed and managed by primary care physician CKD-3, diabetic nephropathy Chronic pedal edema, chronic venous stasis changes in the lower extremities; venous ulcers on the R leg, managed by Dr Estrada Normal ABIs in Apr 2016 (Dr Lora's office) Tailbone/anal pain. Anal fistula/piolonidal cyst - s/p colostomy - Dr. Peoples. He is currently awaiting colostomy reversal BISI GALEANA Mar 04, 2019 08:04
--- NOTE | 2019-03-04 08:22 | Progress Note - Cardiology ---
Cardiology SOAP Progress Note Subjective: No cp or palp or syncope Chronic exertional shortness of breath, unchanged No groin discomfort Wishes to go home Objective: I&O/Vital Signs 03/03/19 03/04/19 03/04/19 03/04/19 22:00 00:00 00:00 01:00 Temp 97.1 Pulse 81 84 91 Resp 10 9 B/P (MAP) 105/47 (66) 91/59 (70) Pulse Ox 97 96 O2 Delivery Nasal Cannula Nasal Cannula O2 Flow Rate 2.00 2.00 03/04/19 03/04/19 02:22 04:00 Pulse 89 87 Resp 11 10 B/P (MAP) 118/62 (80) 109/63 (78) Pulse Ox 98 98 O2 Delivery Nasal Cannula Nasal Cannula O2 Flow Rate 2.00 2.00 03/04/19 00:00 Intake Total 290 ml Output Total 200 ml Balance 90 ml Weight (Pounds): 308 Weight (Ounces): 0.0 Weight (Calculated Kilograms): 139.957002 Condition: DP/PT pulses palpable Device Insertion Site: without hematoma Bruising: mild bruising Constitutional: AAO x 3, well-developed, well-nourished Respiratory: No accessory muscle use; other (fair to good bilat air entry) Cardiovascular: regular rate-rhythm, S1 and S2, systolic murmur (faint MARY at card base) Gastrointestional: No tender; soft; No guarding, No rebound; audible bowel sounds Extremities: swelling (Chronic bilat leg swelling and discoloration of leg skin); No clubbing, No cyanosis Neurologic/Psychiatric: oriented x 3, other (moves all limbs equally) Skin: No rash, No ulcerations Results/Procedures: Labs Laboratory Tests 03/03/19 12:12: Glucometer 326H 03/03/19 17:12: Glucometer 323H 03/03/19 21:12: Glucometer 325H 03/04/19 02:57: White Blood Count 7.6, Red Blood Count 3.69L, Hemoglobin 11.5L, Hematocrit 36L, Mean Corpuscular Volume 98, Mean Corpuscular Hemoglobin 31, Mean Corpuscular Hemoglobin Concent 32, Red Cell Distribution Width 14.5, Platelet Count 120L, Mean Platelet Volume 11.0H, Sodium Level 139, Potassium Level 4.8, Chloride Level 106, Carbon Dioxide Level 23, Anion Gap 10, Blood Urea Nitrogen 27H, Creatinine 1.82H, Estimat Glomerular Filtration Rate 38, BUN/Creatinine Ratio 15, Glucose Level 214H, Calcium Level 9.2 Laboratory Tests 03/03/19 07:25 03/04/19 02:57 A/P: Assessment: CAD. Last card cath on 03/03/19: 80% ostial and proximal stenosis of the left anterior descending artery, which was successfully stented with Alpine Xience 2.75 x 15 mm stent that was deployed at 20 atmospheres. The left circumflex has 50% mid vessel stenosis and a bifurcation lesion in which the first obtuse marginal has 70 to 80% ostial stenosis. The obtuse marginal has a patent stent in its proximal portion and the distal obtuse marginal has 60 to 70% stenosis. The right coronary artery has a long patent stented segment. There are multiple up to 40% stenosis in the right coronary. Normal left ventricular end-diastolic pressure MPI of 02/23/19 (Dr Serrano) showed inferior ischemia and LV function and normal wall motion Palpitations - h/o brief PSVT/PAF in the past - refuses OAC - s/p ILR implant on 11-18-18 - no arrhythmia seen thus far (patient-reported symptoms have shown sinus tach) Near syncope/dizziness, chronic. 24 H Holter of 04/15/18 showed NSR with avg HR 79 bpm, infrequent, isolated PVCs and PACs, one 6-beat run of SVT at 130 bpm H/o lap band removal in late February 2017 (Dr. Peoples) Carotid u/s of February 2017: minimal bilat carotid dz Hypertension, controlled History of head trauma resulted in unsteady gait and weakness, now wheel-chair bound History of intolerance to ROSARIO inhibitor secondary to postural hypotension Hyperlipidemia Diabetes mellitus, followed and managed by primary care physician CKD-3, diabetic nephropathy Chronic pedal edema, chronic venous stasis changes in the lower extremities; venous ulcers on the R leg, managed by Dr Estrada Normal ABIs in Apr 2016 (Dr Lora's office) Tailbone/anal pain. Anal fistula/piolonidal cyst - s/p colostomy - Dr. Peoples. He is currently awaiting colostomy reversal Plan: * I explained to him the cath findings and the intervention undertaken * Continue current regimen * Reduce doxazosin because bp running low normal * Close outpat f/u AKSHAT SEYMOUR MD FACP FAC CCDS Mar 04, 2019 08:21
[2019-03-04] MEDS ORDERED: ASPI-999 PO (08:27)
[2019-03-04] MEDS ORDERED: CLOP75TA28 PO (08:27)
[2019-03-04] MEDS ORDERED: DOXA2TAB2 PO (08:27)
[2019-03-04] MEDS: ZIPRASIDONE 40 MG (GEODON) CAP PO SCH (08:29)
--- NOTE | 2019-03-04 08:29 | Discharge Inst-Cardiology ---
Discharge Inst-Cardiac Problems Reviewed?: Yes Discharge Medications New Medications: Aspirin (Aspirin) 81 Mg Tab.chew 81 MG PO DAILY for 90 Days, #90 TAB 3 Refills Clopidogrel Bisulfate (Clopidogrel) 75 Mg Tablet 75 MG PO DAILY for 90 Days, #90 TAB 3 Refills Doxazosin Mesylate (Doxazosin Mesylate) 2 Mg Tablet 2 MG PO HS for 30 Days, #30 TAB 5 Refills Continued Medications: Acetaminophen (Tylenol) 325 Mg Tablet 650 MG PO Q4H PRN for PAIN-MILD OR TEMPATURE, TAB TAKES 2 (325MG) TABLETS Atorvastatin Calcium (Lipitor) 10 Mg Tablet 10 MG PO HS, TAB Carboxymethylcellulose Sodium (Refresh Tears) 15 Ml Drops 1 DROP OU Q12H PRN for DRY EYES, DROPS Cholecalciferol (Vitamin D3) (Vitamin D3) 5,000 Unit Tablet 5000 UNIT PO DAILY, TAB Dextrose (Gluco Burst) 37.5 Gm Gel..gram. 1 PACKET PO UD PRN for HYPOGLYCEMIA, TUBE GIVE 1 PACKET EVERY 15 MINUTES NEEDED Diphenhydramine HCl (Benadryl) 25 Mg Capsule 25 MG PO Q6H PRN for ITCHING, CAP Docusate Sodium (Colace) 100 Mg Capsule 100 MG PO BID, CAP Duloxetine HCl (Cymbalta) 60 Mg Capsule.dr 60 MG PO DAILY, CAP Fentanyl (Duragesic Patch 25MCG) 1 Each Patch.td72 25 MCG TD Q72H, PATCH Ferrous Sulfate (Ferrous Sulfate) 325 Mg Tablet 325 MG PO BID, TAB Gabapentin (Gabapentin) 300 Mg Capsule 300 MG PO 0900,1400, CAP Gabapentin (Gabapentin) 300 Mg Capsule 600 MG PO HS, CAP TAKES 2 (300MG) CAPSULES Glucagon,Human Recombinant (Glucagon Emergency Kit) 1 Mg/Kit Soln 1 MG IJ UD PRN for BS<60, EA Hydrocodone/Acetaminophen (Hydrocodone-Acetamin 5-325 mg) 1 Each Tablet 1 EACH PO Q6H PRN for PAIN-MODERATE, TAB Insulin Aspart (Novolog) 100 Unit/1 Ml Susp 60 UNIT SQ 0800,1700,2000, EACH Insulin Aspart (Novolog) 100 Unit/1 Ml Susp 65 UNIT SQ 1200, EACH Insulin Degludec (Tresiba Flextouch U-100) 100 Unit/1 Ml Insuln.pen 92 UNIT SQ DAILY, EA Lamotrigine (Lamictal) 25 Mg Tablet 25 MG PO HS, TAB Liraglutide (Victoza 3-Ryan) 0.6 Mg/0.1 Ml Pen.injctr 0.6 MG SQ DAILY, VIAL Magnesium Oxide (Magnesium Oxide) 400 Mg Tablet 400 MG PO DAILY, TAB Melatonin (Melatonin) 5 Mg Tab.ir.er 5 MG PO HS Metoprolol Succinate (Toprol Xl) 50 Mg Tab.er.24h 50 MG PO DAILY, TAB Mirabegron (Myrbetriq) 50 Mg Tab.er.24h 50 MG PO DAILY, TAB Multivitamin (Multivitamins) 1 Each Tablet 1 EACH PO DAILY, TAB Ondansetron (Ondansetron Odt) 4 Mg Tab.rapdis 4 MG PO Q6H PRN for NAUSEA/VOMITING-1ST LINE, TAB Pantoprazole Sodium (Pantoprazole Sodium) 20 Mg Tablet.dr 20 MG PO BID, TAB Polyethylene Glycol 3350 (Miralax) 17 Gm Powd.pack 17 GM PO BID, EACH Ziprasidone HCl (Ziprasidone HCl) 80 Mg Capsule 80 MG PO BID, CAP Discontinued Medications: Aspirin (Aspir 81) 81 Mg Tablet.dr 81 MG PO DAILY, TAB Doxazosin Mesylate (Cardura) 2 Mg Tablet 4 MG PO HS, TAB AKSHAT SEYMOUR MD FACP FAC CCDS Mar 04, 2019 08:29
--- NOTE | 2019-03-04 08:29 | Discharge Inst-Post CATH ---
Discharge Inst-CATH/EP Problems Reviewed?: Yes Post Cardiac Cath/EP D/C Inst Follow Up/Plan F/u with Dr Rocha in 2 weeks ACTIVITY * Go Home directly and rest. * Limit activity of the leg (or wrist if it was used) for 7 days including aerobics, swimming, jogging, bicycling, etc. * Restrict stair-climbing for 7 days if possible, if not, climb up with your non-cath leg, then bring together on the same step. * Avoid lifting, pushing, pulling or excessive movement of the affected extremity for 7 days. * Customary sexual activity may be resumed after 2 days-use caution not to use a position that strains or causes pain to the affected extremity. * No driving for 24 hours. * NO SMOKING. * Avoid straining for bowel movements for 7 days. * Gentle walking on level ground is allowed. * Returning to work will depend on the type of procedure and the results. Your doctor will discuss this with you. CALL YOUR DOCTOR FOR ANY OF THE FOLLOWING: *If bleeding from the puncture site occurs- Apply gentle pressure to site with clean cloth and call your doctor or EMS. * If a knot or lump forms under the skin, increases in size, or causes pain. * If bruising appears to be worsening or moving further down your leg instead of disappearing. * Temperature above 101 F. CARE OF YOUR GROIN INCISION; * Bruising or purple discoloration of the skin near the puncture site is common. * You may shower only, no bathtub bathing for 5 days. Be careful to avoid slipping as your leg may feel stiff. * If a closure device was used on your femoral artery, please see the attached guide regarding care of the device and your leg. * Leave dressing on FOR 24 hours. CARE OF YOUR WRIST INCISION; * Bruising or purple discoloration of the skin near the puncture site is common. * You may shower. * DO NOT submerge wrist. * Leave dressing on FOR 24 hours. AKSHAT ROCHA MD [facility] CCDS Mar 04, 2019 08:29
[2019-03-04] MEDS: FERROUS SULF 325 MG (IRON) TAB PO SCH (08:30)
[2019-03-04] MEDS: PANTOPRAZOLE 20 MG TABLET (PROTONIX) PO SCH (08:30)
[2019-03-04] MEDS: GABAPENTIN 300 MG (NEURONTIN) CAP PO SCH (08:31)
[2019-03-04] MEDS: DOCUSATE SODIUM 100 MG (COLACE) CAP PO SCH (08:32)
[2019-03-04] MEDS: POLYETHYLENE GLYCOL 17 GM (MIRALAX) PACK PO SCH (08:32)
[2019-03-04] MEDS: inSUlin ASPART (NovoLOG) 1 UNIT/0.01 ML (CHARGE PER UNIT) SC SCH (08:34)
[2019-03-04] MEDS ORDERED: NON-FORMULARY MEDICATION 1 EA EA (Mirabegron (Myrbetriq) 50 MG) PO SCH (09:00)
[2019-03-04] MEDS ORDERED: CLOPIDOGREL 75 MG (PLAVIX) TABLET PO SCH (09:00)
[2019-03-04] MEDS ORDERED: MULTIVIT W/MINERALS TAB (THERAGRAN M) PO SCH (09:00)
[2019-03-04] MEDS ORDERED: NON-FORMULARY MEDICATION 1 EA EA (Liraglutide (Victoza 3-Pak) 0.6 MG) SQ SCH (09:00)
[2019-03-04] MEDS ORDERED: meTOproloL SUCCINATE 50 MG (TOPROL XL) TAB PO SCH (09:00)
[2019-03-04] MEDS ORDERED: DULoxetine 30 MG (CYMBALTA) CAP PO SCH (09:00)
[2019-03-04] MEDS ORDERED: MAGNESIUM OXIDE (MAG-OX)400 MG TAB PO SCH (09:00)
[2019-03-04] MEDS ORDERED: ASPIRIN 81 MG CHEW (CHILDREN'S ASA) PO SCH (09:00)
[2019-03-04] MEDS ORDERED: VITAMIN D3 5,000 UNITS (CHOLECALCIFEROL ) CAPSULE PO SCH (09:00)
--- NOTE | 2019-03-04 11:00 | NUR ---
REPORT GIVEN TO ATTILA TOBIAS AT [facility]. [facility], [place], ARRIVED AND VOICED NO QUESTIONS OR CONCERNS
[2019-03-05] MEDS ORDERED: FENTANYL PATCH REMOVAL TP SCH (09:00)
[2019-03-05] MEDS ORDERED: fentaNYL PATCH 25 MCG (DURAGESIC) TD SCH (09:00)
== END 2019-03-04 11:14 ==
LOC: CATH 06:59 → ICU 09:47 → CATH 03-04 11:14
PROVIDERS: ATTEND Internal Medicine Cardiovascular Disease
DX: I25.10 Atherosclerotic heart disease of native coronary artery without angina pectoris (principal); I13.10 Hypertensive heart and chronic kidney disease without heart failure, with stage 1 through stage 4 chronic kidney disease, or unspecified chronic kidney disease; E11.22 Type 2 diabetes mellitus with diabetic chronic kidney disease; I95.1 Orthostatic hypotension; I36.1 Nonrheumatic tricuspid (valve) insufficiency; I34.0 Nonrheumatic mitral (valve) insufficiency; E78.5 Hyperlipidemia, unspecified; G89.29 Other chronic pain; N18.3 Chronic kidney disease, stage 3 (moderate); M89.8X8 Other specified disorders of bone, other site; R19.7 Diarrhea, unspecified; R00.2 Palpitations; Z79.899 Other long term (current) drug therapy; Z79.82 Long term (current) use of aspirin; Z80.9 Family history of malignant neoplasm, unspecified; Z82.49 Family history of ischemic heart disease and other diseases of the circulatory system
CPT/HCPCS: 36415; 80048; 80053; 80061; 82962; 85027; 85610; 85730; 87081; 93005; 93458

== ENCOUNTER → 2019-03-11 | Outpatient (CLI) | payer MEDICARE, MEDICAID ==
[~2019-03-11] MED LIST changes: +ASPI-999 PO; +ATOR10TA PO; +CLOP75TA28 PO; +DIPH25CA79 PO; +DOXA2TAB PO; +DOXA2TAB2 PO; +FENT1PAT57 TD; -HEParin (CATH LAB) 2,000 ML IV ONE; +INSU100V16 SQ; +LAMO25TA75 PO; -LIDOCAINE 1% INJ 20 ML 20 ML VIAL ONE; +LIRA0.6P3 SQ; +MAGN400T7 PO; +MELA5TAB21 PO; +METO-352 PO; +MIRA50TA PO; +MULT1TAB69 PO; -NS IV 1000 ML 1,000 ML ONE; +ZIPR80CA23 PO
== END ==
LOC: WOUNDCARE 10:54
PROVIDERS: ATTEND Surgery
DX: I87.323 Chronic venous hypertension (idiopathic) with inflammation of bilateral lower extremity (principal); M62.3 Immobility syndrome (paraplegic); I70.203 Unspecified atherosclerosis of native arteries of extremities, bilateral legs; R41.83 Borderline intellectual functioning
CPT/HCPCS: 99212

== ENCOUNTER 2020-03-31 12:20 | Emergency (ER) | payer MEDICARE, MEDICAID ==
[~2020-03-31] VITALS: Ht 185 cm; Wt 127.0 kg
[~2020-03-31 12:20] MED LIST changes: -CLON0.5T13 PO; +CLON0.5T4 PO; -HYDR-3812 PO; -MAGN400T6 PO; +MAGN400T8 PO; -MIRT30TA3 PO; +MRTZ30T1 PO; +MULT-567 PO; -MULT1TAB69 PO; +PANT20TA18 PO; -PANT20TA3 PO; +ZIPR60CA18 PO; -ZIPR60CA20 PO; +ZIPR80CA21 PO; -ZIPR80CA23 PO
--- NOTE | 2020-03-31 12:51 | ED Psychosocial ---
General Chief Complaint: Psych/Social Disorder Stated Complaint: BEHAVIORAL ISSUES Source: patient Exam Limitations: no limitations History of Present Illness Date Seen by Provider: Mar 31, 2020 Time Seen by Provider: 12:20 Initial Comments To ER from [facility] with reports of aggressive behaviors. He allegedly barricaded one of the nurses into his room. He states that he is upset with them because it takes them a long time to answer the call light, they will let him go outside since he is not a smoker. Timing/Duration: just prior to arrival Severity: moderate Associated Symptoms: denies symptoms Allergies and Home Medications Allergies Coded Allergies: No Known Drug Allergies (Verified , 09/08/09) Home Medications Acetaminophen 325 Mg Tablet, 650 MG PO Q4H PRN for PAIN-MILD OR TEMPATURE, (Reported) TAKES 2 (325MG) TABLETS Aspirin 81 Mg Tab.chew, 81 MG PO DAILY Prescribed by: AKSHAT SEYMOUR on 03/04/19826 Atorvastatin Calcium 10 Mg Tablet, 10 MG PO HS, (Reported) Carboxymethylcellulose Sodium 15 Ml Drops, 1 DROP OU Q12H PRN for DRY EYES, (Reported) Cholecalciferol (Vitamin D3) 5,000 Unit Tablet, 5,000 UNIT PO DAILY, (Reported) Clopidogrel Bisulfate 75 Mg Tablet, 75 MG PO DAILY Prescribed by: AKSHAT SEYMOUR on 03/04/19826 Dextrose 37.5 Gm Gel..gram., 1 PACKET PO UD PRN for HYPOGLYCEMIA, (Reported) GIVE 1 PACKET EVERY 15 MINUTES NEEDED Diphenhydramine HCl 25 Mg Capsule, 25 MG PO Q6H PRN for ITCHING, (Reported) Docusate Sodium 100 Mg Capsule, 100 MG PO BID, (Reported) Doxazosin Mesylate 2 Mg Tablet, 2 MG PO HS Prescribed by: AKSHAT SEYMOUR on 03/04/19826 Duloxetine HCl 60 Mg Capsule.dr, 60 MG PO DAILY, (Reported) Fentanyl 1 Each Patch.td72, 25 MCG TD Q72H, (Reported) Ferrous Sulfate 325 Mg Tablet, 325 MG PO BID, (Reported) Gabapentin 300 Mg Capsule, 300 MG PO 0900,1400, (Reported) Gabapentin 300 Mg Capsule, 600 MG PO HS, (Reported) TAKES 2 (300MG) CAPSULES Glucagon,Human Recombinant 1 Mg/Kit Soln, 1 MG IJ UD PRN for BS<60, (Reported) Hydrocodone Bit/Acetaminophen 1 Each Tablet, 1 EACH PO Q6H PRN for PAIN- MODERATE, (Reported) Insulin Aspart 100 Unit/1 Ml Susp, 60 UNIT SQ 0800,1700,2000, (Reported) Insulin Aspart 100 Unit/1 Ml Susp, 65 UNIT SQ 1200, (Reported) Insulin Degludec 100 Unit/1 Ml Insuln.pen, 92 UNIT SQ DAILY, (Reported) Lamotrigine 25 Mg Tablet, 25 MG PO HS, (Reported) Liraglutide 0.6 Mg/0.1 Ml Pen.injctr, 0.6 MG SQ DAILY, (Reported) Magnesium Oxide 400 Mg Tablet, 400 MG PO DAILY, (Reported) Melatonin 5 Mg Tab.ir.er, 5 MG PO HS, (Reported) Metoprolol Succinate 50 Mg Tab.er.24h, 50 MG PO DAILY, (Reported) Mirabegron 50 Mg Tab.er.24h, 50 MG PO DAILY, (Reported) Multivitamin 1 Each Tablet, 1 EACH PO DAILY, (Reported) Ondansetron 4 Mg Tab.rapdis, 4 MG PO Q6H PRN for NAUSEA/VOMITING-1ST LINE, (Reported) Pantoprazole Sodium 20 Mg Tablet.dr, 20 MG PO BID, (Reported) Polyethylene Glycol 3350 17 Gm Powd.pack, 17 GM PO BID, (Reported) Ziprasidone HCl 80 Mg Capsule, 80 MG PO BID, (Reported) Patient Home Medication List Home Medication List Reviewed: Yes Review of Systems Constitutional: see HPI EENTM: see HPI Respiratory: no symptoms reported Cardiovascular: no symptoms reported Genitourinary: no symptoms reported Musculoskeletal: no symptoms reported Skin: no symptoms reported Psychiatric/Neurological: No Symptoms Reported Past Hlvxadf-Mnoxpy-Iqdxax Hx Patient Social History Alcohol Use: Denies Use Recreational Drug Use: No Smoking Status: Never a Smoker 2nd Hand Smoke Exposure: No Recent Hopitalizations: No Physical Abuse: No Sexual Abuse: No Immunizations Up To Date Tetanus Booster (TDap): Unknown Date of Pneumonia Vaccine: Jul 09, 2011 Date of Influenza Vaccine: Apr 07, 2018 Seasonal Allergies Seasonal Allergies: No Past Medical History Surgeries: Yes (COLOSTOMY, LAP BAND, rectal fistulotomy) Abdominal, Bowel Surgery, Cardiac, Coronary Stent, Rectal, Tonsillectomy Respiratory: Yes (CHRONIC DYSPNEA) Sleep Apnea Currently Using CPAP: No Cardiac: Yes (PSVT; CARDIAC CATHS X 3 PLUS ANGIOPLASTY; CAROTID DISEASE-NO INTERVENTION) Atrial Fibrillation, Chronic Edema/Swelling, Coronary Artery Disease, High C holesterol, Hypertension Neurological: Yes Neuropathy, Paralysis, Spinal Cord Injury, Traumatic Brain Injury Reproductive Disorders: No Sexually Transmitted Disease: No HIV/AIDS: No Genitourinary: Yes Prostate Problems, Renal Failure Gastrointestinal: Yes (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 ) Gastroesophageal Reflux, Chronic Constipation Musculoskeletal: Yes Chronic Back Pain Endocrine: Yes (OBESITY) Diabetes, Insulin dep HEENT: Yes (DRY EYES) Cancer: Yes Lung Psychosocial: Yes (SUICIDAL IDEATION) Suicide Attempts, Schizophrenia, Depression Integumentary: Yes (DECUBITUS ULCERS WITH DEBRIDEMENTS AND RECTAL FISTULECTOMY; ABSCESS I&D'S ) Blood Disorders: No Adverse Reaction/Blood Tranf: No Family Medical History Patient reports no known family medical history. No Pertinent Family Hx Physical Exam Vital Signs - First Documented 03/31/20 12:20 Temp 36.4 Pulse 72 Resp 20 B/P (MAP) 109/51 (70) Pulse Ox 98 Capillary Refill : Height, Weight, BMI Height: 6'1.00" Weight: 308lbs. 0.0oz. 139.741121yk; 40.6 BMI Method:Stated General Appearance: WD/WN, no apparent distress, obese, other (patient requires a qhk-zb-buemo left. Not quite sure how he accomplished barricading a nurse into his room.) Neck: non-tender, full range of motion Respiratory: lungs clear, normal breath sounds, no respiratory distress, no accessory muscle use Gastrointestinal: normal bowel sounds, soft Neurologic/Psychiatric: alert, normal mood/affect Appearance/Memory: appropriate appearance, appropriate insight Thoughts/Hallucinations: normal thought pattern, no apparent hallucination Skin: normal color, warm/dry Progress/Results/Core Measures Results/Orders Lab Results Laboratory Tests Test 03/31/20 13:07 Range/Units White Blood Count 8.1 4.3-11.0 10^3/uL Red Blood Count 4.36 4.30-5.52 10^6/uL Hemoglobin 13.6 13.3-17.7 g/dL Hematocrit 44 40-54 % Mean Corpuscular Volume 100 H 80-99 fL Mean Corpuscular Hemoglobin 31 25-34 pg Mean Corpuscular Hemoglobin Concent 31 L 32-36 g/dL Red Cell Distribution Width 13.5 10.0-14.5 % Platelet Count 144 130-400 10^3/uL Mean Platelet Volume 11.0 9.0-12.2 fL Immature Granulocyte % (Auto) 0 % Neutrophils (%) (Auto) 70 42-75 % Lymphocytes (%) (Auto) 21 12-44 % Monocytes (%) (Auto) 6 0-12 % Eosinophils (%) (Auto) 3 0-10 % Basophils (%) (Auto) 1 0-10 % Neutrophils # (Auto) 5.6 1.8-7.8 10^3/uL Lymphocytes # (Auto) 1.7 1.0-4.0 10^3/uL Monocytes # (Auto) 0.5 0.0-1.0 10^3/uL Eosinophils # (Auto) 0.2 0.0-0.3 10^3/uL Basophils # (Auto) 0.0 0.0-0.1 10^3/uL Immature Granulocyte # (Auto) 0.0 0.0-0.1 10^3/uL Sodium Level 136 135-145 MMOL/L Potassium Level 4.5 3.6-5.0 MMOL/L Chloride Level 101 98-107 MMOL/L Carbon Dioxide Level 25 21-32 MMOL/L Anion Gap 10 5-14 MMOL/L Blood Urea Nitrogen 16 7-18 MG/DL Creatinine 1.54 H 0.60-1.30 MG/DL Estimat Glomerular Filtration Rate 46 BUN/Creatinine Ratio 10 Glucose Level 171 H 70-105 MG/DL Calcium Level 8.8 8.5-10.1 MG/DL My Orders Orders - LA HAZEL APRN Cbc With Automated Diff (03/31/20 12:38) Basic Metabolic Panel (03/31/20 12:38) Ua Culture If Indicated (03/31/20 12:38) Vital Signs/I&O 03/31/20 12:20 Temp 36.4 Pulse 72 Resp 20 B/P (MAP) 109/51 (70) Pulse Ox 98 Departure Communication (Admissions) 1412-remains cooperative and pleasant. 1443-web site administrator at [facility] would like the patient admitted to [facility]. States he does have a power of director of instruction. However the patient is alert and oriented, he is of sound mind he knows why he is here stating "I blew up at management". He knows the year is 2019 and knows he is at [facility]. I have no reason to consider him incompetent at this time and force him against his will in to inpatient psych. We will discharge back to nursing facility with a prescription for when necessary lorazepam, mental health at [place] has been contacted and will call back, may be able to screen him at the facility. Impression Primary Impression: Agitation Disposition: 01 HOME, SELF-CARE Condition: Stable Departure-Patient Inst. Decision time for Depature: 14:12 Referrals: MARCUS CORREIA DO (PCP/Family) Primary Care Physician Patient Instructions: NO INSTRUCTIONS GIVEN Add. Discharge Instructions: 1. Follow-up with primary care. Return to ER for any concerns. All discharge instructions reviewed with patient and/or family. Voiced understanding. Copy Copies To 1: MIGUEL ANGEL MCCORMICK MD, PETER J APRN Mar 31, 2020 12:51
[2020-03-31 13:13] LABS: BASOPHILS % (AUTO) 1 % (0-10); LYMPHOCYTES # (AUTO) 1.7 10^3/uL (1.0-4.0); MEAN CORPUSCULAR VOLUME 100 fL (80-99)
[2020-03-31 13:15] LABS: EOSINOPHILS # (AUTO) 0.2 10^3/uL (0.0-0.3); EOSINOPHILS % (AUTO) 3 % (0-10); HEMATOCRIT 44 % (40-54); HEMOGLOBIN 13.6 g/dL (13.3-17.7); LYMPHOCYTES % (AUTO) 21 % (12-44); MEAN CORPUSCULAR HEMOGLOBIN 31 pg (25-34); MEAN CORPUSCULAR HGB CONC 31 g/dL (32-36); MONOCYTES # (AUTO) 0.5 10^3/uL (0.0-1.0); MONOCYTES % (AUTO) 6 % (0-12); NEUTROPHILS # (AUTO) 5.6 10^3/uL (1.8-7.8); NEUTROPHILS % (AUTO) 70 % (42-75); PLATELET COUNT 144 10^3/uL (130-400); WHITE BLOOD COUNT 8.1 10^3/uL (4.3-11.0)
[2020-03-31 13:29] LABS: POTASSIUM 4.5 MMOL/L (3.6-5.0)
[2020-03-31 13:30] LABS: CALCIUM 8.8 MG/DL (8.5-10.1)
[2020-03-31 13:35] LABS: CREATININE SERUM 1.54 MG/DL (0.60-1.30)
[2020-03-31 16:04] VITALS: BP 109/51
== END 2020-03-31 15:57 | disposition home or self-care (01) ==
LOC: ER 12:20
DX: R45.1 Restlessness and agitation (principal); I10 Essential (primary) hypertension; E11.40 Type 2 diabetes mellitus with diabetic neuropathy, unspecified; I25.10 Atherosclerotic heart disease of native coronary artery without angina pectoris; E78.00 Pure hypercholesterolemia, unspecified; I48.91 Unspecified atrial fibrillation; G83.9 Paralytic syndrome, unspecified; K21.9 Gastro-esophageal reflux disease without esophagitis; K59.09 Other constipation; G89.29 Other chronic pain; M54.9 Dorsalgia, unspecified; F20.9 Schizophrenia, unspecified; F32.9 Major depressive disorder, single episode, unspecified; E66.9 Obesity, unspecified; Z68.41 Body mass index [BMI] 40.0-44.9, adult; Z85.118 Personal history of other malignant neoplasm of bronchus and lung; Z79.891 Long term (current) use of opiate analgesic; Z79.82 Long term (current) use of aspirin; Z87.820 Personal history of traumatic brain injury; Z79.02 Long term (current) use of antithrombotics/antiplatelets; Z79.4 Long term (current) use of insulin; Z95.5 Presence of coronary angioplasty implant and graft
CPT/HCPCS: 36415; 80048; 85025; 99283

== ENCOUNTER 2020-05-09 09:05 | Day surgery (SDC) | payer MEDICARE, MEDICAID ==
[~2020-05-09] VITALS: Ht 182 cm; Wt 116.8 kg
[~2020-05-09 09:05] MED LIST changes: +CARB10DR8 OP; +DAPA10TA PO; +EMPA25TA PO; +GABA800T10 PO; +LAMO150T4 PO; +RIZA10TA94 PO; +SEMA0.25 SQ; +[UNRECOGNIZED DRUG - CODE] PO
[2020-05-09] MEDS ORDERED: LACTATED RINGERS 1,000 ML IV STA (09:22)
[2020-05-09] MEDS ORDERED: LACTATED RINGERS 1,000 ML IV ONE (09:22)
[2020-05-09 10:13] VITALS: BP 131/59
--- NOTE | 2020-05-09 10:36 | Progress Note-Pre Operative ---
Pre-Operative Progress Note H&P Reviewed The H&P was reviewed, patient examined and no changes noted. Time Seen by Provider: 10:34 Date H&P Reviewed: May 09, 2020 Time H&P Reviewed: 10:35 Pre-Operative Diagnosis: screening colonoscopy POLY VEGA DO May 09, 2020 10:36
[2020-05-09] MEDS ORDERED: PROPOFOL INJECTION 50 ML IV ONE (11:53)
[2020-05-09] MEDS ORDERED: MIDAZOLAM 2 MG/2 ML (VERSED) VIAL ONE (11:53)
[2020-05-09 12:25] VITALS: BP 101/53
--- NOTE | 2020-05-09 12:29 | Progress Note-Post Operative ---
Post-Operative Progess Note Surgeon (s)/Social Work Coordinator (s) Surgeon POLY VEGA DO Social Work Coordinator: Terell Pre-Operative Diagnosis screening colonoscopy Post-Operative Diagnosis Loop Colostomy polyp Procedure & Operative Findings Date of Procedure 05/09/20 Procedure Performed/Findings Flex sig Anesthesia Type IV sedation by LEADERSHIP PROGRAM INTERN Estimated Blood Loss Estimated blood loss (mL): scant Specimens/Packing Specimens Removed none POLY VEGA DO May 09, 2020 12:29
[2020-05-09 12:30] VITALS: BP_SYST 101; BP_SYST 126; BP_DIAS 58; BP_DIAS 63
--- NOTE | 2020-05-09 12:30 | Endoscopy Discharge Instruct ---
Endo Procedure/Findings Findings 1.: Polyp 2.: Internal Hemorrhoids Discharge Instructions - Activity: You might feel a little sleepy until tomorrow. This is due to the medicine you received to relax you. Until tomorrow, you should: NOT drive a car, operate machinery or power tools. NOT drink any alcoholic beverages. NOT make any important decisions or sign importortant papers. Do not return to work until tomorrow, unless otherwise instructed. Resume previous activities tomorrow. Diet: Start by taking liquids. If you tolerate liquids, advance to solid food. 1.: Colonoscopy in 1 year Notify Physician - If you experience excessive bleeding, unusual abdominal pain, fever, or chest pain, contact your doctor immediately. POLY VEGA DO May 09, 2020 12:30
[2020-05-09 13:00] VITALS: BP 135/68
--- NOTE | 2020-05-09 13:08 | Anesthesia-General Post-Op ---
MAC Patient Condition Mental Status/LOC: Same as Preop Cardiovascular: Satisfactory Nausea/Vomiting: Absent Respiratory: Satisfactory Pain: Controlled Complications: Absent Post Op Complications Complications None Follow Up Care/Instructions Patient Instructions None needed. Anesthesiology Discharge Order Discharge Order Patient is doing well, no complaints, stable vital signs, no apparent adverse anesthesia problems. No complications reported per nursing. LUISITO SUN CRNA May 09, 2020 13:08
[2020-05-09 13:20] VITALS: BP 135/68
--- NOTE | 2020-05-10 05:06 | OPERATIVE REPORT ---
DATE OF SERVICE: PREOPERATIVE DIAGNOSIS: Screening colonoscopy. POSTOPERATIVE DIAGNOSES: The patient has a loop colostomy and he had a polyp. PROCEDURE: Flexible sigmoidoscopy. SURGEON: Tang Thomas DO FIELD PIPE LINES SUPERVISOR: Osman Figueredo DO. ANESTHESIA: IV sedation by the RESIDENT CARE AIDE. SPECIMENS: None. BLOOD LOSS: Scant. FLUIDS: Per anesthesia. POSTOPERATIVE CONDITION: Stable. INDICATION FOR PROCEDURE: The patient is a 65-year-old male who had a colostomy. He stated ____ he did not remember exactly what they did during the procedure. I thought it was just end loop colostomy, turned out to be a loop colostomy. FINDINGS: The patient had a loop colostomy. He did have a polyp, but this is complicated by the fact that he has a parastomal hernia and when we went down, we were going down one side of the colon. We thought it might be the descending colon, but it turned out it was sigmoid, we went all the way down and out the rectum and then when we tried the other side, we saw a polyp, but could not get the scope to go up because of the parastomal hernia. PROCEDURE NOTE: After informed consent was obtained, the patient was brought to the endoscopy suite, placed in bed in the supine position. He was sterilely prepped and draped in normal fashion after he was brought to the endoscopy suite. He was placed in supine position. RESIDENT CARE AIDE then administered sedation, monitored his vitals the entire time, heart rate, blood pressure and pulse ox. We started by going through the colostomy. Going down, we thought I was heading up the descending colon, but turned out as we continued down this colon, we are going to actually down the sigmoid and we out the rectum and so he had actually a loop colostomy, thought he had an end colostomy. Then able to go, carefully pull this back and then tried to go superiorly up the descending colon, but because of his parastomal hernia could not get the scope to advance up the descending colon, got into a little ways, could see a polyp, but again this parastomal hernia ____ had all the intestine and there was ____, it is very hard and did not want to cause any damage. So at this point, stopped. This is a flex sig. He will need a completion colonoscopy after he is reversed. The patient was recovered in endoscopy suite. Job ID: [id number] DocumentID: [id number] Dictated Date: 05/09/2020 17:41:00 Ballistic Technician Date: 05/10/2020 04:20:12 Dictated By: TANG THOMAS DO
== END 2020-05-09 13:20 | disposition home or self-care (01) ==
LOC: ENDO 09:05
PROVIDERS: ATTEND Surgery
DX: Z12.11 Encounter for screening for malignant neoplasm of colon (principal); K43.5 Parastomal hernia without obstruction or gangrene; K62.1 Rectal polyp; I10 Essential (primary) hypertension; I48.91 Unspecified atrial fibrillation; F32.9 Major depressive disorder, single episode, unspecified; G47.33 Obstructive sleep apnea (adult) (pediatric); F20.9 Schizophrenia, unspecified; I08.1 Rheumatic disorders of both mitral and tricuspid valves; I12.9 Hypertensive chronic kidney disease with stage 1 through stage 4 chronic kidney disease, or unspecified chronic kidney disease; N18.30 Chronic kidney disease, stage 3 unspecified; E11.22 Type 2 diabetes mellitus with diabetic chronic kidney disease; E78.49 Other hyperlipidemia; E66.9 Obesity, unspecified; Z68.35 Body mass index [BMI] 35.0-35.9, adult; Z79.82 Long term (current) use of aspirin; Z79.899 Other long term (current) drug therapy; Z93.3 Colostomy status; Z80.9 Family history of malignant neoplasm, unspecified
CPT/HCPCS: 82962

== ENCOUNTER 2020-05-09 10:17 | Outpatient (RCR) | payer MEDICARE, MEDICAID ==
[~2020-05-09] VITALS: Ht 182 cm; Wt 116.8 kg
[2020-05-09 10:32] LABS: BASOPHILS % (AUTO) 0 % (0-10); EOSINOPHILS # (AUTO) 0.2 10^3/uL (0.0-0.3); EOSINOPHILS % (AUTO) 2 % (0-10); HEMATOCRIT 49 % (40-54); HEMOGLOBIN 15.6 g/dL (13.3-17.7); LYMPHOCYTES # (AUTO) 1.9 10^3/uL (1.0-4.0); LYMPHOCYTES % (AUTO) 21 % (12-44); MEAN CORPUSCULAR HEMOGLOBIN 32 pg (25-34); MEAN CORPUSCULAR HGB CONC 32 g/dL (32-36); MEAN CORPUSCULAR VOLUME 100 fL (80-99); MONOCYTES # (AUTO) 0.6 10^3/uL (0.0-1.0); MONOCYTES % (AUTO) 6 % (0-12); NEUTROPHILS # (AUTO) 6.4 10^3/uL (1.8-7.8); NEUTROPHILS % (AUTO) 70 % (42-75); PLATELET COUNT 166 10^3/uL (130-400); WHITE BLOOD COUNT 9.2 10^3/uL (4.3-11.0)
== END 2020-05-09 10:44 | disposition home or self-care (01) ==
LOC: PREOP 10:17
PROVIDERS: ATTEND Surgery
DX: Z01.812 Encounter for preprocedural laboratory examination (principal); Z93.3 Colostomy status; Z11.2 Encounter for screening for other bacterial diseases
CPT/HCPCS: 36415; 85025; 87081

== ENCOUNTER 2020-05-11 09:31 | Inpatient (IN) | payer MEDICARE, MEDICAID ==
[~2020-05-11] VITALS: Ht 182 cm; Wt 116.8 kg
[2020-05-11] VITALS (12 sets, daily range): BP systolic 115–172; BP diastolic 57–80
[2020-05-11] MEDS ORDERED: ceFAZolin 2 GM IV Premixed 50 ML IV ONE (09:45)
[2020-05-11] MEDS ORDERED: CATHETER FLUSH 10 ML SYR IV PRN (10:00)
[2020-05-11] MEDS: LACTATED RINGERS 1,000 ML IV PRN ×2 (10:02→11:29)
--- NOTE | 2020-05-11 10:27 | NUR ---
PATIENT STATES HE HAS SUICIDAL THOUGHTS AND IDEATIONS ALL THE TIME, ALSO INFORMED THIS RN THAT HE SEES A PSYCHIATRIST THROUGH [facility] EVERY THREE MONTHS.
[2020-05-11] MEDS ORDERED: LIDOCAINE/EPI 1%-1:100,000 (XYLOCAINE) 20ML ONE (10:35)
--- NOTE | 2020-05-11 10:39 | Progress Note-Pre Operative ---
Pre-Operative Progress Note H&P Reviewed The H&P was reviewed, patient examined and no changes noted. Time Seen by Provider: 10:36 Date H&P Reviewed: May 11, 2020 Time H&P Reviewed: 10:37 Pre-Operative Diagnosis: Colostomy status, Parastomal hernia POLY VEGA DO May 11, 2020 10:39
[2020-05-11] MEDS ORDERED: MIDAZOLAM 2 MG/2 ML (VERSED) VIAL ONE (10:51)
[2020-05-11] MEDS ORDERED: fentaNYL INJECTION 100 MCG/2 ML AMP ONE (10:51)
[2020-05-11] MEDS ORDERED: ONDANSETRON 4 MG/2 ML (SDV) Z0FRAN ONE (11:49)
[2020-05-11] MEDS ORDERED: ROCURONIUM 10 MG/ML 5 ML SYRINGE IV ONE ×2 (11:49→12:06)
[2020-05-11] MEDS ORDERED: LIDOCAINE PF 2% 5 ML (XYLOCAINE) VIAL ONE (11:49)
[2020-05-11] MEDS ORDERED: proPOfol 200 MG/20 ML (DIPRIVAN) VIAL IV ONE (11:49)
[2020-05-11] MEDS ORDERED: SEVOFLURANE (ULTANE) 15 ML INHAL SOLN ONE ×4 (11:50→12:43)
[2020-05-11] MEDS ORDERED: GLYCOPYRROLATE 0.2 MG/ML (ROBINUL) 2 ML VIAL ONE ×2 (11:50→12:38)
[2020-05-11] MEDS ORDERED: NEOSTIGMINE 3 MG/3 ML VIAL ONE (12:38)
--- NOTE | 2020-05-11 12:44 | Progress Note-Post Operative ---
Post-Operative Progess Note Surgeon (s)/Bell Person (s) Surgeon POLY VEGA DO Bell Person: Terell Pre-Operative Diagnosis Colostomy status, Parastomal hernia Post-Operative Diagnosis same Procedure & Operative Findings Date of Procedure 05/11/20 Procedure Performed/Findings 1) Colostomy Reversal with partial colon resection 2) Parastomal Hernia repair with mesh placement Anesthesia Type GET Estimated Blood Loss Estimated blood loss (mL): less than 40ml Specimens/Packing Specimens Removed portion of sigmoid colon POLY VEGA DO May 11, 2020 12:44
[2020-05-11] MEDS ORDERED: ONDANSETRON 4 MG/2 ML (SDV) Z0FRAN IVP PRN ×2 (12:45→13:15)
[2020-05-11] MEDS ORDERED: morphine INJ 10 MG/ML 1ML (SYR OR VIAL) IVP PRN (12:45)
[2020-05-11] MEDS ORDERED: MEPERIDINE (DEMEROL) INJ 50 MG/ML IVP ONE (13:15)
[2020-05-11] MEDS ORDERED: HYDROmorphone 2 MG/ML VIAL (DILAUDID) IV ONE (13:15)
[2020-05-11] MEDS ORDERED: morphine INJ 10 MG/ML 1ML (SYR OR VIAL) IVP ONE (13:15)
[2020-05-11] MEDS ORDERED: PROMETHAZINE INJ 25 MG/ML (PHENERGAN) AMP IVP ONE (13:15)
[2020-05-11] MEDS ORDERED: KETOROLAC 30 MG/ML VIAL ONE (13:30)
[2020-05-11] MEDS ORDERED: HYDROmorphone 2 MG/ML VIAL (DILAUDID) ONE (13:30)
[2020-05-11] MEDS: KETOROLAC 30 MG/ML VIAL IVP SCH ×2 (13:34→18:17)
[2020-05-11] MEDS ORDERED: morphine INJ 4 MG/ML 1 ML (VIAL/SYRINGE) IV PRN (15:30)
[2020-05-11] MEDS: LACTATED RINGERS 1,000 ML IV SCH (15:46)
[2020-05-11] MEDS: ACETAMINOPHEN 500 MG TAB (TYLENOL) PO SCH ×2 (15:47→23:58)
[2020-05-11] MEDS: metroNIDAZOLE 500MG/100ML IVPB 100 ML IV SCH (15:47)
[2020-05-11] MEDS: ceFAZolin 2 GM IV Premixed 50 ML IV SCH (18:17)
[2020-05-12] MEDS: KETOROLAC 30 MG/ML VIAL IVP SCH ×4 (00:01→18:53)
[2020-05-12] MEDS: metroNIDAZOLE 500MG/100ML IVPB 100 ML IV SCH (00:06)
[2020-05-12] MEDS: LACTATED RINGERS 1,000 ML IV SCH ×3 (00:06→07:41)
--- NOTE | 2020-05-12 00:12 | OPERATIVE REPORT ---
DATE OF SERVICE: 05/11/2020 PREOPERATIVE DIAGNOSIS: Colostomy status as well as a parastomal hernia. POSTOPERATIVE DIAGNOSIS: Colostomy status as well as a parastomal hernia, pending pathology. PROCEDURE: 1. Colostomy reversal with partial colon resection. 2. Parastomal hernia repair with mesh placement. SURGEON: Poly Thomas DO GRINDING MACHINE OPERATOR: Osman Figueredo DO ANESTHESIA: General endotracheal tube. SPECIMEN: Portion of colon as well as skin portion of sigmoid colon. BLOOD LOSS: Less than 40 mL. FLUIDS: Per anesthesia. POSTOPERATIVE CONDITION: Stable. INDICATION FOR PROCEDURE: The patient is a 65-year-old male who has a colostomy and wanted to get this reversed and around it. He had a very large hernia defect, it was incarcerated. FINDINGS: The patient had an incarcerated parastomal hernia. He had a partial colon resection and a primary anastomosis of his colon. PROCEDURE NOTE: After informed consent was obtained, the patient was brought to the operating room, placed on the operating table in supine position. He was sterilely prepped and draped in normal fashion. Local lidocaine was used to infiltrate the skin around the colostomy site then elliptical incision was made with #15 blade, carried down through the skin into subcutaneous tissue, deepened down to subcutaneous tissue with Bovie electrocautery and started dissecting out around the colon and going into this incision and going down around to get into the hernia sac trying to get all of the bowel out of the way. Able to finally free up the hernia sac and all the bowel off of the wall and then bringing this deliver this through. At this point, then picked a spot on the sigmoid colon and descending colon, I made a defect on either on the superior and inferior limb with Bovie electrocautery, placed a FLORENCIO-75 in either limb. Clamped together then clamped and fired, and then transected thereby creating a [id number] functional end-to-end anastomosis, then used a reload of the FLORENCIO-75. Clamped across the colocolostomy and fired this thereby closing this, then took the mesentery off to remove this portion of colon clamping across the mesentery with hemostats in a stepwise fashion clamping and then creating small windows to place the hemostat and then tying under this with 3-0 Vicryl ties and then cutting it off with the Bovie electrocautery. Once this was done, we then passed this off the table and sent to pathology. At this point, make sure that the inner portion of the abdomen was free, no adhesions and then we placed a 5 mm port up in the left upper quadrant, I placed my hand into the abdomen and then made a small stab incision with #11 blade and then advanced a VersaStep system could feel it entered and then guided it in. I at this point, then placed a 5 mm port. Then, we elected to place a 15 x 20 Phasix mesh, had a suture on the opposite side of the Seprafilm and then closed this fascial defect with #1 double stranded PDS suture running from the medial aspect to the lateral aspect placing the suture in the middle and then we created pneumoperitoneum. Could see the closure, it looked good. At this point, then held the mesh up to the abdominal wall and then straightened out, placed 2 more ports with local lidocaine, 11 blade for stab incision and Versed system, all done under direct visualization, one in the right upper quadrant, one in the right lower quadrant, then using this with the SecureStrap and we used a grasper to pull out the mesh and then we started tacking it at the corners and inferior and right lateral corner and then the superior right lateral corner then tacking the corners on the left side, the lateral left side and then going around at half and 1 cm intervals. Stayed away from the bottom left corner of the mesh, which was down towards the inguinal area and wanted to stay away from the vessels and nerves in this area all the way around and then tacked middle to create a crown. This held up nicely, took a picture, looked good, intestine looked intact. At this point, then removed all ports under direct visualization, allowed pneumoperitoneum to escape then copiously irrigated the left lower incision with saline and then hemostasis obtained. Placed a Brittany drain and then closed the three 5 mm incisions with aftab, then close the left lower quadrant incision with aftab. Area was cleaned and dried, dressings placed. The patient tolerated the procedure. He was transferred to recovery room in stable condition. Sponge, instrument and needle count correct at the end of the case. Dr. Figueredo assisted in this case helping to make incisions, close incisions, identify anatomy, hold anatomy out of the way. Job ID: [id number] DocumentID: [id number] Dictated Date: 05/11/2020 13:52:34 Cpc Date: 05/12/2020 00:11:54 Dictated By: POLY THOMAS DO
[2020-05-12] MEDS: ceFAZolin 2 GM IV Premixed 50 ML IV SCH (03:24)
[2020-05-12 03:49] VITALS: BP 92/57
[2020-05-12] MEDS: ACETAMINOPHEN 500 MG TAB (TYLENOL) PO SCH ×2 (07:41→16:11)
[2020-05-12] MEDS: PANTOPRAZOLE 40 MG (PROTONIX) VIAL IVP SCH (07:41)
[2020-05-12 07:47] VITALS: BP 99/62
--- NOTE | 2020-05-12 08:24 | Anesthesia-General Post-Op ---
General Patient Condition Mental Status/LOC: Same as Preop Cardiovascular: Satisfactory Nausea/Vomiting: Absent Respiratory: Satisfactory Pain: Controlled Complications: Absent Post Op Complications Complications None Follow Up Care/Instructions Patient Instructions None needed. Anesthesia/Patient Condition Patient Condition Patient is doing well, no complaints, stable vital signs, no apparent adverse anesthesia problems. No complications reported per nursing. D/C home per [facility] Criteria: Yes ALY MAZA CRNA May 12, 2020 08:24
--- NOTE | 2020-05-12 09:00 | NUR ---
Angelica GUEVARA removed patient dietz with this RN assistance per Dr. correa. Patient tolerated well. Noticed penile drainage upon removal. Penis absorption pad placed at this time.
--- NOTE | 2020-05-12 10:40 | Progress Note - Surgery ---
TETE DU MED STUDENT 05/12/20 1040: Subjective Date Seen by a Provider: May 12, 2020 Time Seen by a Provider: 10:30 Subjective/Events-last exam Pt states he feels like he's doing better than yesterday. The pain is better today, 7/10 pain at LLQ. Pain was 9/10 yesterday. Pt eating liquid diet and tolerating it well. Pt feels like he's going to throw up sometimes but never vomits. Pt denies BM. Per nurse, wound dressings haven't been changed and aren't soaked yet. Nurse also states catheter was removed recently. Pt can't walk and hasn't been walking around. Review of Systems General: No Chills HEENT: Head Aches (Right side above ear); No Visual Changes, No Eye Pain, No Ear Pain Pulmonary: No Cough Cardiovascular: No: Chest Pain Gastrointestinal: Nausea, Abdominal Pain (LLQ); No: Vomiting Musculoskeletal: leg pain (20 years old pain) Objective Exam Vital Signs Date Time Temp Pulse Resp B/P (MAP) Pulse Ox O2 Delivery O2 Flow Rate FiO2 05/12/20 09:08 94 Nasal Cannula 2.00 05/12/20 07:47 99/62 (74) 05/12/20 03:49 36.6 68 16 92/57 (69) 94 Nasal Cannula 2.00 05/11/20 23:47 36.3 67 16 125/74 (91) 96 Nasal Cannula 2.00 05/11/20 20:00 96 Nasal Cannula 2.00 05/11/20 19:36 36.4 71 16 115/59 (77) 93 Nasal Cannula 2.00 05/11/20 15:51 36.1 76 18 133/66 (88) 91 Nasal Cannula 2.00 05/11/20 14:55 36.0 72 18 172/77 (108) 0 Nasal Cannula 2.00 05/11/20 14:15 Nasal Cannula 2 05/11/20 14:00 Nasal Cannula 2 05/11/20 14:00 36.3 14 149/65 (93) 92 Nasal Cannula 2 05/11/20 13:50 Room Air 05/11/20 13:50 12 162/75 (104) 98 Room Air 05/11/20 13:40 12 168/80 (109) 97 OxyMask 2 05/11/20 13:40 OxyMask 2 05/11/20 13:30 OxyMask 4 05/11/20 13:30 12 165/78 (107) 99 OxyMask 4 05/11/20 13:20 OxyMask 6 05/11/20 13:20 12 163/78 (106) 100 OxyMask 6 05/11/20 13:10 16 143/72 (95) 100 OxyMask 8 05/11/20 13:10 OxyMask 8 05/11/20 12:56 36.4 20 117/57 (77) 96 OxyMask 10 05/11/20 12:56 OxyMask 10 05/11/20 10:38 Room Air I & O 05/12/20 07:00 Intake Total 3960 ml Output Total 850 ml Balance 3110 ml Capillary Refill : Less Than 3 Seconds General Appearance: No Apparent Distress HEENT: PERRL/EOMI Respiratory: Lungs Clear, Normal Breath Sounds, No Accessory Muscle Use, No Respiratory Distress Cardiovascular: Regular Rate, Rhythm Gastrointestinal: normal bowel sounds, soft, tenderness (LLQ and LUQ), other (bloody drainage from LLQ incision site.) Extremity: Normal Capillary Refill Neurologic/Psychiatric: Alert, Oriented x3 Skin: Normal Color, Warm/Dry Results Lab Laboratory Tests 05/11/20 13:06: Glucometer 219H 05/11/20 15:28: Glucometer 207H Assessment/Plan Assessment/Plan Assessment/Plan 1) Colostomy Reversal with partial colon resection 2) Parastomal Hernia repair with mesh placement - change dressings and keep wound clean. continue abx. continue pain meds and IV fluids. Clinical Quality Measures DVT/VTE Risk/Contraindication: Risk Factor Score Per Nursin RFS Level Per Nursing on Admit: 4+=Very High TANG THOMAS DO 05/12/20 1215: Subjective Time Seen by a Provider: 11:56 Subjective/Events-last exam Pt seen and examined, states he has moderate pain. No flatus or BM, tolerating clears and would like some more food. Review of Systems General: No Chills; Fatigue, Malaise Pulmonary: No Cough Cardiovascular: No: Chest Pain Gastrointestinal: Nausea, Abdominal Pain (LLQ); No: Vomiting Objective Exam General Appearance: No Apparent Distress, Obese Respiratory: Lungs Clear, Normal Breath Sounds, No Accessory Muscle Use, No Respiratory Distress Cardiovascular: Regular Rate, Rhythm, No Murmur Gastrointestinal: soft, tenderness (LLQ and LUQ mostly at incisions), other (serosanguinous drainage from LLQ incision site.) Assessment/Plan Assessment/Plan Assessment/Plan S/P Colostomy reversal with partial colon resection S/P Hernia repair Bladder scan today, PT to work with pt, continue pain control, anti-emetics as needed and increase diet as tolerated. Awaiting return of bowel function and decreasing post-operative pain. Supervisory-Addendum Brief Verification & Attestation Participated in pt care: history, MDM, physical Personally performed: exam, history, MDM Care discussed with: Medical Student Procedures: n/a Verification and Attestation of Medical Student E/M Service A medical student performed and documented this service. I then reviewed and verified all information documented by the medical student and made modifications to such information, when appropriate. I personally performed a physical exam, medical decision making and then discussed any differences between the notes and made revisions as necessary to create one note. Tang Thomas , 05/12/20 , 12:15 TETE [employer] MED STUDENT May 12, 2020 10:40 TANG THOMAS DO May 12, 2020 12:15
--- NOTE | 2020-05-12 10:59 | NUR ---
Patient dressing saturated. Dressing changed at this time with Gauze, 3 ABD pads, and medipore tape. Patient tolerated procedure well.
[2020-05-12 12:00] VITALS: BP 105/52
--- NOTE | 2020-05-12 12:30 | NUR ---
Bladder scanned patinet. 60 in bladder at this time. notified.
--- NOTE | 2020-05-12 13:20 | NUR ---
Messaged Dr. Thomas to see if he would like the patient to get Lovenox
[2020-05-12] MEDS: ENOXAPARIN 40 MG/0.4 ML (LOVENOX) SYR SC SCH (13:50)
--- NOTE | 2020-05-12 15:02 | Physical Therapy Progress Note ---
Therapy Progress Note Patient adamantly declined PT stating, "they use the sit to stand at the senior living to get me in the w/c. I don't walk or do anything." RN notified. No PT indicated. 1 visit MAIRA MONTIEL PT May 12, 2020 15:02
--- NOTE | 2020-05-12 15:20 | NUR ---
Patient refusing turns and physical therapy.
--- NOTE | 2020-05-12 16:10 | NUR ---
Patient refused Tylenol and stated that it does nothing for his pain. States he takes ibuprofen at home and that is what helps him. Messaged Dr. Thomas and notified him at this time. Dr. Thomas stated the patient can not have ibuprofen.
[2020-05-12 16:19] VITALS: BP 101/62
[2020-05-12 20:02] VITALS: BP 105/60
--- NOTE | 2020-05-12 21:00 | NUR ---
PT HAD PICKERING CATHETER REMOVED THIS AM AND HAD NOT HAD ANY OUTPUT SINCE REMOVAL. PT WAS BLADDER SCANNED AT APPROXIMATELY 2014 AND NOTED TO HAVE 256ML IN BLADDER. DR. VEGA NOTIFIED AT APPROXIMATELY 2029 AND GAVE ORDERS TO STRAIGHT. PT CATHED AT APPROXIMATELY 2044 AND 250ML URINE OBTAINED.
[2020-05-13 00:13] VITALS: BP 127/69
[2020-05-13] MEDS: ACETAMINOPHEN 500 MG TAB (TYLENOL) PO SCH ×2 (00:47→07:30)
[2020-05-13] MEDS: KETOROLAC 30 MG/ML VIAL IVP SCH ×3 (00:47→12:40)
[2020-05-13 03:49] VITALS: BP 144/77
[2020-05-13] MEDS: PANTOPRAZOLE 40 MG (PROTONIX) VIAL IVP SCH (07:50)
[2020-05-13 08:00] VITALS: BP 122/70
--- NOTE | 2020-05-13 09:05 | NUR ---
Patient has not urinated since straight cath last PM around 2100. Patient bladder scanned by Lizzette POOL at 0850. Scan shows [address] Thomas notified
--- NOTE | 2020-05-13 09:30 | NUR ---
Placed indwelling dietz with assistance from Lizzette POOL at this time per Dr. Gama request. 360 out. Patient tolerated well. Dr. Thomas notified.
--- NOTE | 2020-05-13 10:30 | Progress Note - Surgery ---
TETE DU MED STUDENT 05/13/20 1030: Subjective Date Seen by a Provider: May 13, 2020 Time Seen by a Provider: 08:00 Subjective/Events-last exam Pt states it's a 5/10 pain in LLQ. It feels like a ball is stuck down there. Pt denies having BM since surgery but had flatulence last night. Pt denies urinating since catheter removal yesterday. Pt states bladder feels full and he has attempted to urinate but is unable to. Pt feels a little bit of pain trying to urinate. Pt has been unable to walk and has been wheelchair bound for 7 yrs. Pt is on dysphagia 2 diet. Pt has N but denies V. Pt states he also has intermittent GREEN[place]OD on R side. Per nurse, pt has refused to be turned and refusing PT. Pt had bladder scan yesterday 270 and is full at 360 today. Pt would like to be discharged. Review of Systems General: No Chills, No Night Sweats HEENT: Head Aches (R side); No Visual Changes, No Eye Pain, No Ear Pain Pulmonary: Cough (not new) Cardiovascular: No: Chest Pain Gastrointestinal: Nausea, Abdominal Pain (LLQ); No: Vomiting Musculoskeletal: arm pain (not new) Objective Exam Vital Signs Date Time Temp Pulse Resp B/P (MAP) Pulse Ox O2 Delivery O2 Flow Rate FiO2 05/13/20 08:00 36.4 72 18 122/70 (87) 95 Room Air 05/13/20 03:49 36.6 66 16 144/77 (99) 96 Room Air 05/13/20 00:13 36.3 78 15 127/69 (88) 94 Room Air 05/12/20 20:30 Nasal Cannula 2.00 05/12/20 20:02 36.4 66 16 105/60 (75) 94 Room Air 05/12/20 16:19 36.4 65 16 101/62 (75) 94 Room Air 05/12/20 12:00 36.4 63 16 105/52 (69) 94 Room Air I & O 05/13/20 07:00 Intake Total 890 ml Output Total 350 ml Balance 540 ml Capillary Refill : Less Than 3 Seconds General Appearance: No Apparent Distress, Obese HEENT: PERRL/EOMI Respiratory: Lungs Clear, Normal Breath Sounds, No Accessory Muscle Use, No Respiratory Distress Cardiovascular: No Murmur Gastrointestinal: soft, tenderness (LLQ tenderness at incision site. LUQ tenderness), other (serosanguinous drainage at incision site. last changed yesterday around noon) Extremity: Normal Capillary Refill Neurologic/Psychiatric: Alert, Oriented x3 Skin: Normal Color, Warm/Dry Results Lab Laboratory Tests 05/12/20 11:04: Glucometer 213H 05/12/20 15:26: Glucometer 185H 05/12/20 20:35: Glucometer 182H 05/13/20 05:30: Glucometer 176H Assessment/Plan Assessment/Plan Assessment/Plan parasternal hernia repair colostomy reversal w/ partial colon resection - pt refused PT. continue pain meds. if pain is controlled, pt tolerates diet, then pt can be discharged. continue catheter. monitor for BM and urination. Clinical Quality Measures DVT/VTE Risk/Contraindication: Risk Factor Score Per Nursin RFS Level Per Nursing on Admit: 4+=Very High TANG VEGA DO 05/13/20 1125: Subjective Time Seen by a Provider: 09:54 Subjective/Events-last exam Pt seen and examined, states he still has abdominal pain on the left; basically at incision and mostly controlled with current meds. He is tolerating diet and asking if he can go home. Review of Systems General: No Chills, No Night Sweats Cardiovascular: No: Chest Pain Gastrointestinal: Abdominal Pain (LLQ); No: Nausea, Vomiting Objective Exam General Appearance: No Apparent Distress, Obese Respiratory: Lungs Clear, Normal Breath Sounds, No Accessory Muscle Use Cardiovascular: No Murmur, Irregularly Irregular Gastrointestinal: soft, tenderness (LLQ tenderness at incision site. LUQ tenderness), other (serosanguinous drainage at incision site; much less than yesterday) Assessment/Plan Assessment/Plan Assessment/Plan S/P Colostomy reversal with partial colon resection Repair of parastomal hernia Pt is refusing PT and not letting nurses turn him; he is asking to go back to [facility] where he lives. He is tolerating diet, but no BM yet. He is having some urinary retention and had to have the Amaral replaced. Will check with [facility] and send him home today if they accept him. Supervisory-Addendum Brief Verification & Attestation Participated in pt care: history, MDM, physical Personally performed: exam, history, MDM Care discussed with: Medical Student Procedures: n/a Verification and Attestation of Medical Student E/M Service A medical student performed and documented this service. I then reviewed and verified all information documented by the medical student and made modifications to such information, when appropriate. I personally performed a physical exam, medical decision making and then discussed any differences between the notes and made revisions as necessary to create one note. Tang Vega , 05/13/20 , 11:25 TETE DU MED STUDENT May 13, 2020 10:30 TANG VEGA DO May 13, 2020 11:25
[2020-05-13 11:47] VITALS: BP 124/72
--- NOTE | 2020-05-13 12:08 | NUR ---
CM/SS: Telephone call to [facility] [phone] - the facility to arrange discharge planning as pt will be leaving today. Plan: Pt to return to [facility] today Summary: Facility is contacted and notified that pt will Discharge today - talked with Amelia. She reports she will need to get back with me to the moss picker time. stake driver called back to say that they can be here at 4pm to moss picker pt. ATTILA Casillas is notified of the moss picker time.
[2020-05-13] MEDS: ENOXAPARIN 40 MG/0.4 ML (LOVENOX) SYR SC SCH (12:40)
--- NOTE | 2020-05-13 13:50 | NUR ---
previous breakdown area assessed. Patient has scarring from previous large pressure sore that is now healed, at top of gluteal cleft. Patient states, "It's been there for at least nine months." nursing staff have been applying barrier cream and turning patient q2hrs while in hospital to protect area. No new breakdown noted at this time.
--- NOTE | 2020-05-13 14:30 | NUR ---
Messaged Dr. Thomas at this time and requested him to put in patient discharge orders as patient will be going to [facility] at 1600
--- NOTE | 2020-05-13 15:16 | NUR ---
Changed patient dressing at this time. Patient tolerated well. Surgical site clean and dry.
[2020-05-13] MEDS ORDERED: ACHD5005 PO (15:35)
--- NOTE | 2020-05-13 15:36 | Discharge Inst-Surgical ---
Discharge Inst-Surgical Depart Medication/Instructions New, Converted or Re-Newed RX: RX Given to Pt/Family Patient Instructions Follow up Appt: Make appointment for 1 week. [phone] Instructions: No lifting greater than 20 pounds. No strenuous activity. May shower in 24 hours, no tub bath or soaking. Use incentive spirometer at home as directed. No Smoking Skin/Wound Care: May remove bandages in am. You need to leave the Dermabond on incision it will fall off on it's own. Symptoms to Report: Appetite Changes, Extremity Discoloration, Numbness/Tingling, Swelling Increased, Bleeding Excessive, Eyesight Changes, Pain Increased, Urine Color Change, Constipation(Persistent), Fever over 101 degree F, Pain/Pressure in chest, Urinating Difficulty, Cough Up/Vomit Blood, Heart Beat Irreg/Pounding, Pain/Pressure in jaw, Cramps in feet or legs, Lightheadedness, Pain/Pressure in shoulder, Diarrhea(Persistent), Memory Changes Suddenly, Questions/Concerns, Weight gain consecutive days, Dizziness/Fainting, Nausea/Vomiting, Shortness of Breath, Weight gain over 2 pounds If questions or concerns contact your physician Or seek help at emergency department. Activity Activity as Tolerated: Yes Diet Discharge Diet: No Restrictions Diet After 24 Hours: Clear Liquid if Nauseous If Any Problems/Questions/Issu: Contact Your Physician, Go to Emergency Room Skin/Wound Care Infection Signs and Symptoms: Increased Redness, Foul Odor of Wound, Increased Drainage, Skin Itchy or Has a Rash, Increased Swelling, Temperature Above 101 F Wound Care Comment: Pt has tori drain that will need to be pulled in a week or so, must see me in the clinic for this. Bathing Instructions: Shower Stitches/Ruthy/Dermabond Dis: Care of POLY Saucedo DO May 13, 2020 15:36
[2020-05-13 15:55] VITALS: BP 124/72
--- NOTE | 2020-05-13 16:06 | NUR ---
SABRINA BLACKWOOD JR discharged to [facility]. Staff notified of discharge and report given to [facility]. SABRINA BLACKWOOD JR belongings sent with patient. Skin dry and intact; no breakdown noted. JAISONSABRINA JR discharged with Amaral catheter. Vital signs are stable at time of discharge. Condition is stable at time of discharge. Discharge instructions and copies of H&P, discharge summary, physician's order, lab reports, consultation reports, other dictated reports, diagnostic imaging reports, Advance Directive, eMAR, vital signs, intake and output sent with patient and staff. Patient discharged from [facility] on 05/13/2020 at 1600. SABRINA BLACKWOOD JR left floor via wheelchair, accompanied by staff. SABRINA BLACKWOOD JR notified and verbalize understanding of discharge to [facility].
== END 2020-05-13 16:00 | disposition home or self-care (01) | DRG 331 ==
LOC: INTOOBSV 09:31 → 4TH 09:31 → OBSVTOIN 09:31 → SURG 09:32 → 4TH 14:09
PROVIDERS: ADMIT Surgery; ATTEND Surgery
PROC: 0WUF0JZ Supplement Abdominal Wall with Synthetic Substitute, Open Approach (ICD-10-PCS; 2020-05-11)
PROC: 0DBN0ZZ Excision of Sigmoid Colon, Open Approach (ICD-10-PCS; principal; 2020-05-11 10:51)
DX: K94.00 Colostomy complication, unspecified (principal); K43.5 Parastomal hernia without obstruction or gangrene; R33.9 Retention of urine, unspecified
CPT/HCPCS: 82962; 94760